=== PATIENT | female | born 1945 | race Caucasian/White ===

== ENCOUNTER → 2018-03-16 | Outpatient (CLI) | payer OTHER, MEDICARE ==
[~2018-03-16] MED LIST: ADVIN50/60 INH; ASTN; ATV/1 PO; CETI10TA84 PO; CLB/200 PO; FURO-85 PO; HYDR25TA4 PO; IPRA-64 INH; IPRA1AER2 INH; LISI20TA3 PO; LOVA40TA4 PO; METF500T PO; MULT-506 PO; PRLSR20 PO; RANI150T85 PO; TIOT1SPR INH
[2018-03-16 12:48] LABS: BASO % 0.3 %; BASO ABS # 0.03 K/uL (0-0.2); EOS % 4.6 %; EOS ABS # 0.43 K/uL (0-0.5); HEMATOCRIT 36.3 % (37-47); HEMOGLOBIN 12.2 g/dL (12.0-16.0); IG# 0.02 K/uL (0.00-0.02); LYMPH % 32.5 %; LYMPH ABS # 3.07 K/uL (1.2-3.4); MEAN CELL VOLUME 95.5 fL (80-100); MEAN CORPUSCULAR HEMOGLOBIN 32.1 pg (25-34); MEAN CORPUSCULAR HGB CONC 33.6 g/dl (32-36); MEAN PLATELET VOLUME 10.9 fL (7.4-10.4); MONO % 7.4 %; PLATELET COUNT 123 K/uL (130-400); RED CELL DISTRIBUTION WIDTH CV 13.1 % (11.5-14.5); RED CELL DISTRIBUTION WIDTH SD 45.5 fL (36.4-46.3); WHITE BLOOD COUNT 9.45 K/uL (4.8-10.8)
[2018-03-16 12:55] LABS: PTT PATIENT 26.1 SECONDS (21.0-31.0)
[2018-03-16 13:27] LABS: HEMOGLOBIN A1C 5.1 % (4.5-5.6)
[2018-03-16 13:53] LABS: BLOOD UREA NITROGEN 19 mg/dl (7-18); CALCIUM 9.5 mg/dl (8.5-10.1); CARBON DIOXIDE 25 mmol/L (21-32); CREATININE 0.97 mg/dl (0.60-1.20); GLUCOSE 83 mg/dl (70-99); POTASSIUM 4.1 mmol/L (3.5-5.1); SODIUM 139 mmol/L (136-145)
--- NOTE | 2018-03-27 08:46 | CODING QUERY MEDICAL NECESSITY ---
CQTREATMENT RENDERED WITHOUT A DIAGNOSIS To promote full compliance with coding requirements relating to patient care, physician participation is requested in all cases of electroless plater uncertainty. Please assist us with providing a diagnosis/symptom for the test(s) below: A diagnosis/symptom was not documented on your Order. A valid diagnosis/symptom is required to bill all insurances. Please remember that we are unable to code a diagnosis of rule out, probable, possible, questionable, or suspected. Tests that require a diagnosis: DOS 03/16/18 CBC TEST PARTIAL RENAL PROFILE GLYCATED HEMOGLOBIN TEST C-REACTIVE PROTEIN TEST CHEST X-RAY EKG TEST Provider Signature: Date: Thank you Beryl Miller [facility] Information Management Once completed, please kindly fax back to [phone] For questions please call [phone]
== END | disposition home or self-care (01) ==
LOC: C.CPL 11:14
PROVIDERS: ATTEND Orthopaedic Surgery Sports Medicine
DX: Z01.812 Encounter for preprocedural laboratory examination (principal); M25.862 Other specified joint disorders, left knee

== ENCOUNTER → 2018-03-30 | Outpatient (CLI) | payer OTHER, MEDICARE ==
[~2018-03-30] MED LIST changes: +ACET-24 PO; +ASPI-461 PO; +FRRG PO; +ULT50X PO
== END | disposition home or self-care (01) ==
LOC: C.LAB 11:37
PROVIDERS: ATTEND Orthopaedic Surgery Sports Medicine
DX: Z01.812 Encounter for preprocedural laboratory examination (principal)

== ENCOUNTER 2018-04-07 08:04 | Inpatient (IN) | payer OTHER, MEDICARE ==
[2018-03-10 11:14] VITALS: BMI 51.0
--- NOTE | 2018-03-16 10:59 | PAT Medication Instructions ---
Service Date Mar 16, 2018. Current Home Medication List Azelastine Hcl (Astelin Nasal [place]), 1-2 SPRAYS NA HS Celecoxib (CeleBREX), 200 MG PO QAM Cetirizine (Zyrtec), 10 MG PO QAM Fluticasone Prop/Salmeterol (Advair Diskus 500/50 60 Dose), 1 PUFF INH BID Furosemide (Lasix), 20 MG PO QAM PRN for EDEMA Hydrochlorothiazide (Hctz), 25 MG PO QAM Ipratropium-Albuterol (Combivent Respimat), 1 PUFFS INH Q4 PRN for SOB/Wheezing Ipratropium-Albuterol (Duoneb), 1 TREATMENT INH Q4H PRN for SOB/Wheezing Lisinopril (Prinivil), 20 MG PO QAM Lorazepam (Ativan), 1 MG PO HS Lovastatin (Mevacor), 40 MG PO HS Metformin Hcl (Glucophage), 500 MG PO QAM Multivitamin (Multivitamin), 1 TAB PO QAM Omeprazole (Prilosec), 20 MG PO QAM Ranitidine (Zantac), 150 MG PO QPM Tiotropium Happy (Spiriva Respimat), 1 PUFF INH QAM Medication Instructions For Your Scheduled Surgery - Check with surgeon for instructions: Celecoxib (CeleBREX), 200 MG PO QAM - Hold the following medications the morning of surgery: Metformin Hcl (Glucophage), 500 MG PO QAM Multivitamin (Multivitamin), 1 TAB PO QAM Lisinopril (Prinivil), 20 MG PO QAM Furosemide (Lasix), 20 MG PO QAM PRN for EDEMA Hydrochlorothiazide (Hctz), 25 MG PO QAM - Take the following medications the morning of surgery with a sip of water: Cetirizine (Zyrtec), 10 MG PO QAM Fluticasone Prop/Salmeterol (Advair Diskus 500/50 60 Dose), 1 PUFF INH BID Ipratropium-Albuterol (Combivent Respimat), 1 PUFFS INH Q4 PRN for SOB/Wheezing( if needed) Ipratropium-Albuterol (Duoneb), 1 TREATMENT INH Q4H PRN for SOB/Wheezing(if needed) Omeprazole (Prilosec), 20 MG PO QAM Tiotropium Happy (Spiriva Respimat), 1 PUFF INH QAM - Take the following medications as scheduled the night before surgery: Ranitidine (Zantac), 150 MG PO QPM Lorazepam (Ativan), 1 MG PO HS Lovastatin (Mevacor), 40 MG PO HS Ipratropium-Albuterol (Combivent Respimat), 1 PUFFS INH Q4 PRN for SOB/Wheezing( if needed) Ipratropium-Albuterol (Duoneb), 1 TREATMENT INH Q4H PRN for SOB/Wheezing(if needed) Furosemide (Lasix), 20 MG PO QAM PRN for EDEMA Fluticasone Prop/Salmeterol (Advair Diskus 500/50 60 Dose), 1 PUFF INH BID Azelastine Hcl (Astelin Nasal [place]), 1-2 SPRAYS NA HS If you have any questions please call us at [phone] or [phone] or [phone]
[2018-03-16 11:30] VITALS: BMI 51.0
--- NOTE | 2018-04-04 11:12 | HISTORY & PHYSICAL EXAMINATION ---
DATE OF ADMISSION: 04/07/2018 CHIEF COMPLAINT: Left knee pain. HISTORY OF PRESENT ILLNESS: Patient is a 72-year-old female well known to me from previous right knee replacement done a little over 5 years ago. She has done well from this side and very happy with her knee. Over the past several years, she has developed increased pain and discomfort in the left knee. She has been through extensive conservative treatment including both steroid shots and viscosupplementation provided by my partner Dr. Wright. She has become more debilitated by her knee pain. The shots do not help her much at all. The more she walks, the more she hurts. She would like to have her left knee fixed. PAST MEDICAL HISTORY: Significant for: 1. Hypertension. 2. Elevated cholesterol. 3. Asthma. 4. Sleep apnea. 5. Diabetes x10 years. 6. Obesity with BMI of 51. 7. Low back pain. PAST SURGICAL HISTORY: Include: 1. Cholecystectomy. 2. Hysterectomy. 3. T and A. 4. Bilateral carpal tunnel release. 5. Bilateral cataract surgery. 6. Right knee replacement done 10/23/2012. 7. Left shoulder replacement. ALLERGIES: 1. CECLOR, WHICH CAUSES HIVES. She does well with other cephalosporins. 2. BACTRIM. CURRENT MEDICINES: Include: 1. Advair Diskus twice a day. 2. Spiriva inhaler. 3. Metformin 500 mg. 4. Celebrex 200 mg. 5. Flonase twice a day. 6. Hydrochlorothiazide 25 mg. 7. Unspecified med - 40 mg at nighttime. 8. Lisinopril 20 mg a day. 9. Zyrtec. SOCIAL HISTORY: A 72-year-old female. She is . 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 Medical doctor is Dr. Hadley. FAMILY HISTORY: Significant for diabetes. No other significant history. REVIEW OF SYSTEMS: Significant for diabetes, but well controlled. Denies any chest pain. No shortness of breath. No history of DVT or PE. PHYSICAL EXAMINATION: GENERAL: Reveals a pleasant elderly female. Looks to be in reasonably good health. HEENT: Benign. NECK: Supple. No lymphadenopathy. LUNGS: Clear to auscultation. HEART: Regular rate and rhythm. ABDOMEN: Soft, nontender, nondistended. EXTREMITIES: Grossly neurovascularly intact. Examination of the left knee reveals the patient walks with a little bit of a waddling gait. She has got fairly neutral alignment to her knee. Moderate to large knee joint soft tissue envelope. Small knee effusion. Range of motion about 5 degrees show full extension by 115 degrees of flexion. There is no gross instability. No pain with hip motion. X-RAYS: X-ray of the left knee reviewed. It shows advanced left knee DJD. She has complete loss of medial joint space. She has got severe patellofemoral disease with maltracking of her patella and some fragmentation of the patella. ASSESSMENT: A 72-year-old female 5+ years out from a right knee replacement with advanced left knee degenerative joint disease involving all 3 compartments and actually most severe in the patellofemoral compartment. She has failed conservative treatment and would like to have her left knee replaced. PLAN: We will take her to the operating room and do a left total knee replacement. The risks and benefits of this procedure were explained to patient include, but not limited to DVT, PE, , infection, neurological injury, vascular injury, bleeding problem, pain, limited range of motion, stiffness, failure to relieve her symptoms, incomplete relief of symptoms, need for further surgery in future, fracture, leg length, inequality, nerve palsy, etc. The patient understands and desires to proceed. Informed consent was obtained. We did talk about holding her metformin, lisinopril, and hydrochlorothiazide the morning of surgery. She should bring her CPAP machine to the hospital. She has this allergy to Ceclor, but does okay with other, cephalosporins and we will give her Ancef preoperatively. ADALBERTOD
[2018-04-07] VITALS (7 sets, daily range): BP systolic 114–143; BP diastolic 54–74; PULSE 63–73; TEMP 36.5–37.3; O2SAT 94–98; Ht 157.5 cm; Wt 126.7 kg
[~2018-04-07] VITALS: Ht 157.5 cm; Wt 126.7 kg
[~2018-04-07 08:04] MED LIST changes: -ACET-24 PO; +ACETAMINOPHEN 500 MG TAB PO SCH; -ASPI-461 PO; +BUPIVACAINE 0.25% 30 ML VIAL ONE; +BUPIVACAINE 0.5 % 5 MG/1 ML PF 10ML VIAL ONE; +BUPIVACAINE LIPOSOME 266 MG, BUPIVACAINE/EPINEPHRINE INJ 50 ML, SODIUM CHLORIDE 0.9% PF... INFIL SCH; +CEFAZOLIN 3000MG IV PUSH 22.5 ML IV SCH; +FAMOTIDINE 20 MG TAB PO SCH; -FRRG PO; +GABAPENTIN 300 MG CAP PO SCH; +LACTATED RINGER'S 1000ML 1,000 ML IV SCH; +LACTATED RINGER'S 1000ML 500 ML IV SCH; +LACTATED RINGER'S 1000ML IV SCH; +METOCLOPRAMIDE HCL 10 MG TAB PO SCH; +SCOPOLAMINE 1.5 MG TDSY TD SCH; +TRANEXAMIC ACID INJ 1,000 MG x 1 Bag Intra-Op IV SCH; -ULT50X PO
[2018-04-07] MEDS ORDERED: ONDANSETRON INJ 2 MG/ML 2 ML VIAL IV PRN ×2 (08:15→14:15)
[2018-04-07] MEDS ORDERED: FENTANYL CITRATE INJ 50 MCG/1 ML 2 ML VIAL IV PRN (08:15)
[2018-04-07] MEDS ORDERED: EpHEDrine SULFATE INJ 50 MG/ML AMP IV PRN (08:15)
[2018-04-07] MEDS ORDERED: ATROPINE SULFATE 0.1 MG/ML 5ML SYR IV PRN (08:15)
--- NOTE | 2018-04-07 09:23 | History & Physical Bridge Note ---
H&P Re-Evaluation Bridge Note: I have examined the patient, reviewed the History & Physical and in the interval since the performance of the History & Physical I have noted the following changes of clinical significance: No changes noted
[2018-04-07] MEDS ORDERED: LIDOCAINE HCL 2% 2 ML VIAL (20MG/ML) ONE (10:35)
[2018-04-07] MEDS ORDERED: PROPOFOL IV EMULSION 10 MG/ML 20 ML VIAL ONE ×2 (10:35→11:14)
[2018-04-07] MEDS ORDERED: FENTANYL CITRATE INJ 50 MCG/1 ML 2 ML VIAL ONE (10:36)
[2018-04-07] MEDS ORDERED: MIDAZOLAM HCL 1 MG/ML 2ML VIAL ONE ×3 (10:36→12:20)
[2018-04-07] MEDS ORDERED: SODIUM CHLORIDE 0.9% PF 50 ML VIAL ONE (11:48)
[2018-04-07] MEDS ORDERED: BACITRACIN 50000 UNIT VIAL ONE (11:48)
[2018-04-07] MEDS ORDERED: BUPIVACAINE LIPOSOME 1/3% 266 MG/20 ML VIAL ONE (11:48)
[2018-04-07] MEDS ORDERED: EpINEphrine INJ 1MG/ML AMP 1 MG/ML AMP ONE (11:49)
[2018-04-07] MEDS ORDERED: BUPIVACAINE 0.25% 30 ML VIAL ONE (11:49)
[2018-04-07] MEDS ORDERED: EpHEDrine SULFATE INJ 50 MG/ML AMP ONE (12:39)
[2018-04-07] MEDS ORDERED: PHENYLEPHRINE 100MCG/ML 5ML SYR ONE (12:39)
--- NOTE | 2018-04-07 14:09 | [facility] Post Operative Brief Note ---
Immediate Operative Summary Operative Date Apr 07, 2018. Pre-Operative Diagnosis DEGENERATIVE JOINT DISEASE LEFT KNEE Post-Operative Diagnosis DEGENERATIVE JOINT DISEASE LEFT KNEE Procedure(s) Performed Left total knee arthroplasty Surgeon DR. Savannah CRUMP Clinical Informatics Physician Surgeon(s) Marium MILLER Estimated Blood Loss 75cc Findings Consistent with Post-Op Diagnosis Fluids (cc crystalloids) 1600 cc Specimens LEFT KNEE BONE AND TISSUE Drains None Anesthesia Type MAC Spinal Regional Complication(s) none Disposition Accompanied Pt To Recover: no Disposition: Recovery Room / PACU Overlapping Procedure I was present for: the critical portions of procedure. I was immediately available: during the entire case
[2018-04-07] MEDS ORDERED: GLUCOSE 10 TABS/TUBE PO PRN (14:15)
[2018-04-07] MEDS ORDERED: ZOLPIDEM TARTRATE 5 MG TAB PO PRN (14:15)
[2018-04-07] MEDS ORDERED: CARBOHYDRATES FOR HYPOGLYCEMIA PO PRN (14:15)
[2018-04-07] MEDS ORDERED: DEXTROSE 50% 50 ML SYR IV PRN (14:15)
[2018-04-07] MEDS ORDERED: GLUCOSE 40% GEL 15 GM TUBE PO PRN (14:15)
[2018-04-07] MEDS ORDERED: MAGNESIUM HYDROXIDE SUSP 30 ML UDC PO PRN (14:15)
[2018-04-07] MEDS ORDERED: FUROSEMIDE 20 MG TAB PO PRN (14:15)
[2018-04-07] MEDS ORDERED: ALBUT/IPRATROP 3MG/0.5MG NEB 3 ML VIAL INH PRN (14:15)
[2018-04-07] MEDS ORDERED: METOCLOPRAMIDE HCL INJ 5 MG/ML 2 ML VIAL IV PRN (14:15)
[2018-04-07] MEDS ORDERED: IPRATROPIUM BROMIDE/ALBUTEROL respimat INH INH PRN (14:15)
[2018-04-07] MEDS ORDERED: HYDROmorphone INJ 0.5 MG/0.5 ML SYR IV PRN (14:15)
[2018-04-07] MEDS ORDERED: ALUMINUM/MAGNESIUM/SIMETH (MAALOX MAX) 30 ML UDC PO PRN (14:15)
[2018-04-07] MEDS ORDERED: GLUCAGON FOR INJ 1 MG VIAL SQ PRN (14:15)
[2018-04-07] MEDS ORDERED: BISACODYL 10 MG SUPP PR PRN (14:15)
--- NOTE | 2018-04-07 14:33 | DIAGNOSTIC IMAGING REPORT ---
L KNEE 1 OR 2 VIEWS ROUTINE CLINICAL HISTORY: AP/LATERAL IN PACU LEFT KNEE joint replacement COMPARISON: None. DISCUSSION: Anatomic alignment post total left knee arthroplasty. Good contact between prosthetic and underlying bone. Expected soft tissue postoperative change. IMPRESSION: Anatomic alignment post total left knee arthroplasty. The above report was generated using voice recognition software. It may contain grammatical, syntax or spelling errors. Electronically signed by: Ricky Card M.D. 04/07/2018 2:32 PM Dictated Date/Time: 04/07/2018 2:31 PM
--- NOTE | 2018-04-07 14:39 | Anesthesiology Progress Note ---
Anesthesia Post Op Note Date & Time Apr 07, 2018 at 14:39 Vital Signs Pain Intensity: 0 Vital Signs Past 12 Hours Date Time Temp Pulse Resp B/P (MAP) Pulse Ox O2 Delivery O2 Flow Rate FiO2 04/07/18 14:25 65 16 114/59 98 Nasal Cannula 2 04/07/18 14:16 36.2 70 18 114/55 98 Nasal Cannula 2 04/07/18 08:39 36.9 73 20 135/74 96 Room Air Notes Mental Status: alert / awake / arousable, participated in evaluation Nausea / Vomiting: adequately controlled Pain: adequately controlled Airway Patency, RR, SpO2: stable & adequate BP & HR: stable & adequate Hydration State: stable & adequate Neuraxial Anesthesia: was administered, sensory block is resolving Anesthetic Complications: no major complications apparent
[2018-04-07] MEDS: [UNRECOGNIZED DRUG - OTHER] SCH (16:00)
[2018-04-07] MEDS: KETOROLAC TROMETHAMINE 15 MG/ML VIAL IV. SCH ×2 (16:26→20:51)
[2018-04-07] MEDS: CHECK SCOPOLAMINE PATCH PLACEMENT SCH (16:26)
[2018-04-07] MEDS: SODIUM CHLORIDE 0.9% 1000ML 1,000 ML IV SCH (16:26)
[2018-04-07] MEDS: INSULIN HUMAN REGULAR SC SCH ×2 (17:15→20:50)
[2018-04-07] MEDS: FERROUS GLUCONATE 324 MG TAB PO SCH (18:01)
[2018-04-07] MEDS ORDERED: TRANEXAMIC ACID INJ 1,000 MG in SODIUM CHLORIDE 0.9% 100ML 100 ML IV ONE (20:00)
--- NOTE | 2018-04-07 20:13 | OPERATIVE REPORT ---
DATE OF OPERATION: 04/07/2018 SURGEON: Campbell Nice MD JUDICIAL CLERK: FIDELIA Aguilar PREOPERATIVE DIAGNOSIS: Left knee degenerative joint disease. POSTOPERATIVE DIAGNOSIS: Same. PROCEDURE PERFORMED: Left cemented posterior stabilized total knee arthroplasty. COMPLICATIONS: None. ESTIMATED BLOOD LOSS: 75 mL. FLUID REPLACEMENT: 1600 mL crystalloid fluid replacement. TOURNIQUET TIME: 64 minutes at 300 mmHg. ANESTHESIA: Spinal with adductor canal block. DRAINS: None. SPECIMENS: Left knee sent for pathology. OPERATIVE INDICATIONS: Patient is a 72-year-old female who has a long history of bilateral knee pain and discomfort and degenerative arthritis. She underwent a right knee replacement a little over 5 years ago and has done well from this. Over the years, she has developed persistent progressive pain in her left knee unresponsive to conservative treatment. X-rays revealed advanced medial and patellofemoral compartment arthritis with significant patellofemoral maltracking. She elected to proceed with surgical treatment. FINDINGS: Operative findings revealed advanced left knee DJD. She had extensive grade 4 changes in the medial and patellofemoral compartments, most severe in the patellofemoral compartment. She had severe maltracking of the patella. She had extensive osteophytes in the medial patellofemoral compartment. Her bone density was fairly poor with diffuse osteopenia. OPERATIVE IMPLANTS: Consisted of 1. Biomet Vanguard size 65 left posterior stabilized femoral component. 2. Biomet size 67 tibial tray. 3. A 10 mm posterior stabilized polyethylene insert. 4. A 31 x 8 All-Poly patella. OPERATIVE PROCEDURE: Patient was taken to the operating room, identified and placed on the operating table in supine position. All contact areas were appropriately padded. IV antibiotics were provided by anesthesia team. A spinal anesthetic and adductor canal block had been provided in the holding area. A Marks catheter was placed in sterile fashion. A left thigh tourniquet was then placed in the left lower extremity. It was then prepped and draped in the usual sterile fashion. The left leg was elevated, exsanguinated with Esmarch, and tourniquet was insufflated to 300 mmHg. An anterior approach to the left knee was then performed through a longitudinal incision centered over the patella. Sharp dissection was carried down through the subcutaneous tissues down to the level of the extensor mechanism. A medial parapatellar arthrotomy incision was made. Some subperiosteal dissection was carried out medially. The fat pad was resected from beneath the patellar tendon. I then had to remove some of the patella osteophytes in order to subluxate the patella and katherine it intermittently. The patella was subluxated laterally. The knee was flexed. The osteophytes were taken off distal femur. The ACL and PCL released from the distal femur, and the tibia was subluxated anteriorly. The external tibial alignment jig was then placed in the anterior face of the tibia and adjusted 14 mm medially. Proximal tibial cut was made to remove about 2 to 3 mm of bone from the most deficient aspect of the medial tibial plateau. Some osteophytes were taken off medially and posteromedially. The tibia was sized to a size 67. We did maximize the size due to her osteoporosis, in that I desired for maximum tibial coverage. The attention was then drawn to femur. The distal femur was entered with a sharp drill bit. The intramedullary canal was suctioned. A left 5 degree valgus cutting guide was placed. Distal femoral cutting block was pinned in place. Distal femoral cut was made to take an additional 3 mm of bone off the distal femur. Femur was then sized to a size 65. We did downsize this almost an entire size. The AP cutting block was pinned parallel to the epicondylar axis, which was 9 degrees of external rotation. This was also made perpendicular to the trochlea, which required quite a bit of external rotation due to her maltracking. The anterior cut, anterior chamfer, posterior cut, posterior chamfer cuts were made. Box cutting guide was placed and adjusted slightly lateral, and the box cut was made. The knee was flexed. The remnants of the medial and lateral menisci were excised. The osteophytes were taken off the posterior aspect of the femur. Trial femoral component was placed. The tibial tray was pinned in maximum external rotation, and drill and stem punch were used to create defect in the proximal tibia for the tibial tray. The knee was then trialed and then the 10 mm insert fit most appropriately. Attention was then drawn to the patella. The patella was cleaned of all soft tissues. Patella was very warm. The thickest portion measured 18 mm. I cut this down to about 12. I did have to remove some of the lateral facet and the lateral osteophyte. We sized this to a size 31. Lug holes were drilled for 31 patella. Some additional bony material laterally was excised. I then curetted out some of the patella, which had not been cut down to the bone surface and created some small holes to allow for cement interdigitation. The patellar button was placed. Knee was taken through range of motion, and patella tracked more remarkably well with no thumbs test. Attention was drawn toward placement of permanent components. All trial components removed. The bone plug was placed in the distal femur to limit blood loss. A double batch Palacos G cement was mixed. A left size 65 posterior stabilized femoral component, size 67 tibial tray, a 10 mm posterior stabilized polyethylene insert, and a 31 x 8 All-Poly patella were then cemented in place. Knee was brought out into full extension until cement hardened. A final cement check was then performed. The pericapsular tissues were injected with a total of 100 mL of a combination of 20 mL Exparel, 30 mL normal saline, 50 mL of 0.25% Marcaine with epinephrine. The tourniquet was then let down for a final tourniquet time of 64 minutes. Hemostasis was assured with use of electrocautery. There was a little extra cancellous bone bleeding from around the femoral cut due to the indentation in her distal femur. We spent quite a bit of time meticulously obtaining excellent hemostasis. The wound was once again irrigated. Patient did receive 1 g of tranexamic acid. The extensor mechanism was then closed with a combination of 1 PDS suture and #1 Vicryl suture in a [id number] fashion. The extensor mechanism was checked and found to be intact. The subcutaneous tissue was then closed with #2 Dexon suture in a buried interrupted fashion. Skin was closed with skin liseth. Leg was then cleaned and dried and a sterile dressing of Xeroform, 4x4, sterile cast padding, and an Fidel bandage applied. Patient was then transferred to the recovery room in stable condition. The patient tolerated the procedure well with no complications. All needle and sponge counts were correct at the end of the operation. I attest to the content of the Intraoperative Record and any orders documented therein. Any exceptions are noted below. NILAM
[2018-04-07] MEDS: CEFAZOLIN IV 2,000 MG in SYRINGE 0 ML IV SCH (20:31)
[2018-04-07] MEDS ORDERED: ULT50X PO (20:35)
[2018-04-07] MEDS ORDERED: FRRG PO (20:35)
[2018-04-07] MEDS ORDERED: ASPI-461 PO (20:35)
[2018-04-07] MEDS ORDERED: ACET-24 PO (20:35)
--- NOTE | 2018-04-07 20:38 | Discharge Instructions ---
Discharge Instructions Date of Service Apr 07, 2018. Admission Reason for Admission: Left Knee Djd Discharge Discharge Diagnosis / Problem: Left Knee REplacemenbt Discharge Goals Goal(s): Decrease discomfort, Improve function, Increase independence, Improve disease control, Therapeutic intervention Activity Recommendations Activity Limitations: per Instructions/Follow-up section Weightbearing Status: Left weightbearing . Instructions / Follow-Up Instructions / Follow-Up ACTIVITY RECOMMENDATIONS: Physical Therapy: * You will go to physical therapy three times each week for four to six weeks after your surgery in order to regain your knee range of motion and to retrain your knee to work properly. * It is just as important to make sure you are getting your knee perfectly straight as it is to regain your knee bend. * Taking a pain pill an hour before therapy can help you have a more productive and comfortable therapy session. Home Exercise: * You were shown a series of exercises (heel props, heel slides, etc.) in the hospital. Do these exercises three to four times each day including the exercises you were shown in physical therapy. Walking: * Get up and walk several times each day. For the first four weeks, try not to stand or walk for more than one hour at a time. If you do stand or walk for more than one hour, you will not hurt anything, but your knee and leg will likely swell. * As you feel comfortable, you may change from the walker or crutches to a cane and then to independent walking. MEDICATIONS: New Medicine: * You will likely be taking one or more of these medications: 1. Tramadol - A quick and shorter-acting pain medication. Take one to two tablets every four to six hours to lessen your pain. 2. Iron Sulfate - Take two times each day for the month after surgery to help you replace the blood lost during surgery. 3. Aspirin - Thins your blood to lessen the chance of forming a blood clot. * The most common side effects of pain medicine and iron are nausea and constipation. If nausea or constipation is too much of a problem or if you have any questions about your new medicines or doses, call [facility] at . We will try to help you manage these issues. VERY IMPORTANT TO READ AND REVIEW" Pain: * The immediate post-operative period after knee replacement surgery is often quite painful. * You are given a prescription for pain medicine. You should take it, as directed, when you need it, especially before physical therapy and before going to bed. Pain that interferes with sleep is very common and can last several months. * You will likely need pain medicine for the first four to six weeks. It will not stop all of the pain. The pain will lessen and as you feel better, you may change to milder pain medicine such as Tylenol. * The most common side effects of pain medicine are nausea and constipation, so don't take more than you need. SPECIAL CARE INSTRUCTIONS: TEDs/Elastic Stockings: * The white elastic stockings help limit swelling and prevent blood clots from forming in your legs. The more you wear them, the more they work. * Wear them for six weeks after knee replacement surgery and four weeks after partial knee replacement. Prevention of Infection: * Take antibiotics one hour before any dental cleaning, dental work, urological procedure, gastrointestinal procedure or any invasive surgery in order to prevent your new joint from getting infected. * You may get the antibiotics from the doctor performing the procedure or you may call our office at before and we will call in a prescription to the pharmacy of your choice. Things to Watch For: * Drainage from the incision site that occurs more than one week after your surgery. * Severely increased knee/leg pain or swelling. * Increased redness at the incision site. * Fever above 102 degrees Fahrenheit. * Unusual chest pain or shortness of breath. * Unusual pain or burning with urination. Call [facility] at with any of the above problems or if you have any questions about your medicines or recovery. FOLLOW UP VISIT: Make an appointment to see your doctor for approximately two weeks after surgery for a progress check and staple removal by calling the office at . Current Hospital Diet Patient's current hospital diet: Diabetes Type 2 Diet Discharge Diet Recommended Diet: Regular Diet Procedures Procedures Performed: Left total knee arthroplasty Pending Studies Studies pending at discharge: no Laboratory Results Hemoglobin A1c Test 03/16/18 11:48 Range/Units Estimated Average Glucose 100 mg/dl Hemoglobin A1c 5.1 4.5-5.6 % Medical Emergencies . Who to Call and When: Medical Emergencies: If at any time you feel your situation is an emergency, please call [phone] immediately. . Non-Emergent Contact Non-Emergency issues call your: Surgeon . "Provider Documentation" section prepared by Campbell Nice. .
[2018-04-07] MEDS: TRAMADOL HCL 50 MG TAB PO PRN (20:49)
[2018-04-07] MEDS: LORAZEPAM 1 MG TAB PO SCH (20:50)
[2018-04-07] MEDS: FLUTICASONE/SALMETEROL (ADVAIR) 500/50 INH 14 PUFF INH SCH (20:50)
[2018-04-07] MEDS: ACETAMINOPHEN 500 MG TAB PO SCH (20:50)
[2018-04-07] MEDS: DOCUSATE SODIUM 100 MG CAP PO SCH (20:51)
[2018-04-07] MEDS: ASPIRIN 81 MG ECTAB PO SCH (20:52)
[2018-04-07] MEDS: SENNA 8.6 MG TAB PO SCH (20:52)
[2018-04-07] MEDS: LOVASTATIN 20 MG TAB PO SCH (20:52)
[2018-04-07] MEDS: RANITIDINE HCL 150 MG TAB PO SCH (20:52)
[2018-04-08] VITALS (8 sets, daily range): BP systolic 99–146; BP diastolic 56–72; PULSE 64–75; TEMP 36.9–37.8; O2SAT 93–99
[2018-04-08] MEDS: CHECK SCOPOLAMINE PATCH PLACEMENT SCH ×4 (00:17→23:57)
[2018-04-08] MEDS: SODIUM CHLORIDE 0.9% 1000ML 1,000 ML IV SCH ×2 (00:18→08:34)
[2018-04-08] MEDS: KETOROLAC TROMETHAMINE 15 MG/ML VIAL IV. SCH ×4 (04:50→20:47)
[2018-04-08] MEDS: CEFAZOLIN IV 2,000 MG in SYRINGE 0 ML IV SCH (04:50)
[2018-04-08] MEDS: ACETAMINOPHEN 500 MG TAB PO SCH ×3 (06:14→20:49)
[2018-04-08 06:49] LABS: HEMATOCRIT 31.1 % (37-47); HEMOGLOBIN 10.3 g/dL (12.0-16.0); MEAN CELL VOLUME 95.4 fL (80-100); MEAN CORPUSCULAR HEMOGLOBIN 31.6 pg (25-34); MEAN CORPUSCULAR HGB CONC 33.1 g/dl (32-36); MEAN PLATELET VOLUME 11.2 fL (7.4-10.4); PLATELET COUNT 100 K/uL (130-400); RED CELL DISTRIBUTION WIDTH CV 13.1 % (11.5-14.5); RED CELL DISTRIBUTION WIDTH SD 45.4 fL (36.4-46.3)
[2018-04-08 07:23] LABS: CALCIUM 8.2 mg/dl (8.5-10.1); CREATININE 1.07 mg/dl (0.60-1.20); POTASSIUM 4.3 mmol/L (3.5-5.1)
[2018-04-08] MEDS: INSULIN HUMAN REGULAR SC SCH ×4 (08:00→20:44)
[2018-04-08] MEDS: [UNRECOGNIZED DRUG - OTHER] SCH ×2 (08:00)
--- NOTE | 2018-04-08 08:01 | Anesthesiology Progress Note ---
Anesthesia Post Op Note Date & Time Apr 08, 2018 at 08:01 Vital Signs Pain Intensity: 0.0 Vital Signs Past 12 Hours Date Time Temp Pulse Resp B/P (MAP) Pulse Ox O2 Delivery O2 Flow Rate FiO2 04/08/18 07:33 37.5 65 16 99/63 (75) 95 Room Air 04/08/18 06:44 37.7 04/08/18 03:58 37.8 75 18 126/56 (79) 93 CPAP 04/08/18 00:30 96 CPAP 2.0 04/07/18 23:12 36.8 70 18 114/60 (78) 98 CPAP Notes Mental Status: alert / awake / arousable, participated in evaluation Pt Amnestic to Procedure: Yes Nausea / Vomiting: adequately controlled Pain: adequately controlled Airway Patency, RR, SpO2: stable & adequate BP & HR: stable & adequate Hydration State: stable & adequate Neuraxial Anesthesia: was administered, sensory block resolved Anesthetic Complications: no major complications apparent
[2018-04-08] MEDS: RANITIDINE HCL 150 MG TAB PO SCH (08:31)
[2018-04-08] MEDS: FLUTICASONE/SALMETEROL (ADVAIR) 500/50 INH 14 PUFF INH SCH ×2 (08:31→20:47)
[2018-04-08] MEDS: PANTOprazole SOD 40 MG TAB PO SCH (08:31)
[2018-04-08] MEDS: ASPIRIN 81 MG ECTAB PO SCH ×2 (08:32→20:48)
[2018-04-08] MEDS: CETIRIZINE HCL 10 MG TAB PO SCH (08:32)
[2018-04-08] MEDS: LISINOPRIL 20 MG TAB PO SCH (08:32)
[2018-04-08] MEDS: MULTIVITAMIN TAB PO SCH (08:33)
[2018-04-08] MEDS: HYDROCHLOROTHIAZIDE 25 MG TAB PO SCH (08:33)
[2018-04-08] MEDS: DOCUSATE SODIUM 100 MG CAP PO SCH ×2 (08:33→20:48)
[2018-04-08] MEDS: FERROUS GLUCONATE 324 MG TAB PO SCH ×3 (08:33→18:33)
[2018-04-08] MEDS: TRAMADOL HCL 50 MG TAB PO PRN ×3 (08:35→20:50)
[2018-04-08] MEDS ORDERED: PANTOprazole SOD 40 MG TAB PO SCH (09:00)
[2018-04-08] MEDS ORDERED: MULTIVITAMIN TAB PO SCH (09:00)
--- NOTE | 2018-04-08 09:34 | PROGRESS NOTE ---
DATE: 04/08/2018 SUBJECTIVE: A 72-year-old white female postop day 1 from a left knee replacement. She is doing well. Pain is controlled. No chest pain or shortness of breath. Not feeling dizzy or lightheaded. OBJECTIVE: VITAL SIGNS: Temperature 37.5. Vital signs stable. GENERAL: Physical examination reveals a pleasant, middle-aged female. She is sitting up in her bedside chair, reading the newspaper and looking comfortable. LUNGS: Clear to auscultation. HEART: Regular rate and rhythm. ABDOMEN: Soft, nontender, nondistended. EXTREMITIES: Grossly neurovascularly intact except as follows: Examination of the left leg reveals the dressing to be clean, dry and intact. Leg is well aligned. She can dorsiflex and plantarflex her foot appropriately. She is neurologically intact. She can do a straight leg raise. LABORATORY DATA: Hemoglobin 10.3. Hematocrit 31.1. Electrolytes are stable. ASSESSMENT: A 72-year-old white female postop day 1 from left knee replacement, doing quite well. Pain is controlled. She is neurologically intact. PLAN: 1. DVT prophylaxis including thigh-high TEDs, SCDs, and aspirin twice a day. 2. PT/OT. Weightbear as tolerated. Left total knee protocol. 3. Pain control, doing well with current pain regimen. 4. Disposition: She is planning to be discharged to home and she is going to do therapy at [facility].
[2018-04-08] MEDS: SPIRIVA RESPIMAT INH SCH (15:37)
[2018-04-08] MEDS: LOVASTATIN 20 MG TAB PO SCH (20:47)
[2018-04-08] MEDS: SENNA 8.6 MG TAB PO SCH (20:47)
[2018-04-08] MEDS: LORAZEPAM 1 MG TAB PO SCH (20:48)
[2018-04-09 00:05] VITALS: TEMP 36.8
[2018-04-09] MEDS: KETOROLAC TROMETHAMINE 15 MG/ML VIAL IV. SCH ×2 (04:19→09:37)
[2018-04-09] MEDS: TRAMADOL HCL 50 MG TAB PO PRN ×2 (04:25→09:37)
[2018-04-09] MEDS: ACETAMINOPHEN 500 MG TAB PO SCH (06:03)
[2018-04-09 06:37] VITALS: BP 160/66; PULSE 74; TEMP 37.1; O2SAT 95
[2018-04-09] MEDS: INSULIN HUMAN REGULAR SC SCH (06:52)
[2018-04-09] MEDS: CHECK SCOPOLAMINE PATCH PLACEMENT SCH (07:03)
[2018-04-09] MEDS: FLUTICASONE/SALMETEROL (ADVAIR) 500/50 INH 14 PUFF INH SCH (07:05)
[2018-04-09] MEDS: SPIRIVA RESPIMAT INH SCH (07:06)
[2018-04-09] MEDS: PANTOprazole SOD 40 MG TAB PO SCH (07:06)
[2018-04-09] MEDS: MULTIVITAMIN TAB PO SCH (07:06)
[2018-04-09] MEDS: FERROUS GLUCONATE 324 MG TAB PO SCH (07:06)
[2018-04-09] MEDS: LISINOPRIL 20 MG TAB PO SCH (07:06)
[2018-04-09] MEDS: HYDROCHLOROTHIAZIDE 25 MG TAB PO SCH (07:07)
[2018-04-09] MEDS: CETIRIZINE HCL 10 MG TAB PO SCH (07:07)
--- NOTE | 2018-04-09 07:39 | PROGRESS NOTE ---
DATE: 04/09/2018 SUBJECTIVE: A 72-year-old female postop day 2 from a left knee replacement. She is doing well. Pain is controlled. Denies any chest pain or shortness of breath. Not feeling dizzy or lightheaded. OBJECTIVE: VITAL SIGNS: Temperature 37.1. Vital signs stable. EXTREMITIES: The left leg reveals the dressing to be in place. Just a slight bit of bloody drainage. Calf is soft and supple. She is neurologically intact. ASSESSMENT: A 72-year-old female postop day 2 from a left knee replacement, doing pretty well. Pain is controlled. PLAN: 1. DVT prophylaxis including thigh-high TEDs, SCDs, and aspirin twice a day. 2. PT/OT. Weight bear as tolerated. Left total knee protocol. 3. Pain control, doing well with current pain regimen. 4. Disposition: Plan to discharge to home and she is going to do outpatient therapy at [facility].
[2018-04-09 08:18] VITALS: BP 160/66; PULSE 74; TEMP 37.1; O2SAT 95
[2018-04-09] MEDS: ASPIRIN 81 MG ECTAB PO SCH (08:36)
[2018-04-09] MEDS: DOCUSATE SODIUM 100 MG CAP PO SCH (08:36)
--- NOTE | 2018-04-14 19:12 | DISCHARGE SUMMARY ---
ADMITTING PHYSICIAN AND SURGEON: Dr. Nice. ADMITTING DIAGNOSIS: Left knee degenerative joint disease. SURGERY PERFORMED: Left total knee arthroplasty. SECONDARY DIAGNOSES: Hypertension, elevated cholesterol, asthma, sleep apnea, diabetes, obesity, low back pain. CONSULTS: None obtained. HISTORY AND PHYSICAL EXAM: Well documented in patient's chart. HOSPITAL COURSE: The patient was admitted on 04/07/2018 and underwent total knee arthroplasty. The patient tolerated the procedure well. There were no complications. She was transferred to the PACU postoperatively and later to the orthopedic floor for further care. She was given Ancef for antibiotic prophylaxis, RANDI stockings, SCDs and aspirin for DVT prophylaxis. Hemoglobin, hematocrit and vital signs were monitored during hospital stay and remained stable. She developed some postoperative anemia, did not require any blood transfusions. There were no complications. By postoperative day 2, she was tolerating a diabetic diet. Pain was controlled with oral pain medicine. She was participating in physical therapy. On postop day 2, she was discharged home. She was given printed discharge instructions including new prescriptions for extra strength Tylenol, aspirin, iron supplement and tramadol. Continue her home medications, continue physical therapy, weightbearing as tolerated, RANDI stockings. Follow up in 10-12 days or sooner if any problems or concerns.
== END 2018-04-09 10:35 | disposition home or self-care (01) | DRG 470 ==
LOC: C.ACU 08:04 → C.3E 11:26 → ENRESERV 15:12
PROVIDERS: ADMIT Orthopaedic Surgery Sports Medicine; ATTEND Orthopaedic Surgery Sports Medicine
PROC: 0SRD0J9 Replacement of Left Knee Joint with Synthetic Substitute, Cemented, Open Approach (ICD-10-PCS; principal; 2018-04-07 11:00)
DX: M17.12 Unilateral primary osteoarthritis, left knee (principal); E66.9 Obesity, unspecified; Z68.43 Body mass index [BMI] 50.0-59.9, adult; I10 Essential (primary) hypertension; E78.00 Pure hypercholesterolemia, unspecified; E11.9 Type 2 diabetes mellitus without complications; J45.909 Unspecified asthma, uncomplicated; Z79.84 Long term (current) use of oral hypoglycemic drugs; Z79.899 Other long term (current) drug therapy

== ENCOUNTER 2024-11-18 19:09 | Inpatient (IN) ==
[2024-11-18 20:20] LABS: BUN Creatinine Ratio 22.3 (10-20); Calcium 9.3 mg/dl (8.6-10.3); Creatinine Clr Calc Pharmacy 33.3 ml/min; Potassium 3.9 mmol/L (3.5-5.1)
[2024-11-18 20:38] LABS: Basophils # (auto) 0.03 K/uL (0.00-0.20); Basophils % (auto) 0.4 %; Eosinophils # (auto) 0.25 K/uL (0.00-0.50); Eosinophils % (auto) 3.7 %; Hematocrit (blood only) 24.6 % (37.0-47.0); Hemoglobin 7.2 g/dl (12.0-16.0); Immature Granulocytes # (auto) 0.02 K/uL (0.01-0.20); Immature Granulocytes % (auto) 0.3 %; Lymphocytes # (auto) 2.06 K/uL (1.20-3.40); Lymphocytes % (auto) 30.5 %; Mean Corpuscular Hemoglobin 24.2 pg (25.0-34.0); Mean Corpuscular Hgb Conc 29.3 g/dL (32.0-36.0); Mean Corpuscular Volume 82.8 fL (80.0-100.0); Mean Platelet Volume 10.9 fL (9.4-12.4); Monocytes # (auto) 0.98 K/uL (0.11-0.59); Monocytes % (auto) 14.5 %; Neutrophils # (auto) 3.42 K/uL (1.40-6.50); Neutrophils % (auto) 50.6 %; Platelet Count 94 K/uL (130-400); Platelet Estimate Decreased (Normal); Polychromasia 1+; RDW Coefficient of Variation 16.5 % (11.5-14.5); RDW Standard Deviation 49.6 fL (36.4-46.3); Red Blood Count 2.97 M/uL (4.20-5.40); White Blood Count 6.76 K/ul (4.8-10.8)
[2024-11-18 20:40] LABS: INR 1.1 (0.9-1.1); Partial Thromboplastin Time 27 Seconds (21-31); Prothrombin Time 11.6 Seconds (9.0-12.0)
[2024-11-18 22:08] LABS: Albumin Level 3.6 gm/dl (3.4-5.0); Bilirubin Direct 0.1 mg/dl (0-0.2); Bilirubin,Total 0.6 mg/dl (0.2-1.0); Magnesium 2.1 mg/dl (1.7-2.4); Total Protein 6.3 gm/dl (6.0-8.3)
[2024-11-18] MEDS ORDERED: SODIUM CHLORIDE 0.9% 100 ML IV PRN (22:42)
--- NOTE | 2024-11-18 23:05 | History & Physical Report ---
Date of Service November 18, 2024 Assessment & Plan (1) Symptomatic anemia: Plan: Symptomatic anemia Hemoglobin drop from baseline noted this month. hx A-fib/atrial flutter status post cardioversion on Eliquis, GERD, portal gastropathy as per records, colonic polyps ; no overt bleed noted. First FOBT done at the ER was negative. ? Dilutional anemia from decompensated CHF, improved congestion following outpatient cardiology visit last month. 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 Patient agreeable to holding Eliquis until repeat FOBT resulted done to rule out GI bleed Continue diuretic regimen ISS BG goal 1 10-1 40, carb count coverage DVT prophylaxis. SCDs while Eliquis on hold given concern for GI bleed Full code Text document was generated using [employer] voice recognition software. It may contain grammatical or spelling errors. Kindly contact undersigned for clarification of any documentation item in question. History of Present Illness Chief Complaint: Abnormal blood work Primary Care Provider: Ryan Hadley MD History obtained from patient and records. Medical history significant for chronic diastolic heart failure (EF 50 to 55%, TTE 2023), A-fib/atrial flutter status post cardioversion on Eliquis, mild MR, hypertension, hyperlipidemia, SHANA on CPAP, bronchial asthma, , NAFLD cirrhosis, GERD, portal gastropathy as per records, colonic polyps, DM2 diet-controlled subclinical hyperthyroidism as per records, CRI (baseline creatinine 1.4), chronic anemia (baseline hemoglobin of 11 from June 2024), chronic thrombocytopenia, past tobacco abuse Last 2017 under Orthopedics service for elective left total knee surgery. Unremarkable postop course. Patient noted worsening SOB on exertion/fatigue symptoms the last 3 weeks. Denies chest pain or cough symptoms. Fluid retention actually getting better after adjustment of diuretic meds by cardiology provider last month. Outpatient hemoglobin 3 weeks ago noted to be down to 7.3 from baseline of 11 from last year. Patient denies abdominal pain, black/bloody stools, hematuria symptoms. Transient epistaxis over the last few weeks without headache symptoms. Transient bleeding post dental procedure last week. Outpatient hemoglobin drawn 2 days ago noted to be 6.8. Patient directed to ER for evaluation. FOBT done at the ER was negative. 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 Allergies Allergy/AdvReac Type Severity Reaction Status Date / Time cefaclor Allergy Intermediate HIVES-RASH Verified 11/18/24 22:14 sulfamethoxazole [Bactrim] Allergy Intermediate HIVES Verified 11/18/24 22:14 trimethoprim [Bactrim] Allergy Intermediate HIVES Verified 11/18/24 22:14 vanilla extract flavor Allergy Intermediate THROAT Verified 11/18/24 22:50 GETS TIGHT,COUGH *scent only* metformin AdvReac Unknown Unverified 11/18/24 22:14 Home Medications Medication Instructions Recorded Confirmed Type albuterol sulfate 2.5 mg/3 mL 2.5 mg inhalation Q6H PRN 06/28/21 11/18/24 History (0.083 %) solution for nebulization COUGH/WHEEZE/SHORT OF BREATH benzonatate 100 mg capsule 100 - 200 mg PO TID PRN Cough 06/28/21 11/18/24 History (Catalino Quiñones) cetirizine 10 mg tablet (Zyrtec) 10 mg PO QAM 06/28/21 11/18/24 History famotidine 20 mg tablet 20 mg PO HS 06/28/21 11/18/24 History fluticasone 500 mcg-salmeterol 50 1 inh inhalation BID 06/28/21 11/18/24 History mcg/dose blistr powdr for inhalation (Kameron Leong) fluticasone propionate 50 1 spray intranasal BID 06/28/21 11/18/24 History mcg/actuation nasal spray,suspension isosorbide mononitrate 30 mg 30 mg PO QAM 06/28/21 11/18/24 History tablet,extended release 24 hr lovastatin 40 mg tablet 40 mg PO HS 06/28/21 11/18/24 History metoprolol succinate 25 mg 25 mg PO BID 06/28/21 11/18/24 History tablet,extended release 24 hr multivitamin 1 tab PO QAM 06/28/21 11/18/24 History nitroglycerin 0.4 mg sublingual 0.4 mg sublingual DIRECTED PRN 06/28/21 11/18/24 History tablet (Nitrostat) Chest Pain omeprazole 20 mg capsule,delayed 20 mg PO QAM 06/28/21 11/18/24 History release tiotropium bromide 1.25 2 puff inhalation QAM 06/28/21 11/18/24 History mcg/actuation mist for inhalation (Spiriva Respimat) empagliflozin 10 mg tablet 10 mg PO QAM diasytolic dysfunction 03/20/23 11/18/24 History (Jardiance) acetaminophen 1,000 mg PO BID 11/18/24 11/18/24 History apixaban 5 mg tablet (Eliquis) 5 mg PO BID 11/18/24 11/18/24 History potassium chloride 10 mEq 10 meq PO QAM 11/18/24 11/18/24 History tablet,extended release spironolactone 25 mg tablet 25 mg PO QAM 11/18/24 11/18/24 History torsemide 20 mg tablet 20 mg PO QAM 11/18/24 11/18/24 History torsemide 20 mg tablet 20 mg PO QAM 11/18/24 11/18/24 History Past Med/Surg History Problem List (Updated 11/19/24 @ 01:17 by Dima Jarrell MD) Symptomatic anemia Anemia (Acute) Pancreatic cyst Diastolic CHF (Chronic) "echo 09/2015 - EF 62%, grade I diastolic dysfunction" History of hysterectomy (Chronic) History of arthroscopic knee surgery (Chronic) Osteoarthritis of shoulder COVID (Acute) Encounter for pre-operative examination Hx of cholecystectomy (Chronic) History of tonsillectomy and adenoidectomy (Chronic) History of cataract surgery (Chronic) bilateral HTN (hypertension) (Chronic) Osteoarthritis (Chronic) SHANA (obstructive sleep apnea) (Chronic) cpap Asthma, moderate persistent (Chronic) inhalers daily/prn HLD (hyperlipidemia) (Chronic) GERD (gastroesophageal reflux disease) (Chronic) Medical History Diabetes Thrombocytopenia Post-COVID chronic cough Morbid obesity with BMI of 45.0-49.9, adult Chronic kidney disease Positive ROBERT (antinuclear antibody) Persistent shortness of breath after COVID-19 Cirrhosis of liver History of COVID-19 diagnosed 06/2021--fatigue, fever, shortness of breath/cough--still experiencing sob/cough. Surgical History History of gynecologic surgery x3 D&E History of bilateral carpal tunnel release History of left shoulder replacement History of total right knee replacement (TKR) History of total left knee replacement (TKR) History of colonoscopy History of esophagogastroduodenoscopy (EGD) History of bilateral tubal ligation History of partial hysterectomy History of tooth extraction upper partial S/P thyroid biopsy benign Family History Other No family history of adverse response to anesthesia Social History Smoking Status: Never smoker Second Hand Exposure: No; Do You Dip or Chew Tobacco: No; Hx Alcohol Use: No Hx Substance Use: No Preferred Language: Palestinian Communication Ability: Effective Encoding Clerk Required: No Beliefs That Will Affect Care: None Current Living Situation: Spouse and Family Current Living Situation Comment: Lives with and son Other Information That Helps Us Care for You: No Feels Safe at Home: Yes Assistive Devices: CPAP, Denture - Upper and Glasses Review of Systems Review of Systems: As per HPI, all other systems reviewed and negative Physical Exam Physical Exam: GENERAL: Comfortable, morbidly obese, pleasant, no respiratory distress SKIN: Pallor, warm HEENT: Pale palpebral conjunctivae, no ptosis, moist buccal mucosa NECK : Supple, short neck, no tenderness CHEST : Decreased breath sounds, no tenderness HEART : RRR, systolic murmur ABDOMEN: Some distention, nontender RECTAL : Negative FOBT as per ER provider EXTREMITIES : Minimal LE swelling without tenderness, palpable pulses, no other conspicuous deformities noted NEUROLOGIC : Coherent, no facial asymmetry, no other gross focality Results & Data Results & Data Vital Signs (Past 12 Hours) Vital Signs Temp Pulse Pulse Resp BP BP Pulse Ox 11/18/24 22:00 74 26 H 115/65 94 11/18/24 21:01 74 18 108/64 97 11/18/24 19:38 98 11/18/24 19:21 84 11/18/24 19:19 70 21 124/76 95 11/18/24 19:12 36.5 C 76 18 105/49 L 96 O2 Del Method 11/18/24 22:00 Room Air 11/18/24 21:01 11/18/24 19:38 Room Air 11/18/24 19:21 11/18/24 19:19 Room Air 11/18/24 19:12 Room Air Laboratory Results Laboratory Results WBC 6.76 K/ul (4.8-10.8) 11/18/24 19:24 RBC 2.97 M/uL (4.20-5.40) L 11/18/24 19:24 Hgb 7.2 g/dl (12.0-16.0) L 11/18/24 19:24 Hct 24.6 % (37.0-47.0) L 11/18/24 19:24 MCV 82.8 fL (80.0-100.0) 11/18/24 19: MCH 24.2 pg (25.0-34.0) L 11/18/24 19:24 MCHC 29.3 g/dL (32.0-36.0) L 11/18/24 19:24 RDW Std Deviation 49.6 fL (36.4-46.3) H 11/18/24 19:24 RDW Coeff of Marianela 16.5 % (11.5-14.5) H 11/18/24 19:24 Plt Count 94 K/uL (130-400) L 11/18/24 19:24 MPV 10.9 fL (9.4-12.4) 11/18/24 19:24 Immature Gran % (Auto) 0.3 % 11/18/24 19:24 Neut % (Auto) 50.6 % 11/18/24 19:24 Lymph % (Auto) 30.5 % 11/18/24 19:24 [place] % (Auto) 14.5 % 11/18/24 19:24 Eos % (Auto) 3.7 % 11/18/24 19:24 Baso % (Auto) 0.4 % 11/18/24 19:24 Neut # (Auto) 3.42 K/uL (1.40-6.50) 11/18/24 19:24 Lymph # (Auto) 2.06 K/uL (1.20-3.40) 11/18/24 19:24 [place] # (Auto) 0.98 K/uL (0.11-0.59) H 11/18/24 19:24 Eos # (Auto) 0.25 K/uL (0.00-0.50) 11/18/24 19:24 Baso # (Auto) 0.03 K/uL (0.00-0.20) 11/18/24 19:24 Immature Gran # (Auto) 0.02 K/uL (0.01-0.20) 11/18/24 19:24 Platelet Estimate Decreased (Normal) L 11/18/24 19:24 Polychromasia 1+ 11/18/24 19:24 PT 11.6 Seconds (9.0-12.0) 11/18/24 19:24 INR 1.1 (0.9-1.1) 11/18/24 19:24 APTT 27 Seconds (21-31) 11/18/24 19:24 PTT Ratio 1.0 11/18/24 19:24 Sodium 135 mmol/L (136-145) L 11/18/24 19:24 Potassium 3.9 mmol/L (3.5-5.1) 11/18/24 19:24 Chloride 104 mmol/L (98-107) 11/18/24 19:24 Carbon Dioxide 24 mmol/L (21-32) 11/18/24 19:24 Anion Gap 7 (3-11) 11/18/24 19:24 BUN 33 mg/dl (6-23) H 11/18/24 19:24 Creatinine 1.48 mg/dl (0.6-1.2) H 11/18/24 19:24 Est Cr Clr Drug Dosing 33.3 ml/min 11/18/24 19:24 eGFR 36.25 11/18/24 19:24 BUN/Creatinine Ratio 22.3 (10-20) H 11/18/24 19:24 Glucose 90 mg/dl (70-99(Fasting)) 11/18/24 19:24 Calcium 9.3 mg/dl (8.6-10.3) 11/18/24 19:24 Magnesium 2.1 mg/dl (1.7-2.4) 11/18/24 19:24 Total Bilirubin 0.6 mg/dl (0.2-1.0) 11/18/24 19:24 Direct Bilirubin 0.1 mg/dl (0-0.2) 11/18/24 19:24 AST 19 U/L (13-39) 11/18/24 19:24 ALT 11 U/L (7-52) 11/18/24 19:24 Alkaline Phosphatase 71 U/L (34-104) 11/18/24 19:24 Total Protein 6.3 gm/dl (6.0-8.3) 11/18/24 19:24 Albumin 3.6 gm/dl (3.4-5.0) 11/18/24 19:24 Blood Type A Positive 11/18/24 19:24 Blood Type Cancelled 11/18/24 19:24 Antibody Screen Cancelled 11/18/24 19:24 Antibody Screen NEGATIVE 11/18/24 19:24 Chest x-ray: Cardiomegaly and congestion
--- NOTE | 2024-11-18 23:17 | XRay Report ---
Exam(s): XR CXR 1 VIEW EXAM: XR Chest, 1 View CLINICAL HISTORY: Reason for exam: renal failure. TECHNIQUE: Frontal view of the chest. COMPARISON: 06/28/21 FINDINGS: Lungs: No consolidation. Pleural space: No pleural effusion or pneumothorax. Heart: Cardiomegaly and vascular congestion. Bones/joints: Partially imaged left shoulder arthroplasty. No acute osseous findings. IMPRESSION: Cardiomegaly and vascular congestion. Electronically signed by: Angelika Yost M.D. 11/18/24 23:16 PM
[2024-11-18] MEDS ORDERED: PROMETHAZINE 6.25 MG/50.25 ML BAG IV PRN (23:40)
[2024-11-18] MEDS ORDERED: oxyCODONE HCL IR 5 MG TAB (IMMEDIATE RELEASE) PO PRN (23:40)
[2024-11-18] MEDS ORDERED: DEXTROSE 50% 50 ML SYRINGE IV PRN (23:56)
[2024-11-18] MEDS ORDERED: CARBOHYDRATES FOR HYPOGLYCEMIA PO PRN (23:56)
[2024-11-18] MEDS ORDERED: GLUCOSE 10 TAB/TUBE PO PRN (23:56)
[2024-11-18] MEDS ORDERED: GLUCOSE 40% GEL 15 GM TUBE PO PRN (23:56)
[2024-11-18] MEDS ORDERED: GLUCAGON FOR INJ 1 MG VIAL SQ PRN (23:56)
[2024-11-19] MEDS: FUROSEMIDE INJ 20 MG/2 ML VIAL IV ONE (00:06)
[2024-11-19] MEDS: ACETAMINOPHEN 500 MG TAB PO SCH (00:29)
[2024-11-19] MEDS: INSULIN ASPART PER UNIT CHARGE SC SCH (00:36)
[2024-11-19] MEDS: METOPROLOL SUCC 25MG EXT REL TAB PO SCH (00:44)
--- NOTE | 2024-11-19 01:12 | Emergency Department Note ---
History of Present Illness General Chief Complaint: Referred by Doctor Stated Complaint: BLEEDING INTERNAL, NEEDS EVAL Time Seen by Provider: 11/18/24 19:18 History of Present Illness Provider Complaint: + abnormal lab Returns today for: + called because of abnormal lab/test Description of abnormal result: Low hemoglobin Associated symptoms: + shortness of breath (With exertion) and + other (No melena or hematochezia. No nausea or vomiting. No vaginal bleeding.); no fever, no chest pain, no rash, no malaise, no nausea or no abdominal pain Home Medications Medication Instructions Recorded Confirmed Type albuterol sulfate 2.5 mg/3 mL 2.5 mg inhalation Q6H PRN 06/28/21 11/18/24 History (0.083 %) solution for nebulization COUGH/WHEEZE/SHORT OF BREATH benzonatate 100 mg capsule 100 - 200 mg PO TID PRN Cough 06/28/21 11/18/24 History (Catalino Quiñones) cetirizine 10 mg tablet (Zyrtec) 10 mg PO QAM 06/28/21 11/18/24 History famotidine 20 mg tablet 20 mg PO HS 06/28/21 11/18/24 History fluticasone 500 mcg-salmeterol 50 1 inh inhalation BID 06/28/21 11/18/24 History mcg/dose blistr powdr for inhalation (Wixela Inhub) fluticasone propionate 50 1 spray intranasal BID 06/28/21 11/18/24 History mcg/actuation nasal spray,suspension isosorbide mononitrate 30 mg 30 mg PO QAM 06/28/21 11/18/24 History tablet,extended release 24 hr lovastatin 40 mg tablet 40 mg PO HS 06/28/21 11/18/24 History metoprolol succinate 25 mg 25 mg PO BID 06/28/21 11/18/24 History tablet,extended release 24 hr multivitamin 1 tab PO QAM 06/28/21 11/18/24 History nitroglycerin 0.4 mg sublingual 0.4 mg sublingual DIRECTED PRN 06/28/21 11/18/24 History tablet (Nitrostat) Chest Pain omeprazole 20 mg capsule,delayed 20 mg PO QAM 06/28/21 11/18/24 History release tiotropium bromide 1.25 2 puff inhalation QAM 06/28/21 11/18/24 History mcg/actuation mist for inhalation (Spiriva Respimat) empagliflozin 10 mg tablet 10 mg PO QAM diasytolic dysfunction 03/20/23 11/18/24 History (Jardiance) acetaminophen 1,000 mg PO BID 11/18/24 11/18/24 History apixaban 5 mg tablet (Eliquis) 5 mg PO BID 11/18/24 11/18/24 History potassium chloride 10 mEq 10 meq PO QAM 11/18/24 11/18/24 History tablet,extended release spironolactone 25 mg tablet 25 mg PO QAM 11/18/24 11/18/24 History torsemide 20 mg tablet 20 mg PO QAM 11/18/24 11/18/24 History torsemide 20 mg tablet 20 mg PO QAM 11/18/24 11/18/24 History Allergies Allergy/AdvReac Type Severity Reaction Status Date / Time cefaclor Allergy Intermediate HIVES-RASH Verified 11/18/24 22:14 sulfamethoxazole [Bactrim] Allergy Intermediate HIVES Verified 11/18/24 22:14 trimethoprim [Bactrim] Allergy Intermediate HIVES Verified 11/18/24 22:14 vanilla extract flavor Allergy Intermediate THROAT Verified 11/18/24 22:50 GETS TIGHT,COUGH *scent only* metformin AdvReac Unknown Unverified 11/18/24 22:14 Past Med/Surg History Problem List (Updated 11/19/24 @ 01:16 by Fabiano Li MD) Anemia (Acute) Pancreatic cyst Diastolic CHF (Chronic) "echo 09/2015 - EF 62%, grade I diastolic dysfunction" History of hysterectomy (Chronic) History of arthroscopic knee surgery (Chronic) Osteoarthritis of shoulder COVID (Acute) Encounter for pre-operative examination Hx of cholecystectomy (Chronic) History of tonsillectomy and adenoidectomy (Chronic) History of cataract surgery (Chronic) bilateral HTN (hypertension) (Chronic) Osteoarthritis (Chronic) SHANA (obstructive sleep apnea) (Chronic) cpap Asthma, moderate persistent (Chronic) inhalers daily/prn HLD (hyperlipidemia) (Chronic) GERD (gastroesophageal reflux disease) (Chronic) Medical History Diabetes Thrombocytopenia Post-COVID chronic cough Morbid obesity with BMI of 45.0-49.9, adult Chronic kidney disease Positive ROBERT (antinuclear antibody) Persistent shortness of breath after COVID-19 Cirrhosis of liver History of COVID-19 diagnosed 06/2021--fatigue, fever, shortness of breath/cough--still experiencing sob/cough. Surgical History History of gynecologic surgery x3 D&E History of bilateral carpal tunnel release History of left shoulder replacement History of total right knee replacement (TKR) History of total left knee replacement (TKR) History of colonoscopy History of esophagogastroduodenoscopy (EGD) History of bilateral tubal ligation History of partial hysterectomy History of tooth extraction upper partial S/P thyroid biopsy benign Family History Other No family history of adverse response to anesthesia Social History Smoking Status: Never smoker Second Hand Exposure: No; Do You Dip or Chew Tobacco: No; Hx Alcohol Use: No Hx Substance Use: No Preferred Language: Moroccan Communication Ability: Effective Senior Designer Required: No Beliefs That Will Affect Care: None Current Living Situation: Spouse and Family Current Living Situation Comment: Lives with and son Other Information That Helps Us Care for You: No Feels Safe at Home: Yes Assistive Devices: CPAP, Denture - Upper and Glasses Physical Exam 2 Vital Signs: Vital Signs - 24 hr 11/18/24 19:12 11/18/24 19:19 11/18/24 19:21 Temperature 36.5 C Temperature Source Temporal Artery Sc an Pulse Rate 76 84 Pulse Rate [Apical ] 70 Pulse Rate from Sp O2 Sensor Respiratory Rate 18 21 Respiratory Effort / Characteristics Non-Labored Sponta neous Non-Labored Sponta neous Respiratory Depth Normal Normal Respiratory Patter n Regular Blood Pressure 105/49 L Blood Pressure [Ri ght Arm] 124/76 Blood Pressure Jessica n 67 Blood Pressure Jessica n [Right Arm] 92 Pulse Oximetry 96 95 Oxygen Delivery Me thod Room Air Room Air Sepsis Recent Feve r Within 48 Hours No Sepsis New/Unexpla ined Change in Men owen Status N/A Sepsis Action Take n by Nursing No Action Required 11/18/24 19:38 11/18/24 21:00 11/18/24 21:00 Temperature Temperature Source Pulse Rate Pulse Rate [Apical ] Pulse Rate from Sp O2 Sensor Respiratory Rate Respiratory Effort / Characteristics Respiratory Depth Respiratory Patter n Blood Pressure 108/64 108/64 Blood Pressure [Ri ght Arm] Blood Pressure Jessica n 82 82 Blood Pressure Jessica n [Right Arm] Pulse Oximetry 98 Oxygen Delivery Me thod Room Air Sepsis Recent Feve r Within 48 Hours Sepsis New/Unexpla ined Change in Men owen Status Sepsis Action Take n by Nursing 11/18/24 21:00 11/18/24 21:00 11/18/24 21:00 Temperature Temperature Source Pulse Rate Pulse Rate [Apical ] Pulse Rate from Sp O2 Sensor Respiratory Rate Respiratory Effort / Characteristics Respiratory Depth Respiratory Patter n Blood Pressure 108/64 108/64 108/64 Blood Pressure [Ri ght Arm] Blood Pressure Jessica n 82 82 82 Blood Pressure Jessica n [Right Arm] Pulse Oximetry Oxygen Delivery Me thod Sepsis Recent Feve r Within 48 Hours Sepsis New/Unexpla ined Change in Men owen Status Sepsis Action Take n by Nursing 11/18/24 21:00 11/18/24 21:00 11/18/24 21:00 Temperature Temperature Source Pulse Rate Pulse Rate [Apical ] Pulse Rate from Sp O2 Sensor Respiratory Rate Respiratory Effort / Characteristics Respiratory Depth Respiratory Patter n Blood Pressure 108/64 108/64 108/64 Blood Pressure [Ri ght Arm] Blood Pressure Jessica n 82 82 82 Blood Pressure Jessica n [Right Arm] Pulse Oximetry Oxygen Delivery Me thod Sepsis Recent Feve r Within 48 Hours Sepsis New/Unexpla ined Change in Men owen Status Sepsis Action Take n by Nursing 11/18/24 21:00 11/18/24 21:01 11/18/24 21:30 Temperature Temperature Source Pulse Rate 60 72 Pulse Rate [Apical ] 74 Pulse Rate from Sp O2 Sensor 61 Respiratory Rate 20 18 17 Respiratory Effort / Characteristics Non-Labored Sponta neous Respiratory Depth Normal Respiratory Patter n Blood Pressure Blood Pressure [Ri ght Arm] 108/64 Blood Pressure Jessica n Blood Pressure Jessica n [Right Arm] 78 Pulse Oximetry 97 97 Oxygen Delivery Me thod Sepsis Recent Feve r Within 48 Hours Sepsis New/Unexpla ined Change in Men owen Status Sepsis Action Take n by Nursing 11/18/24 21:31 11/18/24 21:31 11/18/24 21:31 Temperature Temperature Source Pulse Rate Pulse Rate [Apical ] Pulse Rate from Sp O2 Sensor Respiratory Rate Respiratory Effort / Characteristics Respiratory Depth Respiratory Patter n Blood Pressure 86/44 L 86/44 L 86/44 L Blood Pressure [Ri ght Arm] Blood Pressure Jessica n 51 51 51 Blood Pressure Jessica n [Right Arm] Pulse Oximetry Oxygen Delivery Me thod Sepsis Recent Feve r Within 48 Hours Sepsis New/Unexpla ined Change in Men owen Status Sepsis Action Take n by Nursing 11/18/24 21:31 11/18/24 21:31 11/18/24 21:31 Temperature Temperature Source Pulse Rate Pulse Rate [Apical ] Pulse Rate from Sp O2 Sensor Respiratory Rate Respiratory Effort / Characteristics Respiratory Depth Respiratory Patter n Blood Pressure 86/44 L 86/44 L 86/44 L Blood Pressure [Ri ght Arm] Blood Pressure Jessica n 51 51 51 Blood Pressure Jessica n [Right Arm] Pulse Oximetry Oxygen Delivery Me thod Sepsis Recent Feve r Within 48 Hours Sepsis New/Unexpla ined Change in Men owen Status Sepsis Action Take n by Nursing 11/18/24 21:57 11/18/24 22:00 11/18/24 22:00 Temperature Temperature Source Pulse Rate 70 Pulse Rate [Apical ] 74 Pulse Rate from Sp O2 Sensor Respiratory Rate 24 26 H Respiratory Effort / Characteristics Respiratory Depth Respiratory Patter n Blood Pressure 115/65 Blood Pressure [Ri ght Arm] 115/65 Blood Pressure Jessica n 91 Blood Pressure Jessica n [Right Arm] 81 Pulse Oximetry 94 Oxygen Delivery Me thod Room Air Sepsis Recent Feve r Within 48 Hours Sepsis New/Unexpla ined Change in Men owen Status Sepsis Action Take n by Nursing 11/18/24 22:00 11/18/24 22:00 11/18/24 22:00 Temperature Temperature Source Pulse Rate Pulse Rate [Apical ] Pulse Rate from Sp O2 Sensor Respiratory Rate Respiratory Effort / Characteristics Respiratory Depth Respiratory Patter n Blood Pressure 115/65 115/65 115/65 Blood Pressure [Ri ght Arm] Blood Pressure Jessica n 91 91 91 Blood Pressure Jessica n [Right Arm] Pulse Oximetry Oxygen Delivery Me thod Sepsis Recent Feve r Within 48 Hours Sepsis New/Unexpla ined Change in Men owen Status Sepsis Action Take n by Nursing 11/18/24 22:00 11/18/24 22:00 11/18/24 22:00 Temperature Temperature Source Pulse Rate Pulse Rate [Apical ] Pulse Rate from Sp O2 Sensor Respiratory Rate Respiratory Effort / Characteristics Respiratory Depth Respiratory Patter n Blood Pressure 115/65 115/65 115/65 Blood Pressure [Ri ght Arm] Blood Pressure Jessica n 91 91 91 Blood Pressure Jessica n [Right Arm] Pulse Oximetry Oxygen Delivery Me thod Sepsis Recent Feve r Within 48 Hours Sepsis New/Unexpla ined Change in Men owen Status Sepsis Action Take n by Nursing 11/18/24 22:00 11/18/24 22:00 11/18/24 22:00 Temperature Temperature Source Pulse Rate Pulse Rate [Apical ] Pulse Rate from Sp O2 Sensor Respiratory Rate Respiratory Effort / Characteristics Respiratory Depth Respiratory Patter n Blood Pressure 115/65 115/65 115/65 Blood Pressure [Ri ght Arm] Blood Pressure Jessica n 91 91 91 Blood Pressure Jessica n [Right Arm] Pulse Oximetry Oxygen Delivery Me thod Sepsis Recent Feve r Within 48 Hours Sepsis New/Unexpla ined Change in Men owen Status Sepsis Action Take n by Nursing 11/18/24 22:09 11/18/24 22:21 11/18/24 22:30 Temperature Temperature Source Pulse Rate 60 Pulse Rate [Apical ] Pulse Rate from Sp O2 Sensor Respiratory Rate 18 24 Respiratory Effort / Characteristics Respiratory Depth Respiratory Patter n Blood Pressure 118/56 L Blood Pressure [Ri ght Arm] Blood Pressure Jessica n 89 Blood Pressure Jessica n [Right Arm] Pulse Oximetry Oxygen Delivery Me thod Sepsis Recent Feve r Within 48 Hours Sepsis New/Unexpla ined Change in Men owen Status Sepsis Action Take n by Nursing 11/18/24 22:30 11/18/24 22:30 11/18/24 22:30 Temperature Temperature Source Pulse Rate Pulse Rate [Apical ] Pulse Rate from Sp O2 Sensor Respiratory Rate Respiratory Effort / Characteristics Respiratory Depth Respiratory Patter n Blood Pressure 118/56 L 118/56 L 118/56 L Blood Pressure [Ri ght Arm] Blood Pressure Jessica n 89 89 89 Blood Pressure Jessica n [Right Arm] Pulse Oximetry Oxygen Delivery Me thod Sepsis Recent Feve r Within 48 Hours Sepsis New/Unexpla ined Change in Men owen Status Sepsis Action Take n by Nursing 11/18/24 22:30 11/18/24 22:30 11/18/24 22:30 Temperature Temperature Source Pulse Rate Pulse Rate [Apical ] Pulse Rate from Sp O2 Sensor Respiratory Rate Respiratory Effort / Characteristics Respiratory Depth Respiratory Patter n Blood Pressure 118/56 L 118/56 L 118/56 L Blood Pressure [Ri ght Arm] Blood Pressure Jessica n 89 89 89 Blood Pressure Jessica n [Right Arm] Pulse Oximetry Oxygen Delivery Me thod Sepsis Recent Feve r Within 48 Hours Sepsis New/Unexpla ined Change in Men owen Status Sepsis Action Take n by Nursing 11/18/24 22:30 11/18/24 22:30 11/18/24 22:30 Temperature Temperature Source Pulse Rate Pulse Rate [Apical ] Pulse Rate from Sp O2 Sensor Respiratory Rate Respiratory Effort / Characteristics Respiratory Depth Respiratory Patter n Blood Pressure 118/56 L 118/56 L 118/56 L Blood Pressure [Ri ght Arm] Blood Pressure Jessica n 89 89 89 Blood Pressure Jessica n [Right Arm] Pulse Oximetry Oxygen Delivery Me thod Sepsis Recent Feve r Within 48 Hours Sepsis New/Unexpla ined Change in Men owen Status Sepsis Action Take n by Nursing 11/18/24 22:30 11/18/24 22:30 11/18/24 22:30 Temperature Temperature Source Pulse Rate Pulse Rate [Apical ] Pulse Rate from Sp O2 Sensor Respiratory Rate Respiratory Effort / Characteristics Respiratory Depth Respiratory Patter n Blood Pressure 118/56 L 118/56 L 118/56 L Blood Pressure [Ri ght Arm] Blood Pressure Jessica n 89 89 89 Blood Pressure Jessica n [Right Arm] Pulse Oximetry Oxygen Delivery Me thod Sepsis Recent Feve r Within 48 Hours Sepsis New/Unexpla ined Change in Men owen Status Sepsis Action Take n by Nursing 11/18/24 22:36 Temperature Temperature Source Pulse Rate Pulse Rate [Apical ] Pulse Rate from Sp O2 Sensor Respiratory Rate 20 Respiratory Effort / Characteristics Respiratory Depth Respiratory Patter n Blood Pressure Blood Pressure [Ri ght Arm] Blood Pressure Jessica n Blood Pressure Jessica n [Right Arm] Pulse Oximetry Oxygen Delivery Me thod Sepsis Recent Feve r Within 48 Hours Sepsis New/Unexpla ined Change in Men owen Status Sepsis Action Take n by Nursing Physical Exam: Physical Exam GENERAL: oriented to person, place, and time. appears well-developed and well- nourished. HENT: Exam performed. - Head: Normocephalic and atraumatic. EYES: Conjunctivae and EOM are normal. Right eye exhibits no discharge. Left eye exhibits no discharge. No scleral icterus. NECK: Normal range of motion. Neck supple. No JVD present. CV: Normal rate, regular rhythm, normal heart sounds and intact distal pulses. There is no peripheral edema. Palpable radial pulses bue. PULM/CHEST: Effort normal and breath sounds normal. No respiratory distress. No stridor. no wheezes. no rales. ABD: The abdomen is soft and obese. There is no tenderness. Rectal: Hemoccult negative. No bright red blood per rectum. NEURO: Motor and sensation grossly intact. SKIN: Skin is warm and dry. He is not diaphoretic. PSYCH: normal mood and affect. Behavior is normal. Judgment and thought content normal. Course Course 1917: The patient was evaluated in room C6. A complete history and physical exam was performed Cardiac monitoring: An order was placed for continuous cardiac monitoring. The monitor shows a rate of 70 with sinus rhythm interpreted by me External medical records were obtained from the [facility] EMR by case management. Patient had blood work done on November 17, 2024 which showed a hemoglobin of 6.8. 2210: Vital signs stable. Labs show hemoglobin of 7.2. Discussed case with Dr. Bennie Coles admitting team. He states he will evaluate the patient for blood transfusion. Patient will be admitted to his service. Administered Medications Acetaminophen (Acetaminophen 500 Mg Tab) 1,000 mg PO BID NAVDEEP Stop: 12/18/24 23:44 Last Admin: 11/19/24 00:29 Dose: 1,000 mg Documented By: REDDY Insulin Aspart (Insulin Aspart Per Unit Charge) 0 units SC ACHS NAVDEEP Stop: 12/18/24 23:55 Last Admin: 11/19/24 00:36 Dose: Not Given Documented By: REDDY Co-signed By: [id number] Metoprolol Succinate (Metoprolol Succ 25mg Ext Rel Tab) 25 mg PO BID NAVDEEP Stop: 12/18/24 23:44 Last Admin: 11/19/24 00:44 Dose: 25 mg Documented By: REDDY Discontinued Medications Furosemide (Furosemide Inj 20 Mg/2 Ml Vial) 20 mg IV ONE ONE Stop: 11/18/24 23:38 Last Admin: 11/19/24 00:06 Dose: 20 mg Documented By: REDDY Medical Decision Making Medical Records Attestation: I reviewed the patient's medical records. External medical records were obtained from the [facility] by case management. Patient had blood work done on November 17, 2024 which showed a hemoglobin of 6.8. Laboratory Data Attestation: I reviewed the patient's lab results. 11/18/24 19:24 11/18/24 19:24 Lab Results 11/18/24 11/18/24 11/18/24 Range/Units 19:24 19:24 19:24 WBC 6.76 (4.8-10.8) K/ul RBC 2.97 L (4.20-5.40) M/uL Hgb 7.2 L (12.0-16.0) g/dl Hct 24.6 L (37.0-47.0) % MCV 82.8 (80.0-100.0) fL MCH 24.2 L (25.0-34.0) pg MCHC 29.3 L (32.0-36.0) g/dL RDW Std Deviation 49.6 H (36.4-46.3) fL RDW Coeff of Marianela 16.5 H (11.5-14.5) % Plt Count 94 L (130-400) K/uL MPV 10.9 (9.4-12.4) fL Immature Gran % (Auto) 0.3 % Neut % (Auto) 50.6 % Lymph % (Auto) 30.5 % [place] % (Auto) 14.5 % Eos % (Auto) 3.7 % Baso % (Auto) 0.4 % Neut # (Auto) 3.42 (1.40-6.50) K/uL Lymph # (Auto) 2.06 (1.20-3.40) K/uL [place] # (Auto) 0.98 H (0.11-0.59) K/uL Eos # (Auto) 0.25 (0.00-0.50) K/uL Baso # (Auto) 0.03 (0.00-0.20) K/uL Immature Gran # (Auto) 0.02 (0.01-0.20) K/uL Platelet Estimate Decreased L (Normal) Polychromasia 1+ PT 11.6 (9.0-12.0) Seconds INR 1.1 (0.9-1.1) APTT 27 (21-31) Seconds PTT Ratio 1.0 Sodium 135 L (136-145) mmol/L Potassium 3.9 (3.5-5.1) mmol/L Chloride 104 (98-107) mmol/L Carbon Dioxide 24 (21-32) mmol/L Anion Gap 7 (3-11) BUN 33 H (6-23) mg/dl Creatinine 1.48 H (0.6-1.2) mg/dl Est Cr Clr Drug Dosing 33.3 ml/min eGFR 36.25 BUN/Creatinine Ratio 22.3 H (10-20) Glucose 90 (70-99(Fasting)) mg/dl Calcium 9.3 (8.6-10.3) mg/dl Magnesium 2.1 (1.7-2.4) mg/dl Total Bilirubin 0.6 (0.2-1.0) mg/dl Direct Bilirubin 0.1 (0-0.2) mg/dl AST 19 (13-39) U/L ALT 11 (7-52) U/L Alkaline Phosphatase 71 (34-104) U/L Total Protein 6.3 (6.0-8.3) gm/dl Albumin 3.6 (3.4-5.0) gm/dl Blood Type A Positive Cancelled Antibody Screen NEGATIVE Cancelled Crossmatch See Detail Imaging Data Radiologist's Impression: Chest X-Ray 11/18/24 21:42 Exam(s): XR CXR 1 VIEW EXAM: XR Chest, 1 View CLINICAL HISTORY: Reason for exam: renal failure. TECHNIQUE: Frontal view of the chest. COMPARISON: 06/28/21 FINDINGS: Lungs: No consolidation. Pleural space: No pleural effusion or pneumothorax. Heart: Cardiomegaly and vascular congestion. Bones/joints: Partially imaged left shoulder arthroplasty. No acute osseous findings. IMPRESSION: Cardiomegaly and vascular congestion. Electronically signed by: Angelika Yost M.D. 11/18/24 23:16 PM ECG Data Attestation: I personally reviewed and interpreted this ECG as follows: Rate (beats per minute): 74 Rhythm: normal sinus Findings: no ST depression, no ST elevation or no prolonged QT MDM Narrative 1918: The patient was evaluated in room C6. A complete history and physical exam was performed Cardiac monitoring: An order was placed for continuous cardiac monitoring. The monitor shows a rate of 70 with sinus rhythm interpreted by me External medical records were obtained from the [facility] EMR by case management. Patient had blood work done on November 17, 2024 which showed a hemoglobin of 6.8. 2210: Vital signs stable. Labs show hemoglobin of 7.2. Discussed case with Dr. Bennie Coles admitting team. He states he will evaluate the patient for blood transfusion. Patient will be admitted to his service. Impression & Plan Anemia Discharge Plan Visit Data Chief Complaint: Referred by Doctor Stated Complaint: BLEEDING INTERNAL, NEEDS EVAL ED Provider: Fabiano Li Discharge Problem: Anemia Patient Disposition: Admitted As Inpatient Discharge Instructions Interventions: ED Discharge Assessment Last Done: 11/18/24 23:45 Discharge Problem: Anemia Qualifiers: Anemia type: unspecified type Qualified Code(s): D64.9 - Anemia, unspecified
[2024-11-19 01:50] LABS: Thyroid Stimulating Hormone 1.284 uIu/ml (0.300-4.500)
--- OUTSIDE RECORDS SUMMARY | 2024-11-19 05:54 | External Medical Summary | Summary of Care ---
Author Name Unknown Organization [facility] Address [address] [address] Phone [phone] Care Team Providers Care Trim Technician Name Role Phone Ryan Hadley MD Primary Care Provider + Reason for Visit * Reason Onset Date Comments Test Results 11/17/2024 Encounter Details Date Type Department Care Team (Late st Contact Info) Description 11/17/2024 Telephone Cardiology, [facility] [address] [address] Ricky Hackett, PAPiloC [address] [place] [address] Test Results Allergies Active Allergy Reactions Criticality Noted Date Comments Bactrim 01/20/2014 Cephalosporins 07/29/2003 Rash (Ceclor only) Metformin Other (Please comment),Renal complications 03/25/2023 documented as of this encounter (statuses as of 11/18/2024) Medications ZYRTEC 10 MG PO TABS 1 tab every day Active amoxicillin (AMOXIL) 500 MG Capsule TAKE 4 CAPSULES BY MOUTH ONE HOUR PRIOR TO APPOINTMENT 0 018 Active fluticasone (FLONASE) 50 MCG/ACT nasal sprayIndications:Rhinit is, nonallergic USE 2 SPRAYS IN EACH NOSTRIL DAILY 48 g 4 020 Active Nitroglycerin 0.4 MG Sublingual Tablet Sublingual (NITROSTAT) Place 1 Tab under the tongue every 5 minutes as needed for Pain, Chest. up to 3 doses in 15 minutes 25 Tab 11 020 Active Albuterol Sulfate (2.5 MG/3ML) 0.083% Inhalation Nebulization Solution (PROVENTIL) Inhale 1 Vial via nebulizer every 6 hours as needed for Other (Cough, wheezing, shortness of breath). Dx J45.40 360 mL 11 021 Active CPAP every night at bedtime . Active Acetaminophen 500 MG Oral Tablet (Tylenol)Indications:Ch ronic bilateral low back pain with right-sided sciatica Take 2 Tablets by mouth every 12 hours as needed for Pain, Severe. 100 Tablet 023 Active Spiriva Respimat 1.25 MCG/ACT Inhalation Aerosol Solution (Tiotropium [place] Monohydrate)Indications :Moderate persistent asthma without complication Inhale 2 Puffs by mouth in the morning. 12 g 3 023 Active Apixaban 5 MG Oral Tablet (Eliquis)Indications:PA F (paroxysmal atrial fibrillation) ([facility]) Take 1 Tablet by mouth in the morning and 1 Tablet before bedtime. 180 Tablet 3 024 Active oxyCODONE HCl 5 MG Oral Tablet (Oxy IR)Indications:Acute right-sided low back pain with right-sided sciatica Take 1 Tablet by mouth every 8 hours as needed for Pain, Severe. 21 Tablet 024 Active Therapeutic Multivit/Mineral Oral Tablet Take 1 Tablet by mouth in the morning. Active Fluticasone-Salmeterol 500-50 MCG/ACT Inhalation Aerosol Powder Breath Activated (Wixela Inhub)Indications:Moder ate persistent asthma without complication USE 1 INHALATION BY MOUTH TWICE DAILY RINSE MOUTH AFTER USE 180 Each 3 024 Active Potassium Chloride ER 10 MEQ Oral Tablet Extended ReleaseIndications:Hypo kalemia TAKE 1 TABLET BY MOUTH IN THE MORNING 90 Tablet 1 024 Active Lovastatin 40 MG Oral TabletIndications:Pure hypercholesterolemia TAKE 1 TABLET BY MOUTH IN THE EVENING 90 Tablet 3 024 Active Benzonatate 100 MG Oral Capsule (Tessalon Perldamien) Swallow 1 or 2 pills three times a day as needed for cough. Do not cut, crush, or chew. 50 Capsule 3 024 Active Omeprazole 20 MG Oral Capsule Delayed Release (PriLOSEC) TAKE 1 CAPSULE BY MOUTH DAILY 90 Capsule 1 025 Active Isosorbide Mononitrate ER 30 MG Oral Tablet Extended Release 24 Hour (Imdur)Indications:Escobar tolic dysfunction TAKE 1 TABLET BY MOUTH DAILY 90 Tablet 3 025 Active Torsemide 20 MG Oral Tablet (Demadex)Indications:HT N, goal below 140/90,Benign hypertension with CKD (chronic kidney disease) stage III (HCC),Liver cirrhosis secondary to nonalcoholic steatohepatitis (XAVIER) (HCC),Chronic diastolic heart failure (HCC) TAKE 1 TABLET BY MOUTH IN THE MORNING 90 Tablet 3 025 Active Metoprolol Succinate ER 25 MG Oral Tablet Extended Release 24 Hour (toPROL XL)Indications:HTN, goal below 140/90 TAKE 1 TABLET BY MOUTH TWICE DAILY 180 Tablet 3 025 Active Spironolactone 25 MG Oral Tablet (Aldactone)Indications: HTN, goal below 140/90,Acute diastolic heart failure (HCC),Generalized edema,Diastolic dysfunction TAKE 1 TABLET BY MOUTH IN THE MORNING 90 Tablet 025 Active Jardiance 10 MG Oral Tablet (Empagliflozin)Indicati ons:Heart failure, diastolic (HCC) TAKE 1 TABLET BY MOUTH IN THE MORNING 90 Tablet 3 025 Active Famotidine 20 MG Oral Tablet (Pepcid)Indications:Gas troesophageal reflux disease without esophagitis TAKE 1 TABLET BY MOUTH DAILY 90 Tablet 1 025 Active documented as of this encounter (statuses as of 11/18/2024) Active Problems Problem Noted Date Diagnosed Date Stage 3b chronic kidney disease 11/17/2024 Atypical atrial flutter 06/14/2024 PAF (paroxysmal atrial fibrillation) 12/30/2023 Subclinical hyperthyroidism 12/30/2023 Liver cirrhosis secondary to nonalcoholic steatohepatitis (XAVIER) 10/07/2022 Diastolic heart failure 10/07/2022 Thyroid nodule 03/22/2022 Other cirrhosis of liver 01/10/2022 Benign hypertension with CKD (chronic kidney disease) stage III 08/09/2019 Morbid obesity, unspecified obesity type 019 Thrombocytopenia 08/13/2018 Diastolic dysfunction 02/11/2018 GERD (gastroesophageal reflux disease) 4 Rhinitis, nonallergic 12/02/2013 Knee joint replacement status 11/04/2012 Overview (11/04/2012): Right 2013 Metabolic syndrome 10/30/2011 Mixed hyperlipidemia 10/30/2011 Overview (01/01/2016): ICD-10 update of inactive term Asthma, moderate persistent 06/26/2011 Overview (10/16/2021): Elevated eosinophil levels SHANA on CPAP 02/07/2009 Overview (03/18/2019): AHP HTN, goal below 140/90 07/29/2003 documented as of this encounter (statuses as of 11/18/2024) Resolved Problems Problem Noted Date Diagnosed Date Resolved Date Caregiver burden 10/30/2023 11/17/2024 Body mass index (BMI) of 45. 0 to 49.9 in adult 10/07/2022 04/09/2023 Stage 3b chronic kidney disease 10/07/2022 04/09/2023 History of 2019 novel egan virus disease (COVID-19) 03/22/2022 06/14/2024 Body mass index (BMI) of 45. 0 to 49.9 in adult 02/11/2022 03/22/2022 Overview: Per Obesity protocol - Per Obesity protocol - Per Obesity protocol Body mass index (BMI) of 50. 0 to 59.9 in adult 11/12/2021 02/14/2022 Overview: Per Obesity protocol - Per Obesity protocol Pneumonia due to COVID-19 virus 08/15/2021 04/09/2023 Body mass index (BMI) of 45. 0 to 49.9 in adult 07/09/2021 11/14/2021 Overview: Per Obesity protocol COVID-19 virus infection 06/26/2021 Tortuous aorta 09/20/2020 03/22/2022 Morbid obesity with body mas s index of 50.0-59.9 in adult 01/06/2019 06/22/2021 Kidney disease, chronic, sta ge III (GFR 30-59 ml/min) 10/12/2018 08/09/2019 Overview: Per CKD protocol #1 Encounter for examination fo r normal comparison and control in clinical research program 09/24/2018 04/03/2020 Overview (12/18/2020): DO NOT DELETE People Pattern DETECT Study: Project # [id number], Head Of Measurement & Insights: Naun Jones, PhD. SUMMARY: Goal: Establish test characteristics (sensitivity, specificity, PPV, NPV) of a circulating tumor DNA (ctDNA)-based test for cancer. Hypothesis: Circulating tumor DNA (ctDNA) and elevated protein biomarkers (together, the marker panel) can be detected in asymptomatic individuals with early cancer. Specific Aim 1: Determine the prevalence of a positive marker panel test in a prospective clinical cohort of 10,000 asymptomatic women ages 65 to 75 years. Specific Aim 2: Determine the sensitivity, specificity, positive predictive value (PPV) and negative predictive value (NPV) of a marker panel test to identify histologically proven cancers that develop within 5-years of the marker panel evaluation. CONTACTS: During normal business hours, contact study staff at ; after hours Head Of Measurement & Insights via the [facility] graduating machine operator . Please contact study team before resolving/deleting from patients problem list. Study phone number: [phone]. Diagnosis changed due to Research Module. Go to Snapshot for study details. Encounter for examination fo r normal comparison and control in clinical research program 09/24/2018 05/02/2022 Overview (12/18/2020): DO NOT DELETE - People Pattern DETECT Study: Project # [id number], Head Of Measurement & Insights: Ady Bruno, MS, MPH. SUMMARY: Goal: Establish test characteristics (sensitivity, specificity, PPV, NPV) of a circulating tumor DNA (ctDNA)-based test for cancer. - Hypothesis: Circulating tumor DNA (ctDNA) and elevated protein biomarkers (together, the marker panel) can be detected in asymptomatic individuals with early cancer. - Specific Aim 1: Determine the prevalence of a positive marker panel test in a prospective clinical cohort of 10,000 asymptomatic women ages 65 to 75 years. - Specific Aim 2: Determine the sensitivity, specificity, positive predictive value (PPV) and negative predictive value (NPV) of a marker panel test to identify histologically proven cancers that develop within 5-years of the marker panel evaluation. - CONTACTS: During normal business hours, contact study staff at ; after hours Head Of Measurement & Insights via the [facility] [place] . - Please contact study team before resolving/deleting from patients problem list. Study phone number: [phone]. Diagnosis changed due to Research Module. Go to Snapshot for study details. Body mass index (BMI) of 50. 0 to 59.9 in adult 06/02/2017 01/13/2019 Overview: Per Obesity protocol #1 - Per Obesity Taxonomy ICD-10 update of inactive term Heart failure, diastolic, ch ronic, etiology unknown 09/20/2015 02/11/2018 Dyslipidemia, goal LDL below 100 06/26/2011 10/30/2011 Asthma with severity to be determined 02/22/2010 06/26/2011 Overview (12/11/2015): Per Asthma Taxonomy ICD-10 update of inactive term Obesity, morbid (more than 1 00 lbs over ideal weight or BMI > 40) 11/28/2009 06/05/2017 Overview (11/20/2015): Per Obesity Taxonomy ICD-10 update of inactive term Morbid obesity, BMI not known 06/13/2009 11/28/2009 Overview (11/28/2009): Per Obesity Taxonomy Dyslipidemia, goal to be determined 02/07/2009 06/26/2011 Impaired fasting glucose 02/07/2009 ADVANCE DIRECTIVE INFORMATION 05/14/2005 02/11/2018 Overview (05/14/2005): No, Advance Directive brochure given to patient at prior appointment. EXTRINSIC ASTHMA, UNSPEC 09/23/2003 LOC PRIM [id number] 07/29/200301/30 Type 2 diabetes mellitus wit h hemoglobin A1c goal of less than 7.0% 08/02/2010 Overview (12/26/2015): ICD-10 update of inactive term Type 2 diabetes mellitus wit h hemoglobin A1c goal of less than 7.0% 10/30/2011 Overview (12/26/2015): ICD-10 update of inactive term Hypersomnia with sleep apnea 02/11/2018 documented as of this encounter (statuses as of 11/18/2024) Immunizations Name Administration Dates Next Due COVID-19 mRNA, LNP-s, No Pre serve, 2-Dose Series (FeeX - [employer] Fees) 10/02/2021,09/01/2021,12/05/2020,11/14 Pneumococcal Conjugate Vacc, 13 Valent (Prevnar) 02/15/2016 Pneumococcal Polysaccharide PPV23 (Pneumovax) 08/13/2017,07/21/2009 Season Influenza, Quad, PF, Adjuvanted, 65+ Yrs, IM (FLUAD) 06/14/2020 Seasonal Influenza Vac., MDV , IM, 0.5 mL (Fluzone) 07/10/2016,07/04/2015,07/11/2008 Seasonal Influenza Virus Vac cine, Unspecified Formulation 06/22/2021,06/14/2020,06/29/2019,08/13,06/05/2010,06/16/2009,06/15/2009 ,07/11/2008,07/16/2003 Seasonal Influenza, High Dos e, Trivalent, PF, IM (Fluzone HD) 06/14/2024 Seasonal Influenza, PF, 6 M & above, IM , (FluLaval or Fluzone) 06/29/2019,08/13/2018 Seasonal Influenza, Quadriva lent Hd (Fluzone Hd) 06/21/2023,07/06/2022,06/22/2021 Seasonal Influenza, Quadriva lent, No Preserve, IM 07/15/2017 Seasonal Influenza, Trivalen t, (IIV3), PF, (Fluzone) 06/15/2009 TD - Tetanus/Diptheria (ADULT) 09/01/1999 TD, Preservative Free 09/01/1999 TDAP (age 10 and older)(Boostrix) 01/20/2022 TDAP, Age 7 and older, IM (Adacel) 05/10/2010 Varicella Zoster Vaccine (Adult) 11/24/2013 Zoster Vaccine Recombinant (Shingrix) 01/09/2021 ,10/20/2020 documented as of this encounter Social History Tobacco Use Types Packs/Day Years Used Date Smoking Tobacco: Former Cigarettes 0.5 7 0 02/29/1968 - 02/28/1975 Smokeless Tobacco: Never Comments:no passive smoke Alcohol Use Standard Drinks/Week Comments Yes 0 (1 standard drink = 0.6 oz pur e alcohol) rare - 2 wine coolers a year PHQ-2 Answer Date Recorded PHQ Adult Total Score 0 04/09/2023 Hunger Vital Sign Answer Date Recorded Within the past 12 months, y ou worried that your food would run out before you got the money to buy more. Never true 01/23/20 Within the past 12 months, t he food you bought just didn't last and you didn't have money to get more. Never true 01/23/2024 Childcare Answer Date Recorded Do you feel overwhelmed with taking care of a child, family member or friend? Yes 01/23/2024 Does your family need help f inding childcare? (Household - for ages 0-17 years) Not on file 01/23/2024 Clothing Answer Date Recorded Have you been unable to get clothing when it was really needed? No 01/23/2024 Is your family able to get c lothes or diapers when needed? (Household - for ages 0-17 years) Not on file 01/23/2024 Personal Safety Answer Date Recorded Do you feel unsafe or have concerns for your saf ety? No 01/23/2024 Do you have concerns for you r family's safety? (Household - for ages 0-17 years) Not on file 01/23/2024 Utilities Answer Date Recorded Do you have trouble paying y our heating, water, or electric bill? No 01/23/2024 Is your family able to pay t he heat, water, or electric bill? (Household - for ages 0-17 years) Not on file 01/23/2024 Does your family have access to good internet? (Household - for ages 0-17 years) Not on file 01/23/2024 Employment Status Answer Date Recorded Are you unemployed or without regular income? No 01/23/2024 Does the household have a re gular source of income? (Household - for ages 0-17 years) Not on file 01/23/2024 Social Connections Answer Date Recorded How often do you feel lonely or isolated from th ose around you? Never 01/23/2024 Financial Resource Strain Answer Date R ecorded Do you have any trouble payi ng for your medications, or do you think you might in the future? No 01/23/2024 Does your family have troubl e paying for medicine? (Household - for ages 0-17 years) Not on file 01/23/2024 Transportation Needs Answer Date Record ed READ ONLY Do you have troubl e getting a ride to medical visits or work? Never True 01/23/2024 Does your family have a hard time getting a ride to doctors visits? (Household - for ages 0-17 years) Not on file 01/23/2024 Has lack of transportation k ept you from medical appointments, meetings, work, or from getting things needed for daily living? Check all that apply. (Adult - for ages 18 years and over) Not on file 01/23/2024 Do you (or your family) have trouble finding or paying for a ride (transportation)? (Household - for ages 0-17 years) Not on file 01/23/2024 Housing Stability Answer Date Recorded Do you currently live in a s helter or have no steady place to sleep at night? No 01/23/2024 READ ONLY Do you think you a re at risk of becoming homeless? No 01/23/2024 Does your family worry about paying for your home or becoming homeless? (Household - for ages 0-17 years) Not on file 0 01/23/2024 Are you homeless or worried that you might be in the future? (Adult - for ages 18 years and over) Not on file Are you (or your family) lenny eless or worried that you might be in the future? (Household - for ages 0-17 years) Not on file Food Insecurity Answer Date Recorded Do you need food for this week? No 01/23/2024 Are you able to get enough f ood for your family? (Household - for ages 0-17 years) Not on file 01/23/2024 Does your family need food t his week? (Household - for ages 0-17 years) Not on file 01/23/2024 Do you always have enough fo od for your family? (Household - for ages 0-17 years) Not on file 01/23/2024 Food Insecurity Answer Date Recorded Within the past 12 months, y ou worried that your food would run out before you got the money to buy more. Never true 01/23/20 24 Within the past 12 months, t he food you bought just didn't last and you didn't have money to get more. Never true 01/23/2024 Do you need food for this week? 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 ----- Message from Ricky Hackett sent at 11/17/2024 4:37 PM EDT ----- Stable documented in this encounter Plan of Treatment Upcoming Encounters Date Type Department Care Team (Latest Contact Info) Description 11/19/2024 2:20 PM EDT Telemedicine [facility] [address] [place] [address] Dru Vicente MD [address] [place] [address] [address] 11/22/2024 10:15 AM EDT Hospital Encounter ENDO [facility], Endoscopy Room [facility] [address] [place] [phone] Lena Cota MD [address] [address] 11/22/2024 10:15 AM EDT - 11/22/2024 10:45 AM EDT Surgery ENDO [facility], Endoscopy Room [facility] [address] [place] [phone] Lena Cota MD [address] [address] COLONOSCOPY FLEXIBLE PROXIMAL DIAGNOSTIC 02/24/2025 4:30 PM EDT Telemedicine Sleep Disorders [facility] [address] [place] [phone] Glory Martinez CRNP [address] [place] [address] 04/18/2025 11:15 AM EDT Imaging Radiology [address] [place] [address] 05/10/2025 1:30 PM EDT Office Visit Cardiology [address] [place] [phone] Ricky Hackett PA-C [address] [place] [address] 05/16/2025 11:00 AM EDT Office Visit Hepatology, [facility] [address] [place] [phone] Rachelle Camargo DO [address] [place] [address] 06/06/2025 12:30 PM EDT Imaging Radiology [facility] [address] [place] [phone] 09/19/2025 12:30 PM EST Imaging Radiology [address] [place] [address] Scheduled Procedures Name Priority Associated Diagnoses Date/Ti me COLONOSCOPY FLEXIBLE PROXIMA L DIAGNOSTIC History of colon polyps 11/22/2024 10:15 AM EDT ESOPHAGOGASTRODUODENOSCOPY ( EGD), FLEXIBLE, TRANSORAL, DIAGNOSTIC Recall Portal hypertensive gastropathy (HCC) Health Maintenance Due Date Last Done Comments Adult Wellness Visit 2013 Depression Screening 04/09/2024 04/09/2023 COVID-19 Vaccine ( season) 2024 10/02/2021, 09/01/2021, 12/05/2020, Additional history exists DXA Scan 11/07/2024 11/08/2019, 05/2020, 11/25/2012, Additional history exists Albumin/Creatinine Ratio 11/18/2024 024, 11/04/2022, 03/07/2021, Additional history exists GFR 05/20/2025 11/17/2024, 12/2024, 06/14/2024, Additional history exists CKD PHOS USE SMARTSET 90731 06/14/202506/01, 04/02/2023, 03/21/2023, Additional history exists CKD HGB USE SMARTSET 63634 11/17/202511/17, 11/17/2024, 11/03/2024, Additional history exists DTap/Tdap Vaccines (3 - Td or Tdap) 01/21/2032 01/20/2022, 05/10/2010, 09/01/1999, Additional history exists Pneumococcal Vaccine: 50+ Years Completed 08/13/2017, 02/15/2016, 07/21/2009 Fecal Occult Blood Test Discontinued 10/26/2019 Zoster Vaccines Completed 01/09/2021, 10/02, 11/24/2013 Colonoscopy Discontinued 05/10/2024, 05/2024, 03/17/2018 Colorectal Cancer Screening Discontinued Influenza Vaccine (FLU shot) Completed 06/14/2024, 06/21/2023, 07/06/2022, Additional history exists Cologuard Discontinued HPV (Gardasil) Vaccine Aged Out No lo nger eligible based on patient's age to complete this topic MENINGOCOCCAL (MENACTRA/MENVEO) Aged Out No longer eligible based on patient's age to complete this topic Meningitis B Vaccine (Bexsero/Trumemba) Aged Out No longer eligible based on patient's age to complete this topic Sigmoidoscopy Discontinued documented as of this encounter Medical Devices Not on filedocumented as of this encounter Care Teams Trim Technician Relationship Specialty Start Date End Date Ryan Hadley MD [address] [place] [address] PCP - General Internal Medicine 11/06/17 documented as of this encounter
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
--- OUTSIDE RECORDS SUMMARY | 2024-11-19 05:55 | External Medical Summary ---
Author Name Unknown Address Unknown Organization K01[facility] [place] [address] [place] [address] Laboratory Report Ordering Provider Test Date Status CHANTEL COHEN 11/17/2024 15:07:37 Final Observation Date Value Abnormality Reference (Units ) Status Iron 11/17/2024 15:07:37 19 Below low normal 33-151 (ug/dL) Final Iron-binding capacity 11/17/2024 15:07:37 369 250-425 (ug/dL) Final Transferrin Sat % 11/17/2024 15:07:37 5 Below low normal 15-55 (%) Final Performing Location [facility] [place] [address] [place] [address]
--- OUTSIDE RECORDS SUMMARY | 2024-11-19 05:55 | External Medical Summary ---
Author Name Unknown Address Unknown Organization K01[facility] [place] [address] [place] [address] Laboratory Report Ordering Provider Test Date Status CHANTEL COHEN 11/17/2024 15:07:37 Final Observation Date Value Abnormality Reference (Units ) Status Ferritin 11/17/2024 15:07:37 15 13-150 (ng /mL) Final Postmenopausal women have hi gher ferritin levels than pre-menopausal women. The above reference interval is based on pre-menopausal women. Performing Location [facility] - [address] [place] [address]
--- OUTSIDE RECORDS SUMMARY | 2024-11-19 05:55 | External Medical Summary ---
Author Name Unknown Address Unknown Organization K09:[facility] [address] [place] [address] Laboratory Report Ordering Provider Test Date Status CHANTEL COHEN 11/17/2024 15:07:37 Final Observation Date Value Abnormality Reference (Units ) Status BUN 11/17/2024 15:07:37 28 Above high normal 6-20 (mg/dL) Final Creatinine 11/17/2024 15:07:37 1.4 Above high normal 0.5-1.0 (mg/dL) Final Glomerular filtration rate/1.73 sq M.predicted [Volume Rate/Area] in Serum, Plasma or Blood by Creatinine-based formula (CKD-EPI) 11/17/2024 15:07:37 37 Below low normal >=60 (mL/min) Final eGFR is calculated based on the CKD-EPI 2020 equation. Sodium 11/17/2024 15:07:37 139 135-146 (m mol/L) Final Potassium 11/17/2024 15:07:37 4.2 3.5-5.1 (m mol/L) Final Cl 11/17/2024 15:07:37 105 98-107 (mm ol/L) Final CO2 11/17/2024 15:07:37 21 Below low normal 22- 32 (mmol/L) Final Anion gap 11/17/2024 15:07:37 13 7-15 (mmol /L) Final Glucose 11/17/2024 15:07:37 94 70-120 (mg /dL) Final Albumin 11/17/2024 15:07:37 3.5 Below low normal 3.8 -5.0 (g/dL) Final AST (Aspartate aminotransferase) 11/17/2024 15:07:37 19 10-35 (U/L) Fin al Alk Phos 11/17/2024 15:07:37 84 35-130 (U/ L) Final Bilirubin, Total 11/17/2024 15:07:37 0.7 <=1 .2 (mg/dL) Final Calcium 11/17/2024 15:07:37 9.3 8.4-10.2 ( mg/dL) Final Protein 11/17/2024 15:07:37 5.9 Below low normal 6.0 -8.3 (g/dL) Final ALT (Alanine aminotransferase) 11/17/2024 15:07:37 18 10-35 (U/L) Mike dejesus Performing Location [facility] [place] [address]
--- OUTSIDE RECORDS SUMMARY | 2024-11-19 05:55 | External Medical Summary | Summary of Care ---
Author Name Unknown Organization [facility] Address [address] [address] Phone [phone] Care Team Providers Care Latin Teacher Name Role Phone Ryan Hadley MD Primary Care Provider + Reason for Referral * (Within 10 days (routine)) - Authorized Specialty Diagnoses / Procedures Referred By Ricky charlton Referred To Contact Radiology Diagnoses Thyroid nodule Procedures US HEAD AND NECK Ryan Hadley MD [address] [place], [place] [address] Phone: tel: fax: Referral ID Status Reason Start Date Expiration Date V isits Requested Visits Authorized [id number] Authorized 08/19/2025 999 999 Reason for Visit * Reason Comments Re-Check Routine check up Test Results Blood work results Fatigue Other Patient states she f eels dry - has been trying to stay hydrated Encounter Details Date Type Department Care Team (Latest Contact Info) Description 11/17/2024 2:40 PM EDT Office Visit General Internal Medicine State Gustavo Andrew [address] [place] [address] [id number] Ryan Hadley MD [address] [place] [phone] Decreased hemoglobin*; Liver cirrhosis secondary to nonalcoholic steatohepatitis (XAVIER) (HCC); HTN, goal below 140/90; Postmenopausal status, age-related; Morbid obesity, unspecified obesity type (HCC); Stage 3b chronic kidney disease (HCC); Encounter for long-term (current) use of medications; PAF (paroxysmal atrial fibrillation) (HCC); Thyroid nodule; Moderate persistent asthma, unspecified whether complicated Allergies Active Allergy Reactions Criticality Noted Date Comments Bactrim 01/20/2014 Cephalosporins 07/29/2003 Rash (Ceclor only) Metformin Other (Please comment),Renal complications 03/25/2023 documented as of this encounter (statuses as of 11/17/2024) Medications ZYRTEC 10 MG PO TABS 1 [...] Respimat 1.25 MCG/ACT Inhalation Aerosol Solution (Tiotropium [place] Monohydrate)Indications :Moderate persistent asthma without complication [...] 024 Active Benzonatate 100 MG Oral Capsule (Tesxavier Quiñones) Swallow 1 or 2 pills three [...] as of this encounter (statuses as of 11/17/2024) Active Problems Problem Noted Date Diagnosed Date [...] as of this encounter (statuses as of 11/17/2024) Resolved Problems Problem Noted Date Diagnosed Date Resolved Date Caregiver burden 10/30/2023 11/17/2024 Body mass index (BMI) of 45. 0 to 49.9 in adult 10/07/2022 04/09/2023 Stage 3b chronic kidney disease 10/07/2022 04/09/2023 History of 2018 novel egan virus disease (COVID-19) 03/22/2022 06/14/2024 [...] 09/24/2018 04/03/2020 Overview (12/18/2020): DO NOT DELETE [facility] DETECT Study: Project # [id number], Engine Buildup Mechanic: Naun Jones, PhD. SUMMARY: Goal: Establish test [...] contact study staff at ; after hours Engine Buildup Mechanic via the [facility] assistant refinery operator . Please contact study team before resolving/deleting from patients problem list. Study phone number: [phone]. Diagnosis changed due to Research Module. Go to Snapshot for study details. Encounter for examination fo r normal comparison and control in clinical research program 09/24/2018 05/02/2022 Overview (12/18/2020): DO NOT DELETE - [facility] Study: Project # [id number], Engine Buildup Mechanic: Ady Bruno, MS, MPH. SUMMARY: Goal: Establish [...] contact study staff at ; after hours Engine Buildup Mechanic via the [facility] assistant refinery operator . - Please contact study team before resolving/deleting from patients problem list. Study phone number: [phone]. Diagnosis changed due to Research Module. Go [...] appointment. EXTRINSIC ASTHMA, UNSPEC 09/23/2003 LOC PRIM [id number] 07/29/200301/30 Type 2 diabetes mellitus wit h hemoglobin A1c goal of less than 7.0% 08/02/2010 Overview (12/26/2015): ICD-10 update of inactive term Type 2 diabetes mellitus wit h hemoglobin A1c goal of less than 7.0% 10/30/2011 Overview (12/26/2015): ICD-10 update of inactive term Hypersomnia with sleep apnea 02/11/2018 documented as of this encounter (statuses as of 11/17/2024) Immunizations Name Administration Dates Next Due COVID-19 [...] 0 02/29/1966 - 02/28/1975 Smokeless Tobacco: Never Tobacco Cessation:Counseling Given: Not Answered Comments:no passive smoke Alcohol Use Standard Drinks/Week [...] 01/23/2024 Does the household have a re lar source of income? (Household - for ages [...] on file documented as of this encounter Last Filed Vital Signs Vital Sign Reading Time Taken Comments Blood Pressure 112/46 11/17/2024 2:35 PM EDT Pulse 68 11/17/2024 2:35 PM EDT Temperature 37.2 C (99 F) 11/17/2024 2:35 PM EDT Respiratory Rate 16 11/17/2024 2:35 PM EDT Oxygen Saturation - - Inhaled Oxygen Concentration - - Weight 97.3 kg (214 lb 6.4 oz) 11/17/2024 2:35 P M EDT Height - - Body Mass Index 41.87 05/10/2024 1:33 PM EDT documented in this encounter Patient Instructions * Patient Instructions* Bo Hurtado RN - 11/17/2024 2:40 PM EDT Osteoporosis: Screening for Bone Loss The strength of bones is measured by their density (thickness). High bone density means bones are less likely to fracture. If you are at risk for bone loss, your healthcare provider may refer you forbone density testing. Bone Density Testing Bone density testing is safe, quick, easy, and painless. Testing can detect osteoporosis before a fracture happens. It can also predict the risk of future fractures. And testing can measure the response to treatment. There are two types of tests that you may have: Peripheral tests are used for screening. They measure density in the finger, wrist, knee, farley, or heel. A common peripheral test is the quantitative ultrasound (QUS). Central tests are used for diagnosis. They measure density in the hip or spine. The main centraltest is the dual energy x-ray absorptiometry (DXA). The DXA is the standard bone density test. Who Should Be Tested? All postmenopausal women under age 65, with one or more risk factors in addition to menopause. All women age 65 and older. Postmenopausal women with fractures. Women who are thinking about treatment for osteoporosis. Women who have been on hormone therapy for a long time. Men or women with certain medical conditions or who are taking certain medications (such as glucocorticoids or prednisone) for a long period. Common Testing Sites Any bone can fracture, but with osteoporosis some bones fracture more easily. These include bones in the spine, wrist, shoulder, and hip. Thats why bone density testing may be done at one or more of these sites. Understanding Your Results The results of your test may seem confusing at first. Dont be afraid to ask your provider to explain. Your bone mineral density (BMD) describes the thickness of the bone that was scanned. Your healthcare provider will compare your BMD with the BMD of young, healthy bone. The result is called a T-score. Bones remodel at different rates. So, a healthy T-score in the wrist doesnt mean the spine is also healthy. Thats why more than one site may be scanned. [id number] [facility], [address] [place] [address]. All rights reserved. This information is not intended as a substitute for professional medical care. Always follow your healthcare professional's instructions documented in this encounter Progress Notes * Ryan Hadley MD - 11/17/2024 3:05 PM EDT Chief Complaint Patient presents with Re-Check Routine check up Test Results Blood work results Fatigue Other Patient states she feels dry - has been trying to stay hydrated SUBJECTIVE: Kelin Houston is a 79 year old female with PMH as below who presents for follow up htn, cirrhosis, ckd 3, paf. No cp, pressure, palpitations, feels really tired for past months. No brbpr, or melanaor dark stools. Feels dry at times in mouth as well. Still follows with hepatology and cardiology Patient Active Problem List Diagnosis HTN, goal below 140/90 SHANA on CPAP Asthma, moderate persistent Metabolic syndrome Mixed hyperlipidemia Knee joint replacement status GERD (gastroesophageal reflux disease) Rhinitis, nonallergic Diastolic dysfunction Thrombocytopenia (HCC) Morbid obesity, unspecified obesity type (HCC) Benign hypertension with CKD (chronic kidney disease) stage III (HCC) Other cirrhosis of liver (HCC) Thyroid nodule Liver cirrhosis secondary to nonalcoholic steatohepatitis (XAVIER) (HCC) Diastolic heart failure (HCC) PAF (paroxysmal atrial fibrillation) (HCC) Subclinical hyperthyroidism Atypical atrial flutter (HCC) Stage 3b chronic kidney disease (HCC) Current Outpatient Medications Medication Sig Dispense Refill ZYRTEC 10 MG PO TABS 1 tab every day amoxicillin (AMOXIL) 500 MG Capsule TAKE 4 CAPSULES BY MOUTH ONE HOUR PRIOR TO APPOINTMENT 0 fluticasone (FLONASE) 50 MCG/ACT nasal spray USE 2 SPRAYS IN EACH NOSTRIL DAILY 48 g 4 Nitroglycerin 0.4 MG Sublingual Tablet Sublingual (NITROSTAT) Place 1 Tab under the tongue every 5 minutes as needed for Pain, Chest. up to 3 doses in 15 minutes 25 Tab 11 Albuterol Sulfate (2.5 MG/3ML) 0.083% Inhalation Nebulization Solution (PROVENTIL) Inhale 1 Vial via nebulizer every 6 hours as needed for Other (Cough, wheezing, shortness of breath). Dx J45.40 360 mL 11 CPAP every night at bedtime . Acetaminophen 500 MG Oral Tablet (Tylenol) Take 2 Tablets by mouth every 12 hours as needed for Pain, Severe. 100 Tablet 0 Spiriva Respimat 1.25 MCG/ACT Inhalation Aerosol Solution (Tiotropium [place] Monohydrate) Inhale 2Puffs by mouth in the morning. 12 g 3 Apixaban 5 MG Oral Tablet (Eliquis) Take 1 Tablet by mouth in the morning and 1 Tablet before bedtime. 180 Tablet 3 oxyCODONE HCl 5 MG Oral Tablet (Oxy IR) Take 1 Tablet by mouth every 8 hours as needed for Pain, Severe. 21 Tablet 0 Therapeutic Multivit/Mineral Oral Tablet Take 1 Tablet by mouth in the morning. Fluticasone-Salmeterol 500-50 MCG/ACT Inhalation Aerosol Powder Breath Activated (Wixela Inhub) USE1 INHALATION BY MOUTH TWICE DAILY RINSE MOUTH AFTER USE 180 Each 3 Potassium Chloride ER 10 MEQ Oral Tablet Extended Release TAKE 1 TABLET BY MOUTH IN THE MORNING 90 Tablet 1 Lovastatin 40 MG Oral Tablet TAKE 1 TABLET BY MOUTH IN THE EVENING 90 Tablet 3 Benzonatate 100 MG Oral Capsule (Catalino Quiñones) Swallow 1 or 2 pills three times a day as needed for cough. Do not cut, crush, or chew. 50 Capsule 3 Omeprazole 20 MG Oral Capsule Delayed Release (PriLOSEC) TAKE 1 CAPSULE BY MOUTH DAILY 90 Capsule 1 Isosorbide Mononitrate ER 30 MG Oral Tablet Extended Release 24 Hour (Imdur) TAKE 1 TABLET BY MOUTHDAILY 90 Tablet 3 Torsemide 20 MG Oral Tablet (Demadex) TAKE 1 TABLET BY MOUTH IN THE MORNING 90 Tablet 3 Metoprolol Succinate ER 25 MG Oral Tablet Extended Release 24 Hour (toPROL XL) TAKE 1 TABLET BY MOUTH TWICE DAILY 180 Tablet 3 Spironolactone 25 MG Oral Tablet (Aldactone) TAKE 1 TABLET BY MOUTH IN THE MORNING 90 Tablet 0 Jardiance 10 MG Oral Tablet (Empagliflozin) TAKE 1 TABLET BY MOUTH IN THE MORNING 90 Tablet 3 Famotidine 20 MG Oral Tablet (Pepcid) TAKE 1 TABLET BY MOUTH DAILY 90 Tablet 1 No current facility-administered medications for this visit. Review of patient's allergies indicates: Allergen Reactions Bactrim Cephalosporins Rash (Ceclor only) Metformin Other (Please comment) and Renal complications Health Maintenance Due Topic Date Due Adult Wellness Visit Never done Depression Screening 04/09/2024 COVID-19 Vaccine ( season) 2024 DXA Scan 11/07/2024 Albumin/Creatinine Ratio 11/18/2024 ROS: CONSTITUTIONAL: No fevers, sweats, or chills PULMONARY: No cough, sputum, or hemoptysis, No wheezing, No rales, No shortness of breath, and No recent change in breathing CARDIOVASCULAR: No chest pain, No shortness of breath, No dyspnea on exertion, No orthopnea, No paroxysmal nocturnal dyspnea, No edema, No palpitations, and No syncope GASTROINTESTINAL: No abdominal pain, No change in bowel habits, No significant heartburn, No significant change in appetite, No nausea, vomiting, diarrhea, or constipation, No hematemesis, No blood in stools or black tarry stools, No abdominal bloating or early satiety, and No dysphagia ALL OTHER SYSTEMS NEGATIVE I reviewed social, PMH, PSH, and family history and updated where needed. 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 Tobacco Use Smoking status: Former Current packs/day: 0.00 Average packs/day: 0.5 packs/day for 7.0 years (3.5 ttl pk-yrs) Types: Cigarettes Start date: 02/29/1968 Quit date: 02/28/1975 Years since quittin.7 Smokeless tobacco: Never Tobacco comments: no passive smoke Vaping Use Vaping status: Never Used Substance and Sexual Activity Alcohol use: Yes Comment: rare - 2 wine coolers a year Drug use: Never Sexual activity: Not Currently Partners: Male control/protection: Surgical Comment: , two children Other Topics Concern Service Not Asked Blood Transfusions No Caffeine Concern Not Asked Occupational Exposure Not Asked Hobby Hazards Not Asked Sleep Concern Not Asked Stress Concern Not Asked Weight Concern Not Asked Special Diet No Back Care Not Asked Exercise Not Asked Bike Helmet Not Asked Seat Belt Yes Self-Exams Not Asked Social History Narrative Not on file Social Needs Financial Resource Strain: Low Risk (01/23/2024) Financial Resource Strain Do you have any trouble paying for your medications, or do you think you might in the future? (Adult - for ages 18 years and over): No Does your family have trouble paying for medicine? (Household - for ages 0-17 years): Not on file Food Insecurity: No Food Insecurity (01/23/2024) Food Insecurity Worried About Running Out of Food in the Last Year: Never true Ran Out of Food in the Last Year: Never true Do you need food for this week? (Adult - for ages 18 years and over): No Transportation Needs: No Transportation Needs (01/23/2024) Transportation Needs Do you have trouble getting a ride to medical visits or work? (Adult - for ages 18 years and over):Never True Does your family have a hard time getting a ride to doctors visits? (Household - for ages 0-17 years): Not on file Has lack of transportation kept you from medical appointments, meetings, work, or from getting things needed for daily living? Check all that apply. (Adult - for ages 18 years and over): Not on file Do you (or your family) have trouble finding or paying for a ride (transportation)? (Household - for ages 0-17 years): Not on file Social Connections: Socially Integrated (01/23/2024) Social Connections How often do you feel lonely or isolated from those around you? (Adult - for ages 18 years and over): Never Housing Stability: Low Risk (01/23/2024) Housing Stability Do you currently live in a half-way or have no steady place to sleep at night? (Adult - for ages 18 years and over): No Do you think you are at risk of becoming homeless? (Adult - for ages 18 years and over): No Does your family worry about paying for your home or becoming homeless? (Household - for ages 0-17 years): Not on file Are you homeless or worried that you might be in the future? (Adult - for ages 18 years and over): Not on file Are you (or your family) homeless or worried that you might be in the future? (Household - for ages0-17 years): Not on file Past Medical History: Diagnosis Date Asthma Asthma, moderate persistent 06/26/2011 Cirrhosis (HCC) 2021 Diabetes mellitus (HCC) Unknown Diastolic dysfunction 02/11/2018 Fatty liver GERD (gastroesophageal reflux disease) Heart failure, diastolic, chronic, etiology unknown (HCC) 09/20/2015 History of 2019 novel coronavirus disease (COVID-19) 03/22/2022 HTN, goal below 140/90 Hyperlipidemia LDL goal < 130 10/30/2011 Hypersomnia with sleep apnea Hypertension Unknown Kidney disease 2017? Knee joint replacement status 11/04/2012 Metabolic syndrome 10/30/2011 OBESITY, BMI 40 AND OVER 11/28/2009 Per Obesity Taxonomy Pneumonia due to COVID-19 virus 08/15/2021 Primary localized osteoarthrosis, lower leg knee/hip Rhinitis, nonallergic 12/02/2013 Sleep apnea, obstructive SLEEP APNEA, UNSPECIFIED: AHI 22.9 02/07/2009 Thyroid nodule 03/22/2022 Past Surgical History: Procedure Laterality Date ABDOMEN SURGERY PROCEDURE NEC , INDUCED BY D&E D&E ARTHROPLASTY KNEE TOTAL Left 04/07/2018 Dr. Nice CATARACT SURGERY,COMPLEX 2013 right COLONOSCOPY, DIAGNOSTIC (RECTUM) 03/17/2018 normal, repeat 10 yrs/[facility] COLONOSCOPY, DIAGNOSTIC (RECTUM) 05/10/2024 biopises show tubulovillous adenoma, adenomatous polyps/recall 6 months-1 year/COLONOSCOPY FLEXIBLEPROXIMAL DIAGNOSTIC performed by Lena Cota MD at ENDOSCOPY [facility] EGD, FLEXIBLE, DIAGNOSTIC 11/02/2021 z-line 35cm from incisors, normal scope Hill 2 / bx normal / [facility] EGD, W/ENDOSCOPIC US N/A 03/28/2023 cystic lesion pancreatic body/portal hypertensive gastropathy/biopsies show mild gastritis of stomach/repeat EGD 2 years/EUS/EGD/OH KNEE ARTHROSCOPY/SURGERY 2012 replaced, right LIGATE/CUT OVIDUCT(S) 1977 NEEDLE BIOPSY OF LIVER 1969 PARTIAL HYSTERECTOMY 1988 Still has ovaries REMOVE GALLBLADDER REMOVE TONSILS & ADENOIDS, UNDER 14 2 Tonsillectomy/Adenoids,<14 Y/O SHOULDER SURGERY PROCEDURE NEC Left [address] Chow UPPER GI ENDOSCOPY 1989s Family History Problem Relation Name Age of Onset No Past Hx Father at 97 Cancer Father Skin/Basal Cell Carcinoma Nose Diabetes Mother Hypertension Mother Stroke Mother No Past Hx Son Malick [place] No Past Hx Son Elliott Other (No siblings) Other Breast Cancer No significant family history OBJECTIVE: PHYSICAL EXAM: BP 112/46 (BP Site: Left Arm, BP Position: Sitting, BP Cuff Size: Large) | Pulse 68 | Temp 99 F (37.2 C) (Tympanic) | Resp 16 | Wt 214 lb 6.4 oz (97.3 kg) | BMI 41.87 kg/m | BSA 2.03 m General: alert, healthy, and no distress Head: Normocephalic, No masses, lesions, tenderness or abnormalities Oropharynx: no exudate, no erythema, lips, buccal mucosa, and tongue normal, and mucous membranes are moist Heart: regular rate & rhythm, no gallops, S-1 normal, S-2 normal, and I/ HSM Lungs: normal respiratory rate and rhythm Psych: normal affect, no flight of ideas or tangential thought, good eye contact, no pressured speech I reviewed last cbc ASSESSMENT: (R71.0) Decreased hemoglobin (primary encounter diagnosis) (K75.81, K74.60) Liver cirrhosis secondary to nonalcoholic steatohepatitis (XAVIER) (HCC) (I10) HTN, goal below 140/90 (Z78.0) Postmenopausal status, age-related (E66.01) Morbid obesity, unspecified obesity type (HCC) (N18.32) Stage 3b chronic kidney disease (HCC) (Z79.899) Encounter for long-term (current) use of medications (I48.0) PAF (paroxysmal atrial fibrillation) (HCC) (E04.1) Thyroid nodule (J45.40) Moderate persistent asthma, unspecified whether complicated PLAN: Decreased hemoglobin (Primary) - IRON SCREEN, INCLUDING TIBC; Future; Expected date: 11/17/2024 - FERRITIN; Future; Expected date: 11/17/2024 - VITAMIN B12; Future; Expected date: 11/17/2024 - FOLIC ACID; Future; Expected date: 11/17/2024 - CBC WITH WBC DIFFERENTIAL AND ANEMIA REFLEX WORKUP; Future; Expected date: 11/17/2024 Recheck today Assess iron T/c er if worsening Has c-scope and possible egd next week Liver cirrhosis secondary to nonalcoholic steatohepatitis (XAVIER) (HCC) - COMPREHENSIVE METABOLIC PANEL; Future; Expected date: 11/17/2024 Appreciate hepatology HTN, goal below 140/90 Cont metoprolol, aldactone, torsemide, imdur Postmenopausal status, age-related - DEXA SCAN/BONE MINERAL AXIAL; Future; Expected date: 11/17/2024 Morbid obesity, unspecified obesity type (HCC) Follow weights Stage 3b chronic kidney disease (HCC) Await labs Encounter for long-term (current) use of medications - VITAMIN B12; Future; Expected date: 11/17/2024 - FOLIC ACID; Future; Expected date: 11/17/2024 PAF (paroxysmal atrial fibrillation) (HCC) Cont metoprolol On Eliquis Thyroid nodule - US HEAD AND NECK; Future; Expected date: 08/19/2025 Moderate persistent asthma, unspecified whether complicated Seems controlled Follow Up: Return in about 4 months (around 03/19/2025), or if symptoms worsen or fail to improve, for Labs Today. | For: Labs Today Ryan Hadley MD * Bo Hurtado RN - 11/17/2024 2:40 PM EDT Dexa scan ordered today. Provider aware. Bo Hurtado RN documented in this encounter Nursing Notes * Bo Hurtado RN - 11/17/2024 2:40 PM EDT Chief Complaint Patient presents with Re-Check Routine check up Test Results Blood work results Fatigue Other Patient states she feels dry - has been trying to stay hydrated documented in this encounter Plan of Treatment Upcoming Encounters Date Type Department Care Team (Latest Contact Info) Description 11/19/2024 2:20 PM EDT Telemedicine Nephrology, Monty Bojorquez [address] [place] [address] Dru Vicente MD [address] [place] [address] 11/22/2024 10:15 AM EDT Hospital Encounter ENDO [facility], Endoscopy Room [facility] [address] [place] [phone] Lena Cota MD [address] [place] [address] 11/22/2024 10:15 AM EDT - 11/22/2024 10:45 AM EDT Surgery ENDO [facility], Endoscopy Room [facility] [address] [place] [phone] Lena Cota MD [address] [place] [address] COLONOSCOPY FLEXIBLE PROXIMAL DIAGNOSTIC 02/24/2025 4:30 PM EDT [facility]medicine [facility] [address] [place] [phone] Glory Martinez CRNP [address] [place] [address] 04/18/2025 11:15 AM EDT Imaging Radiology [address] [place] [address] 05/10/2025 1:30 PM EDT Office Visit Cardiology [address] [place] [id number] Ricky Hackett PA-C [address] [place] [address] 05/16/2025 11:00 AM EDT Office Visit Hepatology, [facility] [address] [place] [phone] Rachelle Camargo DO [address] [place] [address] 06/06/2025 12:30 PM EDT Imaging Radiology [facility] [address] [place] [phone] 09/19/2025 12:30 PM EST Imaging Radiology [address] [place] [address] Pending Results Name Type Priority Associated Diagnoses Date /Time IRON SCREEN, INCLUDING TIBC Lab Routine Decreased hemoglobin 11/17/2024 3:07 PM EDT FERRITIN Lab Routine Decreased hemoglobin 11/17/2024 3:07 PM EDT VITAMIN B12 Lab Routine Decreased hemoglobin Encounter for long-term (current) use of medications 11/17/2024 3:07 PM EDT FOLIC ACID Lab Routine Decreased hemoglobin Encounter for long-term (current) use of medications 11/17/2024 3:07 PM EDT CBC WITH WBC DIFFERENTIAL AND ANEMIA REFLEX WORKUP Lab Routine Decreased hemoglobin 11/17/2024 3:07 PM EDT Scheduled Orders Name Type Priority Associated Diagnoses Orde r Schedule DEXA SCAN/BONE MINERAL AXIAL Medical Imaging Routine Postmenopausal status, age-related Expected: 11/17/2024 (Approximate), Expires: 12/18/2025 IRON SCREEN, INCLUDING TIBC Lab Routine Decreased hemoglobin Expected: 11/17/2024 (Approximate), Expires: 11/17/2025 FERRITIN Lab Routine Decreased hemoglobin Expected: 11/17/2024 (Approximate), Expires: 11/17/2025 VITAMIN B12 Lab Routine Decreased hemoglobin Encounter for long-term (current) use of medications Expected: 11/17/2024 (Approximate), Expires: 11/17/2025 FOLIC ACID Lab Routine Decreased hemoglobin Encounter for long-term (current) use of medications Expected: 11/17/2024 (Approximate), Expires: 11/17/2025 CBC WITH WBC DIFFERENTIAL AND ANEMIA REFLEX WORKUP Lab Routine Decreased hemoglobin Expected: 11/17/2024 (Approximate), Expires: 11/17/2025 US HEAD AND NECK Medical Imaging Routine Thyroid nodule Expected: 08/19/2025, Expires: 12/18/2025 Scheduled Procedures Name Priority Associated Diagnoses Date/Ti [...] Additional history exists CKD PHOS USE SMARTSET 52659 06/14/202506/01, 04/02/2023, 03/21/2023, Additional history exists CKD HGB USE SMARTSET 66909 11/17/202511/17, 11/03/2024, 11/03/2024, Additional history exists DTap/Tdap Vaccines (3 [...] Not on filedocumented as of this encounter Results * (ABNORMAL) COMPREHENSIVE METABOLIC PANEL (11/17/2024 3:07 PM EDT) BUN 28(H) 6 - 20 mg/dL 11/17/2024 4:11 PM EDT LABORATORY [place] [facility]- CREATININE 1.4(H) 0.5 - 1.0 mg/dL 11/17/2024 4:11 PM EDT [facility] [place] [facility] EGFR 37(L) >=60 mL/min 11/17/2024 4:11 PM EDT [facility] [place] [facility]- Comment:eGFR is calculated b ased on the CKD-EPI 2020 equation. SODIUM 139 135 - 146 mmol/L 11/17/2024 4:11 PM EDT [facility] [place] [facility]- POTASSIUM 4.2 3.5 - 5.1 mmol/L 11/17/2024 4:11 PM EDT [facility] [place] [facility]- CHLORIDE 105 98 - 107 mmol/L 11/17/2024 4:11 PM EDT [facility] 56- CO2 21(L) 22 - 32 mmol/L 11/17/2024 4:11 PM EDT [facility] [place] [facility]- ANION GAP 13 7 - 15 mmol/L 11/17/2024 4:11 PM EDT [facility] [place] [facility]- GLUCOSE 94 70 - 120 mg/dL 11/17/2024 4:11 PM EDT [facility] [place] [facility]- Albumin 3.5(L) 3.8 - 5.0 g/dL 11/17/2024 4:11 PM EDT [facility] [place] [facility]- AST 19 10 - 35 U/L 11/17/2024 4:11 PM EDT [facility] [place] [facility]- Alkaline Phosphatase 84 35 - 130 U/L 11/17/2024 4:11 PM EDT [facility] [place] [facility]- Bilirubin, Total 0.7 <=1.2 mg/dL 11/17/2024 4:11 PM EDT [facility] [place] [facility]- CALCIUM 9.3 8.4 - 10.2 mg/dL 11/17/2024 4:11 PM EDT [facility] [place] [facility]- Protein 5.9(L) 6.0 - 8.3 g/dL 11/17/2024 4:11 PM EDT [facility] 56- ALT 18 10 - 35 U/L 11/17/2024 4:11 PM EDT [facility] 56 Blood Venous blood specimen / Unknown Venipuncture / Unknown 11/17/2024 3:07 PM EDT 11/17/2024 3:07 PM EDT Ryan Hadley MD LAB BLOOD ORDERABLES Fin al Result [facility] [address] [facility] [address] documented in this encounter Visit Diagnoses Diagnosis Decreased hemoglobin- Primary Anemia, unspecified Liver cirrhosis secondary to nonalcoholic steatohepatitis (XAVIER) (HCC) HTN, goal below 140/90 Unspecified essential hypertension Postmenopausal status, age-related Asymptomatic postmenopausal status (age-related) (natural) Morbid obesity, unspecified obesity type (HCC) Stage 3b chronic kidney disease (HCC) Encounter for long-term (current) use of medications Encounter for long-term (current) use of other medications PAF (paroxysmal atrial fibrillation) (HCC) Atrial fibrillation Thyroid nodule Nontoxic uninodular goiter Moderate persistent asthma, unspecified whether complicated History of colon polyps Personal history of colonic polyps documented in this encounter Care Teams Latin Teacher Relationship Specialty Start Date End Date Ryan Hadley MD [address] [facility] [place] [address] PCP - General Internal Medicine 11/06/17 documented as of this encounter"
--- OUTSIDE RECORDS SUMMARY | 2024-11-19 05:55 | External Medical Summary ---
Author Name Unknown Address Unknown Organization K01:[facility] [place] [address] [place] [address] Laboratory Report Ordering Provider Test Date Status CHANTEL COHEN 11/17/2024 15:07:37 Final Observation Date Value Abnormality Reference (Units ) Status Vitamin B12 11/17/2024 15:07:37 700 [id number] (pg/mL) Final Performing Location [facility] - [address] [place] [address]
--- OUTSIDE RECORDS SUMMARY | 2024-11-19 05:55 | External Medical Summary ---
Author Name Unknown Address Unknown Organization K09:[facility] [place] [address] Laboratory Report Ordering Provider Test Date Status CHANTEL COHEN 11/17/2024 15:07:37 Final Observation Date Value Abnormality Reference (Units ) Status WBC, Total 11/17/2024 15:07:37 7.09 4.00-10.8 0 (K/uL) Final RBC 11/17/2024 15:07:37 2.76 3.85-5.15 (M/uL) Final Hemoglobin 11/17/2024 15:07:37 6.8 Below low normal 12 .0-15.3 (g/dL) Final Anemia reflex testing trigge rs on a HGB < 12.0 for Females and HGB < 13.0 for Males in accordance with the WHO Anemia Guidelines
Anemia reflex testing triggers on a HGB < 12.0 for Females and HGB < 13.0 for Males in accordance with the WHO Anemia Guidelines HCT 11/17/2024 15:07:37 23.8 Below low normal 36. 0-45.2 (%) Final MCV 11/17/2024 15:07:37 86.2 81.5-97.5 (fL) Final MCH 11/17/2024 15:07:37 24.6 27.0-34.0 (pg) Final MCHC 11/17/2024 15:07:37 28.6 32.0-36.0 (g/dL) Final RDW 11/17/2024 15:07:37 16.7 11.5-15.5 (%) Final Platelets 11/17/2024 15:07:37 99 Below low normal 140 -400 (K/uL) Final MPV 11/17/2024 15:07:37 11.8 6.6-11.1 ( fL) Final Performing Location [facility] [place] [address]
--- OUTSIDE RECORDS SUMMARY | 2024-11-19 05:55 | External Medical Summary ---
Author Name Unknown Address Unknown Organization K09:[facility]ATORY [place] [address] Laboratory Report Ordering Provider Test Date Status CHANTEL COHEN 11/17/2024 15:07:37 Final Observation Date Value Abnormality Reference (Units ) Status Nucleated erythrocytes/100 leukocytes [Ratio] in Blood by Automated count 11/17/2024 15:07:37 Final Performing Location [facility] [place] [address]
--- OUTSIDE RECORDS SUMMARY | 2024-11-19 05:55 | External Medical Summary | Summary of Care ---
Author Name Unknown Organization [facility] Address [address] [facility] [place] [address] Phone [phone] Care Team Providers Care Land Classifier Name Role Phone Ryan Hadley MD Primary Care Provider + Reason for Visit * Reason Comments Outpatient Testing Encounter Details Date Type Department Care Team (Latest Contact Info) Description 11/17/2024 3:20 PM EDT Laboratory Laboratory [facility] [place] [address] [place] [address] [facility] [address] [facility] [place] [address] Heart failure, diastolic (HCC); HTN, goal below 140/90; Acute diastolic heart failure (HCC); Decreased hemoglobin; Liver cirrhosis secondary to nonalcoholic steatohepatitis (XAVIER) (HCC); Encounter for long-term (current) use of medications Allergies Active Allergy Reactions Criticality Noted Date [...] Respimat 1.25 MCG/ACT Inhalation Aerosol Solution (Tiotropium Friendly Monohydrate)Indications :Moderate persistent asthma without complication Inhale 2 Puffs by mouth in the morning. 12 g 3 023 Active Apixaban 5 MG Oral Tablet (Eliquis)Indications:PA F (paroxysmal atrial fibrillation) ([facility]) Take 1 Tablet by mouth in the [...] 024 Active Benzonatate 100 MG Oral Capsule (Meedianavandana Gardnerdamien) Swallow 1 or 2 pills three times [...] 04/03/2020 Overview (12/18/2020): DO NOT DELETE [facility] DETECT Study: Project # [id number], Class C Driver: Naun Jones, PhD. SUMMARY: Goal: Establish test [...] contact study staff at ; after hours Class C Driver via the [facility] seed cleaner operator . Please contact study team before resolving/deleting from patients problem list. Study phone number: [phone]. Diagnosis changed due to Research Module. Go to Snapshot for study details. Encounter for examination fo r normal comparison and control in clinical research program 09/24/2018 05/02/2022 Overview (12/18/2020): [facility] Study: Project # [id number], Class C Driver: Ady Bruno, MS, MPH. SUMMARY: Goal: Establish [...] contact study staff at ; after hours Class C Driver via the [facility] seed cleaner operator . - Please contact study team before resolving/deleting from patients problem list. Study phone number: [phone]. Diagnosis changed due to Research Module. Go [...] appointment. EXTRINSIC ASTHMA, UNSPEC 09/23/2003 LOC PRIM [id number] 07/29/200301/30 Type 2 diabetes mellitus wit h [...] mRNA, LNP-s, No Pre serve, 2-Dose Series ([employer]) 10/02/2021,09/01/2021,12/05/2020,11/14 Pneumococcal Conjugate Vacc, 13 Valent (Prevnar) [...] as of this encounter Miscellaneous Notes * Result Encounter Note - Ricky Hackett PA-C - 11/17/2024 4:37 PM EDT Stable documented in this encounter Plan of Treatment Upcoming Encounters Date Type Department Care Team (Latest Contact Info) Description 11/19/2024 2:20 PM EDT Telemedicine Nephrology, Monty Bojor[facility] [address] [place] [address] [address] Dru Vicente MD [address] [place] [address] [address] 11/22/2024 10:15 AM EDT Hospital Encounter ENDO [facility], Endoscopy Room [facility] [address] [place] [address] Lena Cota MD [address] [place] [address] 11/22/2024 10:15 AM EDT - 11/22/2024 10:45 AM EDT Surgery ENDO [facility], Endoscopy Room [facility] [address] [place] [address] Lena Cota MD [address] [place] [address] COLONOSCOPY FLEXIBLE PROXIMAL DIAGNOSTIC 02/24/2025 4:30 PM EDT Telemedicine Sleep Disorders Ctr [facility] [address] [place] [phone] Glory Martinez CRNP [address] [place] [address] 04/18/2025 11:15 AM EDT Imaging Radiology [address] [place] [address] 05/10/2025 1:30 PM EDT Office Visit Cardiology [address] [place] [address] Ricky Hackett PAPiloC [address] [place] [address] 05/16/2025 11:00 AM EDT Office Visit [facility]at[facility], [facility] [address] [place] [phone] Rachelle Camargo DO [address] [place] [address] 06/06/2025 12:30 PM EDT Imaging Radiology [facility] [address] [place] [phone] 09/19/2025 12:30 PM EST Imaging Radiology [address] [place] [address] Pending Results Name Type Priority Associated Diagnoses [...] Routine Decreased hemoglobin 11/17/2024 3:07 PM EDT ANEMIA REFLEX CHEMISTRY HOLD Lab Routine Decreased hemoglobin 11/17/2024 3:07 PM EDT RETICULOCYTE PANEL Lab Routine Decreased hemoglobin 11/17/2024 3:07 PM EDT Scheduled Procedures Name Priority Associated Diagnoses Date/Ti me COLONOSCOPY FLEXIBLE PROXIMA L DIAGNOSTIC History of colon polyps 11/22/2024 10:15 AM EDT ESOPHAGOGASTRODUODENOSCOPY ( EGD), FLEXIBLE, TRANSORAL, DIAGNOSTIC Recall Portal hypertensive gastropathy (HCC) Health Maintenance Due Date Last Done Comments Adult Wellness Visit 2013 Depression Screening 04/09/2024 04/09/2023 COVID-19 Vaccine ( season) 2024 10/02/2021, 09/01/2021, 12/05/2020, Additional history exists DXA Scan 11/07/2024 11/08/2019, 030 05/2020, 11/25/2012, Additional history exists Albumin/Creatinine Ratio 11/18/20242 024, 11/04/2022, 03/07/2021, Additional history exists GFR 05/20/2025 11/17/2024, 0312/2024, 06/14/2024, Additional history exists CKD PHOS USE SMARTSET 85458 06/14/202506/01, 04/02/2023, 03/21/2023, Additional history exists CKD HGB USE SMARTSET 91288 11/17/202511/17, 11/03/2024, 11/03/2024, Additional history exists DTap/Tdap [...] Not on filedocumented as of this encounter Procedures Procedure Name Priority Date/Time Associated Diagnosis Comments ANEMIA CBC Routine 11/17/2024 3:07 PM EDT Decreased hemoglobin DIFFERENTIAL, AUTOMATED Routine 11/17/2024 3:07 PM EDT Decreased hemoglobin COMPREHENSIVE METABOLIC PANEL Routine 11/17/2024 3:07 PM EDT Liver cirrhosis secondary to nonalcoholic steatohepatitis (XAVIER) (HCC) DIFFERENTIAL, TECHNOLOGIST REVIEW Routine 11/17/2024 3:07 PM EDT Decreased hemoglobin documented in this encounter Results * DIFFERENTIAL, TECHNOLOGIST REVIEW (11/17/2024 3:07 PM EDT) Pathologist [facility] nRs 11/17/2024 4:11 PM EDT LAB[facility]ATORY [place] 56-02 Blood Venous blood specimen / Unknown Venipuncture / Unknown 11/17/2024 3:07 PM EDT 11/17/2024 3:07 PM EDT us Ryan Hadley MD LAB BLOOD ORDERABLES Fin al Result [facility] 56-[address] [place], [place] [id number] * (ABNORMAL) DIFFERENTIAL, AUTOMATED (11/17/2024 3:07 PM EDT) WBC 7.09 4.00 - 10.80 K/uL 11/17/2024 4:11 PM EDT [facility] 56-02 Neutrophils % 49.8 40.0 - 75.0 % 11/17/2024 4:11 PM EDT [facility] 56-02 Lymphocytes % 28.3 18.0 - 42.0 % 11/17/2024 4:11 PM EDT [facility] 56-02 Monocytes % 18.9(H) 1.0 - 11.0 % 11/17/2024 4:11 PM EDT [facility] 56-02 Eosinophils % 2.7 0.0 - 6.0 % 11/17/2024 4:11 PM EDT [facility] 56-02 Basophils % 0.3 0.0 - 2.0 % 11/17/2024 4:11 PM EDT [facility] 56-02 Absolute Neutrophils 3.53 1.80 - 7.70 K/uL 11/17/2024 4:11 PM EDT [facility] 56-02 Absolute Lymphocytes 2.01 1.00 - 4.80 K/ul 11/17/2024 4:11 PM EDT [facility] 56-02 Absolute Monocytes 1.34(H) 0.00 - 1.10 K/uL 11/17/2024 4:11 PM EDT [facility] 56-02 Absolute Eosinophils 0.19 0.00 - 0.70 K/uL 11/17/2024 4:11 PM EDT [facility] 56-02 Absolute Basophils 0.02 0.00 - 0.20 K/uL 11/17/2024 4:11 PM EDT [facility] 56-02 Blood Venous blood specimen / Unknown Venipuncture / Unknown 11/17/2024 3:07 PM EDT 11/17/2024 3:07 PM EDT us Ryan Hadley MD LAB BLOOD ORDERABLES Fin al Result [facility] [address] [place] [address] * (ABNORMAL) ANEMIA CBC (11/17/2024 3:07 PM EDT) WBC 7.09 4.00 - 10.80 K/uL 11/17/2024 4:[address]T [address] RBC 2.76 3.85 - 5.15 M/uL 11/17/2024 4:[address] PM EDT [address] HGB 6.8(L) 12.0 - 15.3 g/dL 11/17/2024 4:11 PM EDT [facility] 56 Comment: Anemia reflex testing triggers on a HGB < 12.0 for Females and HGB < 13.0 for Males in accordance with the WHO Anemia Guidelines Anemia reflex testing triggers on a HGB < 12.0 for Females and HGB < 13.0 for Males in accordance with the WHO Anemia Guidelines HCT 23.8(L) 36.0 - 45.2 % 11/17/2024 4:11 PM EDT [facility] MCV 86.2 81.5 - 97.5 fL 11/17/2024 4:11 PM EDT [facility] 56 MCH 24.6 27.0 - 34.0 pg 11/17/2024 4:11 PM EDT [facility] 56 MCHC 28.6 32.0 - 36.0 g/dL 11/17/2024 4:11 PM EDT [facility] 56 RDW 16.7 11.5 - 15.5 % 11/17/2024 4:11 PM EDT [facility] 56 PLT 99(L) 140 - 400 K/uL 11/17/2024 4:11 PM EDT [facility] 56 MPV 11.8 6.6 - 11.1 fL 11/17/2024 4:11 PM EDT [facility] 56 Blood Venous blood specimen / Unknown Venipuncture / Unknown 11/17/2024 3:07 PM EDT 11/17/2024 3:07 PM EDT us Ryan Hadley MD LAB BLOOD ORDERABLES Fin al Result [facility] [address] [place] [address] * (ABNORMAL) COMPREHENSIVE METABOLIC PANEL (11/17/2024 3:07 PM EDT) BUN 28(H) 6 - 20 mg/dL 11/17/2024 4:11 PM EDT [facility] CREATININE 1.4(H) 0.5 - 1.0 mg/dL 11/17/2024 4:11 PM EDT [facility] 56 EGFR 37(L) >=60 mL/min 11/17/2024 4:11 PM EDT [facility] Comment:eGFR is calculated b ased on the CKD-EPI 2020 equation. SODIUM 139 135 - 146 mmol/L 11/17/2024 4:11 PM EDT [facility] POTASSIUM 4.2 3.5 - 5.1 mmol/L 11/17/2024 4:11 PM EDT [facility] CHLORIDE 105 98 - 107 mmol/L 11/17/2024 4:11 PM EDT [facility] 56 CO2 21(L) 22 - 32 mmol/L 11/17/2024 4:11 PM EDT [facility] ANION GAP 13 7 - 15 mmol/L 11/17/2024 4:11 PM EDT [facility] 56 GLUCOSE 94 70 - 120 mg/dL 11/17/2024 4:11 PM EDT [facility] 56 Albumin 3.5(L) 3.8 - 5.0 g/dL 11/17/2024 4:11 PM EDT [facility] 56 AST 19 10 - 35 U/L 11/17/2024 4:11 PM EDT [facility] 56 Alkaline Phosphatase 84 35 - 130 U/L 11/17/2024 4:11 PM EDT [facility] 56 Bilirubin, Total 0.7 <=1.2 mg/dL 11/17/2024 4:11 PM EDT [facility] 56- CALCIUM 9.3 8.4 - 10.2 mg/dL 11/17/2024 4:11 PM EDT [facility] 56- Protein 5.9(L) 6.0 - 8.3 g/dL 11/17/2024 4:11 PM EDT [facility] 56 ALT 18 10 - 35 U/L 11/17/2024 4:11 PM EDT [facility] 56 Blood Venous blood specimen / Unknown Venipuncture / Unknown 11/17/2024 3:07 PM EDT 11/17/2024 3:07 PM EDT Ryan Hadley MD LAB BLOOD ORDERABLES Fin al Result [facility] [address] [place] [address] documented in this encounter Visit Diagnoses Diagnosis Heart failure, diastolic (HCC) Unspecified diastolic heart failure HTN, goal below 140/90 Unspecified essential hypertension Acute diastolic heart failure (HCC) Acute diastolic heart failure Decreased hemoglobin Anemia, unspecified Liver cirrhosis secondary to nonalcoholic steatohepatitis (XAVIER) (HCC) Encounter for long-term (current) use of medications Encounter for long-term (current) use of other medications History of colon polyps Personal history of colonic polyps documented in this encounter Care Teams Land Classifier Relationship Specialty Start Date End Date Ryan Hadley MD [address] [place] [address] PCP - General Internal Medicine 11/06/17 documented as of this encounter
--- OUTSIDE RECORDS SUMMARY | 2024-11-19 05:55 | External Medical Summary ---
Author Name Unknown Address Unknown Organization K09:[facility]ORY [facility] [place] [address] Laboratory Report Ordering Provider Test Date Status CHANTEL COHEN 11/17/2024 15:07:37 Final Observation Date Value Abnormality Reference (Units ) Status SYNC LEUKOCYTES IN BLOOD BY AUTOMATED COUNT 11/17/2024 15:07:37 7.09 4.00-10.80 (K/uL) Final Segs 11/17/2024 15:07:37 49.8 40.0-75.0 (%) Final Lymphs % 11/17/2024 15:07:37 28.3 18.0-42.0 (%) Final Monos 11/17/2024 15:07:37 18.9 Above high normal 1.0-11.0 (%) Final Eosinophils 11/17/2024 15:07:37 2.7 0.0-6.0 (%) Final Basos 11/17/2024 15:07:37 0.3 0.0-2.0 (%) Final Absolute Segs 11/17/2024 15:07:37 3.53 1.80-7.70 (K/uL) Final Lymphs, absolute 11/17/2024 15:07:37 2.01 1.00-4.80 (K/ul) Final Monos, Abs 11/17/2024 15:07:37 1.34 Above high normal 0.00-1.10 (K/uL) Final Eos, Abs 11/17/2024 15:07:37 0.19 0.00-0.70 (K/uL) Final Basos, Abs 11/17/2024 15:07:37 0.02 0.00-0.20 (K/uL) Final Performing Location [facility] [place] [address]
--- OUTSIDE RECORDS SUMMARY | 2024-11-19 05:55 | External Medical Summary ---
Author Name Unknown Address Unknown Organization K01[place] [place] [address] [place] [id number] Laboratory Report Ordering Provider Test Date Status CHANTEL COHEN 11/17/2024 15:07:37 Final Observation Date Value Abnormality Reference (Units ) Status Retic, % (auto) 11/17/2024 15:07:37 2.56 Above high normal 0.80-1.90 (%) Final Reticulocytes, Absolute 11/17/2024 15:07:37 72.7 31.3-100.1 (K/uL) Final Reticulocyte fraction, immature 11/17/2024 15:07:37 30.7 Above high normal 2.5-20.6 (%) Final Reticulocyte HGB 11/17/2024 15:07:37 23.7 Below low normal 29.7-37.4 (pg) Final Performing Location [facility] [place] [address] [place] [id number]
--- OUTSIDE RECORDS SUMMARY | 2024-11-19 05:55 | External Medical Summary ---
Author Name Unknown Address Unknown Organization K01:[facility] [place] [address] [place] [address] Laboratory Report Ordering Provider Test Date Status CHANTEL COHEN 11/17/2024 15:07:37 Final Observation Date Value Abnormality Reference (Units ) Status Folic Acid 11/17/2024 15:07:37 11.0 >4.5 (ng/ mL) Final Performing Location [facility] - [address] [place] [address]
--- OUTSIDE RECORDS SUMMARY | 2024-11-19 05:56 | External Medical Summary | Summary of Care ---
Author Name Unknown Organization [facility] Address [address] [address] Phone [phone] Care Team Providers Care Microbiology Soil Scientist Name Role Phone Ryan Hadley MD Primary Care Provider + Reason for Visit * Reason Comments Outpatient Testing Encounter Details Date Type Department Care Team (Late st Contact Info) Description 11/03/2024 2:10 PM EST Laboratory Laboratory [address] [place] [phone] [place] [address] Other cirrhosis of liver (HCC); MyCode Research Other*[id number]; Encounter for monitoring diuretic therapy Allergies Active Allergy Reactions Criticality Noted Date Comments Bactrim 01/20/2014 Cephalosporins 07/29/2003 Rash (Ceclor only) Metformin Other (Please comment),Renal complications 03/25/2023 documented as of this encounter (statuses as of 11/03/2024) Medications ZYRTEC 10 MG PO TABS 1 [...] doses in 15 minutes 25 Tab 11 Active Additional Information Patient not taking.Reported on 10/21/2024 Albuterol Sulfate (2.5 MG/3ML) 0.083% Inhalation Nebulization [...] Respimat 1.25 MCG/ACT Inhalation Aerosol Solution (Tiotropium [place] Monohydrate)Indications :Moderate persistent asthma without complication Inhale 2 Puffs by mouth in the morning. 12 g 3 023 Active Apixaban 5 MG Oral Tablet (Eliquis)Indications:PA F (paroxysmal atrial fibrillation) ([facility]) Take 1 Tablet by mouth in [...] as of this encounter (statuses as of 11/03/2024) Active Problems Problem Noted Date Diagnosed Date Atypical atrial flutter 06/14/2024 PAF (paroxysmal atrial fibrillation) 12/30/2023 Subclinical hyperthyroidism 12/30/2023 Caregiver burden 10/30/2023 Liver cirrhosis secondary to nonalcoholic steatohepatitis ([facility]) [...] as of this encounter (statuses as of 11/03/2024) Resolved Problems Problem Noted Date Diagnosed Date Resolved Date Body mass index (BMI) of 45. 0 [...] 09/24/2018 04/03/2020 Overview (12/18/2020): DO NOT DELETE Historic Futures DETECT Study: Project # [id number], Hide Handler: Naun Jones, PhD. SUMMARY: Goal: Establish test [...] contact study staff at ; after hours Hide Handler via the [facility] extruding press operator . Please contact study team before resolving/deleting from patients problem list. Study phone number: [phone]. Diagnosis changed due to Research Module. Go to Snapshot for study details. Encounter for examination fo r normal comparison and control in clinical research program 09/24/2018 05/02/2022 Overview (12/18/2020): DO NOT DELETE - Historic Futures DETECT Study: Project # [id number], Hide Handler: Ady Bruno, MS, MPH. SUMMARY: Goal: Establish [...] contact study staff at ; after hours Hide Handler via the [facility] extruding press operator . - Please contact study team before resolving/deleting from patients problem list. Study phone number: [phone]. Diagnosis changed due to Research Module. Go [...] appointment. EXTRINSIC ASTHMA, UNSPEC 09/23/2003 LOC PRIM [id number] 07/29/200301/30 Type 2 diabetes mellitus wit h hemoglobin A1c goal of less than 7.0% 08/02/2010 Overview (12/26/2015): ICD-10 update of inactive term Type 2 diabetes mellitus wit h hemoglobin A1c goal of less than 7.0% 10/30/2011 Overview (12/26/2015): ICD-10 update of inactive term Hypersomnia with sleep apnea 02/11/2018 documented as of this encounter (statuses as of 11/03/2024) Immunizations Name Administration Dates Next Due COVID-19 mRNA, LNP-s, No Pre serve, 2-Dose Series ([employer]) 10/02/2021,09/01/2021,12/05/2020,11/14 Pneumococcal Conjugate Vacc, 13 Valent (Prevnar) [...] on file documented as of this encounter Plan of Treatment Upcoming Encounters Date Type Department Care Team (Latest Contact Info) Description 11/19/2024 2:20 PM EDT Telemedicine Nephrology, [facility] [address] [facility] [place] [address] Dru Vicente MD [address] [facility] [place] [address] 11/22/2024 10:15 AM EDT Hospital Encounter ENDO OSSC, Endoscopy Room [facility] [address] [place] [phone] Lena Cota MD [address] [facility] [place] [address] 11/22/2024 10:15 AM EDT - 11/22/2024 10:45 AM EDT Surgery ENDO OSSC, Endoscopy Room [facility] [address] [place] [phone] Lena Cota MD [address] [place] [address] COLONOSCOPY FLEXIBLE PROXIMAL DIAGNOSTIC 02/24/2025 4:30 PM EDT Telemedicine Sleep Disorders Ctr [facility] [address] [place] [phone] Glory Martinez CRNP [address] [place] [address] 03/21/2025 2:20 PM EDT Office Visit General Internal Medicine [facility] [address] [place] [address] Ryan Hadley MD [address] [place] [address] 05/10/2025 1:30 PM EDT Office Visit Cardiology [address] [place] [address] Ricky Hackett PA-C [address] [place] [address] Pending Results Name Type Priority Associated Diagnoses Date /Time HEPATIC FUNCTION PANEL Lab Routine Other cirrhosis of liver (HCC) 11/03/2024 2:14 PM EST PT INR Lab Routine Other cirrhosis of liver (HCC) 11/03/2024 2:14 PM EST CBC WITH WBC DIFFERENTIAL Lab Routine Other cirrhosis of liver (HCC) 11/03/2024 2:14 PM EST BASIC METABOLIC PANEL Lab Routine Other cirrhosis of liver (HCC) 11/03/2024 2:14 PM EST ALPHA-FETOPROTEIN TUMOR MARKER Lab Routine Other cirrhosis of liver (HCC) 11/03/2024 2:14 PM EST MYCODE SUBSEQUENT ADULT Lab Routine MyCode Research Other*[id number] 11/03/2024 2:14 PM EST MAGNESIUM Lab Routine Encounter for monitoring diuretic therapy 11/03/2024 2:14 PM EST CBC Lab Routine Other cirrhosis of liver (HCC) 11/03/2024 2:14 PM EST DIFFERENTIAL, AUTOMATED Lab Routine Other cirrhosis of liver (HCC) 11/03/2024 2:14 PM EST MYCODE SST1 Lab Routine MyCode Research Other*[id number] 11/03/2024 2:14 PM EST MYCODE SST2 Lab Routine MyCode Research Other*[id number] 11/03/2024 2:14 PM EST Scheduled Procedures Name Priority Associated Diagnoses Date/Ti [...] 024, 11/04/2022, 03/07/2021, Additional history exists GFR 12/13/2024 06/14/2024, 0809/2023, 03/12/2024, Additional history exists CKD HGB USE SMARTSET 83845 06/14/202506/14, 06/14/2024, 01/22/2024, Additional history exists CKD PHOS USE SMARTSET 90507 06/14/202506/01, 04/02/2023, 03/21/2023, Additional history exists DTap/Tdap Vaccines (3 - [...] Not on filedocumented as of this encounter Visit Diagnoses Diagnosis Other cirrhosis of liver (HCC) MyCode Research Other*[id number] Encounter for monitoring diuretic therapy Encounter for therapeutic drug monitoring History of colon polyps Personal history of colonic polyps documented in this encounter Care Teams Microbiology Soil Scientist Relationship Specialty Start Date End Date Ryan Hadley MD [address] [place] [address] PCP - General Internal Medicine 11/06/17 documented as of this encounter
--- OUTSIDE RECORDS SUMMARY | 2024-11-19 05:56 | External Medical Summary ---
Author Name Unknown Address Unknown Organization K01:[place] [facility] [place] [facility] [address] [facility] [address] Laboratory Report Ordering Provider Test Date Status REENA TYSON 11/03/2024 14:14:13 Final Observation Date Value Abnormality Reference (Units ) Status WBC, Total 11/03/2024 14:14:13 5.85 4.00-10.80 (K/uL) Final RBC 11/03/2024 14:14:13 2.88 3.85-5.15 (M/uL) Final Hemoglobin 11/03/2024 14:14:13 7.3 Below low normal 12.0-15.3 (g/dL) Final HCT 11/03/2024 14:14:13 26.2 Below low normal 36.0-45.2 (%) Final MCV 11/03/2024 14:14:13 91.0 81.5-97.5 (fL) Final MCH 11/03/2024 14:14:13 25.3 27.0-34.0 (pg) Final MCHC 11/03/2024 14:14:13 27.9 32.0-36.0 (g/dL) Final RDW 11/03/2024 14:14:13 16.1 11.5-15.5 (%) Final Platelets 11/03/2024 14:14:13 115 Below low normal 140-400 (K/uL) Final MPV 11/03/2024 14:14:13 11.9 6.6-11.1 (fL) Final Nucleated erythrocytes/100 leukocytes [Ratio] in Blood by Automated count 11/03/2024 14:14:13 0 <=0 (/100 WBCs) Final Performing Location [facility] [place] [facility] [address] [facility] [address]
--- OUTSIDE RECORDS SUMMARY | 2024-11-19 05:56 | External Medical Summary | Summary of Care ---
Author Name Unknown Organization [facility] Address [address] [facility] [address] Phone [phone] Care Team Providers Care Fleet Mechanic Name Role Phone Ryan Hadley MD Primary Care Provider + Reason for Visit * Reason Onset Date Comments Test Results Lab 11/05/2024 Encounter Details Date Type Department Care Team (Late st Contact Info) Description 11/05/2024 Telephone Hepatology, [facility] [address] [place] [address] Rachelle Camargo DO [address] [place] [address] Test Results Lab Allergies Active Allergy Reactions Criticality Noted Date Comments Bactrim 01/20/2014 Cephalosporins 07/29/2003 Rash (Ceclor only) Metformin Other (Please comment),Renal complications 03/25/2023 documented as of this encounter (statuses as of 11/09/2024) Medications ZYRTEC 10 MG PO TABS 1 [...] Respimat 1.25 MCG/ACT Inhalation Aerosol Solution (Tiotropium [place] Monohydrate)Indications :Moderate persistent asthma without complication Inhale 2 Puffs by mouth in the morning. 12 g 3 023 Active Apixaban 5 MG Oral Tablet (Eliquis)Indications:PA F (paroxysmal atrial fibrillation) ([facility]) Take 1 Tablet by mouth in the [...] as of this encounter (statuses as of 11/09/2024) Active Problems Problem Noted Date Diagnosed Date [...] as of this encounter (statuses as of 11/09/2024) Resolved Problems Problem Noted Date Diagnosed Date [...] 09/24/2018 04/03/2020 Overview (12/18/2020): DO NOT DELETE JoggleBug DETECT Study: Project # [id number], Railway Signal Technician: Naun Jones, PhD. SUMMARY: Goal: Establish test [...] contact study staff at ; after hours Railway Signal Technician via the [facility] shirt folding machine operator . Please contact study team before resolving/deleting from patients problem list. Study phone number: [phone]. Diagnosis changed due to Research Module. Go to Snapshot for study details. Encounter for examination fo r normal comparison and control in clinical research program 09/24/2018 05/02/2022 Overview (12/18/2020): DO NOT DELETE - JoggleBug DETECT Study: Project # [id number], Railway Signal Technician: Ady Bruno, MS, MPH. SUMMARY: Goal: Establish [...] contact study staff at ; after hours Railway Signal Technician via the [facility] hospital shirt folding machine operator . - Please contact study team before resolving/deleting from patients problem list. Study phone number: [phone]. Diagnosis changed due to Research Module. Go [...] appointment. EXTRINSIC ASTHMA, UNSPEC 09/23/2003 LOC PRIM [id number] 07/29/200301/30 Type 2 diabetes mellitus wit h hemoglobin A1c goal of less than 7.0% 08/02/2010 Overview (12/26/2015): ICD-10 update of inactive term Type 2 diabetes mellitus wit h hemoglobin A1c goal of less than 7.0% 10/30/2011 Overview (12/26/2015): ICD-10 update of inactive term Hypersomnia with sleep apnea 02/11/2018 documented as of this encounter (statuses as of 11/09/2024) Immunizations Name Administration Dates Next Due COVID-19 mRNA, LNP-s, No Pre serve, 2-Dose Series ([employer]) 10/02/2021,09/01/2021,12/05/2020,11/14 Influenza, Whole Virus 07/16/2003 Pneumococcal Conjugate Vacc, 13 Valent (Prevnar) 02/15/2016 Pneumococcal Polysaccharide PPV23 (Pneumovax) 08/13/2017,07/21/2009 Season Influenza, Quad, PF, Adjuvanted, 65+ Yrs, IM (FLUAD) 06/14/2020 Seasonal Influenza Vac., MDV , IM, 0.5 mL (Fluzone) 07/10/2016,07/04/2015,06/15/2014,07/15,06/18/2012,06/04/2011,06/05/2010 ,07/11/2008 Seasonal Influenza Virus Vac cine, Unspecified Formulation [...] encounter Miscellaneous Notes * Telephone Encounter - Rachelle Camargo, DO - 11/05/2024 10:53 AM EST Please let patient know recent labs reviewed. MELD score is currently 17. Her kidney function is slightly up. I would continue her current dose of diuretics but recommend a repeat BMP in 2 weeks. I also noticed her hgb seems a lot lower than her baseline at 7.4. any signs of melena, hematemesis, hematochezia? I know she has an upcoming colonoscopy at the end of this month. MELD 3.0: 17 at 11/03/2024 2:14 PM MELD-Na: 16 at 11/03/2024 2:14 PM Calculated from: Serum Creatinine: 1.4 mg/dL at 11/03/2024 2:14 PM Serum Sodium: 139 mmol/L (Using max of 137 mmol/L) at 11/03/2024 2:14 PM Total Bilirubin: 0.7 mg/dL (Using min of 1 mg/dL) at 11/03/2024 2:14 PM Serum Albumin: 3.4 g/dL at 11/03/2024 2:14 PM INR(ratio): 1.8 at 11/03/2024 2:14 PM Age at listing (hypothetical): 79 years Sex: Female at 11/03/2024 2:14 PM Rachelle Camargo DO documented in this encounter Plan of Treatment Upcoming Encounters Date Type Department Care Team (Latest Contact Info) Description 11/19/2024 2:20 PM EDT Telemedicine Nephrology, [facility] [address] [facility] [place] [address] Dru Vicente MD [address] [facility] [place] [address] 11/22/2024 10:15 AM EDT Hospital Encounter ENDO OSSC, Endoscopy Room [facility] [address] [facility] [place] [phone] Lena Coat MD [address] [place] [id number] 11/22/2024 10:15 AM EDT - 11/22/2024 10:45 AM EDT Surgery ENDO OSSC, Endoscopy Room [facility] [address] [place] [phone] Lena Cota MD [address] [place] [phone] COLONOSCOPY FLEXIBLE PROXIMAL DIAGNOSTIC 02/24/2025 4:30 PM EDT Telemedicine Sleep Disorders Ctr Maia Rodriguez, [place] [address] [place] [phone] Glory Martinez CRNP [address] [place] [address] 03/21/2025 2:20 PM EDT Office Visit General Internal Medicine [facility] [address] [place] [address] Ryan Hadley MD [address] [facility] [place] [address] 04/18/2025 11:15 AM EDT Imaging Radiology [address] [place] [address] 05/10/2025 1:30 PM EDT Office Visit Cardiology [address] [place] [address] Ricky Hackett PA-C [address] [place] [address] 05/16/2025 11:00 AM EDT Office Visit Hepatology, [facility] [address] [place] [address] Rachelle Camargo DO [address] [place] [address] Scheduled Procedures Name Priority Associated Diagnoses Date/Ti [...] 024, 11/04/2022, 03/07/2021, Additional history exists GFR 05/06/2025 11/03/2024, 06/01, 04/21/2024, Additional history exists CKD PHOS USE SMARTSET 82364 06/14/202506/01, 04/02/2023, 03/21/2023, Additional history exists CKD HGB USE SMARTSET 56885 11/03/202511/03, 11/03/2024, 06/14/2024, Additional history exists DTap/Tdap Vaccines (3 - [...] filedocumented as of this encounter Care Teams Fleet Mechanic Relationship Specialty Start Date End Date Ryan Hadley MD [address] [facility] [place] [address] PCP - General Internal Medicine 11/06/17 documented as of this encounter
--- OUTSIDE RECORDS SUMMARY | 2024-11-19 05:56 | External Medical Summary ---
Author Name Unknown Address Unknown Organization K01:LABORATORY [facility] [place] [address] [place] [address] Laboratory Report Ordering Provider Test Date Status DENYS DONALD 11/03/2024 14:14:13 Final Observation Date Value Abnormality Reference (Units ) Status MYCODE SPECIMEN-SST 11/03/2024 14:14:13 Freezing of extracted DNA, whole blood and/or serum. Final Performing Location LABORATORY C - [address] [place] [address]
--- OUTSIDE RECORDS SUMMARY | 2024-11-19 05:56 | External Medical Summary ---
Author Name Unknown Address Unknown Organization K01:LAB[facility]ATORY [facility] [place] [address] [facility] [address] Laboratory Report Ordering Provider Test Date Status REENA TYSON 11/03/2024 14:14:13 Final Observation Date Value Abnormality Reference (Units ) Status SYNC LEUKOCYTES IN BLOOD BY AUTOMATED COUNT 11/03/2024 14:14:13 5.85 4.00-10.80 (K/uL) Final Segs 11/03/2024 14:14:13 50.5 40.0-75.0 (%) Final Lymphs % 11/03/2024 14:14:13 29.2 18.0-42.0 (%) Final Monos 11/03/2024 14:14:13 16.1 Above high normal 1.0-11.0 (%) Final Eosinophils 11/03/2024 14:14:13 3.4 0.0-6.0 (%) Final Basos 11/03/2024 14:14:13 0.5 0.0-2.0 (%) Final Immature Granulocyte, Percent 11/03/2024 14:14:13 0.3 0.0-2.0 (%) Final Absolute Segs 11/03/2024 14:14:13 2.95 1.80-7.70 (K/uL) Final Lymphs, absolute 11/03/2024 14:14:13 1.71 1.00-4.80 (K/ul) Final Monos, Abs 11/03/2024 14:14:13 0.94 0.00-1.10 (K/uL) Final Eos, Abs 11/03/2024 14:14:13 0.20 0.00-0.70 (K/uL) Final Basos, Abs 11/03/2024 14:14:13 0.03 0.00-0.20 (K/uL) Final Immature Granulocytes, Number 11/03/2024 14:14:13 0.02 0.00-0.20 (K/uL) Final Performing Location LABORATORY [facility] [place] - [address] [facility] [address]
--- OUTSIDE RECORDS SUMMARY | 2024-11-19 05:56 | External Medical Summary ---
Author Name Unknown Address Unknown Organization K01:LABORATORY [facility] [place] - [address] [facility] [place] [address] Laboratory Report Ordering Provider Test Date Status MARBELLAREENA 11/03/2024 14:14:13 Final Observation Date Value Abnormality Reference (Units ) Status Alpha-Fetoprotein 11/03/2024 14:14:13 1.9 0. 0-8.3 (ng/mL) Final Performing Location LABORATORY C - [address] [facility] [address]
--- OUTSIDE RECORDS SUMMARY | 2024-11-19 05:56 | External Medical Summary ---
Author Name Unknown Address Unknown Organization K01:LABORATORY [facility] [place] - [address] [place] [address] Laboratory Report Ordering Provider Test Date Status DENYS DONALD 11/03/2024 14:14:13 Final Observation Date Value Abnormality Reference (Units ) Status MYCODE SPECIMEN-SST 11/03/2024 14:14:13 Freezing of extracted DNA, whole blood and/or serum. Final Performing Location LABORATORY C - [address] [place] [address]
--- OUTSIDE RECORDS SUMMARY | 2024-11-19 05:56 | External Medical Summary | Summary of Care ---
Author Name Unknown Organization [facility] Address [address] [facility] [address] Phone [phone] Care Team Providers Care Bass Mechanism Maker Name Role Phone Ryan Hadley MD Primary Care Provider + Reason for Visit * Reason Onset Date Comments Test Results Lab 11/05/2024 Encounter Details Date Type Department Care Team (Late st Contact Info) Description 11/05/2024 Telephone Hepatology, [facility] [address] [place] [address] Rachelle Camargo DO [address] [place] [address] Test Results Lab Allergies Active Allergy Reactions Criticality Noted Date Comments Bactrim 01/20/2014 Cephalosporins 07/29/2003 Rash (Ceclor only) Metformin Other (Please comment),Renal complications 03/25/2023 documented as of this encounter (statuses as of 11/05/2024) Medications ZYRTEC 10 MG PO TABS 1 [...] Respimat 1.25 MCG/ACT Inhalation Aerosol Solution (Tiotropium [place] Monohydrate)Indications :Moderate persistent asthma without complication Inhale 2 Puffs by mouth in the morning. 12 g 3 023 Active Apixaban 5 MG Oral Tablet (Eliquis)Indications:PA F (paroxysmal atrial fibrillation) ([facility]) Take 1 Tablet by mouth [...] as of this encounter (statuses as of 11/05/2024) Active Problems Problem Noted Date Diagnosed Date [...] as of this encounter (statuses as of 11/05/2024) Resolved Problems Problem Noted Date Diagnosed Date [...] 09/24/2018 04/03/2020 Overview (12/18/2020): DO NOT DELETE Work [employer] DETECT Study: Project # [id number], Medical Observer: Naun Jones, PhD. SUMMARY: Goal: Establish test [...] contact study staff at ; after hours Medical Observer via the [facility] licensed nuclear operator . Please contact study team before resolving/deleting from patients problem list. Study phone number: [phone]. Diagnosis changed due to Research Module. Go to Snapshot for study details. Encounter for examination fo r normal comparison and control in clinical research program 09/24/2018 05/02/2022 Overview (12/18/2020): DO NOT DELETE - Work [employer] DETECT Study: Project # [id number], Medical Observer: Ady Bruno, MS, MPH. SUMMARY: Goal: Establish [...] contact study staff at ; after hours Medical Observer via the [facility] hospital licensed nuclear operator . - Please contact study team before resolving/deleting from patients problem list. Study phone number: [phone]. Diagnosis changed due to Research Module. Go [...] appointment. EXTRINSIC ASTHMA, UNSPEC 09/23/2003 LOC PRIM [id number] 07/29/200301/30 Type 2 diabetes mellitus wit h hemoglobin A1c goal of less than 7.0% 08/02/2010 Overview (12/26/2015): ICD-10 update of inactive term Type 2 diabetes mellitus wit h hemoglobin A1c goal of less than 7.0% 10/30/2011 Overview (12/26/2015): ICD-10 update of inactive term Hypersomnia with sleep apnea 02/11/2018 documented as of this encounter (statuses as of 11/05/2024) Immunizations Name Administration Dates Next Due COVID-19 mRNA, LNP-s, No Pre serve, 2-Dose Series ([employer]) 10/02/2021,09/01/2021,12/05/2020,11/14 Influenza, Whole Virus 07/16/2003 Pneumococcal Conjugate [...] Description 11/19/2024 2:20 PM EDT Telemedicine Nephrology, [facility] [address] [facility] [place] [address] Dru Vicente MD [address] [facility] [place] [address] 11/22/2024 10:15 AM EDT Hospital Encounter ENDO OSSC, Endoscopy Room [facility] 132 [facility] [place] [phone] Lena Cota MD [address] [place] [phone] 11/22/2024 10:15 AM EDT - 11/22/2024 10:45 AM EDT Surgery ENDO OSSC, Endoscopy Room [facility] [address] [place] [phone] Lena Cota MD [address] [place] [phone] COLONOSCOPY FLEXIBLE PROXIMAL DIAGNOSTIC 02/24/2025 4:30 PM EDT Telemedicine Sleep Disorders Ctr Maia Rodriguez, [place] [address] [place] [phone] Glory Martinez CRNP [address] [place] [address] 03/21/2025 2:20 PM EDT Office Visit General Internal Medicine [facility] [address] [facility] [place] [address] Ryan Hadley MD [address] [place] [address] 05/10/2025 1:30 PM EDT Office Visit Cardiology [address] [place] [address] Ricky Hackett PA-C [address] [place] [address] Scheduled Procedures Name Priority Associated Diagnoses Date/Ti me COLONOSCOPY FLEXIBLE PROXIMA L DIAGNOSTIC History of colon polyps 11/22/2024 10:15 AM EDT ESOPHAGOGASTRODUODENOSCOPY ( EGD), FLEXIBLE, TRANSORAL, DIAGNOSTIC Recall Portal hypertensive gastropathy (HCC) Health Maintenance Due Date Last Done Comments Adult Wellness Visit 2013 Depression Screening 04/09/2024 04/09/2023 COVID-19 Vaccine ( season) 2024 10/02/2021, 09/01/2021, 12/05/2020, Additional history exists DXA Scan 11/07/2024 11/08/2019, 03/05/2020, 11/25/2012, Additional history exists Albumin/Creatinine Ratio 11/18/2024 024, 11/04/2022, 03/07/2021, Additional history exists GFR 05/06/2025 11/03/2024, 06/01, 04/21/2024, Additional history exists CKD PHOS USE SMARTSET 06556 06/14/202506/01, 04/02/2023, 03/21/2023, Additional history exists CKD HGB USE SMARTSET 93436 11/03/202511/03, 11/03/2024, 06/14/2024, Additional history exists DTap/Tdap [...] filedocumented as of this encounter Care Teams Bass Mechanism Maker Relationship Specialty Start Date End Date Ryan Hadley MD 200 [place] [address] PCP - General Internal Medicine 11/06/17 documented as of this encounter
--- OUTSIDE RECORDS SUMMARY | 2024-11-19 05:56 | External Medical Summary ---
Author Name Unknown Address Unknown Organization K01:LABORATORY [facility] - [address] [place] [address] Laboratory Report Ordering Provider Test Date Status JAYLA CHANGO 11/03/2024 14:14:13 Final Observation Date Value Abnormality Reference (Units ) Status Magnesium 11/03/2024 14:14:13 2.5 1.5-2.6 (m g/dL) Final Performing Location LABORATORY [facility] - [address] [place] [address]
--- OUTSIDE RECORDS SUMMARY | 2024-11-19 05:56 | External Medical Summary | Summary of Care ---
Author Name Unknown Organization [facility] Address [address] [facility] [facility] [place] [address] Phone [phone] Care Team Providers Care Mica Spreader Name Role Phone Ryan Hadley MD Primary Care Provider + Reason for Visit * Reason Onset Date Comments Test Results Lab 11/05/2024 Encounter Details Date Type Department Care Team (Late st Contact Info) Description 11/05/2024 Telephone Hepatology, [facility] [address] [address] Rachelle Camargo DO [address] [place] [address] Test Results Lab Allergies Active Allergy Reactions [...] Respimat 1.25 MCG/ACT Inhalation Aerosol Solution (Tiotropium [place] Monohydrate)Indications :Moderate persistent asthma without complication Inhale 2 Puffs by mouth in the morning. 12 g 3 023 Active Apixaban 5 MG Oral Tablet (Eliquis)Indications:PA F (paroxysmal atrial fibrillation) ([facility]) Take 1 Tablet by mouth in [...] 09/24/2018 04/03/2020 Overview (12/18/2020): DO NOT DELETE [employer] DETECT Study: Project # [id number], Video Tape Transferrer: Naun Jones, PhD. SUMMARY: Goal: Establish test [...] contact study staff at ; after hours Video Tape Transferrer via the [facility] pin drafting machine operator . Please contact study team before resolving/deleting from patients problem list. Study phone number: [phone]. Diagnosis changed due to Research Module. Go to Snapshot for study details. Encounter for examination fo r normal comparison and control in clinical research program 09/24/2018 05/02/2022 Overview (12/18/2020): DO NOT DELETE - [employer] DETECT Study: Project # [id number], Video Tape Transferrer: Ady Bruno, MS, MPH. SUMMARY: Goal: Establish [...] contact study staff at ; after hours Video Tape Transferrer via the [facility] pin drafting machine operator . - Please contact study team before resolving/deleting from patients problem list. Study phone number: [phone]. Diagnosis changed due to Research Module. Go [...] appointment. EXTRINSIC ASTHMA, UNSPEC 09/23/2003 LOC PRIM [id number] 07/29/200301/30 Type 2 diabetes mellitus wit h [...] mRNA, LNP-s, No Pre serve, 2-Dose Series ([employer]) 10/02/2021,09/01/2021,12/05/2020,11/14 Influenza, Whole Virus 07/16/2003 Pneumococcal Conjugate [...] Description 11/19/2024 2:20 PM EDT Telemedicine Nephrology, [facility] 200 [facility] [place] [address] Dru Vicente MD 200 [facility] [place] [address] 11/22/2024 10:15 AM EDT Hospital Encounter ENDO OSSC, Endoscopy Room [facility] 132 [facility] [place] [phone] Lena Cota MD [address] [place] [id number] 11/22/2024 10:15 AM EDT - 11/22/2024 10:45 AM EDT Surgery ENDO OSSC, Endoscopy Room [facility] [address] [place] [phone] Lena Cota MD [address] [place] [phone] COLONOSCOPY FLEXIBLE PROXIMAL DIAGNOSTIC 02/24/2025 4:30 PM EDT Telemedicine Sleep Disorders Ctr Maia Rodriguez, [place] [address] [place] [phone] Glory Martinez CRNP [address] [place] [address] 03/21/2025 2:20 PM EDT Office Visit General Internal Medicine [facility] 200 [facility] [place] [address] Ryan Hadley MD [address] [place] [address] 05/10/2025 1:30 PM EDT Office Visit Cardiology [address] [place] [address] Ricky Hackett PA-C [address] [place] [address] Scheduled Procedures Name Priority Associated Diagnoses Date/Ti [...] Additional history exists CKD PHOS USE SMARTSET 07791 06/14/202506/01, 04/02/2023, 03/21/2023, Additional history exists CKD HGB USE SMARTSET 66447 11/03/202511/03, 11/03/2024, 06/14/2024, Additional history exists DTap/Tdap [...] filedocumented as of this encounter Care Teams Mica Spreader Relationship Specialty Start Date End Date Ryan Hadley MD 200 [place] [address] PCP - General Internal Medicine 11/06/17 documented as of this encounter
--- OUTSIDE RECORDS SUMMARY | 2024-11-19 05:56 | External Medical Summary ---
Author Name Unknown Address Unknown Organization K01:[facility] [place] [address] [place] [address] Laboratory Report Ordering Provider Test Date Status REENA TYSON 11/03/2024 14:14:13 Final Observation Date Value Abnormality Reference (Units ) Status Albumin 11/03/2024 14:14:13 3.4 Below low normal 3.8-5.0 (g/dL) Final AST (Aspartate aminotransferase) 11/03/2024 14:14:13 15 10-35 (U/L) Final Alk Phos 11/03/2024 14:14:13 87 35-130 (U/L) Final ALT (Alanine aminotransferase) 11/03/2024 14:14:13 14 10-35 (U/L) Final Bilirubin, Total 11/03/2024 14:14:13 0.7 <=1.2 (mg/dL) Final Bilirubin, Direct 11/03/2024 14:14:13 0.4 Above high normal 0.0-0.3 (mg/dL) Final Protein 11/03/2024 14:14:13 5.7 Below low normal 6.0-8.3 (g/dL) Final Performing Location LABOR[facility]ORY [facility] [address] [place] [address]
--- OUTSIDE RECORDS SUMMARY | 2024-11-19 05:56 | External Medical Summary | Summary of Care ---
Author Name Unknown Organization [facility] Address [address] [facility] [address] Phone [phone] Care Team Providers Care Change Management Lead Name Role Phone Ryan Hadley MD Primary Care Provider + Reason for Visit * Reason Onset Date Comments Test Results Lab 11/05/2024 Encounter Details Date Type Department Care Team (Late st Contact Info) Description 11/05/2024 Telephone Hepatology, [facility] [address] [place] [address] Rachelle Camargo DO [address] [place] [address] Test Results Lab Allergies Active Allergy Reactions [...] Respimat 1.25 MCG/ACT Inhalation Aerosol Solution (Tiotropium [place] Monohydrate)Indications :Moderate persistent asthma without complication Inhale 2 Puffs by mouth in the morning. 12 g 3 023 Active Apixaban 5 MG Oral Tablet (Eliquis)Indications:PA F (paroxysmal atrial fibrillation) ([facility]) Take 1 Tablet by mouth in [...] 09/24/2018 04/03/2020 Overview (12/18/2020): DO NOT DELETE [employer] DETECT Study: Project # [id number], High School Band Director: Naun Jones, PhD. SUMMARY: Goal: Establish test [...] contact study staff at ; after hours High School Band Director via the [facility] operator cavity pump . Please contact study team before resolving/deleting from patients problem list. Study phone number: [phone]. Diagnosis changed due to Research Module. Go to Snapshot for study details. Encounter for examination fo r normal comparison and control in clinical research program 09/24/2018 05/02/2022 Overview (12/18/2020): DO NOT DELETE - [employer] DETECT Study: Project # [id number], High School Band Director: Ady Bruno, MS, MPH. SUMMARY: Goal: Establish [...] contact study staff at ; after hours High School Band Director via the [facility] hospital operator cavity pump . - Please contact study team before resolving/deleting from patients problem list. Study phone number: [phone]. Diagnosis changed due to Research Module. Go [...] appointment. EXTRINSIC ASTHMA, UNSPEC 09/23/2003 LOC PRIM [id number] 07/29/200301/30 Type 2 diabetes mellitus wit h [...] mRNA, LNP-s, No Pre serve, 2-Dose Series ([employer]) 10/02/2021,09/01/2021,12/05/2020,11/14 Influenza, Whole Virus 07/16/2003 Pneumococcal Conjugate [...] Description 11/19/2024 2:20 PM EDT Telemedicine Nephrology, [facility] 200 [facility] [place] [address] Dru Vicente MD 200 [facility] [place] [address] 11/22/2024 10:15 AM EDT Hospital Encounter ENDO OSSC, Endoscopy Room [facility] 132 [facility] [place] [phone] Lena Cota MD [address] [place] [phone] 11/22/2024 10:15 AM EDT - 11/22/2024 10:45 AM EDT Surgery ENDO OSSC, Endoscopy Room [facility] [address] [place] [phone] Lena Cota MD [address] [place] [phone] COLONOSCOPY FLEXIBLE PROXIMAL DIAGNOSTIC 02/24/2025 4:30 PM EDT Telemedicine Sleep Disorders Ctr Maia Rodriguez, [place] [address] [place] [phone] Glory Martinez CRNP [address] [place] [address] 03/21/2025 2:20 PM EDT Office Visit General Internal Medicine [facility] [address] [place] [address] Ryan Hadley MD [address] [facility] [place] [address] 04/18/2025 11:15 AM EDT Imaging Radiology [address] [place] [address] 05/10/2025 1:30 PM EDT Office Visit Cardiology [address] [place] [address] Ricky Hackett PA-C [address] [place] [address] 05/16/2025 11:00 AM EDT Office Visit Hepatology, [facility] [address] [place] [address] Rachelle Camargo DO [address] [place] [address] Scheduled Procedures Name Priority Associated Diagnoses Date/Ti [...] Additional history exists CKD PHOS USE SMARTSET 80084 06/14/202506/01, 04/02/2023, 03/21/2023, Additional history exists CKD HGB USE SMARTSET 86865 11/03/202511/03, 11/03/2024, 06/14/2024, Additional history exists DTap/Tdap [...] filedocumented as of this encounter Care Teams Change Management Lead Relationship Specialty Start Date End Date Ryan Hadley MD [address] [place] [address] PCP - General Internal Medicine 11/06/17 documented as of this encounter
--- OUTSIDE RECORDS SUMMARY | 2024-11-19 05:56 | External Medical Summary ---
Author Name Unknown Address Unknown Organization K01:LABORATORY [facility] [place] - [address] [place] [address] Laboratory Report Ordering Provider Test Date Status REENA TYSON 11/03/2024 14:14:13 Final Warfarin Therapy
INR: 2 .0-3.0 conventional anticoagulation
INR: 2.5- 3.5 high intensity anticoagulation Observation Date Value Abnormality Reference (Units ) Status PT 11/03/2024 14:14:13 21.4 Above high normal 11 .6-15.2 (seconds) Final INR 11/03/2024 14:14:13 1.8 Above high normal 0. 8-1.2 Final Performing Location LAB[facility]ATORY [facility] [place] - [address] [place] [address]
--- OUTSIDE RECORDS SUMMARY | 2024-11-19 05:56 | External Medical Summary | Summary of Care ---
Author Name Unknown Organization [facility] Address [address] [facility] [address] Phone [phone] Care Team Providers Care Tire Service Supervisor Name Role Phone Ryan Hadley MD Primary Care Provider + Reason for Visit * Reason Onset Date Comments Test Results 11/04/2024 Encounter Details Date Type Department Care Team (Late st Contact Info) Description 11/04/2024 Telephone Cardiology, [facility] [address] [place] [address] Ricky Hackett, PAPiloC [address] [place] [address] Test Results Allergies Active Allergy Reactions Criticality Noted Date Comments Bactrim 01/20/2014 Cephalosporins 07/29/2003 Rash (Ceclor only) Metformin Other (Please comment),Renal complications 03/25/2023 documented as of this encounter (statuses as of 11/04/2024) Medications ZYRTEC 10 MG PO TABS 1 [...] of breath). Dx J45.40 360 mL 11 Active CPAP every night at bedtime . Active Acetaminophen 500 MG Oral Tablet (Tylenol)Indications:Ch ronic bilateral low back pain with right-sided sciatica Take 2 Tablets by mouth every 12 hours as needed for Pain, Severe. 100 Tablet 023 Active Spiriva Respimat 1.25 MCG/ACT Inhalation Aerosol Solution (Tiotropium [place] Monohydrate)Indications :Moderate persistent asthma without complication Inhale 2 Puffs by mouth in the morning. 12 g 3 023 Active Apixaban 5 MG Oral Tablet (Eliquis)Indications:PA F (paroxysmal atrial fibrillation) ([facility]) Take 1 Tablet by mouth in the [...] 024 Active Benzonatate 100 MG Oral Capsule (Tessalvandana Perldamien) Swallow 1 or 2 pills three [...] as of this encounter (statuses as of 11/04/2024) Active Problems Problem Noted Date Diagnosed Date [...] as of this encounter (statuses as of 11/04/2024) Resolved Problems Problem Noted Date Diagnosed Date [...] 09/24/2018 04/03/2020 Overview (12/18/2020): DO NOT DELETE [employer] DETECT Study: Project # [id number], Senior Portfolio Manager: Naun Jones, PhD. SUMMARY: Goal: Establish test [...] contact study staff at ; after hours Senior Portfolio Manager via the [facility] hospital strip machine operator . Please contact study team before resolving/deleting from patients problem list. Study phone number: [phone]. Diagnosis changed due to Research Module. Go to Snapshot for study details. Encounter for examination fo r normal comparison and control in clinical research program 09/24/2018 05/02/2022 Overview (12/18/2020): DO NOT DELETE - [employer] DETECT Study: Project # [id number], Senior Portfolio Manager: Ady Bruno, MS, MPH. SUMMARY: Goal: Establish [...] contact study staff at ; after hours Senior Portfolio Manager via the [facility] hospital strip machine operator . - Please contact study team before resolving/deleting from patients problem list. Study phone number: [phone]. Diagnosis changed due to Research Module. Go [...] appointment. EXTRINSIC ASTHMA, UNSPEC 09/23/2003 LOC PRIM [id number] 07/29/200301/30 Type 2 diabetes mellitus wit h hemoglobin A1c goal of less than 7.0% 08/02/2010 Overview (12/26/2015): ICD-10 update of inactive term Type 2 diabetes mellitus wit h hemoglobin A1c goal of less than 7.0% 10/30/2011 Overview (12/26/2015): ICD-10 update of inactive term Hypersomnia with sleep apnea 02/11/2018 documented as of this encounter (statuses as of 11/04/2024) Immunizations Name Administration Dates Next Due COVID-19 mRNA, LNP-s, No Pre serve, 2-Dose Series (Hi[employer]version) 10/02/2021,09/01/2021,12/05/2020,11/14 Pneumococcal Conjugate Vacc, 13 Valent (Prevnar) [...] encounter Miscellaneous Notes * Telephone Encounter - Torrie Oliva LPN - 11/04/2024 8:46 AM EST Hitesh message sent * Telephone Encounter - Torrie Oliva LPN - 11/04/2024 8:45 AM EST ----- Message from Ricky Hackett sent at 11/04/2024 8:32 AM EST ----- ok documented in this encounter Plan of Treatment Upcoming Encounters Date Type Department Care Team (Latest Contact Info) Description 11/19/2024 2:20 PM EDT Telemedicine NephrologyMonty [address] [place], [place] [phone] Dru Vicente MD [address] [place] [address] 11/22/2024 10:15 AM EDT Hospital Encounter ENDO OSSC, Endoscopy Room O[facility] [address] [place] [phone] Lena Cota MD [address] [place] [address] 11/22/2024 10:15 AM EDT - 11/22/2024 10:45 AM EDT Surgery ENDO OSS, Endoscopy Room [facility] [address] [place] [phone] Lena Cota MD [address] [place] [address] COLONOSCOPY FLEXIBLE PROXIMAL DIAGNOSTIC 02/24/2025 4:30 PM EDT Telemedicine Sleep Disorders Ctr [facility] [address] [place] [phone] Glory Martinez CRNP [address] [place] [address] 03/21/2025 2:20 PM EDT Office Visit General Internal Medicine [facility] 200 [facility] [place] [address] Ryan Hadley MD 200 [facility] [place] [address] 05/10/2025 1:30 PM EDT Office Visit Cardiology [address] [place] [address] Ricky Hackett PA-C [address] [place] [address] Scheduled Procedures Name Priority Associated Diagnoses Date/Ti [...] Additional history exists CKD PHOS USE SMARTSET 69524 06/14/202506/01, 04/02/2023, 03/21/2023, Additional history exists CKD HGB USE SMARTSET 72455 11/03/202511/03, 11/03/2024, 06/14/2024, Additional history exists DTap/Tdap [...] filedocumented as of this encounter Care Teams Tire Service Supervisor Relationship Specialty Start Date End Date Ryan Hadley MD 200 [facility] [place] [address] PCP - General Internal Medicine 11/06/17 documented as of this encounter
--- OUTSIDE RECORDS SUMMARY | 2024-11-19 05:57 | External Medical Summary | Summary of Care ---
Author Name Unknown Organization [facility] Address [address] [facility] [place] [address] Phone [phone] Care Team Providers Care College Athletic Director Name Role Phone Ryan Hadley MD Primary Care Provider + Reason for Visit * Reason Comments eRx-Medication Refill Encounter Details Date Type Department Care Team (Late st Contact Info) Description 10/25/2024 Refill Cardiology [address] [place] [phone] Young Powers MD [address] [place] [address] Heart failure, diastolic (HCC) Allergies Active Allergy Reactions Criticality Noted Date Comments Bactrim 01/20/2014 Cephalosporins 07/29/2003 Rash (Ceclor only) Metformin Other (Please comment),Renal complications 03/25/2023 documented as of this encounter (statuses as of 10/27/2024) Medications ZYRTEC 10 MG PO TABS 1 tab every day Active amoxicillin (AMOXIL) 500 MG Capsule TAKE 4 CAPSULES BY MOUTH ONE HOUR PRIOR TO APPOINTMENT 0 2017 Active fluticasone (FLONASE) 50 MCG/ACT nasal sprayIndications:Rhini tis, nonallergic USE 2 SPRAYS IN EACH NOSTRIL DAILY 48 g 4 2019 Active Nitroglycerin 0.4 MG Sublingual Tablet Sublingual (NITROSTAT) Place 1 Tab under the tongue every 5 minutes as needed for Pain, Chest. up to 3 doses in 15 minutes 25 Tab 11 2019 Active Additional Information Patient not taking.Reported on 10/21/2024 Albuterol Sulfate (2.5 MG/3ML) 0.083% Inhalation Nebulization Solution (PROVENTIL) Inhale 1 Vial via nebulizer every 6 hours as needed for Other (Cough, wheezing, shortness of breath). Dx J45.40 360 mL 11 2020 Active CPAP every night at bedtime . Active Acetaminophen 500 MG Oral Tablet (Tylenol)Indications:C hronic bilateral low back pain with right-sided sciatica Take 2 Tablets by mouth every 12 hours as needed for Pain, Severe. 100 Tablet 2022 Active Spiriva Respimat 1.25 MCG/ACT Inhalation Aerosol Solution (Tiotropium [place] Monohydrate)Indication s:Moderate persistent asthma without complication Inhale 2 Puffs by mouth in the morning. 12 g 3 2022 Active Apixaban 5 MG Oral Tablet (Eliquis)Indications:P AF (paroxysmal atrial fibrillation) (HCC) Take 1 Tablet by mouth in the morning and 1 Tablet before bedtime. 180 Tablet 3 2023 Active oxyCODONE HCl 5 MG Oral Tablet (Oxy IR)Indications:Acute right-sided low back pain with right-sided sciatica Take 1 Tablet by mouth every 8 hours as needed for Pain, Severe. 21 Tablet 2023 Active Therapeutic Multivit/Mineral Oral Tablet Take 1 Tablet by mouth in the morning. Active Fluticasone-Salmeterol 500-50 MCG/ACT Inhalation Aerosol Powder Breath Activated (Wixela Inhub)Indications:Mode rate persistent asthma without complication USE 1 INHALATION BY MOUTH TWICE DAILY RINSE MOUTH AFTER USE 180 Each 3 2023 Active Potassium Chloride ER 10 MEQ Oral Tablet Extended ReleaseIndications:Hyp okalemia TAKE 1 TABLET BY MOUTH IN THE MORNING 90 Tablet 1 2023 Active Lovastatin 40 MG Oral TabletIndications:Pure hypercholesterolemia TAKE 1 TABLET BY MOUTH IN THE EVENING 90 Tablet 3 2023 Active Benzonatate 100 MG Oral Capsule (Tessalon Perles) Swallow 1 or 2 pills three times a day as needed for cough. Do not cut, crush, or chew. 50 Capsule 3 2023 Active Omeprazole 20 MG Oral Capsule Delayed Release (PriLOSEC) TAKE 1 CAPSULE BY MOUTH DAILY 90 Capsule 1 2024 Active Isosorbide Mononitrate ER 30 MG Oral Tablet Extended Release 24 Hour (Imdur)Indications:Rose stolic dysfunction TAKE 1 TABLET BY MOUTH DAILY 90 Tablet 3 2024 Active Torsemide 20 MG Oral Tablet (Demadex)Indications:H TN, goal below 140/90,Benign hypertension with CKD (chronic kidney disease) stage III (HCC),Liver cirrhosis secondary to nonalcoholic steatohepatitis (XAVIER) (HCC),Chronic diastolic heart failure (HCC) TAKE 1 TABLET BY MOUTH IN THE MORNING 90 Tablet 3 2024 Active Metoprolol Succinate ER 25 MG Oral Tablet Extended Release 24 Hour (toPROL XL)Indications:HTN, goal below 140/90 TAKE 1 TABLET BY MOUTH TWICE DAILY 180 Tablet 3 2024 Active Spironolactone 25 MG Oral Tablet (Aldactone)Indications :HTN, goal below 140/90,Acute diastolic heart failure (HCC),Generalized edema,Diastolic dysfunction TAKE 1 TABLET BY MOUTH IN THE MORNING 90 Tablet 2024 Active Jardiance 10 MG Oral Tablet (Empagliflozin)Indicat ions:Heart failure, diastolic (HCC) TAKE 1 TABLET BY MOUTH IN THE MORNING 90 Tablet 3 2024 Active Jardiance 10 MG Oral Tablet (Empagliflozin)Indicat ions:Heart failure, diastolic (HCC) TAKE 1 TABLET BY MOUTH IN THE MORNING 90 Tablet 3 10/27 Discontinued Famotidine 20 MG Oral Tablet (Pepcid)Indications:Ga stroesophageal reflux disease without esophagitis TAKE 1 TABLET BY MOUTH DAILY 90 Tablet 1 10/27 Discontinued documented as of this encounter (statuses as of 10/27/2024) Active Problems Problem Noted Date Diagnosed Date [...] as of this encounter (statuses as of 10/27/2024) Resolved Problems Problem Noted Date Diagnosed Date [...] 04/03/2020 Overview (12/18/2020): DO NOT DELETE [facility] DETECT Study: Project # [id number], Washing Machine Mechanic: Naun Jones, PhD. SUMMARY: Goal: Establish [...] contact study staff at ; after hours Washing Machine Mechanic via the [facility] hospital mounting machine operator . Please contact study team before resolving/deleting from patients problem list. Study phone number: [phone]. Diagnosis changed due to Research Module. Go to Snapshot for study details. Encounter for examination fo r normal comparison and control in clinical research program 09/24/2018 05/02/2022 Overview (12/18/2020): DO NOT DELETE - [facility] DETECT Study: Project # [id number], Washing Machine Mechanic: Ady Bruno, MS, MPH. SUMMARY: Goal: [...] contact study staff at ; after hours Washing Machine Mechanic via the [facility] hospital mounting machine operator . - Please contact study team before resolving/deleting from patients problem list. Study phone number: [phone]. Diagnosis changed due to Research Module. Go [...] appointment. EXTRINSIC ASTHMA, UNSPEC 09/23/2003 LOC PRIM [id number] 07/29/200301/30 Type 2 diabetes mellitus wit h hemoglobin A1c goal of less than 7.0% 08/02/2010 Overview (12/26/2015): ICD-10 update of inactive term Type 2 diabetes mellitus wit h hemoglobin A1c goal of less than 7.0% 10/30/2011 Overview (12/26/2015): ICD-10 update of inactive term Hypersomnia with sleep apnea 02/11/2018 documented as of this encounter (statuses as of 10/27/2024) Immunizations Name Administration Dates Next Due COVID-19 mRNA, LNP-s, No Pre serve, 2-Dose Series ([employer]) 10/02/2021,09/01/2021,12/05/2020,11/14 Pneumococcal Conjugate Vacc, 13 Valent (Prevnar) [...] encounter Miscellaneous Notes * Telephone Encounter - Lisa Lucas [facility] - 10/27/2024 11:42 AM ESTSigned Prescriptions: Disp Refills Jardiance 10 MG Oral Tablet (Empagliflozin)90 Tab*3 Sig: TAKE 1 TABLET BY MOUTH IN THE MORNINGAuthorizing Provider: CHARLENE KENNEDY User: LISA LUCAS documented in this encounter Plan of Treatment Upcoming Encounters Date Type Department Care Team (Latest Contact Info) Description 11/01/2024 11:40 AM EST Office Visit Hepatology, [facility] [address] [place] [address] Rachelle Camargo DO [address] [address] 11/19/2024 2:20 PM EDT Telemedicine Nephrology, [facility] [address] [place] [address] Dru Vicente MD 200 [facility] [place] [address] 11/22/2024 10:15 AM EDT Hospital Encounter ENDO OSSC, Endoscopy Room OSS [address] [place] [phone] Lena Cota MD [address] [place] [id number] 11/22/2024 10:15 AM EDT - 11/22/2024 10:45 AM EDT Surgery ENDO O[facility], Endoscopy Room [facility] [address] [place] [phone] Lena Cota MD [address] [place] [phone] COLONOSCOPY FLEXIBLE PROXIMAL DIAGNOSTIC 02/24/2025 4:30 PM EDT Telemedicine Sleep Disorders Ctr [facility] [address] [place] [phone] Glory Martinez CRNP [address] [place] [address] 03/21/2025 2:20 PM EDT Office Visit General Internal Medicine [facility] [address] [place] [address] Ryan Hadley MD [address] [place] [address] 05/10/2025 1:30 PM EDT Office Visit Cardiology [address] [place] [address] Charlene Kennedy PA-C [address] [place] [address] Scheduled Procedures Name Priority Associated Diagnoses Date/Ti [...] 03/07/2021, Additional history exists GFR 12/13/2024 06/14/2024, 04/02, 03/12/2024, Additional history exists CKD HGB USE SMARTSET 42301 06/14/202506/14, 06/14/2024, 01/22/2024, Additional history exists CKD PHOS USE SMARTSET 44138 06/14/202506/01, 04/02/2023, 03/21/2023, Additional history exists DTap/Tdap [...] as of this encounter Visit Diagnoses Diagnosis Heart failure, diastolic (HCC) Unspecified diastolic heart failure History of colon polyps Personal history of colonic polyps documented in this encounter Care Teams College Athletic Director Relationship Specialty Start Date End Date Ryan Hadley MD [address] [place] [address] PCP - General Internal Medicine 11/06/17 documented as of this encounter
--- OUTSIDE RECORDS SUMMARY | 2024-11-19 05:57 | External Medical Summary | Summary of Care ---
Author Name Unknown Organization [facility] Address [address] [facility] [place] [address] Phone [phone] Care Team Providers Care Fans Clerk Name Role Phone Ryan Hadley MD Primary Care Provider + Reason for Visit * Reason Onset Date Comments Appointment 10/26/2024 Encounter Details Date Type Department Care Team (Late st Contact Info) Description 10/26/2024 Telephone Hepatology, [facility] [address] [place] [address] Rachelle Camargo DO [address] [place] [address] Appointment Allergies Active Allergy Reactions Criticality Noted Date Comments Bactrim 01/20/2014 Cephalosporins 07/29/2003 Rash (Ceclor only) Metformin Other (Please comment),Renal complications 03/25/2023 documented as of this encounter (statuses as of 10/28/2024) Medications ZYRTEC 10 MG PO TABS 1 [...] Respimat 1.25 MCG/ACT Inhalation Aerosol Solution (Tiotropium [place] Monohydrate)Indication s:Moderate persistent asthma without complication Inhale [...] 2023 Active Benzonatate 100 MG Oral Capsule (Tessalvandana Quiñones) Swallow 1 or 2 pills three [...] THE MORNING 90 Tablet 3 10/27 Discontinued Spironolactone 25 MG Oral Tablet (Aldactone)Indications :Acute diastolic heart failure (HCC),HTN, goal below 140/90,Generalized edema,Diastolic dysfunction Take 1 Tablet by mouth in the morning. 90 Tablet 3 10/27 Discontinued Metoprolol Succinate ER 25 MG Oral Tablet Extended Release 24 Hour (toPROL XL)Indications:HTN, goal below 140/90 Take 1 Tablet by mouth 2 times a day. 180 Tablet 3 10/27 Discontinued Famotidine 20 MG Oral Tablet (Pepcid)Indications:Ga stroesophageal reflux disease without esophagitis TAKE 1 TABLET BY MOUTH DAILY 90 Tablet 1 10/27 Discontinued documented as of this encounter (statuses as of 10/28/2024) Active Problems Problem Noted Date Diagnosed Date [...] as of this encounter (statuses as of 10/28/2024) Resolved Problems Problem Noted Date Diagnosed Date [...] 09/24/2018 04/03/2020 Overview (12/18/2020): DO NOT DELETE [employer] DETECT Study: Project # [id number], Funeral Service Apprentice: Naun Jones, PhD. SUMMARY: Goal: Establish test [...] contact study staff at ; after hours Funeral Service Apprentice via the [facility] hospital reverse unit operator fisherman . Please contact study team before resolving/deleting from patients problem list. Study phone number: [phone]. Diagnosis changed due to Research Module. Go to Snapshot for study details. Encounter for examination fo r normal comparison and control in clinical research program 09/24/2018 05/02/2022 Overview (12/18/2020): DO NOT DELETE - [employer] DETECT Study: Project # [id number], Funeral Service Apprentice: Ady Bruno, MS, MPH. SUMMARY: Goal: Establish [...] contact study staff at ; after hours Funeral Service Apprentice via the [facility] hospital reverse unit operator fisherman . - Please contact study team before resolving/deleting from patients problem list. Study phone number: [phone]. Diagnosis changed due to Research Module. Go [...] appointment. EXTRINSIC ASTHMA, UNSPEC 09/23/2003 LOC PRIM [id number] 07/29/200301/30 Type 2 diabetes mellitus wit h hemoglobin A1c goal of less than 7.0% 08/02/2010 Overview (12/26/2015): ICD-10 update of inactive term Type 2 diabetes mellitus wit h hemoglobin A1c goal of less than 7.0% 10/30/2011 Overview (12/26/2015): ICD-10 update of inactive term Hypersomnia with sleep apnea 02/11/2018 documented as of this encounter (statuses as of 10/28/2024) Immunizations Name Administration Dates Next Due COVID-19 mRNA, LNP-s, No Pre serve, 2-Dose Series ([employer]) 10/02/2021,09/01/2021,12/05/2020,11/14 Influenza, Whole Virus 07/16/2003 Pneumococcal Conjugate [...] encounter Miscellaneous Notes * Telephone Encounter - Nova Quick OSA - 10/27/2024 6:02 PM EST 10/27/24 spoke to pt; does not want to schedule at this time, she has appt with provider on Friday - will talk to her first/djm * Telephone Encounter - Katelyn Lake OSA - 10/26/2024 10:25 AM EST Please call pt to schedule the abdominal us in April per Dr. Camargo * Telephone Encounter - Rachelle Camargo DO - 10/26/2024 10:13 AM EST Please let patient know recent abdominal ultrasound reviewed. No liver lesions seen. Will need another ultrasound in 6 months for ongoing HCC screening. Scheduling please arrange repeat ultrasound 04/2025. Order is in. Rachelle Camargo DO documented in this encounter Plan of Treatment Upcoming Encounters Date Type Department Care Team (Latest Contact Info) Description 11/01/2024 11:40 AM EST Office Visit Hepatology, [facility] [address] [facility] [place] [address] Rachelle Camargo DO [address] [place] [address] 11/19/2024 2:20 PM EDT Telemedicine Nephrology, [facility] 200 [facility] [place] [address] Dru Vicente MD 200 [facility] [place] [address] 11/22/2024 10:15 AM EDT Hospital Encounter ENDO [facility], Endoscopy Room [facility] 132 [facility] [place] [phone] Lena Cota MD [address] [place] [address] 11/22/2024 10:15 AM EDT - 11/22/2024 10:45 AM EDT Surgery ENDO [facility], Endoscopy Room [facility] [address] [place] [phone] Lena Cota MD [address] [place] [address] COLONOSCOPY FLEXIBLE PROXIMAL DIAGNOSTIC 02/24/2025 4:30 PM EDT Telemedicine Sleep Disorders Ctr [facility] [address] [place] [phone] Glory Martinez CRNP [address] [place] [address] 03/21/2025 2:20 PM EDT Office Visit General Internal Medicine [facility] 200 [facility] [place] [address] Ryan Hadley MD 200 [facility] [place] [address] 05/10/2025 1:30 PM EDT Office Visit Cardiology [address] [place] [address] Ricky Hackett PA-C [address] [place] [address] Scheduled Orders Name Type Priority Associated Diagnoses Orde r Schedule US ABDOMEN LIMITED Medical Imaging Routine Liver cirrhosis secondary to nonalcoholic steatohepatitis (XAVIER) (HCC) Expected: 04/25/2025, Expires: 11/23/2025 Scheduled Procedures Name Priority Associated Diagnoses Date/Ti [...] Additional history exists CKD HGB USE SMARTSET 44400 06/14/202506/14, 06/14/2024, 01/22/2024, Additional history exists CKD PHOS USE SMARTSET 45903 06/14/202506/01, 04/02/2023, 03/21/2023, Additional history exists DTap/Tdap [...] as of this encounter Visit Diagnoses Diagnosis Liver cirrhosis secondary to nonalcoholic steatohepatitis (XAVIER) (HCC)- Primary History of colon polyps Personal history of colonic polyps documented in this encounter Care Teams Fans Clerk Relationship Specialty Start Date End Date Ryan Hadley MD 200 [facility] [place] [address] PCP - General Internal Medicine 11/06/17 documented as of this encounter
--- OUTSIDE RECORDS SUMMARY | 2024-11-19 05:57 | External Medical Summary ---
Author Name Unknown Address Unknown Organization K01:[facility] [place] [address] [place] [address] [place] [address] Laboratory Report Ordering Provider Test Date Status REENA TYSON 11/03/2024 14:14:13 Final Observation Date Value Abnormality Reference (Units ) Status BUN 11/03/2024 14:14:13 29 Above high normal 6-20 (mg/dL) Final Creatinine 11/03/2024 14:14:13 1.4 Above high normal 0.5-1.0 (mg/dL) Final Glomerular filtration rate/1.73 sq M.predicted [Volume Rate/Area] in Serum, Plasma or Blood by Creatinine-based formula (CKD-EPI) 11/03/2024 14:14:13 39 Below low normal >=60 (mL/min) Final eGFR is calculated based on the CKD-EPI 2020 equation. Sodium 11/03/2024 14:14:13 139 135-146 (m mol/L) Final Potassium 11/03/2024 14:14:13 4.2 3.5-5.1 (m mol/L) Final Cl 11/03/2024 14:14:13 103 98-107 (mm ol/L) Final CO2 11/03/2024 14:14:13 19 Below low normal 22- 32 (mmol/L) Final Anion gap 11/03/2024 14:14:13 17 Above high normal 7- 15 (mmol/L) Final Glucose 11/03/2024 14:14:13 98 70-120 (mg /dL) Final Calcium 11/03/2024 14:14:13 9.1 8.4-10.2 ( mg/dL) Final Performing Location [facility] [place] [address] [place] [address]
--- OUTSIDE RECORDS SUMMARY | 2024-11-19 05:57 | External Medical Summary | Summary of Care ---
Author Name Unknown Organization [facility] Address [address] [facility] [place] [address] Phone [phone] Care Team Providers Care Medical Consultant Name Role Phone Ryan Hadley MD Primary Care Provider + Reason for Visit * Reason Comments eRx-Medication Refill Encounter Details Date Type Department Care Team (Late st Contact Info) Description 10/25/2024 Refill General Internal Medicine [facility] 200 [place] [address] Ryan Hadley MD 200 [place] [address] Routine medical exam*; Gastroesophageal reflux disease without esophagitis; HTN, goal below 140/90; Benign hypertension with CKD (chronic kidney disease) stage III ([facility]) Allergies Active Allergy Reactions Criticality Noted Date [...] Respimat 1.25 MCG/ACT Inhalation Aerosol Solution (Tiotropium [place] Monohydrate)Indication s:Moderate persistent asthma without complication Inhale [...] 2023 Active Benzonatate 100 MG Oral Capsule (Tesxavier [...] THE MORNING 90 Tablet 3 2024 Active Famotidine 20 MG Oral Tablet (Pepcid)Indications:Ga stroesophageal reflux disease without esophagitis TAKE 1 TABLET BY MOUTH DAILY 90 Tablet 1 2024 Active Famotidine 20 MG Oral Tablet (Pepcid)Indications:Ga stroesophageal [...] 04/03/2020 Overview (12/18/2020): DO NOT DELETE [facility] DETECT Study: Project # [id number], Recorder Helper Seismograph: Naun Jones, PhD. SUMMARY: Goal: Establish test [...] contact study staff at ; after hours Recorder Helper Seismograph via the [facility] hospital water jet operator . Please contact study team before resolving/deleting from patients problem list. Study phone number: [phone]. Diagnosis changed due to Research Module. Go to Snapshot for study details. Encounter for examination fo r normal comparison and control in clinical research program 09/24/2018 05/02/2022 Overview (12/18/2020): DO NOT DELETE - [employer] DETECT Study: Project # [id number], Recorder Helper Seismograph: Ady Bruno, MS, MPH. SUMMARY: Goal: Establish [...] contact study staff at ; after hours Recorder Helper Seismograph via the [facility] hospital water jet operator . - Please contact study team before resolving/deleting from patients problem list. Study phone number: [phone]. Diagnosis changed due to Research Module. Go [...] appointment. EXTRINSIC ASTHMA, UNSPEC 09/23/2003 LOC PRIM [id number] 07/29/200301/30 Type 2 diabetes mellitus wit h [...] mRNA, LNP-s, No Pre serve, 2-Dose Series ([employer]) 10/02/2021,09/01/2021,12/05/2020,11/14 Pneumococcal Conjugate Vacc, 13 Valent (Prevnar) [...] encounter Miscellaneous Notes * Telephone Encounter - Beatriz Harp RPh - 10/27/2024 2:54 PM EST Signed Prescriptions: Disp Refills Famotidine 20 MG Oral Tablet (Pepcid) 90 Tab*1 Sig: TAKE 1 TABLET BY MOUTH DAILYAuthorizing Provider: RYAN HADLEY User: EBATRIZ HARP--- documented in this encounter Plan of Treatment Upcoming Encounters Date Type Department Care Team (Latest Contact Info) Description 11/01/2024 11:40 AM EST Office Visit Hepatology, [facility] [address] [place] [address] Rachelle Camargo DO [address] [place] [address] 11/19/2024 2:20 PM EDT Telemedicine Nephrology, [facility] [address] [facility] [place] [address] Dru Vicente MD [address] [facility] [place] [address] 11/22/2024 10:15 AM EDT Hospital Encounter ENDO OSSC, Endoscopy Room OSS 132 [facility] [place] [phone] Lena Cota MD [address] [place] [address] 11/22/2024 10:15 AM EDT - 11/22/2024 10:45 AM EDT Surgery ENDO OSSC, Endoscopy Room OSS [address] [facility] [place] [phone] Lena Cota MD [address] [place] [address] COLONOSCOPY FLEXIBLE PROXIMAL DIAGNOSTIC 02/24/2025 4:30 PM EDT Telemedicine Sleep Disorders Ctr [facility] [address] [place] [phone] Glory Martinez CRNP [address] [place] [address] 03/21/2025 2:20 PM EDT Office Visit General Internal Medicine [facility] [address] [place] [address] Ryan Hadley MD [address] [place] [address] 05/10/2025 1:30 PM EDT Office Visit Cardiology [address] [place] [address] Ricky Hackett PA-C [address] [place] [address] Scheduled Orders Name Type Priority Associated Diagnoses Orde r Schedule ALBUMIN / CREATININE RATIO, URINE Lab Routine Routine medical exam Benign hypertension with CKD (chronic kidney disease) stage III (HCC) Expected: 12/22/2024 (Approximate), Expires: 10/27/2025 Scheduled Procedures Name Priority Associated Diagnoses Date/Ti nc COLONOSCOPY FLEXIBLE PROXIMA L DIAGNOSTIC History of [...] Additional history exists CKD HGB USE SMARTSET 00905 06/14/202506/14, 06/14/2024, 01/22/2024, Additional history exists CKD PHOS USE SMARTSET 47599 06/14/202506/01, 04/02/2023, 03/21/2023, Additional history exists DTap/Tdap [...] as of this encounter Visit Diagnoses Diagnosis Routine medical exam- Primary Routine general medical examination at a [facility] Gastroesophageal reflux disease without esophagitis Esophageal reflux HTN, goal below 140/90 Unspecified essential hypertension Benign hypertension with CKD (chronic kidney disease) stage III (HCC) Benign hypertensive kidney disease with chronic kidney disease stage I through stage IV, or unspecified History of colon polyps Personal history of colonic polyps documented in this encounter Care Teams Medical Consultant Relationship Specialty Start Date End Date Ryan Hadley MD [address] [place] [address] PCP - General Internal Medicine 11/06/17 documented as of this encounter
--- OUTSIDE RECORDS SUMMARY | 2024-11-19 05:57 | External Medical Summary | Summary of Care ---
Author Name Unknown Organization [facility] Address [address] [place] [address] Phone [phone] Care Team Providers Care Needle Punch Operator Name Role Phone Ryan Hadley MD Primary Care Provider + Reason for Visit * Reason Onset Date Comments Appointment 10/26/2024 Encounter Details Date Type Department Care Team (Late st Contact Info) Description 10/26/2024 Telephone Hepatology, [facility] [address] [place] [address] Rachelle Camargo DO [address] [place] [address] Appointment Allergies Active Allergy Reactions Criticality Noted [...] Respimat 1.25 MCG/ACT Inhalation Aerosol Solution (Tiotropium Hunker Monohydrate)Indication s:Moderate persistent asthma without complication Inhale [...] 09/24/2018 04/03/2020 Overview (12/18/2020): DO NOT DELETE [employer] DETECT Study: Project # [id number], Supreme Court Judge: Naun Jones, PhD. SUMMARY: Goal: Establish test [...] contact study staff at ; after hours Supreme Court Judge via the [facility] hospital head soft sugar operator . Please contact study team before resolving/deleting from patients problem list. Study phone number: [phone]. Diagnosis changed due to Research Module. Go to Snapshot for study details. Encounter for examination fo r normal comparison and control in clinical research program 09/24/2018 05/02/2022 Overview (12/18/2020): DO NOT DELETE - [employer] DETECT Study: Project # [id number], Supreme Court Judge: Ady Bruno, MS, MPH. SUMMARY: Goal: Establish [...] contact study staff at ; after hours Supreme Court Judge via the [facility] hospital head soft sugar operator . - Please contact study team before resolving/deleting from patients problem list. Study phone number: [phone]. Diagnosis changed due to Research Module. Go [...] appointment. EXTRINSIC ASTHMA, UNSPEC 09/23/2003 LOC PRIM [id number] 07/29/200301/30 Type 2 diabetes mellitus wit h [...] mRNA, LNP-s, No Pre serve, 2-Dose Series ([facility]) 10/02/2021,09/01/2021,12/05/2020,11/14 Influenza, Whole Virus 07/16/2003 Pneumococcal Conjugate [...] Miscellaneous Notes * Telephone Encounter - [facility]SA - 10/27/2024 6:02 PM EST 11/02/24 pt wants to make appt with Dr. Camargo before scheduling this US/djm 10/27/24 spoke to pt; does not want [...] Description 11/19/2024 2:20 PM EDT Telemedicine Nephrology, [facility] [address] [facility] [place] [address] Dru Vicente MD [address] [facility] [place] [address] 11/22/2024 10:15 AM EDT Hospital Encounter ENDO [facility], Endoscopy Room [facility] [address] [place] [phone] Lena Cota MD [address] [place] [address] 11/22/2024 10:15 AM EDT - 11/22/2024 10:45 AM EDT Surgery ENDO [facility], Endoscopy Room [facility] [address] [place] [phone] Lena Cota MD [address] [place] [address] COLONOSCOPY FLEXIBLE PROXIMAL DIAGNOSTIC 02/24/2025 4:30 PM EDT Telemedicine [facility] [place] [address] [place] [phone] Glory Martinez CRNP [address] [place] [address] 03/21/2025 2:20 PM EDT Office Visit General Internal Medicine [facility] [address] [facility] [place] [address] Ryan Hadley MD [address] [facility] [place] [address] 05/10/2025 1:30 PM EDT Office Visit Cardiology [address] [place] [address] Ricky Hackett PA-C [address] [place] [address] Scheduled Orders Name Type Priority Associated Diagnoses [...] Additional history exists CKD HGB USE SMARTSET 34453 06/14/202506/14, 06/14/2024, 01/22/2024, Additional history exists CKD PHOS USE SMARTSET 56741 06/14/202506/01, 04/02/2023, 03/21/2023, Additional history exists DTap/Tdap [...] polyps documented in this encounter Care Teams Needle Punch Operator Relationship Specialty Start Date End Date Ryan Hadley MD [address] [place] [address] PCP - General Internal Medicine 11/06/17 documented as of this encounter
--- OUTSIDE RECORDS SUMMARY | 2024-11-19 05:57 | External Medical Summary | Summary of Care ---
Author Name Unknown Organization [facility] Address [address] [facility] [address] Phone [phone] Care Team Providers Care Alteration Worker Name Role Phone Ryan Hadley MD Primary Care Provider + Encounter Details Date Type Department Care Team (Late st Contact Info) Description 11/01/2024 11:40 AM EST Telemedicine Hepatology, [facility] [address] [place] [address] Rachelle Camargo DO [address] [address] Other cirrhosis of liver (HCC)* Allergies Active Allergy Reactions Criticality Noted Date Comments Bactrim 01/20/2014 Cephalosporins 07/29/2003 Rash (Ceclor only) Metformin Other (Please comment),Renal complications 03/25/2023 documented as of this encounter (statuses as of 11/01/2024) Medications ZYRTEC 10 MG PO TABS 1 [...] Respimat 1.25 MCG/ACT Inhalation Aerosol Solution (Tiotropium Whitman Monohydrate)Indications :Moderate persistent asthma without complication Inhale [...] as of this encounter (statuses as of 11/01/2024) Active Problems Problem Noted Date Diagnosed Date [...] as of this encounter (statuses as of 11/01/2024) Resolved Problems Problem Noted Date Diagnosed Date [...] 09/24/2018 04/03/2020 Overview (12/18/2020): DO NOT DELETE [email or web address] DETECT Study: Project # [id number], Lockstitch Lining Maker: Naun Jones, PhD. SUMMARY: Goal: Establish test [...] contact study staff at ; after hours Lockstitch Lining Maker via the [facility] boomboat operator . Please contact study team before resolving/deleting from patients problem list. Study phone number: [phone]. Diagnosis changed due to Research Module. Go to Snapshot for study details. Encounter for examination fo r normal comparison and control in clinical research program 09/24/2018 05/02/2022 Overview (12/18/2020): DO NOT DELETE - [email or web address] DETECT Study: Project # [id number], Lockstitch Lining Maker: Ady Bruno, MS, MPH. SUMMARY: Goal: Establish [...] contact study staff at ; after hours Lockstitch Lining Maker via the [facility] hospital boomboat operator . - Please contact study team before resolving/deleting from patients problem list. Study phone number: [phone]. Diagnosis changed due to Research Module. Go [...] appointment. EXTRINSIC ASTHMA, UNSPEC 09/23/2003 LOC PRIM [id number] 07/29/200301/30 Type 2 diabetes mellitus wit h hemoglobin A1c goal of less than 7.0% 08/02/2010 Overview (12/26/2015): ICD-10 update of inactive term Type 2 diabetes mellitus wit h hemoglobin A1c goal of less than 7.0% 10/30/2011 Overview (12/26/2015): ICD-10 update of inactive term Hypersomnia with sleep apnea 02/11/2018 documented as of this encounter (statuses as of 11/01/2024) Immunizations Name Administration Dates Next Due COVID-19 mRNA, LNP-s, No Pre serve, 2-Dose Series ([facility]) 10/02/2021,09/01/2021,12/05/2020,11/14 Pneumococcal Conjugate Vacc, 13 Valent (Prevnar) [...] on file documented as of this encounter Progress Notes * Rachelle Camargo, - 11/01/2024 11:38 AM EST Patient location: HOME. I was in a hospital or clinic location. After connecting through televideo,patient was verified with two unique identifiers. Patient (or authorized legal contracts representative) was then informed that this was a Telemedicine visit and being conducted confidentially over secure lines. Methods to assure confidentiality were taken. Patient acknowledged consent and understanding of pr ivacy and security of the Telemedicine visit. The patient agreed to participate. 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 She has PMH notable for obesity (BMI 45), HTN, HLD, diastolic dysfunction, SHANA on CPAP. She was told that she has had a fatty liver for many years. She states that she had abnormal LFTs back in the 1970s and she had a liver bx done at [facility] and she was told that everything was fine. About 1 year ago she was told that she had cirrhosis of her liver on imaging. She had an extensive work up for other causes of liver disease which are allnegative. She states she cardiology last week and they changed her diuretics. She is taking torsemide 40 mg every other day (20 mg on the days she isn't taking 40 mg) and aldactone 25 mg daily. She states she was up at least 10 lbs and she was feeling bloated and uncomfortable. She has lost 12 lbs in the past week. She has an abdominal ultrasound last week with NO ascites. She states her legs were extremely swollen. She was short of breath with movement. She states since she lost her fluid weight she feels her shortness of breath has significantly improved. She states she has baseline dyspnea from her asthma and she is back to baseline. She reports her LE swelling is much improved. She Is trying her best to follow a low salt diet. She did have some salt in her diet the past week when she was eatingout with her son. No jaundice, confusion, abdominal pain, pruritus, rashes, diarrhea, hematemesis, melena, or hematochezia. Decompensations: Varices: no Ascites: no SBP: no HRS: no HE: no HCC: no Screening: EGD: 03/2023 no varices. Colonoscopy: 05/2024- 2 polyps (one 18 mm TVA) Liver imaging: RUQ US 10/2024 no liver lesions Review of systems: Positives in HPI. Negative for: Denies headache, lightheadedness, chest pain, cough, SOB, fever, chills, nausea, vomiting, heart burn, bloating, decreased appetite, early satiety, abdominal pain, diarrhea, fecal incontinence, constipation, rectal bleeding, weight loss, dysuria, frequency, incontinence, joint pain, back pain, weakness, fatigue, anxiety, depressed mood, difficulty sleeping. The remaining ROS reviewed and are negative. Past Medical History: Diagnosis Date Asthma Asthma, [...] COLONOSCOPY, DIAGNOSTIC (RECTUM) 03/17/2018 normal, repeat 10 yrs/[facility] COLONOSCOPY, DIAGNOSTIC (RECTUM) 05/10/2024 biopises show tubulovillous adenoma, adenomatous polyps/recall 6 months-1 year/COLONOSCOPY FLEXIBLEPROXIMAL DIAGNOSTIC performed by Lena Cota MD at ENDOSCOPY [facility] EGD, FLEXIBLE, DIAGNOSTIC 11/02/2021 z-line 35cm from incisors, normal scope Hill 2 / bx normal / [facility] EGD, W/ENDOSCOPIC US N/A 03/28/2023 cystic lesion pancreatic body/portal hypertensive gastropathy/biopsies show mild gastritis of stomach/repeat EGD 2 years/EUS/EGD/MD KNEE ARTHROSCOPY/SURGERY 2012 replaced, right LIGATE/CUT OVIDUCT(S) 1978 NEEDLE BIOPSY OF LIVER 1970 PARTIAL HYSTERECTOMY 1988 Still has ovaries REMOVE GALLBLADDER REMOVE TONSILS & ADENOIDS, UNDER 12 1952 Tonsillectomy/Adenoids,<14 Y/O SHOULDER SURGERY PROCEDURE NEC Left [address] Chow UPPER GI ENDOSCOPY 1988s Family History Problem Relation Name Age of Onset No Past Hx Father at 97 Cancer Father Skin/Basal Cell Carcinoma Nose Diabetes Mother Hypertension Mother Stroke Mother No Past Hx Son Malick Houston No Past Hx Son Elliott Other (No siblings) Other Breast Cancer No significant family history Current Outpatient Medications Medication Sig Dispense Refill [...] up to 3 doses in 15 minutes (Patient not taking: Reported on 10/21/2024) 25 Tab 11 Albuterol Sulfate (2.5 MG/3ML) [...] Respimat 1.25 MCG/ACT Inhalation Aerosol Solution (Tiotropium Whitman Monohydrate) Inhale 2Puffs by mouth in the [...] Metformin Other (Please comment) and Renal complications Physical Exam: no vitals obtained as this was a video visit GENERAL: Well developed and well nourished in no acute distress. HEENT: Normocephalic, sclera anicteric LUNGS: No respiratory distress NEURO: AAOx3 PSYCH: appropriate affect Recent Labs: Reviewed MELD 3.0: 10 at 11/19/2023 1:00 PM Calculated from: Serum Creatinine: 1.2 mg/dL at 11/19/2023 1:00 PM Serum Sodium: 142 mmol/L (Using max of 137 mmol/L) at 11/19/2023 1:00 PM Total Bilirubin: 0.9 mg/dL (Using min of 1 mg/dL) at 11/19/2023 1:00 PM Serum Albumin: 3.9 g/dL (Using max of 3.5 g/dL) at 11/19/2023 1:00 PM INR(ratio): 1.1 at 11/19/2023 1:00 PM Age at listing (hypothetical): 78 years Sex: Female at 11/19/2023 1:00 PM Recent Imaging Studies: Reviewed Abdominal US 10/26/2024: IMPRESSION: Status post cholecystectomy. Nonspecific ultrasound findings compatible with patient's clinical history of cirrhosis. Echo 12/22/2023: Narrative Left Ventricle: Normal left ventricular systolic function with a visually estimated EF of 50 - 55%. Left ventricle size is normal. Normal wall thickness. Normal wall motion. Right Ventricle: Normal systolic function. Left Atrium: Left atrium is mildly dilated. No left atrial appendage thrombus noted. Mitral Valve: Mild regurgitation. Pericardium: No pericardial effusion. Interatrial Septum: Agitated saline study was negative with and without provocation. CXR 10/30/2023: IMPRESSION Mild pulmonary vascular congestion. Abdominal US 01/24/2023: IMPRESSION Hepatic cirrhosis without sonographic mass. RUQ US 08/13/2022: IMPRESSION 1. No cholelithiasis or sonographic evidence of cholecystitis. Heterogenous echotexture the liver compatible with the provided history of cirrhosis. No focal hepatic lesion. 2. No gross biliary dilatation in this patient with history of cholecystectomy. 3. Small anechoic lesion lower pole right kidney not significant changed representing a small cortical cyst. 4. Limited assessment of the pancreas. 5. Additional findings and details as above. RUQ US 02/14/2022: There is no ascites identified. Incidentally noted is hepatic cirrhosis. IMPRESSION IMPRESSION No ascites. MRI liver 12/04/2021: IMPRESSION Findings of cirrhosis and portal hypertension are not appreciated. No focal hepatic lesion is appreciated. Several 3 mm pancreatic body and tail cystic foci, possibly small epithelial cysts or tiny side branch IPMNs. Echocardiogram: 06/19/2020: Dobutamine stress echocardiogram: Negative for inducible ischemia. LV wall motion normal. LV EF increases normally with stress. LV EF 55-59%. LV wall thickness mildly increased, concentric. Grade 1 diastolic dysfunction. RV cavity size and systolic function normal. Atrial size normal. No pericardial effusion. Recent Endoscopic Procedures: Reviewed Colonoscopy 05/10/2024: Impression: - The examined colon appeared normal. - One 18 mm polyp in the ascending colon, removed with a cold snare. Resected tissue retrieved. - One 4 mm polyp in the distal ascending colon, removed with a cold snare. Resected and retrieved. - The examination was otherwise normal on direct and retroflexion views. Final Diagnosis A. Colon, ascending, polyp, polypectomy: Tubulovillous adenoma No evidence of high-grade dysplasia B. Colon, distal ascending, polyp, polypectomy: Tubular adenoma EGD 03/2023- no varices Assessment and plan: Kelin Houston is a 79 year old F with PMH of compensated MASH cirrhosis here today for follow up.She has PMH notable for obesity, HTN, HLD, diastolic dysfunction. -Liver disease severity. Pt.'s last MELD was 10. We will get MELD labs today and every 6 months. -Variceal screening: last EGD 03/2023 without varices. Repeat in 2-3 years or sooner in event of decompensation. -Fluid status: She states she cardiology last week and they changed her diuretics as her legs were very swollen. She is taking torsemide 40 mg every other day (20 mg on the days she isn't taking 40 mg) and aldactone 25 mg daily. She states she was up at least 10 lbs and she was feeling bloated and u ncomfortable. She has lost 12 lbs in the past week. She has an abdominal ultrasound last week with NO ascites. She states her lower extremity swelling is now significantly improved. Continue current dose of diuretics. -Hepatic encephalopathy: based on today's examination, the pt. does not have asterixis. She has no history of HE. -Renal function: pt.'s most recent SCr was 1.0. Will monitor renal function periodically on labs. -HCC screening. Pt.'s last liver imaging study was done with an abdominal ultrasound 10/2024. Pt will need HCC screening every 6 months with imaging in conjunction with an AFP. Due again 04/2025 which is ordered. -Avoid liver toxins including over the counter herbal supplements. May take Acetaminophen up to 2 grams a day. Avoid NSAIDS due to increased risk of GI bleeding and fluid retention. Avoid all alcohol. Patient encouraged to avoid benzodiazepines and opiate pain medications due to risk of precipitating HE. -Vaccination: she has immunity against hepatitis B but not A. Encouraged patient to get hep A vaccine. -Transplant evaluation: Pt.'s current MELD does not warrant a transplant evaluation. -Colorectal cancer screening: Colonoscopy 05/2024 with 2 polyps one 18 mm polyp was a TVA. Removed piecemeal. Has another colonoscopy scheduled 11/22 at the end of this month for surveillance. -Weight management advices were given. I counseled about nutrition with emphasis on high protein, low fat, and low carbohydrate diet and encouraged to exercise to remain physically active to achieve weight loss, improve insulin sensitivity/decrease insulin resistance. -pancreatic cysts: Several 3 mm pancreatic body and tail cystic foci, possibly small epithelial cysts or tiny side branch IPMNs seen on MRI liver in 11/2021. She underwent EUS 03/28/2023 which showed IPMNs. Recommended repeat MRI in 2 years. -Follow up in 6 months Rachelle Camargo DO Gastroenterology and Hepatology I spent a total of 25 minutes on the date of service in review of patient's record, and previously obtained information in person and appropriate medical visit, discussion and education of plan, withpatient and/or caregiver, placing orders for tests/referral/procedures as medically necessary and documentation of pertinent clinical information in patient's medical records for their visit today. documented in this encounter Plan of Treatment Upcoming Encounters Date Type Department Care Team (Latest Contact Info) Description 11/19/2024 2:20 PM EDT Telemedicine Nephrology, [facility] [address] [facility] [place] [address] Dru Vicente MD [address] [facility] [place] [address] 11/22/2024 10:15 AM EDT Hospital Encounter ENDO O[facility], Endoscopy Room OSS [address] [facility] [place] [phone] Lena Coat MD [address] [place] [address] 11/22/2024 10:15 AM EDT - 11/22/2024 10:45 AM EDT Surgery ENDO [facility] [place] [phone] Lena Cota MD [address] [place] [id number] COLONOSCOPY FLEXIBLE PROXIMAL DIAGNOSTIC 02/24/2025 4:30 PM EDT Telemedicine Sleep Disorders Ctr [facility] [place] [phone] Glory Martinez CRNP [facility] [place] [address] 03/21/2025 2:20 PM EDT Office Visit General Internal Medicine [facility] [address] [facility] [place] [address] Ryan Hadley MD [address] [facility] [place] [address] 05/10/2025 1:30 PM EDT Office Visit Cardiology [address] [place] [address] Ricky Hackett PA-C [address] [place] [address] Scheduled Orders Name Type Priority Associated Diagnoses Orde r Schedule HEPATIC FUNCTION PANEL Lab Routine Other cirrhosis of liver (HCC) Expected: 11/01/2024, Expires: 11/01/2025 PT INR Lab Routine Other cirrhosis of liver (HCC) Expected: 11/01/2024, Expires: 11/01/2025 CBC WITH WBC DIFFERENTIAL Lab Routine Other cirrhosis of liver (HCC) Expected: 11/01/2024, Expires: 11/01/2025 BASIC METABOLIC PANEL Lab Routine Other cirrhosis of liver (HCC) Expected: 11/01/2024, Expires: 11/01/2025 ALPHA-FETOPROTEIN TUMOR MARKER Lab Routine Other cirrhosis of liver (HCC) Expected: 11/01/2024, Expires: 11/01/2025 Scheduled Procedures Name Priority Associated Diagnoses Date/Ti me COLONOSCOPY FLEXIBLE PROXIMA L DIAGNOSTIC History of colon polyps 11/22/2024 10:15 AM EDT ESOPHAGOGASTRODUODENOSCOPY ( EGD), FLEXIBLE, TRANSORAL, DIAGNOSTIC Recall Portal hypertensive gastropathy (HCC) Health Maintenance Due Date Last Done Comments Adult Wellness Visit 2013 Depression Screening 04/09/2024 04/09/2023 COVID-19 Vaccine ( season) 2024 10/02/2021, 09/01/2021, 12/05/2020, Additional history exists DXA Scan 11/07/2024 11/08/2019, 0305/2020, 11/25/2012, Additional history exists Albumin/Creatinine Ratio 11/18/2024 024, 11/04/2022, 03/07/2021, Additional history exists GFR 12/13/2024 06/14/2024, 04/02, 03/12/2024, Additional history exists CKD HGB USE SMARTSET 46994 06/14/202506/14, 06/14/2024, 01/22/2024, Additional history exists CKD PHOS USE SMARTSET 15635 06/14/202506/01, 04/02/2023, 03/21/2023, Additional history exists DTap/Tdap [...] Visit Diagnoses Diagnosis Other cirrhosis of liver (HCC)- Primary History of colon polyps Personal history of colonic polyps documented in this encounter Care Teams Alteration Worker Relationship Specialty Start Date End Date Ryan Hadley MD [address] [place] [address] PCP - General Internal Medicine 11/06/17 documented as of this encounter
--- OUTSIDE RECORDS SUMMARY | 2024-11-19 05:57 | External Medical Summary | Summary of Care ---
Author Name Unknown Organization [facility] Address [address] [facility] [place] [address] Phone [phone] Care Team Providers Care Bank Accountant Name Role Phone Ryan Hadley MD Primary Care Provider + Reason for Visit * Reason Comments eRx-Medication Refill Encounter Details Date Type Department Care Team (Late st Contact Info) Description 10/25/2024 Refill Cardiology [address] [place] [phone] Charlene Kennedy, PAPiloC [address] [place] [address] HTN, goal below 140/90; Acute diastolic heart failure (HCC); Generalized edema; Diastolic dysfunction Allergies Active Allergy Reactions Criticality Noted Date Comments Bactrim 01/20/2014 Cephalosporins 07/29/2003 Rash (Ceclor only) Metformin Other (Please comment),Renal complications 03/25/2023 documented as of this encounter (statuses as of 10/30/2024) Medications ZYRTEC 10 MG PO TABS 1 [...] Respimat 1.25 MCG/ACT Inhalation Aerosol Solution (Tiotropium [place] Monohydrate)Indication s:Moderate persistent asthma without complication Inhale [...] 2023 Active Benzonatate 100 MG Oral Capsule (Catalino [...] as of this encounter (statuses as of 10/30/2024) Active Problems Problem Noted Date Diagnosed Date [...] joint replacement status 11/04/2012 Overview (11/04/2012): Right 2012 Metabolic syndrome 10/30/2011 Mixed hyperlipidemia 10/30/2011 Overview (01/01/2016): ICD-10 update of inactive term Asthma, moderate persistent 06/26/2011 Overview (10/16/2021): Elevated eosinophil levels SHANA on CPAP 02/07/2009 Overview (03/18/2019): AHP HTN, goal below 140/90 07/29/2003 documented as of this encounter (statuses as of 10/30/2024) Resolved Problems Problem Noted Date Diagnosed Date [...] 09/24/2018 04/03/2020 Overview (12/18/2020): DO NOT DELETE [facility] DETECT Study: Project # [id number], Appraiser Art: Naun Jones, PhD. SUMMARY: Goal: Establish test [...] contact study staff at ; after hours Appraiser Art via the [facility] hospital lathe operator . Please contact study team before resolving/deleting from patients problem list. Study phone number: [phone]. Diagnosis changed due to Research Module. Go to Snapshot for study details. Encounter for examination fo r normal comparison and control in clinical research program 09/24/2018 05/02/2022 Overview (12/18/2020): DO NOT DELETE - [facility] DARIEN Study: Project # [id number], Appraiser Art: Ady Bruno, MS, MPH. SUMMARY: Goal: Establish [...] contact study staff at ; after hours Appraiser Art via the [facility] hospital lathe operator . - Please contact study team before resolving/deleting from patients problem list. Study phone number: [phone]. Diagnosis changed due to Research Module. Go [...] appointment. EXTRINSIC ASTHMA, UNSPEC 09/23/2003 LOC PRIM [id number] 07/29/200301/30 Type 2 diabetes mellitus wit h hemoglobin A1c goal of less than 7.0% 08/02/2010 Overview (12/26/2015): ICD-10 update of inactive term Type 2 diabetes mellitus wit h hemoglobin A1c goal of less than 7.0% 10/30/2011 Overview (12/26/2015): ICD-10 update of inactive term Hypersomnia with sleep apnea 02/11/2018 documented as of this encounter (statuses as of 10/30/2024) Immunizations Name Administration Dates Next Due COVID-19 mRNA, LNP-s, No Pre serve, 2-Dose Series ([employer]) 10/02/2021,09/01/2021,12/05/2020,11/14 Pneumococcal Conjugate Vacc, 13 Valent (Prevnar) [...] No 01/23/2024 Does the household have a [facility] source of income? (Household - for ages [...] encounter Miscellaneous Notes * Telephone Encounter - Humera Zayas - 10/29/2024 4:42 PM EST Received message from [facility] regarding patient needing labs. Patient was notified. Successfully contacted patient and provided [facility] message. * Telephone Encounter - Lisa Lucas [facility] - 10/27/2024 11:23 AM ESTSigned Prescriptions: Disp Refills Metoprolol Succinate ER 25 MG Oral Tablet *180 Ta*3 Sig: TAKE 1 TABLET BY MOUTH TWICE DAILY Authorizing Provider: CHARLENE KENNEDY Ordering User: LISA LUCAS Spironolactone 25 MG Oral Tablet ([place]*90 Tab*0 Sig: TAKE 1 TABLET BY MOUTH IN THE MORNING Authorizing Provider: CHARLENE KENNEDY Ordering User: LISA LUCAS * Telephone Encounter - Lisa Lucas [facility] - 10/27/2024 11:21 AM EST Provided 90 days supply with 0 refill(s). Per refill protocol patient should have Mg, BMP on file within past 6 months. Lab orders prevously placed. Please contact patient to advise of labs ordered for blood draw. Fasting is not required. Advise toobtain labs before requesting the next refill. Lisa Lucas, Pharm.D. Clinical Pharmacist [facility] ([facility]) [phone] documented in this encounter Plan of Treatment Upcoming Encounters Date Type Department Care Team (Latest Contact Info) Description 11/01/2024 11:40 AM EST Office Visit Hepatology, [facility] [address] [place] [address] Rachelle Camargo DO [address] [place] [address] 11/19/2024 2:20 PM EDT [address]medicine [address], [address] [address] Dru Vicente MD [address] [facility] [place] [address] 11/22/2024 10:15 AM EDT Hospital Encounter ENDO OSSC, Endoscopy Room [facility] [address] [facility] [place] [phone] Lena Cota MD [address] [place] [address] 11/22/2024 10:15 AM EDT - 11/22/2024 10:45 AM EDT Surgery ENDO OSS, Endoscopy Room [facility] [address] [place] [phone] Lena oCta MD [address] [place] [address] COLONOSCOPY FLEXIBLE PROXIMAL DIAGNOSTIC 02/24/2025 4:30 PM EDT Telemedicine Sleep Disorders Ctr [facility] [address] [place] [phone] Glory Martinez CRNP [facility] [address] 03/21/2025 2:20 PM EDT Office Visit General Internal Medicine [facility] [address] [facility] [place] [address] Ryan Hadley MD [address] [facility] [place] [address] 05/10/2025 1:30 PM EDT Office Visit Cardiology [address] [place] [address] Charlene Kennedy PA-C [address] [place] [address] Scheduled Procedures Name Priority Associated Diagnoses Date/Ti [...] Additional history exists CKD HGB USE SMARTSET 10497 06/14/202506/14, 06/14/2024, 01/22/2024, Additional history exists CKD PHOS USE SMARTSET 86779 06/14/202506/01, 04/02/2023, 03/21/2023, Additional history exists DTap/Tdap [...] as of this encounter Visit Diagnoses Diagnosis HTN, goal below 140/90 Unspecified essential hypertension Acute diastolic heart failure (HCC) Acute diastolic heart failure Generalized edema Edema Diastolic dysfunction Heart disease, unspecified History of colon polyps Personal history of colonic polyps documented in this encounter Care Teams Bank Accountant Relationship Specialty Start Date End Date Ryan Hadley MD 200 [place] [address] PCP - General Internal Medicine 11/06/17 documented as of this encounter
--- OUTSIDE RECORDS SUMMARY | 2024-11-19 05:58 | External Medical Summary | Summary of Care ---
Author Name Unknown Organization [facility] Address [address] [facility] [place] [address] Phone [phone] Care Team Providers Care Anesthesiology Teacher Name Role Phone Ryan Hadley MD Primary Care Provider + Reason for Visit * Reason Comments Outpatient Testing Encounter Details Date Type Department Care Team (Late st Contact Info) Description 09/24/2024 3:50 PM EST Laboratory Laboratory [facility] [address] [place] [phone] [facility] 200 [facility] [place] [address] Dry mouth Allergies Active Allergy Reactions Criticality Noted Date Comments Bactrim 01/20/2014 Cephalosporins 07/29/2003 Rash (Ceclor only) Metformin Other (Please comment),Renal complications 03/25/2023 documented as of this encounter (statuses as of 09/24/2024) Medications ZYRTEC 10 MG PO TABS 1 [...] Respimat 1.25 MCG/ACT Inhalation Aerosol Solution (Tiotropium [place] Monohydrate)Indications :Moderate persistent asthma without complication Inhale 2 Puffs by mouth in the morning. 12 g 3 023 Active Jardiance 10 MG Oral Tablet (Empagliflozin)Indicati ons:Heart failure, diastolic (HCC) TAKE 1 TABLET BY MOUTH IN THE MORNING 90 Tablet 3 023 Active Spironolactone 25 MG Oral Tablet (Aldactone)Indications: Acute diastolic heart failure (HCC),HTN, goal below 140/90,Generalized edema,Diastolic dysfunction Take 1 Tablet by mouth in the morning. 90 Tablet 3 024 Active Metoprolol Succinate ER 25 MG Oral Tablet Extended Release 24 Hour (toPROL XL)Indications:HTN, goal below 140/90 Take 1 Tablet by mouth 2 times a day. 180 Tablet 3 024 Active Apixaban 5 MG Oral Tablet (Eliquis)Indications:PA [...] Tablet by mouth in the morning. Active Famotidine 20 MG Oral Tablet (Pepcid)Indications:Gas troesophageal reflux disease without esophagitis TAKE 1 TABLET BY MOUTH DAILY 90 Tablet 1 024 Active Fluticasone-Salmeterol 500-50 MCG/ACT Inhalation Aerosol Powder [...] THE MORNING 90 Tablet 3 025 Active documented as of this encounter (statuses as of 09/24/2024) Active Problems Problem Noted Date Diagnosed Date [...] as of this encounter (statuses as of 09/24/2024) Resolved Problems Problem Noted Date Diagnosed Date [...] 09/24/2018 04/03/2020 Overview (12/18/2020): DO NOT DELETE [email or web address] DETECT Study: Project # [id number], Furniture Crater: Naun Jones, PhD. SUMMARY: Goal: Establish test [...] contact study staff at ; after hours Furniture Crater via the [facility] hospital draw press operator . Please contact study team before resolving/deleting from patients problem list. Study phone number: [phone]. Diagnosis changed due to Research Module. Go to Snapshot for study details. Encounter for examination fo r normal comparison and control in clinical research program 09/24/2018 05/02/2022 Overview (12/18/2020): DO NOT DELETE - [employer] DETECT Study: Project # [id number], Furniture Crater: Ady Bruno, MS, MPH. SUMMARY: Goal: Establish [...] contact study staff at ; after hours Furniture Crater via the [facility] hospital draw press operator . - Please contact study team before resolving/deleting from patients problem list. Study phone number: [phone]. Diagnosis changed due to Research Module. Go [...] appointment. EXTRINSIC ASTHMA, UNSPEC 09/23/2003 LOC PRIM [id number] 07/29/200301/30 Type 2 diabetes mellitus wit h hemoglobin A1c goal of less than 7.0% 08/02/2010 Overview (12/26/2015): ICD-10 update of inactive term Type 2 diabetes mellitus wit h hemoglobin A1c goal of less than 7.0% 10/30/2011 Overview (12/26/2015): ICD-10 update of inactive term Hypersomnia with sleep apnea 02/11/2018 documented as of this encounter (statuses as of 09/24/2024) Immunizations Name Administration Dates Next Due COVID-19 mRNA, LNP-s, No Pre serve, 2-Dose Series ([employer]) 10/02/2021,09/01/2021,12/05/2020,11/14 Pneumococcal Conjugate Vacc, 13 Valent (Prevnar) [...] ages 0-17 years) Not on file 01/23/2024 Comments No Sex and Gender Information [...] Department Care Team (Latest Contact Info) Description 10/21/2024 1:00 PM EST Office Visit Cardiology [address] [place] [address] Ricky Hackett PA-C [address] [facility] [place] [address] 10/26/2024 9:00 AM EST Imaging Radiology [address] [place] [address] 11/01/2024 11:40 AM EST Office Visit Hepatology, [facility] [address] [place] [address] Rachelle Camargo DO [address] [facility] [place] [address] 11/19/2024 2:20 PM EDT Telemedicine Nephrology, [facility] [address] [place] [address] Dru Vicente MD [address] [place] [address] 11/22/2024 10:15 AM EDT Hospital Encounter ENDO OSS[facility], Endoscopy Room [facility] [address] [place] [phone] Lena Cota MD [address] [place] [address] 11/22/2024 10:15 AM EDT - 11/22/2024 10:45 AM EDT Surgery ENDO OSSC, Endoscopy Room OSS 132 [place] [phone] Lena Cota MD [address] [place] [address] COLONOSCOPY FLEXIBLE PROXIMAL DIAGNOSTIC 02/24/2025 4:30 PM EDT Telemedicine Sleep Disorders Ctr [facility] [address] [place] [phone] Glory Martinez CRNP 132 [place] [address] 03/21/2025 2:20 PM EDT Office Visit General Internal Medicine [facility] 200 [place] [address] Ryan Hadley MD 200 [place] [address] Pending Results Name Type Priority Associated Diagnoses Date /Time ANTINUCLEAR ANTIBODY (ROBERT) EIA SCREEN WITH REFLEX AB QUANT Lab Routine Dry mouth 09/24/2024 3:43 PM EST ANTINUCLEAR ANTIBODY (ROBERT) SCREEN, KEVIN Lab Routine Dry mouth 09/24/2024 3:43 PM EST Scheduled Procedures Name Priority Associated [...] Additional history exists CKD HGB USE SMARTSET 37853 06/14/202506/14, 06/14/2024, 01/22/2024, Additional history exists CKD PHOS USE SMARTSET 28574 06/14/202506/01, 04/02/2023, 03/21/2023, Additional history exists DTap/Tdap [...] as of this encounter Visit Diagnoses Diagnosis Dry mouth Disturbance of salivary secretion History of colon polyps Personal history of colonic polyps documented in this encounter Care Teams Anesthesiology Teacher Relationship Specialty Start Date End Date Ryan Hadley MD [address] [place] [address] PCP - General Internal Medicine 11/06/17 documented as of this encounter
--- OUTSIDE RECORDS SUMMARY | 2024-11-19 05:58 | External Medical Summary | Summary of Care ---
Author Name Unknown Organization [facility] Address [address] [facility] [address] Phone [phone] Care Team Providers Care Almond Blancher Operator Name Role Phone Ryan Hadley MD Primary Care Provider + Reason for Visit * Reason Onset Date Comments Appointment 10/26/2024 Encounter Details Date Type Department Care Team (Late st Contact Info) Description 10/26/2024 Telephone Hepatology, [facility] [address] [place] [address] Rachelle Camargo DO [address] [place] [address] Appointment Allergies Active Allergy Reactions Criticality Noted Date Comments Bactrim 01/20/2014 Cephalosporins 07/29/2003 Rash (Ceclor only) Metformin Other (Please comment),Renal complications 03/25/2023 documented as of this encounter (statuses as of 10/26/2024) Medications ZYRTEC 10 MG PO TABS 1 [...] 15 minutes 25 Tab 11 020 Active Additional Information Patient not taking.Reported on [...] Respimat 1.25 MCG/ACT Inhalation Aerosol Solution (Tiotropium [place] Monohydrate)Indications :Moderate persistent asthma without complication Inhale [...] as needed for Pain, Severe. 21 Tablet 06/05/2 024 Active Therapeutic Multivit/Mineral Oral Tablet Take [...] as of this encounter (statuses as of 10/26/2024) Active Problems Problem Noted Date Diagnosed Date [...] as of this encounter (statuses as of 10/26/2024) Resolved Problems Problem Noted Date Diagnosed Date [...] 09/24/2018 04/03/2020 Overview (12/18/2020): DO NOT DELETE [employer] DETECT Study: Project # [id number], Patient Portal Concierge: Naun Jones, PhD. SUMMARY: Goal: Establish test [...] contact study staff at ; after hours Patient Portal Concierge via the [facility] thiokol operator . Please contact study team before resolving/deleting from patients problem list. Study phone number: [phone]. Diagnosis changed due to Research Module. Go to Snapshot for study details. Encounter for examination fo r normal comparison and control in clinical research program 09/24/2018 05/02/2022 Overview (12/18/2020): DO NOT DELETE - [employer] DETECT Study: Project # [id number], Patient Portal Concierge: Ady Bruno, MS, MPH. SUMMARY: Goal: Establish [...] contact study staff at ; after hours Patient Portal Concierge via the [facility] hospital thiokol operator . - Please contact study team before resolving/deleting from patients problem list. Study phone number: [phone]. Diagnosis changed due to Research Module. Go [...] appointment. EXTRINSIC ASTHMA, UNSPEC 09/23/2003 LOC PRIM [id number] 07/29/200301/30 Type 2 diabetes mellitus wit h hemoglobin A1c goal of less than 7.0% 08/02/2010 Overview (12/26/2015): ICD-10 update of inactive term Type 2 diabetes mellitus wit h hemoglobin A1c goal of less than 7.0% 10/30/2011 Overview (12/26/2015): ICD-10 update of inactive term Hypersomnia with sleep apnea 02/11/2018 documented as of this encounter (statuses as of 10/26/2024) Immunizations Name Administration Dates Next Due COVID-19 mRNA, LNP-s, No Pre serve, 2-Dose Series ([employer]) 10/02/2021,09/01/2021,12/05/2020,11/14 Influenza, Whole Virus 07/16/2003 Pneumococcal Conjugate [...] encounter Miscellaneous Notes * Telephone Encounter - K[place]n [place] OSA [...] 11/01/2024 11:40 AM EST Office Visit Hepatology, [facility] [address] [place] [address] Rachelle Camargo DO [address] [place] [address] 11/19/2024 2:20 PM EDT Telemedicine Nephrology, [facility] [address] [place] [address] Dru Vicente MD [address] [place] [address] 11/22/2024 10:15 AM EDT Hospital Encounter ENDO OSSC, Endoscopy Room OSS 132 [facility] [place] [phone] Lena Cota MD [address] [place] [address] 11/22/2024 10:15 AM EDT - 11/22/2024 10:45 AM EDT Surgery ENDO [facility] [place] [phone] Lena Cota MD [address] [place] [phone] COLONOSCOPY FLEXIBLE PROXIMAL DIAGNOSTIC 02/24/2025 4:30 PM EDT Telemedicine Sleep Disorders Ctr [facility] [address] [place] [phone] Glory Martinez CRNP [address] [place] [address] 03/21/2025 2:20 PM EDT Office Visit General Internal Medicine [facility] [address] [place] [address] Ryan Hadley MD [address] [place] [address] 05/10/2025 1:30 PM EDT Office Visit Cardiology [address] [place] [address] Ricky Hackett PA-C [address] [place] [address] Scheduled Orders Name Type Priority Associated Diagnoses [...] Additional history exists CKD HGB USE SMARTSET 78925 06/14/202506/14, 06/14/2024, 01/22/2024, Additional history exists CKD PHOS USE SMARTSET 24533 06/14/202506/01, 04/02/2023, 03/21/2023, Additional history exists DTap/Tdap [...] polyps documented in this encounter Care Teams Almond Blancher Operator Relationship Specialty Start Date End Date Ryan Hadley MD [address] [place] [address] PCP - General Internal Medicine 11/06/17 documented as of this encounter
--- OUTSIDE RECORDS SUMMARY | 2024-11-19 05:58 | External Medical Summary ---
Author Name Unknown Address Unknown Organization K01:LABORATORY [address] [facility] [address] Laboratory Report Ordering Provider Test Date Status CHANTEL COHEN 09/24/2024 15:43:37 Final Observation Date Value Abnormality Reference (Units ) Status Nuclear IgG Ab [Ratio] in Serum by Immunoassay 09/24/2024 15:43:37 Negative Negative Final DNA double strand Ab [Presence] in Serum 09/24/2024 15:43:37 Negative Negative Final DOUBLE STRANDED DNA VALUE - [facility] 09/24/2024 15:43:37 2.2 <20 (IU/mL) Final Extractable nuclear Ab [Presence] in Serum 09/24/2024 15:43:37 Negative Negative Final Nuclear IgG Ab [Ratio] in Serum by Immunoassay 09/24/2024 15:43:37 0.3 <0.7 (Ratio) Final Screening is based on detect ion of the following antibodies: dsDNA, U1-FRUIT HARVESTER (RNP70, A, C), SS-A/Ro, SS-B / La, Gila-1, Scl-70, Centromere B proteins and Sm proteins. In conjunction with clinical findings, this can aid in the diagnosis of systemic lupus erythematosous (SLE), mixed connective tissue disease (MCTD), Sjogren's syndrome, scleroderma and polymyositis/dermatomyositis.
However, a negative result does not rule out systemic rheumatic or other autoimmune disease. If clinically suspected, further evaluation and testing may be necessary. Please consult with Rheumatology Department.
Methodology: Fluorescent Enzyme Immunoassay. Performing Location LABORATORY [address] [facility] [address]
--- OUTSIDE RECORDS SUMMARY | 2024-11-19 05:58 | External Medical Summary | Summary of Care ---
Author Name Unknown Organization [facility] Address [address] [facility] [place] [address] Phone [phone] Care Team Providers Care Sustainable Systems Analyst Name Role Phone Ryan Hadley MD Primary Care Provider + Reason for Visit * Reason Onset Date Comments Test Results 09/15/2024 Encounter Details Date Type Department Care Team (Late st Contact Info) Description 09/15/20[address]phone [address] Internal Medicine [facility] [address] [facility] [place] [address] Ryan Hadley MD [address] [place] [address] Test Results Allergies Active Allergy Reactions Criticality Noted Date Comments Bactrim 01/20/2014 Cephalosporins 07/29/2003 Rash (Ceclor only) Metformin Other (Please comment),Renal complications 03/25/2023 documented as of this encounter (statuses as of 09/27/2024) Medications ZYRTEC 10 MG PO TABS 1 [...] 15 minutes 25 Tab 11 2019 Active Albuterol Sulfate (2.5 MG/3ML) 0.083% Inhalation [...] Respimat 1.25 MCG/ACT Inhalation Aerosol Solution (Tiotropium Oneill Monohydrate)Indication s:Moderate persistent asthma without complication Inhale 2 Puffs by mouth in the morning. 12 g 3 2022 Active Jardiance 10 MG Oral Tablet (Empagliflozin)Indicat ions:Heart failure, diastolic (HCC) TAKE 1 TABLET BY MOUTH IN THE MORNING 90 Tablet 3 2022 Active Spironolactone 25 MG Oral Tablet (Aldactone)Indications :Acute diastolic heart failure (HCC),HTN, goal below 140/90,Generalized edema,Diastolic dysfunction Take 1 Tablet by mouth in the morning. 90 Tablet 3 2023 Active Metoprolol Succinate ER 25 MG Oral Tablet Extended Release 24 Hour (toPROL XL)Indications:HTN, goal below 140/90 Take 1 Tablet by mouth 2 times a day. 180 Tablet 3 2023 Active Apixaban 5 MG Oral Tablet (Eliquis)Indications:P [...] morning. Active Famotidine 20 MG Oral Tablet (Pepcid)Indications:Ga stroesophageal reflux disease without esophagitis TAKE 1 TABLET BY MOUTH DAILY 90 Tablet 1 2023 Active Fluticasone-Salmeterol 500-50 MCG/ACT Inhalation Aerosol Powder [...] MOUTH DAILY 90 Capsule 1 2024 Active Torsemide 20 MG Oral Tablet (Demadex)Indications:H TN, goal below 140/90,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 90 Tablet 3 09/23 Discontinued documented as of this encounter (statuses as of 09/27/2024) Active Problems Problem Noted Date Diagnosed Date [...] as of this encounter (statuses as of 09/27/2024) Resolved Problems Problem Noted Date Diagnosed Date [...] (12/18/2020): DO NOT DELETE [facility] DARIEN Study: Project # [id number], Digital Watch Assembler: Naun Jones, PhD. SUMMARY: Goal: Establish test [...] contact study staff at ; after hours Digital Watch Assembler via the [facility] [place] . Please contact study team before resolving/deleting from patients problem list. Study phone number: [phone]. Diagnosis changed due to Research Module. Go to Snapshot for study details. Encounter for examination fo r normal comparison and control in clinical research program 09/24/2018 05/02/2022 Overview (12/18/2020): DO NOT DELETE - [facility] DETECT Study: Project # [id number], Digital Watch Assembler: Ady Bruno, MS, MPH. SUMMARY: Goal: Establish [...] contact study staff at ; after hours Digital Watch Assembler via the [facility] [place] bottoming machine operator . - Please contact study team before resolving/deleting from patients problem list. Study phone number: [phone]. Diagnosis changed due to Research Module. Go [...] appointment. EXTRINSIC ASTHMA, UNSPEC 09/23/2003 LOC PRIM [id number] 07/29/200301/30 Type 2 diabetes mellitus wit h hemoglobin A1c goal of less than 7.0% 08/02/2010 Overview (12/26/2015): ICD-10 update of inactive term Type 2 diabetes mellitus wit h hemoglobin A1c goal of less than 7.0% 10/30/2011 Overview (12/26/2015): ICD-10 update of inactive term Hypersomnia with sleep apnea 02/11/2018 documented as of this encounter (statuses as of 09/27/2024) Immunizations Name Administration Dates Next Due COVID-19 [...] encounter Miscellaneous Notes * Telephone Encounter - Luisa Marroquin LPN - 09/23/2024 12:45 PM EST Patient informed. She has an appt. Tomorrow to have them done at the lab. * Telephone Encounter - Ryan Hadley MD - 09/23/2024 9:17 AM EST They are ordered * Telephone Encounter - Stephanie Ragsdale LPN - 09/16/2024 4:01 PM EST Patient aware and verbalized understanding Pt states that she is still having the dry mouth - would like the labs * Telephone Encounter - Ryan Hadley MD - 09/15/2024 10:23 AM EST Please call, sent myG 1 month ago, never read myG: Kelin Hi! I hope all is well and Mandaeism going ok. I got your thyroid ultrasound. The thyroid nodules are stable which is good news. They showed some changes in the glands where they thought possible Sjogren's - any dry mouth or dry eyes going on still? I can check some labs again to look into - let me know Leonel documented in this encounter Plan of Treatment Upcoming Encounters Date Type Department Care Team (Latest Contact Info) Description 10/21/2024 1:00 PM EST Office Visit Cardiology [address] [place] [address] Ricky Hackett PA-C [address] [place] [address] 10/26/2024 9:00 AM EST Imaging Radiology [address] [place] [address] 11/01/2024 11:40 AM EST Office Visit Hepatology, [facility] [place] [address] [place] [address] Rachelle Camargo DO [address] [place] [address] 11/19/2024 2:20 PM EDT Telemedicine Nephrology, [facility] [address] [facility] [place] [address] Dru Vicente MD [address] [place] [address] 11/22/2024 10:15 AM EDT Hospital Encounter ENDO [facility], Endoscopy Room [facility] [address] [place] [phone] Lena Cota MD [address] [place] [address] 11/22/2024 10:15 AM EDT - 11/22/2024 10:45 AM EDT Surgery ENDO [facility], Endoscopy Room [facility] [address] [place] [id number] Lena Cota MD [address] [place] [address] COLONOSCOPY FLEXIBLE PROXIMAL DIAGNOSTIC 02/24/2025 4:30 PM EDT Telemedicine Sleep Disorders [facility]tr [facility] [address] [place] [phone] Glory Martinez CRNP [address] [place] [address] 03/21/2025 2:20 PM EDT Office Visit General Internal Medicine [facility] [address] [facility] [place] [address] Ryan Hadley MD [address] [facility] [place] [address] Scheduled Procedures Name Priority Associated Diagnoses Date/Ti [...] Additional history exists CKD HGB USE SMARTSET 56604 06/14/202506/14, 06/14/2024, 01/22/2024, Additional history exists CKD PHOS USE SMARTSET 03297 06/14/202506/01, 04/02/2023, 03/21/2023, Additional history exists DTap/Tdap [...] of this encounter Visit Diagnoses Diagnosis Dry mouth- Primary Disturbance of salivary secretion History of colon polyps Personal history of colonic polyps documented in this encounter Care Teams Sustainable Systems Analyst Relationship Specialty Start Date End Date Ryan Hadley MD [address] [place] [address] PCP - General Internal Medicine 11/06/17 documented as of this encounter
--- OUTSIDE RECORDS SUMMARY | 2024-11-19 05:58 | External Medical Summary | Summary of Care ---
Author Name Unknown Organization [facility] Address [address] [facility] [place] [address] Phone [phone] Care Team Providers Care Internal Medicine Hospitalist Name Role Phone Ryan Hadley MD Primary Care Provider + Reason for Visit * Reason Comments Follow Up 6 month follow up. P alpitations on occasion but no more frequent then prior. Edema in LE ongoing and more noticeable currently. SOB ongoing but no worse then prior. Denies chest pain and dizziness. Encounter Details Date Type Department Care Team (Late st Contact Info) Description 10/21/2024 1:00 PM EST Office Visit Cardiology [address] [place] [address] Ricky Hackett PA-C [address] [place] [address] Acute on chronic diastolic heart failure (HCC)*; Benign hypertension with CKD (chronic kidney disease) stage III ([facility]); PAF (paroxysmal atrial fibrillation) ([facility]); Encounter for monitoring diuretic therapy Allergies Active Allergy Reactions Criticality Noted Date Comments Bactrim 01/20/2014 Cephalosporins 07/29/2003 Rash (Ceclor only) Metformin Other (Please comment),Renal complications 03/25/2023 documented as of this encounter (statuses as of 10/24/2024) Medications ZYRTEC 10 MG PO TABS 1 [...] Respimat 1.25 MCG/ACT Inhalation Aerosol Solution (Tiotropium Aleppo Monohydrate)Indications :Moderate persistent asthma without complication Inhale [...] as of this encounter (statuses as of 10/24/2024) Active Problems Problem Noted Date Diagnosed Date [...] as of this encounter (statuses as of 10/24/2024) Resolved Problems Problem Noted Date Diagnosed Date [...] 09/24/2018 04/03/2020 Overview (12/18/2020): DO NOT DELETE [employer] DETECT Study: Project # [id number], Panel Maker: Naun Jones, PhD. SUMMARY: Goal: Establish [...] contact study staff at ; after hours Panel Maker via the [facility] hospital hot mix operator . Please contact study team before resolving/deleting from patients problem list. Study phone number: [phone]. Diagnosis changed due to Research Module. Go to Snapshot for study details. Encounter for examination fo r normal comparison and control in clinical research program 09/24/2018 05/02/2022 Overview (12/18/2020): DO NOT DELETE - [employer] DETECT Study: Project # [id number], Panel Maker: Ady Bruno, MS, MPH. SUMMARY: Goal: [...] contact study staff at ; after hours Panel Maker via the [facility] hospital hot mix operator . - Please contact study team before resolving/deleting from patients problem list. Study phone number: [phone]. Diagnosis changed due to Research Module. Go [...] appointment. EXTRINSIC ASTHMA, UNSPEC 09/23/2003 LOC PRIM BECDHRAT-T-CGR 07/29/200301/30 Type 2 diabetes mellitus wit h hemoglobin A1c goal of less than 7.0% 08/02/2010 Overview (12/26/2015): ICD-10 update of inactive term Type 2 diabetes mellitus wit h hemoglobin A1c goal of less than 7.0% 10/30/2011 Overview (12/26/2015): ICD-10 update of inactive term Hypersomnia with sleep apnea 02/11/2018 documented as of this encounter (statuses as of 10/24/2024) Immunizations Name Administration Dates Next Due COVID-19 mRNA, LNP-s, No Pre serve, 2-Dose Series (ShareThe) 10/02/2021,09/01/2021,12/05/2020,11/14 Pneumococcal Conjugate Vacc, 13 Valent (Prevnar) [...] Sign Reading Time Taken Comments Blood Pressure 110/52 10/21/2024 12:48 PM EST Pulse 68 10/21/2024 12:48 PM EST Temperature - - Respiratory Rate 16 10/21/2024 12:4 8 PM EST Oxygen Saturation - - Inhaled Oxygen Concentration - - Weight 101.2 kg (223 lb 1.6 oz) 025 12:48 PM EST Height - - Body Mass Index 43.57 05/10/2024 1:33 PM EDT documented in this encounter Progress Notes * Ricky Hackett PA-C - 10/21/2024 12:58 PM EST History of Present Illness: 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 Patient notes recent issues with worsening abdominal bloating/distention, lower extremity peripheral edema, and weight gain. Shortnessof breath ongoing, no worse compared to prior. No chest pain. Palpitations occur in association with sensed ectopy. No overt recurrent atrial flutter/fibrillation. CPAP utilized at nighttime. No dizziness or syncope. No reported melena or hematochezia. Problem List: Hypertension hypertensive heart disease/diastolic dysfunction Morbid obesity Atypical atrial flutter, status post December 22, 2023 cardioversion. Patient admitted to [place], [place] December 17, 2023 to December 23, 2023, presenting with fatigue, palpitations, worsening shortness of breath -> new onset atypical atrial flutter with a rapid ventricular response. Laboratory work notable for mild hypokalemia and abnormal TFTs suggesting hyperthyroidism. Cardiology consultation obtained with patient evaluated by [facility], initially Dr. Del West then Dr. Radha Ocasio. Patient treated with IV diltiazem and digoxin along with resumption of prior to arrival metoprolol succinate 25 mg twice per day. Elevated troponin observed with pharmacological stress testing ordered by the primary service and transpiring on December 19, 2023, revealing normal perfusion with attenuation artifact. MADHURI on December 22, 2023 showed no contraindications to cardioversion, undergoing successful direct current cardioversion (200 joule biphasic synchronized electrical shock)to sinus rhythm. EKG post cardioversion revealed normal sinus rhythm at 69 bpm with a first-degree AV block and a possible old anterolateral infarct. QTc 407 ms. Apixaban (Eliquis) 5 mg twice per dayprescribed. Hyperglycemia/type 2 diabetes mellitus Obstructive sleep apnea on CPAP supplementation Chronic renal insufficiency, stage III Chronic thrombocytopenia Hyperlipidemia on therapy Acute COVID infection June 26, 2021 treated with monoclonal antibodies XAVIER cirrhosis Patient Active Problem List Diagnosis HTN, goal below 140/90 SHANA on CPAP Asthma, moderate persistent Metabolic syndrome Mixed hyperlipidemia Knee joint replacement status GERD (gastroesophageal reflux disease) Rhinitis, nonallergic Diastolic dysfunction Thrombocytopenia (HCC) Morbid obesity, unspecified obesity type (HCC) Benign hypertension with CKD (chronic kidney disease) stage III (HCC) Other cirrhosis of liver (HCC) Thyroid nodule Liver cirrhosis secondary to nonalcoholic steatohepatitis (XAIVER) (HCC) Diastolic heart failure (HCC) Caregiver burden PAF (paroxysmal atrial fibrillation) (HCC) Subclinical hyperthyroidism Atypical atrial flutter (HCC) Past Medical History: Diagnosis Date Asthma Asthma, [...] COLONOSCOPY, DIAGNOSTIC (RECTUM) 03/17/2018 normal, repeat 10 yrs/[facility] COLONOSCOPY, DIAGNOSTIC (RECTUM) 05/10/2024 biopises show tubulovillous adenoma, adenomatous polyps/recall 6 months-1 year/COLONOSCOPY FLEXIBLEPROXIMAL DIAGNOSTIC performed by Lena Cota MD at ENDOSCOPY [facility] EGD, FLEXIBLE, DIAGNOSTIC 11/02/2021 z-line 35cm from incisors, normal scope Hill 2 / bx normal / [facility] EGD, W/ENDOSCOPIC US N/A 03/28/2023 cystic lesion pancreatic body/portal hypertensive gastropathy/biopsies show mild gastritis of stomach/repeat EGD 2 years/EUS/EGD/[place] KNEE ARTHROSCOPY/SURGERY 2012 replaced, right LIGATE/CUT OVIDUCT(S) 1977 NEEDLE BIOPSY OF LIVER 1970 PARTIAL HYSTERECTOMY 1988 Still has ovaries REMOVE GALLBLADDER REMOVE TONSILS & ADENOIDS, UNDER 14 2 Tonsillectomy/Adenoids,<14 Y/O SHOULDER SURGERY PROCEDURE NEC Left [address] 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 Review of patient's allergies indicates: Allergen Reactions Bactrim Cephalosporins Rash (Ceclor only) Metformin Other (Please comment) and Renal complications Current Outpatient Medications Medication Sig Dispense Refill ZYRTEC 10 MG PO TABS 1 tab every day amoxicillin (AMOXIL) 500 MG Capsule TAKE 4 CAPSULES BY MOUTH ONE HOUR PRIOR TO APPOINTMENT 0 fluticasone (FLONASE) 50 MCG/ACT nasal spray USE 2 SPRAYS IN EACH NOSTRIL DAILY 48 g 4 CPAP every night at bedtime . Acetaminophen 500 MG Oral Tablet (Tylenol) Take 2 Tablets by mouth every 12 hours as needed for Pain, Severe. 100 Tablet 0 Spiriva Respimat 1.25 MCG/ACT Inhalation Aerosol Solution (Tiotropium Aleppo Monohydrate) Inhale 2Puffs by mouth in the morning. 12 g 3 Jardiance 10 MG Oral Tablet (Empagliflozin) TAKE 1 TABLET BY MOUTH IN THE MORNING 90 Tablet 3 Spironolactone 25 MG Oral Tablet (Aldactone) Take 1 Tablet by mouth in the morning. 90 Tablet 3 Metoprolol Succinate ER 25 MG Oral Tablet Extended Release 24 Hour (toPROL XL) Take 1 Tablet by mouth 2 times a day. 180 Tablet 3 Apixaban 5 MG Oral Tablet (Eliquis) Take 1 Tablet by mouth in the morning and 1 Tablet before bedtime. 180 Tablet 3 Therapeutic Multivit/Mineral Oral Tablet Take 1 Tablet by mouth in the morning. Famotidine 20 MG Oral Tablet (Pepcid) TAKE 1 TABLET BY MOUTH DAILY 90 Tablet 1 Fluticasone-Salmeterol 500-50 MCG/ACT Inhalation Aerosol Powder Breath Activated (Wixela Inhub) USE1 INHALATION BY MOUTH TWICE DAILY RINSE MOUTH AFTER USE 180 Each 3 Potassium Chloride ER 10 MEQ Oral Tablet Extended Release TAKE 1 TABLET BY MOUTH IN THE MORNING 90 Tablet 1 Lovastatin 40 MG Oral Tablet TAKE 1 TABLET BY MOUTH IN THE EVENING 90 Tablet 3 Omeprazole 20 MG Oral Capsule Delayed Release (PriLOSEC) TAKE 1 CAPSULE BY MOUTH DAILY 90 Capsule 1 Isosorbide Mononitrate ER 30 MG Oral Tablet Extended Release 24 Hour (Imdur) TAKE 1 TABLET BY MOUTHDAILY 90 Tablet 3 Torsemide 20 MG Oral Tablet (Demadex) TAKE 1 TABLET BY MOUTH IN THE MORNING 90 Tablet 3 Nitroglycerin 0.4 MG Sublingual Tablet Sublingual (NITROSTAT) [...] of breath). Dx J45.40 360 mL 11 oxyCODONE HCl 5 MG Oral Tablet (Oxy IR) Take 1 Tablet by mouth every 8 hours as needed for Pain, Severe. 21 Tablet 0 Benzonatate 100 MG Oral Capsule (Catalino Quiñones) Swallow 1 or 2 pills three times a day as needed for cough. Do not cut, crush, or chew. 50 Capsule 3 No current facility-administered medications for this visit. OBJECTIVE/PHYSICAL EXAMINATION: BP 110/52 | Pulse 68 | Resp 16 | Wt 101.2 kg (223 lb 1.6 oz) | BMI 43.57 kg/m | BSA 2.07 m Examined in a chair General: A&Ox3. NAD. Elevated BMI. HENT: Normocephalic. Atraumatic. Eyes: PER. Conjunctiva pink, sclera clear. Neck: No carotid bruits. No overt JVD. Heart: Regular, 60 bpm. Grade II/ systolic murmur. No diastolic murmur. Lungs: Diminished but clear to auscultation. Abdomen: +BS Extremities: 2+ edema bilaterally. No clubbing. No cyanosis. Limited neurological examination is without focal deficits. Data: June 19, 2020 DSE Interpretation Summary (as per Dr. Powers): The stress echo is negative for inducible ischemia. There is an adequate an appropriate heart rate and blood pressure response to dobutamine stress protocol Baseline EKG: Sinus rhythm with low-voltage QRS poor R-wave progression The stress EKG response showed no evidence of ischemia. The left ventricular wall motion is normal. The left ventricular wall motion with stress is normal. The left ventricular ejection fraction increases normally with stress. The left ventricular systolic function is normal. The qualitative LV ejection fraction is 55-59% (normal). The LV wall thickness is mildly increased (concentric). The left ventricular diastolic function is mildly abnormal (grade I). October 2023 Zio Monitor: Patient had a min HR of 51 bpm, max HR of 185 bpm, and avg HR of 75 bpm.Predominant underlying rhythm was Sinus Rhythm. 1 run of Ventricular Tachycardia occurred lasting 6beats with a max rate of 179 bpm (avg 162 bpm). 178 Supraventricular Tachycardia runs occurred, therun with the fastest interval lasting 15 beats with a max rate of 185 bpm, the longest lasting 45.3secs with an avg rate of 129 bpm. True duration of Supraventricular Tachycardia difficult to ascertain due to artifact. Isolated SVEs were occasional (2.7%, 73186), SVE Couplets were rare (<1.0%, 1380), and SVE Triplets were rare (<1.0%, 461). Isolated VEs were rare (<1.0%), VE Couplets were rare (<1.0%), and no VE Triplets were present. Difficulty discerning atrial activity making definitive diagnosis difficult to ascertain. Six patient triggered events and 7 diary events were submitted for interpretation. Interpretation of the events is technically limited due to the presence ofartifact. The events predominantly correlated with sinus rhythm with premature atrial contractions. November 24, 2023 TTE Interpretation Summary ([facility]): Normal size left ventricle. Mildly increased LV wall thickness. Normal LV systolic function. EF 50%. Normal wall motion. Normal RV size and function. RVSP 31 mmHg. Moderately calcified mitral valve, with mildly thickened leaflets. Aortic valve sclerosis without stenosis. Dilated IVC with blunted respirophasic diameter changes consistent with elevated central venous pressure CTA of the chest on December 18, 2023 was negative for an acute pulmonary artery embolism. There was anodular consolidation posterior basal segment of the right lower lobe, 2.2 cm December 19, 2023 Lexiscan summary: Stress Function: Normal left ventricle size. Left ventricular function is normal. Ejection fraction is 70%. Perfusion Comments: LV perfusion is normal with soft tissue attenuation (SRS 14, SSS 9). ECG: Resting ECG demonstrates atrial flutter. ECG: The ECG was negative for ischemia. Stress Combined Conclusion: Normal pharmacological myocardial perfusion study with attenuation artifact. December 22, 2023 MADHURI: Left Ventricle: Normal left ventricular systolic function with a visually estimated EF of 50 - 55%. Left ventricle size is normal. Normal wall thickness. Normal wall motion. RightVentricle: Normal systolic function. Left Atrium: Left atrium is mildly dilated. No left atrial appendage thrombus noted. Mitral Valve: Mild regurgitation. Pericardium: No pericardial effusion. Interatrial Septum: Agitated saline study was negative with and without provocation. January 22, 2024 EKG: Sinus bradycardia at 56 bpm with premature atrial contractions, low-voltage QRS. Can not rule out an old anterior infarct. QTc 380 ms. April 06, 2024 EKG: Sinus bradycardia at 59 bpm with marked sius arrhythmia, LAD, low voltage QRS, possible old anterolateral infarct. ASSESSMENT: Volume overload, multifactorial in etiology - right heart failure, diastolic dysfunction secondary to hypertensive heart disease, obesity, XAVIER cirrhosis, stage III CKD. Current volume status: Hypervolemic. Hospitalization in December 2023 with symptomatic atypical atrial flutter with a rapid ventricular response status post MADHURI guided cardioversion as detailed above. History of palpitations previously documented to occur in association with sinus rhythm and sensed atrial ectopy. Asymptomatic supraventricular tachycardia and one run of ventricular tachycardia via October 2023 Zio monitor Hypertension. Dyslipidemia, on therapy Obstructive sleep apnea, on CPAP supplementation Stage 3 chronic kidney disease RECOMMENDATIONS/PLAN: Options of management discussed. Increase torsemide from 20 mg/day to 20 mg one day alternating with 40 mg the next day Increase potassium chloride from 10 mEq/day to 10 mEq one day alternating with 20 mEq next day Continue spironolactone at 25 mg/day for now Check basic metabolic panel and a magnesium level in about 2 weeks. Reduced dietary sodium intake. Patient to write me via [employer] with an update in 2 weeks Routine Cardiology follow-up 4 to 6 months or as needed ER with emergencies Ricky Hackett PA-C Department of Cardiology This visit involved medical care services related to at least one serious condition or complex condition requiring ongoing care. This chart was completed in part utilizing [employer] Speech Voice Recognition Software. Grammatical errors, random word insertions, prounoun errors, and incomplete sentences are an occasional consequence of this system due to software limitations, ambient noise, and hardware issues. Any formal questions or concerns about the content, text, or information contained within the body of this dictation should be directly addressed to the provider for clarification. documented in this encounter Nursing Notes * Javi Jarrett LPN - 10/21/2024 12:47 PM EST Patient identified by full name and date of Chief Complaint Patient presents with Follow Up 6 month follow up. Palpitations on occasion but no more frequent then prior. Edema in LE ongoing and more noticeable currently. SOB ongoing but no worse then prior. Denies chest pain and dizziness. Examination Room: 3 Name: Kelin Houston Date of : (1945). Reason for Visit: Follow up Interim Hospitalization(s): Denies Problems/Concerns: See chief complaint Chest Pain/SOB: See chief complaint [facility] Discussed: Not applicable [facility] is a way you can talk to your provider online through e-mail. Would you like to sign up? I can activate it for you? ALREADY ACTIVE Patient was instructed to not get up on the exam table until directed and assisted by their provider; patient is to remain seated in the chair/ wheelchair/ exam table for fall prevention and safety reasons. Patient is aware to have assistance to step down off exam table with personnel. Patient voiced full comprehension of instructions. documented in this encounter Plan of Treatment Upcoming Encounters Date Type Department Care Team (Latest Contact Info) Description 10/26/2024 9:00 AM EST Imaging Radiology [address] [place] [address] 11/01/2024 11:40 AM EST Office Visit Hepatology, [facility] [address] [place] [address] Rachelle Camargo DO [address] [place] [address] 11/19/2024 2:20 PM EDT Telemedicine Nephrology, [facility] [address] [place] [address] Dru Vicente MD [address] [place] [address] 11/22/2024 10:15 AM EDT Hospital Encounter ENDO [facility], Endoscopy Room [facility] [address] [facility] [place] [phone] Lena Cota MD [address] [place] [id number] 11/22/2024 10:15 AM EDT - 11/22/2024 10:45 AM EDT Surgery ENDO [facility], Endoscopy Room [facility] [address] [facility] [place] [id number] Lena Cota MD [address] [place] [id number] COLONOSCOPY FLEXIBLE PROXIMAL DIAGNOSTIC 02/24/2025 4:30 PM EDT Telemedicine Sleep Disorders Ctr [facility] [address] [facility] [place] [phone] Glory Martinez CRNP [address] [place] [place] [address] 03/21/2025 2:20 PM EDT Office Visit General Internal Medicine [facility] [address] [facility] [place] [address] Ryan Hadley MD [address] [place] [address] 05/10/2025 1:30 PM EDT Office Visit Cardiology [address] [place] [address] Ricky Hackett PAPiloC [address] [place] [address] Scheduled Orders Name Type Priority Associated Diagnoses Orde r Schedule BASIC METABOLIC PANEL Lab Routine Encounter for monitoring diuretic therapy Expected: 10/28/2024, Expires: 10/21/2025 MAGNESIUM Lab Routine Encounter for monitoring diuretic therapy Expected: 10/28/2024, Expires: 10/21/2025 Scheduled Procedures Name Priority Associated Diagnoses Date/Ti [...] Additional history exists CKD HGB USE SMARTSET 21952 06/14/202506/14, 06/14/2024, 01/22/2024, Additional history exists CKD PHOS USE SMARTSET 56905 06/14/202506/01, 04/02/2023, 03/21/2023, Additional history exists DTap/Tdap [...] as of this encounter Visit Diagnoses Diagnosis Acute on chronic diastolic heart failure (HCC)- Primary Acute on chronic diastolic heart failure Benign hypertension with CKD (chronic kidney disease) stage III (HCC) Benign hypertensive kidney disease with chronic kidney disease stage I through stage IV, or unspecified PAF (paroxysmal atrial fibrillation) (HCC) Atrial fibrillation Encounter for monitoring diuretic therapy Encounter for therapeutic drug monitoring History of colon polyps Personal history of colonic polyps documented in this encounter Care Teams Internal Medicine Hospitalist Relationship Specialty Start Date End Date Ryan Hadley MD [address] [place] [address] PCP - General Internal Medicine 11/06/17 documented as of this encounter"
--- OUTSIDE RECORDS SUMMARY | 2024-11-19 05:58 | External Medical Summary | Summary of Care ---
Author Name Unknown Organization [facility] Address [address] [address] Phone [phone] Care Team Providers Care Grades 6 Through 8 Teacher Name Role Phone Ryan Hadley MD Primary Care Provider + Reason for Visit * Reason Onset Date Comments Appointment 10/26/2024 Encounter Details Date Type Department Care Team (Late st Contact Info) Description 10/26/2024 Telephone Hepatology, [facility] [address] [place] [address] Rachelle Camargo DO [address] [place] [address] Appointment Allergies Active Allergy Reactions Criticality Noted [...] Respimat 1.25 MCG/ACT Inhalation Aerosol Solution (Tiotropium West Monohydrate)Indications :Moderate persistent asthma without complication Inhale [...] 09/24/2018 04/03/2020 Overview (12/18/2020): DO NOT DELETE [employer] DETECT Study: Project # [id number], Teletypesetter: Naun Jones, PhD. SUMMARY: Goal: Establish test [...] contact study staff at ; after hours Teletypesetter via the [facility] wastewater treatment plant operator . Please contact study team before resolving/deleting from patients problem list. Study phone number: [phone]. Diagnosis changed due to Research Module. Go to Snapshot for study details. Encounter for examination fo r normal comparison and control in clinical research program 09/24/2018 05/02/2022 Overview (12/18/2020): DO NOT DELETE - [employer] DETECT Study: Project # [id number], Teletypesetter: Ady Bruno, MS, MPH. SUMMARY: Goal: Establish [...] contact study staff at ; after hours Teletypesetter via the [facility] hospital wastewater treatment plant operator . - Please contact study team before resolving/deleting from patients problem list. Study phone number: [phone]. Diagnosis changed due to Research Module. Go [...] appointment. EXTRINSIC ASTHMA, UNSPEC 09/23/2003 LOC PRIM [id number] 07/29/200301/30 Type 2 diabetes mellitus wit h [...] mRNA, LNP-s, No Pre serve, 2-Dose Series (Nanapi) 10/02/2021,09/01/2021,12/05/2020,11/14 Influenza, Whole Virus 07/16/2003 Pneumococcal Conjugate [...] 11/01/2024 11:40 AM EST Office Visit Hepatology, [facility] [address] [place] [address] Rachelle Camargo DO [address] [place] [address] 11/19/2024 2:20 PM EDT Telemedicine Nephrology, [facility] [address] [place] [address] Dru Vicente MD [address] [place] [address] 11/22/2024 10:15 AM EDT Hospital Encounter ENDO OSSC, Endoscopy Room OSS 132 [facility] [place] [phone] Lena Cota MD [address] [place] [address] 11/22/2024 10:15 AM EDT - 11/22/2024 10:45 AM EDT Surgery ENDO [facility] [place] [phone] Lena Cota MD [address] [place] [phone] COLONOSCOPY FLEXIBLE PROXIMAL DIAGNOSTIC 02/24/2025 4:30 PM EDT Telemedicine Sleep Disorders Ctr [facility] [address] [place] [phone] Glory Martinez CRNP [address] [place] [address] 03/21/2025 2:20 PM EDT Office Visit General Internal Medicine [facility] [address] [place] [address] Ryan Hadley MD [address] [place] [address] 05/10/2025 1:30 PM EDT Office Visit Cardiology [address] [place] [address] Ricky Hackett PA-C [address] [place] [address] Scheduled Orders Name Type Priority Associated Diagnoses [...] Additional history exists CKD HGB USE SMARTSET 94749 06/14/202506/14, 06/14/2024, 01/22/2024, Additional history exists CKD PHOS USE SMARTSET 25866 06/14/202506/01, 04/02/2023, 03/21/2023, Additional history exists DTap/Tdap [...] polyps documented in this encounter Care Teams Grades 6 Through 8 Teacher Relationship Specialty Start Date End Date Ryan Hadley MD [address] [place] [address] PCP - General Internal Medicine 11/06/17 documented as of this encounter
--- OUTSIDE RECORDS SUMMARY | 2024-11-19 05:59 | External Medical Summary | Summary of Care ---
Author Name Unknown Organization [facility] Address [address] [facility] [place] [address] Phone [phone] Care Team Providers Care Infrastructure Software Engineer Name Role Phone Ryan Hadley MD Primary Care Provider + Reason for Visit * Reason Comments eRx-Medication Refill Encounter Details Date Type Department Care Team (Late st Contact Info) Description 09/23/2024 Refill Cardiology [address] [place] [phone] Charlene Kennedy, PAPiloC [address] [place] [address] HTN, goal below 140/90; Benign hypertension with CKD (chronic kidney disease) stage III (HCC); Liver cirrhosis secondary to nonalcoholic steatohepatitis (XAVIER) (HCC); Chronic diastolic heart failure (HCC) Allergies Active Allergy Reactions Criticality Noted Date Comments Bactrim 01/20/2014 Cephalosporins 07/29/2003 Rash (Ceclor only) Metformin Other (Please comment),Renal complications 03/25/2023 documented as of this encounter (statuses as of 09/23/2024) Medications ZYRTEC 10 MG PO TABS 1 [...] Respimat 1.25 MCG/ACT Inhalation Aerosol Solution (Tiotropium [place] Monohydrate)Indication s:Moderate persistent asthma without complication Inhale [...] THE MORNING 90 Tablet 3 2024 Active Torsemide 20 MG Oral Tablet (Demadex)Indications:H TN, goal below 140/90,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 90 Tablet 3 09/23 Discontinued documented as of this encounter (statuses as of 09/23/2024) Active Problems Problem Noted Date Diagnosed Date [...] as of this encounter (statuses as of 09/23/2024) Resolved Problems Problem Noted Date Diagnosed Date [...] 09/24/2018 04/03/2020 Overview (12/18/2020): DO NOT DELETE [facility] DETECT Study: Project # [id number], Junior Sales Assistant: Naun Jones, PhD. SUMMARY: Goal: Establish test [...] contact study staff at ; after hours Junior Sales Assistant via the [facility] radio operator . Please contact study team before resolving/deleting from patients problem list. Study phone number: [phone]. Diagnosis changed due to Research Module. Go to Snapshot for study details. Encounter for examination fo r normal comparison and control in clinical research program 09/24/2018 05/02/2022 Overview (12/18/2020): DO NOT DELETE - [facility] DETECT Study: Project # [id number], Junior Sales Assistant: Ady Bruno, MS, MPH. SUMMARY: Goal: Establish [...] contact study staff at ; after hours Junior Sales Assistant via the [facility] hospital radio operator . - Please contact study team before resolving/deleting from patients problem list. Study phone number: [phone]. Diagnosis changed due to Research Module. Go [...] appointment. EXTRINSIC ASTHMA, UNSPEC 09/23/2003 LOC PRIM [id number] 07/29/200301/30 Type 2 diabetes mellitus wit h hemoglobin A1c goal of less than 7.0% 08/02/2010 Overview (12/26/2015): ICD-10 update of inactive term Type 2 diabetes mellitus wit h hemoglobin A1c goal of less than 7.0% 10/30/2011 Overview (12/26/2015): ICD-10 update of inactive term Hypersomnia with sleep apnea 02/11/2018 documented as of this encounter (statuses as of 09/23/2024) Immunizations Name Administration Dates Next Due COVID-19 [...] encounter Miscellaneous Notes * Telephone Encounter - Ricky Rhodes RPh - 09/23/2024 3:47 PM ESTSigned Prescriptions: Disp Refills Torsemide 20 MG Oral Tablet (Demadex) 90 Tab*3 Sig: TAKE 1 TABLET BY MOUTH IN THE MORNINGAuthorizing Provider: CHARLENE KENNEDY User: RICKY RHODES---- Electronically signed by Ricky Rhodes [facility], located within [facility] at 09/23/2024 3:47 PM EST documented in this encounter Plan of Treatment Upcoming Encounters Date Type Department Care Team (Latest Contact Info) Description 09/24/2024 3:50 PM EST Laboratory Laboratory [facility] [address] [place] [phone] Jade Bojorquez Scene [address] [facility] [place] [address] 10/21/2024 1:00 PM EST Office Visit Cardiology [address] [place] [address] Charlene Kennedy PA-C [address] [place] [address] 10/26/2024 9:00 AM EST Imaging Radiology [address] [place] [address] 11/01/2024 11:40 AM EST Office Visit Hepatology, [facility] [address] [place] [address] Rachelle Camargo DO [address] [place] [address] 11/19/2024 2:20 PM EDT Telemedicine Nephrology, [facility] [address] [place] [address] Dru Vicente MD [address] [place] [address] 11/22/2024 10:15 AM EDT Hospital Encounter ENDO OSSC, Endoscopy Room OSS [address] [place] [address] Lena Cota MD [address] [place] [phone] 11/22/2024 10:15 AM EDT - 11/22/2024 10:45 AM EDT Surgery ENDO O[facility], Endoscopy Room [facility] [address] [place] [address] Lena Cota MD [address] [place] [phone] COLONOSCOPY FLEXIBLE PROXIMAL DIAGNOSTIC 02/24/2025 4:30 PM EDT Telemedicine [facility] [place] [address] [place] [phone] Glory Martinez CRNP [address] [place] [address] 03/21/2025 2:20 PM EDT Office Visit General Internal Medicine [facility] [place] [address] [facility] [place] [address] Ryan Hadley MD 200 [facility] [place] [address] Scheduled Procedures Name Priority Associated Diagnoses Date/Ti [...] Additional history exists CKD HGB USE SMARTSET 83483 06/14/202506/14, 06/14/2024, 01/22/2024, Additional history exists CKD PHOS USE SMARTSET 53442 06/14/202506/01, 04/02/2023, 03/21/2023, Additional history exists DTap/Tdap [...] stage I through stage IV, or unspecified Liver cirrhosis secondary to nonalcoholic steatohepatitis (XAVIER) (HCC) Chronic diastolic heart failure (HCC) Chronic diastolic heart failure History of colon polyps Personal history of colonic polyps documented in this encounter Care Teams Infrastructure Software Engineer Relationship Specialty Start Date End Date Ryan Hadley MD 200 [place] [address] PCP - General Internal Medicine 11/06/17 documented as of this encounter
--- OUTSIDE RECORDS SUMMARY | 2024-11-19 05:59 | External Medical Summary ---
Author Name Unknown Address Unknown Organization K01:LABORATORY [facility] - 100 [facility] [place] [address] Laboratory Report Ordering Provider Test Date Status DO NOELGARDENIATEIN 06/14/2024 12:42:35 Final Observation Date Value Abnormality Reference (Units ) Status Triglyceride 06/14/2024 12:42:35 84 <=174 ( mg/dL) Final Triglyceride Reference Range s (mg/dL):
<150 Acceptable
150-174 Borderline high
175-499 High
>=500 Very high Cholesterol 06/14/2024 12:42:35 121 <200 (mg /dL) Final Total Cholesterol Reference Ranges (mg/dL):
<200 Desirable
200-239 Borderline high
>=240 High HDL 06/14/2024 12:42:35 38 Below low normal >49 (mg/dL) Final HDL Cholesterol Reference Ra nges (mg/dL):
>=60 High (Desirable)
<50 Low (Undesirable) For Females
<40 Low (Undesirable) For Males NON-HDL CHOLESTEROL 06/14/2024 12:42:35 83 <=159 (mg/dL) Final Non-HDL Cholesterol Referenc e Range (mg/dL):
<100 Target level for high risk ASCVD patient
<130 Optimal for general population
130-159 Near optimal for general population
160-189 Borderline High
190-219 High
>=220 Very High LDL, (calculated) 06/14/2024 12:42:35 66 <= 129 (mg/dL) Final LDL Cholesterol Reference Ra nges (mg/dL):
<70 Target level for high risk ASCVD patient
<100 Optimal for general population
100-129 Near optimal for general population
130-159 Borderline high
160-189 High
>=190 Very high Performing Location LABORATORY [facility] - [address] [facility] [address]
--- OUTSIDE RECORDS SUMMARY | 2024-11-19 05:59 | External Medical Summary | Summary of Care ---
Author Name Unknown Organization [facility] Address [address] [facility] [place] [address] Phone [phone] Care Team Providers Care Clinical Unit Educator Name Role Phone Ryan Hadley MD Primary Care Provider + Reason for Visit * Reason Comments Acute Encounter Details Date Type Department Care Team (Late st Contact Info) Description 07/15/2024 2:40 PM EST Office Visit Family Medicine [address] [phone] [address] [place] [phone] Viral URI with cough* Allergies Active Allergy Reactions Criticality Noted Date Comments Bactrim 01/20/2014 Cephalosporins 07/29/2003 Rash (Ceclor only) Metformin Other (Please comment),Renal complications 03/25/2023 documented as of this encounter (statuses as of 07/15/2024) Medications ZYRTEC 10 MG PO TABS 1 [...] Respimat 1.25 MCG/ACT Inhalation Aerosol Solution (Tiotropium [place] Monohydrate)Indications :Moderate persistent asthma without complication Inhale 2 Puffs by mouth in the morning. 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 90 Tablet 3 024 Active Spironolactone 25 MG Oral Tablet (Aldactone)Indications: [...] MOUTH DAILY 90 Tablet 1 024 Active Omeprazole 20 MG Oral Capsule Delayed Release (PriLOSEC) TAKE 1 CAPSULE BY MOUTH DAILY 90 Capsule 1 024 Active Fluticasone-Salmeterol 500-50 MCG/ACT Inhalation [...] or chew. 50 Capsule 3 024 Active benzonatate (TESSALON PERLES) 100 MG Capsule Swallow 1 or 2 pills three times a day as needed for cough. Do not cut, crush, or chew. 50 Cap 3 019 2023 Disconti nued(Ref ill) Clindamycin HCl 300 MG Oral CapsuleIndications:Sial adenitis,Acute maxillary sinusitis, recurrence not specified Take 1 Capsule by mouth in the morning and 1 Capsule at noon and 1 Capsule in the evening and 1 Capsule before bedtime. Do all this for 10 days. 40 Capsule 024 2023 Disconti nued(Med ication List Clean Up) documented as of this encounter (statuses as of 07/15/2024) Active Problems Problem Noted Date Diagnosed Date [...] as of this encounter (statuses as of 07/15/2024) Resolved Problems Problem Noted Date Diagnosed Date [...] 09/24/2018 04/03/2020 Overview (12/18/2020): DO [facility] DELETE [facility] Study: Project # [id number], Set Up And Charger: Naun Jones, PhD. SUMMARY: Goal: Establish test [...] contact study staff at ; after hours Set Up And Charger via the [facility] straw hat brim cutter operator . Please contact study team before resolving/deleting from patients problem list. Study phone number: [phone]. Diagnosis changed due to Research Module. Go to Snapshot for study details. Encounter for examination fo r normal comparison and control in clinical research program 09/24/2018 05/02/2022 Overview (12/18/2020): DO NOT DELETE - [facility] Study: Project # [id number], Set Up And Charger: Ady Bruno, MS, MPH. SUMMARY: Goal: Establish [...] contact study staff at ; after hours Set Up And Charger via the [facility] straw hat brim cutter operator . - Please contact study team before resolving/deleting from patients problem list. Study phone number: [phone]. Diagnosis changed due to Research Module. Go [...] appointment. EXTRINSIC ASTHMA, UNSPEC 09/23/2003 LOC PRIM [id number] 07/29/200301/30 Type 2 diabetes mellitus wit h hemoglobin A1c goal of less than 7.0% 08/02/2010 Overview (12/26/2015): ICD-10 update of inactive term Type 2 diabetes mellitus wit h hemoglobin A1c goal of less than 7.0% 10/30/2011 Overview (12/26/2015): ICD-10 update of inactive term Hypersomnia with sleep apnea 02/11/2018 documented as of this encounter (statuses as of 07/15/2024) Immunizations Name Administration Dates Next Due COVID-19 mRNA, LNP-s, No Pre serve, 2-Dose Series (Kimengi) 10/02/2021,09/01/2021,12/05/2020,11/14 Pneumococcal Conjugate Vacc, 13 Valent (Prevnar) [...] No 01/23/2024 Does the household have a [facility] source of income? (Household - for ages [...] Sign Reading Time Taken Comments Blood Pressure 116/56 07/15/2024 2:31 PM EST Pulse 68 07/15/2024 2:31 PM EST Temperature 36.2 C (97.1 F) 07/15/2024 2:31 PM ES T Respiratory Rate 16 07/15/2024 2:31 PM EST Oxygen Saturation 96% 07/15/2024 2:31 PM EST Inhaled Oxygen Concentration - - Weight 96.2 kg (212 lb) 07/15/2024 2:31 PM EST Height - - Body Mass Index 41.4 05/10/2024 1:33 PM EDT documented in this encounter Nursing Notes * Mary Alarcon LPN - 07/15/2024 2:30 PM EST Cough since Toby. Had st. Ears did hurt. documented in this encounter Plan of Treatment Upcoming Encounters Date Type Department Care Team (Latest Contact Info) Description 08/02/2024 10:30 AM EST Imaging Radiology [address] [place] [address] 08/02/2024 11:15 AM EST Imaging Radiology [address] [place] [address] 10/21/2024 1:00 PM EST Office Visit Cardiology [address] [place] [address] Ricky Hackett PA-C [address] [place] [address] 10/26/2024 9:00 AM EST Imaging Radiology [address] [place] [address] 11/01/2024 11:40 AM EST Office Visit Hepatology, [facility] [address] [place] [address] Rachelle Camargo DO [address] [place] [address] 11/19/2024 2:20 PM EDT Telemedicine Nephrology, [facility] [address] [place] [address] Dru Vicente MD [address] [place] [address] 11/22/2024 10:15 AM EDT Hospital Encounter ENDO OSS[facility], Endoscopy Room [facility] [address] [place] [phone] Lena Cota MD [address] [place] [address] 11/22/2024 10:15 AM EDT - 11/22/2024 10:45 AM EDT Surgery END[facility] [place] [address] Lena Cota MD [address] [place] [address] COLONOSCOPY FLEXIBLE PROXIMAL DIAGNOSTIC 02/24/2025 4:30 PM EDT Telemedicine Sleep Disorders Ctr [facility] [place] [phone] Glory Martinez CRNP [address] [place] [phone] 03/21/2025 2:20 PM EDT Office Visit General Internal Medicine [facility] 200 [facility] [place] [address] Ryan Hadley MD [address] [facility] [address] Scheduled Procedures Name Priority Associated Diagnoses Date/Ti me COLONOSCOPY FLEXIBLE PROXIMA L DIAGNOSTIC History of colon polyps 11/22/2024 10:15 AM EDT ESOPHAGOGASTRODUODENOSCOPY ( EGD), FLEXIBLE, TRANSORAL, DIAGNOSTIC Recall Portal hypertensive gastropathy (HCC) Health Maintenance Due Date Last Done Comments Adult Wellness Visit 2013 Depression Screening 04/09/2024 04/09/2023 COVID-19 Vaccine ( season) 2024 10/02/2021, 09/01/2021, 12/05/2020, Additional history exists DXA Scan 11/07/2024 11/08/2019, 03/0 05/2020, 11/25/2012, Additional history exists Albumin/Creatinine Ratio 11/18/2024 024, 11/04/2022, 03/07/2021, Additional history exists GFR 12/13/2024 06/14/2024, 08/09/2023, 03/12/2024, Additional history exists CKD HGB USE SMARTSET 19235 06/14/202506/14, 06/14/2024, 01/22/2024, Additional history exists CKD PHOS USE SMARTSET 39234 06/14/202506/01, 04/02/2023, 03/21/2023, Additional history exists DTap/Tdap Vaccines (3 - Td or Tdap) 01/21/2032 01/20/2022, 05/10/2010, 09/01/1999, Additional history exists Pneumococcal Vaccine: 65+ Years Completed 08/13/2017, 02/15/2016, 07/21/2009 Fecal Occult [...] as of this encounter Visit Diagnoses Diagnosis Viral URI with cough- Primary Acute upper respiratory infections of unspecified site History of colon polyps Personal history of colonic polyps documented in this encounter Care Teams Clinical Unit Educator Relationship Specialty Start Date End Date Ryan Hadley MD [address] [place] [address] PCP - General Internal Medicine 11/06/17 documented as of this encounter
--- OUTSIDE RECORDS SUMMARY | 2024-11-19 05:59 | External Medical Summary | Summary of Care ---
Author Name Unknown Organization [facility] Address [address] [place] [address] Phone [phone] Care Team Providers Care Cane Flume Watcher Name Role Phone Ryan Hadley MD Primary Care Provider + Reason for Visit * Reason Comments Outpatient Testing Encounter Details Date Type Department Care Team (Latest Contact Info) Description 06/14/2024 12:40 PM EDT Laboratory Laboratory [facility] [place] [address] [place] [phone] [facility] [address] [place] [address] Mixed hyperlipidemia; Elevated glucose; Liver cirrhosis secondary to nonalcoholic steatohepatitis (XAVIER) (HCC) Allergies Active Allergy Reactions Criticality Noted Date Comments Bactrim 01/20/2014 Cephalosporins 07/29/2003 Rash (Ceclor only) Metformin Other (Please comment),Renal complications 03/25/2023 documented as of this encounter (statuses as of 06/14/2024) Medications Medication Sig Dispensed Refills Start Date End Date Status ZYRTEC 10 MG PO TABS 1 tab every day Active amoxicillin (AMOXIL) 500 MG Capsule TAKE 4 CAPSULES BY MOUTH ONE HOUR PRIOR TO APPOINTMENT 0 8 Active benzonatate (TESSALON PERLES) 100 MG Capsule Swallow 1 or 2 pills three times a day as needed for cough. Do not cut, crush, or chew. 50 Cap 3 9 Active fluticasone (FLONASE) 50 MCG/ACT nasal sprayIndications:Rhinitis , nonallergic USE 2 SPRAYS IN EACH NOSTRIL DAILY 48 g 4 0 Active Nitroglycerin 0.4 MG Sublingual Tablet Sublingual (NITROSTAT) Place 1 Tab under the tongue every 5 minutes as needed for Pain, Chest. up to 3 doses in 15 minutes 25 Tab 11 0 Active Albuterol Sulfate (2.5 MG/3ML) 0.083% Inhalation Nebulization Solution (PROVENTIL) Inhale 1 Vial via nebulizer every 6 hours as needed for Other (Cough, wheezing, shortness of breath). Dx J45.40 360 mL 11 1 Active Additional Information Patient not taking.Reported on 05/05/2024 CPAP every night at bedtime . Active Acetaminophen 500 MG Oral Tablet (Tylenol)Indications:Sane Nurse chayito bilateral low back pain with right-sided sciatica Take 2 Tablets by mouth every 12 hours as needed for Pain, Severe. 100 Tablet 3 Active Spiriva Respimat 1.25 MCG/ACT Inhalation Aerosol Solution (Tiotropium Milfay Monohydrate)Indications:M oderate persistent asthma without complication Inhale 2 Puffs by mouth in the morning. 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 90 Tablet 3 4 Active Spironolactone 25 MG Oral Tablet (Aldactone)Indications:Ac juve diastolic heart failure (HCC),HTN, goal below 140/90,Generalized edema,Diastolic dysfunction Take 1 Tablet by mouth in the morning. 90 Tablet 3 4 Active Metoprolol Succinate ER 25 MG Oral Tablet Extended Release 24 Hour (toPROL XL)Indications:HTN, goal below 140/90 Take 1 Tablet by mouth 2 times a day. 180 Tablet 3 4 Active Apixaban 5 MG Oral Tablet (Eliquis)Indications:PAF (paroxysmal atrial fibrillation) (HCC) Take 1 Tablet by mouth in the morning and 1 Tablet before bedtime. 180 Tablet 3 4 Active oxyCODONE HCl 5 MG Oral Tablet (Oxy IR)Indications:Acute right-sided low back pain with right-sided sciatica Take 1 Tablet by mouth every 8 hours as needed for Pain, Severe. 21 Tablet 4 Active Therapeutic Multivit/Mineral Oral Tablet Take 1 Tablet by mouth in the morning. Active Famotidine 20 MG Oral Tablet (Pepcid)Indications:Gastr oesophageal reflux disease without esophagitis TAKE 1 TABLET BY MOUTH DAILY 90 Tablet 1 4 Active Omeprazole 20 MG Oral Capsule Delayed Release (PriLOSEC) TAKE 1 CAPSULE BY MOUTH DAILY 90 Capsule 1 4 Active Fluticasone-Salmeterol 500-50 MCG/ACT Inhalation Aerosol Powder Breath Activated (Wixela Inhub)Indications:Moderat e persistent asthma without complication USE 1 INHALATION BY MOUTH TWICE DAILY RINSE MOUTH AFTER USE 180 Each 3 4 Active Potassium Chloride ER 10 MEQ Oral Tablet Extended ReleaseIndications:Hypoka lemia TAKE 1 TABLET BY MOUTH IN THE MORNING 90 Tablet 1 4 Active Clindamycin HCl 300 MG Oral CapsuleIndications:Sialad enitis,Acute maxillary sinusitis, recurrence not specified Take 1 Capsule by mouth in the morning and 1 Capsule at noon and 1 Capsule in the evening and 1 Capsule before bedtime. Do all this for 10 days. 40 Capsule 4 06/24/20 24 Active documented as of this encounter (statuses as of 06/14/2024) Active Problems Problem Noted Date Diagnosed Date [...] nonallergic 12/02/2013 Knee joint replacement status 11/04/2012 Overview: Right 2013 Metabolic syndrome 10/30/2011 Mixed hyperlipidemia 10/30/2011 Overview: ICD-10 update of inactive term Asthma, moderate persistent 06/26/2011 Overview: Elevated eosinophil levels SHANA on CPAP 02/07/2009 Overview: AHP HTN, goal below 140/90 07/29/2003 documented as of this encounter (statuses as of 06/14/2024) Resolved Problems Problem Noted Date Diagnosed Date [...] control in clinical research program 09/24/2018 04/03/2020 Overview: DO NOT DELETE [facility] DETECT Study: Project # [id number], Dye Reel Operator: Naun Jones, PhD. SUMMARY: Goal: Establish test [...] contact study staff at ; after hours Dye Reel Operator via the [facility] hospital melter operator . Please contact study team before resolving/deleting from patients problem list. Study phone number: [phone]. Diagnosis changed due to Research Module. Go to Snapshot for study details. Encounter for examination fo r normal comparison and control in clinical research program 09/24/2018 05/02/2022 Overview: DO NOT DELETE [facility] DETECT Study: Project # [id number], Dye Reel Operator: Ady Bruno, MS, MPH. SUMMARY: Goal: Establish [...] contact study staff at ; after hours Dye Reel Operator via the [facility] hospital melter operator . - Please contact study team before resolving/deleting from patients problem list. Study phone number: [phone]. Diagnosis changed due to Research Module. Go to Snapshot for study details. Body mass index (BMI) of 50. 0 to 59.9 in adult 06/02/2017 01/13/2019 Overview: Per Obesity protocol #1 - Per Obesity Taxonomy ICD-10 update of inactive term Heart failure, diastolic, ch ronic, etiology unknown 09/20/2015 02/11/2018 Dyslipidemia, goal LDL below 100 06/26/2011 10/30/2011 Asthma with severity to be determined 02/22/2010 06/26/2011 Overview: Per Asthma Taxonomy ICD-10 update of inactive term Obesity, morbid (more than 1 00 lbs over ideal weight or BMI > 40) 11/28/2009 06/05/2017 Overview: Per Obesity Taxonomy ICD-10 update of inactive term Morbid obesity, BMI not known 06/13/2009 11/28/2009 Overview: Per Obesity Taxonomy Dyslipidemia, goal to be determined 02/07/2009 06/26/2011 Impaired fasting glucose 02/07/2009 ADVANCE DIRECTIVE INFORMATION 05/14/2005 02/11/2018 Overview: No, Advance Directive brochure given to patient at prior appointment. EXTRINSIC ASTHMA, UNSPEC 09/23/2003 LOC PRIM [id number] 07/29/200301/30 Type 2 diabetes mellitus wit h hemoglobin A1c goal of less than 7.0% 08/02/2010 Overview: ICD-10 update of inactive term Type 2 diabetes mellitus wit h hemoglobin A1c goal of less than 7.0% 10/30/2011 Overview: ICD-10 update of inactive term Hypersomnia with sleep apnea 02/11/2018 documented as of this encounter (statuses as of 06/14/2024) Immunizations Name Administration Dates Next Due COVID-19 [...] ages 0-17 years) Not on file 01/23/2024 Sex and Gender Information Value Date Recorded Sex Assigned at Female 01/06/2019 12:35 PM EDT Gender Identity Female 01/06/2019 12:35 PM EDT Sexual Orientation Straight 01/06/2019 12 :35 PM EDT Job Start Date Occupation Industry Not on file Not on file Not on file documented as of this encounter Plan of Treatment Upcoming Encounters Date Type Department Care Team (Latest Contact Info) Description 07/15/2024 2:00 PM EST Imaging Radiology [facility] [address] [place] [id number] 07/15/2024 2:45 PM EST Imaging Radiology [facility] [address] [place] [address] 07/15/2024 3:30 PM EST Imaging Radiology [facility] [address] [place] [address] 08/02/2024 11:15 AM EST Imaging Radiology [address] [place] [address] 10/21/2024 1:00 PM EST Office Visit Cardiology [address] [place] [address] Ricky Hackett PA-C [address] [place] [address] 10/26/2024 9:00 AM EST Imaging Radiology [address] [place] [address] 11/01/2024 11:40 AM EST Office Visit Hepatology, [facility] [address] [place] [phone] Rachelle Camargo DO [address] [place] [address] 11/19/2024 2:20 PM EDT Telemedicine Nephrology, [facility] [address] [facility] [place] [address] Dru Vicente MD [address] [facility] [place] [address] 11/22/2024 10:15 AM EDT Hospital En[facility] [phone] Lena Cota MD [address] [place], [place] [id number] 11/22/2024 10:15 AM EDT - 11/22/2024 10:45 AM EDT Surgery ENDO [facility], Endoscopy Room [facility] [address] [facility] [place] [phone] Lena Cota MD [address] [place], [place] [id number] COLONOSCOPY FLEXIBLE PROXIMAL DIAGNOSTIC 02/24/2025 4:30 PM EDT Telemedicine Sleep Disorders [facility] [place] [address] [facility] [place] [phone] Glory Martinez CRNP [address] [facility] [address] 03/21/2025 2:20 PM EDT Office Visit General Internal Medicine [facility] [place] [address] [facility] [address] [place], [place] [address] Ryan Hdaley MD [address] [facility] [place] [address] Pending Results Name Type Priority Associated Diagnoses Date /Time COMPREHENSIVE METABOLIC PANEL Lab Routine Mixed hyperlipidemia 06/14/2024 12:42 PM EDT LIPID PANEL WITH DIRECT LDL IF TG IS HIGH Lab Routine Mixed hyperlipidemia 06/14/2024 12:42 PM EDT HEMOGLOBIN A1C Lab Routine Elevated glucose 06/14/2024 12:42 PM EDT PHOSPHORUS Lab Routine Liver cirrhosis secondary to nonalcoholic steatohepatitis (XAVIER) (HCC) 06/14/2024 12:42 PM EDT Scheduled Procedures Name Priority Associated Diagnoses Date/Ti me COLONOSCOPY FLEXIBLE PROXIMA L DIAGNOSTIC History of colon polyps 11/22/2024 10:15 AM EDT ESOPHAGOGASTRODUODENOSCOPY ( EGD), FLEXIBLE, TRANSORAL, DIAGNOSTIC Recall Portal hypertensive gastropathy (HCC) Health Maintenance Due Date Last Done Comments Adult Wellness Visit 2013 CKD PHOS USE SMARTSET 92757 04/02/2024 08/0 10/2022, 03/21/2023, 08/05/2022, Additional history exists Depression Screening 04/09/2024 04/09/2023 COVID-19 Vaccine ( season) 2024 10/02/2021, 09/01/2021, 12/05/2020, Additional history exists GFR 10/22/2024 04/21/2024, 03/01, 01/22/2024, Additional history exists DXA Scan 11/07/2024 11/08/2019, 0305/2020, 11/25/2012, Additional history exists Albumin/Creatinine Ratio 11/18/2024 024, 11/04/2022, 03/07/2021, Additional history exists CKD HGB USE SMARTSET 39493 06/14/202506/14, 06/14/2024, 01/22/2024, Additional history exists DTap/Tdap Vaccines (3 - [...] Procedure Name Priority Date/Time Associated Diagnosis Comments DIFFERENTIAL, AUTOMATED Routine 06/14/2024 12:42 PM EDT Liver cirrhosis secondary to nonalcoholic steatohepatitis (XAVIER) (HCC) CBC Routine 06/14/2024 12:42 PM EDT Liver cirrhosis secondary to nonalcoholic steatohepatitis (XAVIER) (HCC) CBC Routine 06/14/2024 12:42 PM EDT Liver cirrhosis secondary to nonalcoholic steatohepatitis (XAVIER) (HCC) documented in this encounter Results * (ABNORMAL) DIFFERENTIAL, AUTOMATED (06/14/2024 12:42 PM EDT) WBC 8.10 4.00 - 10.80 K/uL 06/14/2024 12:52 PM EDT [facility]02 Neutrophils % 55.8 40.0 - 75.0 % 06/14/2024 12:52 PM EDT [facility]02 Lymphocytes % 27.3 18.0 - 42.0 % 06/14/2024 12:52 PM EDT [facility]-02 Monocytes % 13.7(H) 1.0 - 11.0 % 06/14/2024 12:52 PM EDT [facility] 56-02 Eosinophils % 3.0 0.0 - 6.0 % 06/14/2024 12:52 PM EDT [facility]-02 Basophils % 0.2 0.0 - 2.0 % 06/14/2024 12:52 PM EDT [facility]-02 Absolute Neutrophils 4.52 1.80 - 7.70 K/uL 06/14/2024 12:52 PM EDT [facility] 56-02 Absolute Lymphocytes 2.21 1.00 - 4.80 K/ul 06/14/2024 12:52 PM EDT [facility] 56 Absolute Monocytes 1.11(H) 0.00 - 1.10 K/uL 06/14/2024 12:52 PM EDT [facility] Absolute Eosinophils 0.24 0.00 - 0.70 K/uL 06/14/2024 12:52 PM EDT [facility] 56 Absolute Basophils 0.02 0.00 - 0.20 K/uL 06/14/2024 12:52 PM EDT [facility] 56 Blood Venous blood specimen / Unknown Venipuncture / Unknown 06/14/2024 12:42 PM EDT 06/14/2024 12:42 PM EDT Ryan Hadley MD LAB BLOOD ORDER[facility] [address] [place] [address] * (ABNORMAL) CBC (06/14/2024 12:42 PM EDT) WBC 8.10 4.00 - 10.80 K/uL 06/14/2024 12:52 PM EDT [facility] 56 RBC 3.77 3.85 - 5.15 M/uL 06/14/2024 12:52 PM EDT [facility] 56 HGB 11.5(L) 12.0 - 15.3 g/dL 06/14/2024 12:52 PM EDT [facility] 56- HCT 36.6 36.0 - 45.2 % 06/14/2024 12:52 PM EDT [facility] 56- MCV 97.1 81.5 - 97.5 fL 06/14/2024 12:52 PM EDT [facility] 56 MCH 30.5 27.0 - 34.0 pg 06/14/2024 12:52 PM EDT [facility] 56 MCHC 31.4 32.0 - 36.0 g/dL 06/14/2024 12:52 PM EDT [facility] 56 RDW 15.7 11.5 - 15.5 % 06/14/2024 12:52 PM EDT [facility] PLT 126(L) 140 - 400 K/uL 06/14/2024 12:52 PM EDT [facility] MPV 10.0 6.6 - 11.1 fL 06/14/2024 12:52 PM EDT [facility] Blood Venous blood specimen / Unknown Venipuncture / Unknown 06/14/2024 12:42 PM EDT 06/14/2024 12:42 PM EDT Ryan Hadley MD LAB BLOOD ORDERA BLES [facility] [address] [place] [address] documented in this encounter Visit Diagnoses Diagnosis Mixed hyperlipidemia Elevated glucose Other abnormal glucose Liver cirrhosis secondary to nonalcoholic steatohepatitis (XAVIER) (HCC) History of colon polyps Personal history of colonic polyps documented in this encounter Care Teams Cane Flume Watcher Relationship Specialty Start Date End Date [facility] Had[facility] [address] PCP - General Internal Medicine 11/06/17 documented as of this encounter
--- OUTSIDE RECORDS SUMMARY | 2024-11-19 05:59 | External Medical Summary | Summary of Care ---
Author Name Unknown Organization [facility] Address [address] [facility] [place] [address] Phone [phone] Care Team Providers Care Insurance Investigator Name Role Phone Ryan Hadley MD Primary Care Provider + Reason for Visit * Reason Comments eRx-Medication Refill Encounter Details Date Type Department Care Team (Late st Contact Info) Description 07/01/2024 Refill General Internal Medicine [facility] [address] [facility] [place] [address] Ryan Hadley MD [address] [place] [address] Pure hypercholesterolemia Allergies Active Allergy Reactions Criticality Noted Date Comments Bactrim 01/20/2014 Cephalosporins 07/29/2003 Rash (Ceclor only) Metformin Other (Please comment),Renal complications 03/25/2023 documented as of this encounter (statuses as of 07/02/2024) Medications Medication Sig Dispensed Refills Start Date End Date Status ZYRTEC 10 MG PO TABS 1 tab every day Active amoxicillin (AMOXIL) 500 MG Capsule TAKE 4 CAPSULES BY MOUTH ONE HOUR PRIOR TO APPOINTMENT 0 12/25/19 18 Active benzonatate (TESSALON PERLES) 100 MG Capsule Swallow 1 or 2 pills three times a day as needed for cough. Do not cut, crush, or chew. 50 Cap 3 09/02/19 19 Active fluticasone (FLONASE) 50 MCG/ACT nasal sprayIndications:Rhinit is, nonallergic USE 2 SPRAYS IN EACH NOSTRIL DAILY 48 g 4 03/30/20 20 Active Nitroglycerin 0.4 MG Sublingual Tablet Sublingual (NITROSTAT) Place 1 Tab under the tongue every 5 minutes as needed for Pain, Chest. up to 3 doses in 15 minutes 25 Tab 11 07/18/20 20 Active Albuterol Sulfate (2.5 MG/3ML) 0.083% Inhalation Nebulization Solution (PROVENTIL) Inhale 1 Vial via nebulizer every 6 hours as needed for Other (Cough, wheezing, shortness of breath). Dx J45.40 360 mL 11 09/06/19 21 Active Additional Information Patient not taking.Reported on 05/05/2024 CPAP every night at bedtime . Active Acetaminophen 500 MG Oral Tablet (Tylenol)Indications:Ch ronic bilateral low back pain with right-sided sciatica Take 2 Tablets by mouth every 12 hours as needed for Pain, Severe. 100 Tablet 04/09/20 23 Active Spiriva Respimat 1.25 MCG/ACT Inhalation Aerosol Solution (Tiotropium Rankin Monohydrate)Indications :Moderate persistent asthma without complication Inhale 2 Puffs by mouth in the morning. 12 g 3 06/05/20 23 Active Jardiance 10 MG Oral Tablet (Empagliflozin)Indicati ons:Heart failure, diastolic (HCC) TAKE 1 TABLET BY MOUTH IN THE MORNING 90 Tablet 3 07/31/20 23 Active Isosorbide Mononitrate ER 30 MG Oral Tablet Extended Release 24 Hour (Imdur)Indications:Escobar tolic dysfunction TAKE 1 TABLET BY MOUTH DAILY 90 Tablet 3 08/29/20 23 Active Torsemide 20 MG Oral Tablet (Demadex)Indications:HT N, goal below 140/90,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 90 Tablet 3 11/20/19 24 Active Spironolactone 25 MG Oral Tablet (Aldactone)Indications: Acute diastolic heart failure (HCC),HTN, goal below 140/90,Generalized edema,Diastolic dysfunction Take 1 Tablet by mouth in the morning. 90 Tablet 3 11/20/19 24 Active Metoprolol Succinate ER 25 MG Oral Tablet Extended Release 24 Hour (toPROL XL)Indications:HTN, goal below 140/90 Take 1 Tablet by mouth 2 times a day. 180 Tablet 3 11/20/19 24 Active Apixaban 5 MG Oral Tablet (Eliquis)Indications:PA F (paroxysmal atrial fibrillation) (HCC) Take 1 Tablet by mouth in the morning and 1 Tablet before bedtime. 180 Tablet 3 12/30/19 24 Active oxyCODONE HCl 5 MG Oral Tablet (Oxy IR)Indications:Acute right-sided low back pain with right-sided sciatica Take 1 Tablet by mouth every 8 hours as needed for Pain, Severe. 21 Tablet 02/04/20 24 Active Therapeutic Multivit/Mineral Oral Tablet Take 1 Tablet by mouth in the morning. Active Famotidine 20 MG Oral Tablet (Pepcid)Indications:Gas troesophageal reflux disease without esophagitis TAKE 1 TABLET BY MOUTH DAILY 90 Tablet 1 03/06/20 24 Active Omeprazole 20 MG Oral Capsule Delayed Release (PriLOSEC) TAKE 1 CAPSULE BY MOUTH DAILY 90 Capsule 1 03/06/20 24 Active Fluticasone-Salmeterol 500-50 MCG/ACT Inhalation Aerosol Powder Breath Activated (Wixela Inhub)Indications:Moder ate persistent asthma without complication USE 1 INHALATION BY MOUTH TWICE DAILY RINSE MOUTH AFTER USE 180 Each 3 03/08/20 24 Active Potassium Chloride ER 10 MEQ Oral Tablet Extended ReleaseIndications:Hypo kalemia TAKE 1 TABLET BY MOUTH IN THE MORNING 90 Tablet 1 05/26/20 24 Active Lovastatin 40 MG Oral TabletIndications:Pure hypercholesterolemia TAKE 1 TABLET BY MOUTH IN THE EVENING 90 Tablet 3 07/02/20 24 Active Lovastatin 40 MG Oral TabletIndications:Pure hypercholesterolemia TAKE 1 TABLET BY MOUTH IN THE EVENING 90 Tablet 3 06/27/20 23 024 Discontinued documented as of this encounter (statuses as of 07/02/2024) Active Problems Problem Noted Date Diagnosed Date [...] as of this encounter (statuses as of 07/02/2024) Resolved Problems Problem Noted Date Diagnosed Date [...] 09/24/2018 04/03/2020 Overview: DO NOT DELETE [facility] DETECT Study: Project # [id number], Health Support Specialist: Naun Jones, PhD. SUMMARY: Goal: Establish test [...] contact study staff at ; after hours Health Support Specialist via the [facility] coaster operator . Please contact study team before resolving/deleting from patients problem list. Study phone number: [phone]. Diagnosis changed due to Research Module. Go to Snapshot for study details. Encounter for examination fo r normal comparison and control in clinical research program 09/24/2018 05/02/2022 Overview: DO NOT DELETE [facility] DET[facility] Study: Project # [id number], Health Support Specialist: Ady Bruno, MS, MPH. SUMMARY: Goal: Establish [...] contact study staff at ; after hours Health Support Specialist via the [facility] roller coaster operator . - Please contact study team before resolving/deleting from patients problem list. Study phone number: [phone]. Diagnosis changed due to Research Module. Go [...] appointment. EXTRINSIC ASTHMA, UNSPEC 09/23/2003 LOC PRIM [id number] 07/29/200301/30 Type 2 diabetes mellitus wit h hemoglobin A1c goal of less than 7.0% 08/02/2010 Overview: ICD-10 update of inactive term Type 2 diabetes mellitus wit h hemoglobin A1c goal of less than 7.0% 10/30/2011 Overview: ICD-10 update of inactive term Hypersomnia with sleep apnea 02/11/2018 documented as of this encounter (statuses as of 07/02/2024) Immunizations Name Administration Dates Next Due COVID-19 [...] encounter Miscellaneous Notes * Telephone Encounter - Gabby Edwards [facility] - 07/02/2024 7:15 AM EDTSigned Prescriptions: Disp Refills Lovastatin 40 MG Oral Tablet 90 Tab*3 Sig: TAKE 1 TABLET BY MOUTH IN THE EVENINGAuthorizing Provider: RYAN HADLEY User: GABBY EDWARDS------ documented in this encounter Plan of Treatment Upcoming Encounters Date Type Department Care Team (Latest Contact Info) Description 07/15/2024 2:00 PM EST Imaging Radiology [facility] [address] [address] 07/15/2024 2:45 PM EST Imaging Radiology [facility] [address] [place] [address] 07/15/2024 3:30 PM EST Imaging Radiology [facility] [address] [place] [address] 08/02/2024 11:15 AM EST Imaging Radiology [address] [place] [address] 10/21/2024 1:00 PM EST Office Visit Cardiology [address] [place] [address] Ricky Hackett PA-C [address] [place] [address] 10/26/2024 9:00 AM EST Imaging Radiology [address] [place] [address] 11/01/2024 11:40 AM EST Office Visit Hepatology, [facility] [address] [place] [address] Rachelle Camargo DO [address] [place] [address] 11/19/2024 2:20 PM EDT Telemedicine Nephrology, [facility] [address] [place] [address] Dru Vicente MD [address] [place] [address] 11/22/2024 10:15 AM EDT Hospital Encounter [facility] [address] [facility] [place] [address] Lena Cota MD [address] [place] [address] 11/22/2024 10:15 AM EDT - 11/22/2024 10:45 AM EDT Surgery END[facility], [facility] [address] [facility] [place] [address] Lena Cota MD [address] [place] [address] COLONOSCOPY FLEXIBLE PROXIMAL DIAGNOSTIC 02/24/2025 4:30 PM EDT Telemedicine Sleep Disorders Ctr [facility] [address] [place] [address] Glory Martinez CRNP [address] [place] [address] 03/21/2025 2:20 PM EDT Office Visit General Internal Medicine [facility] [place] [address] [place], [place] [address] Ryan Hadley MD [address] [place] [address] Scheduled Procedures Name Priority Associated Diagnoses Date/Ti [...] Additional history exists CKD HGB USE SMARTSET 60288 06/14/202506/14, 06/14/2024, 01/22/2024, Additional history exists CKD PHOS USE SMARTSET 89427 06/14/202506/01, 04/02/2023, 03/21/2023, Additional history exists DTap/Tdap [...] as of this encounter Visit Diagnoses Diagnosis Pure hypercholesterolemia History of colon polyps Personal history of colonic polyps documented in this encounter Care Teams Insurance Investigator Relationship Specialty Start Date End Date Ryan Hadley MD [address] [facility] [place] [address] PCP - General Internal Medicine 11/06/17 documented as of this encounter
--- OUTSIDE RECORDS SUMMARY | 2024-11-19 05:59 | External Medical Summary | Summary of Care ---
Author Name Unknown Organization [facility] Address [address] [facility] [place] [address] Phone [phone] Care Team Providers Care Brine Tank Tender Name Role Phone Ryan Hadley MD Primary Care Provider + Reason for Referral * (Within 10 days (routine)) - Authorized Specialty Diagnoses / Procedures Referred By Contac t Referred To Contact Radiology Diagnoses Localized swelling, mass and lump, neck Procedures US HEAD AND NECK Ryan Hadley MD [address] [place] [address] Referral ID Status Reason Start Date Expiration Date V isits Requested Visits Authorized [id number] Authorized 06/14/2024 999 999 * (Within 10 days (routine)) - Authorized Specialty Diagnoses / Procedures Referred By Contac t Referred To Contact Radiology Diagnoses Adnexal cyst Procedures US PELVIS TRANS-VAGINAL NON-OB Ryan Hadley MD [address] [place] [address] Referral ID Status Reason Start Date Expiration Date V isits Requested Visits Authorized [id number] Authorized 07/15/2024 999 999 * (Within 10 days (routine)) - Authorized Specialty Diagnoses / Procedures Referred By Ricky charlton Referred To Contact Radiology Diagnoses Adnexal cyst Procedures US PELVIS TRANS-ABDOMINAL Ryan Hadley MD [address] [place] [id number] Referral ID Status Reason Start Date Expiration Date V isits Requested Visits Authorized [id number] Authorized 07/15/2024 999 999 Reason for Visit * Reason Onset Date Comments Re-Check Routine check up Other Stye to right ey e Ear Problem Feels like fluid in both ears Palpitations Two episodes - r esolved on its own - denies any chest pain or shortness of breath Medication Administration 06/14/2024 Flu an d/or Pneumo Inj Encounter Details Date Type Department Care Team (Latest Contact Info) Description 06/14/2024 12:00 PM EDT Office Visit General Internal Medicine [facility] [address] [place] [address] Ryan Hadley MD [address] [place] [address] HTN, goal below 140/90*; Liver cirrhosis secondary to nonalcoholic steatohepatitis (RUSHING) (HCC); Mixed hyperlipidemia; Morbid obesity, unspecified obesity type (HCC); SHANA on CPAP; PAF (paroxysmal atrial fibrillation) (HCC); Atypical atrial flutter (HCC); Need for prophylactic vaccination and inoculation against influenza; Adnexal cyst; Sialadenitis; Acute maxillary sinusitis, recurrence not specified; Elevated glucose; Hordeolum externum of right lower eyelid; Localized swelling, mass and lump, neck; Benign hypertension with CKD (chronic kidney disease) stage III (HCC); Moderate persistent asthma, unspecified whether complicated; Polyp of ascending colon, unspecified type Allergies Active Allergy Reactions Criticality Noted Date [...] 9 Active fluticasone (FLONASE) 50 MCG/ACT nasal sprayIndications:Rhiniti s, nonallergic USE 2 SPRAYS IN EACH NOSTRIL [...] . Active Acetaminophen 500 MG Oral Tablet (Tylenol)Indications:Chr onic bilateral low back pain with right-sided sciatica Take 2 Tablets by mouth every 12 hours as needed for Pain, Severe. 100 Tablet 3 Active Spiriva Respimat 1.25 MCG/ACT Inhalation Aerosol Solution (Tiotropium [place] Monohydrate)Indications: Moderate persistent asthma without complication Inhale 2 Puffs by mouth in the morning. 12 g 3 3 Active Lovastatin 40 MG Oral TabletIndications:Pure hypercholesterolemia TAKE 1 TABLET BY MOUTH IN THE EVENING 90 Tablet 3 3 Active Jardiance 10 MG Oral Tablet (Empagliflozin)Indicatio ns:Heart failure, diastolic (HCC) TAKE 1 TABLET BY MOUTH IN THE MORNING 90 Tablet 3 3 Active Isosorbide Mononitrate ER 30 MG Oral Tablet Extended Release 24 Hour (Imdur)Indications:Diast olic dysfunction TAKE 1 TABLET BY MOUTH DAILY 90 Tablet 3 3 Active Torsemide 20 MG Oral Tablet (Demadex)Indications:HTN , goal below 140/90,Benign hypertension with CKD (chronic kidney disease) stage III (HCC),Liver cirrhosis secondary to nonalcoholic steatohepatitis (RUSHING) (HCC),Chronic diastolic heart failure (HCC) Take 1 Tablet by mouth in the morning. 90 Tablet 3 4 Active Spironolactone 25 MG Oral Tablet (Aldactone)Indications:A cute diastolic heart failure (HCC),HTN, goal below 140/90,Generalized edema,Diastolic dysfunction Take 1 Tablet by mouth in the morning. 90 Tablet 3 4 Active Metoprolol Succinate ER 25 MG Oral Tablet Extended Release 24 Hour (toPROL XL)Indications:HTN, goal below 140/90 Take 1 Tablet by mouth 2 times a day. 180 Tablet 3 4 Active Apixaban 5 MG Oral Tablet (Eliquis)Indications:PAF (paroxysmal atrial fibrillation) ([facility]) Take 1 Tablet by mouth in [...] morning. Active Famotidine 20 MG Oral Tablet (Pepcid)Indications:Moshe roesophageal reflux disease without esophagitis TAKE 1 TABLET BY MOUTH DAILY 90 Tablet 1 4 Active Omeprazole 20 MG Oral Capsule Delayed Release (PriLOSEC) TAKE 1 CAPSULE BY MOUTH DAILY 90 Capsule 1 4 Active Fluticasone-Salmeterol 500-50 MCG/ACT Inhalation Aerosol Powder Breath Activated (Wixela Inhub)Indications:Modera te persistent asthma without complication USE 1 INHALATION BY MOUTH TWICE DAILY RINSE MOUTH AFTER USE 180 Each 3 4 Active Potassium Chloride ER 10 MEQ Oral Tablet Extended ReleaseIndications:Hypok alemia TAKE 1 TABLET BY MOUTH IN THE MORNING 90 Tablet 1 4 Active Clindamycin HCl 300 MG Oral CapsuleIndications:Siala denitis,Acute maxillary sinusitis, recurrence not specified Take 1 Capsule by mouth in the morning and 1 Capsule at noon and 1 Capsule in the evening and 1 Capsule before bedtime. Do all this for 10 days. 40 Capsule 4 Active Nystatin 784049 UNIT/ML Mouth/Throat Suspension Take 5 mL by mouth in the morning and 5 mL at noon and 5 mL in the evening and 5 mL before bedtime. 4 024 Discontin ued(Medic ation List Clean Up) Combivent Respimat 20-100 MCG/ACT Inhalation Aerosol Solution (Ipratropium-Albuterol) Inhale 1 Puff by mouth in the morning and 1 Puff at noon and 1 Puff in the evening and 1 Puff before bedtime. Discontin ued(Medic ation List Clean Up) documented as of this encounter (statuses as of 06/14/2024) Active Problems Problem Noted Date Diagnosed Date Atypical atrial flutter 06/14/2024 PAF (paroxysmal atrial fibrillation) 12/30/2023 Subclinical hyperthyroidism 12/30/2023 Caregiver burden 10/30/2023 Liver cirrhosis secondary to nonalcoholic steatohepatitis (RUSHING) 10/07/2022 Diastolic heart failure 10/07/2022 Thyroid nodule [...] program 09/24/2018 04/03/2020 Overview: DO NOT DELETE [facility] DETECT Study: Project # [id number], Cryogenics Engineer: Naun Jones, PhD. SUMMARY: Goal: Establish test [...] contact study staff at ; after hours Cryogenics Engineer via the [facility] button machine operator . Please contact study team before resolving/deleting from patients problem list. Study phone number: [phone]. Diagnosis changed due to Research Module. Go to [employer] for study details. Encounter for examination fo r normal comparison and control in clinical research program 09/24/2018 05/02/2022 Overview: DO NOT DELETE - [facility] Study: Project # [id number], Cryogenics Engineer: Ady Bruno, MS, MPH. SUMMARY: Goal: Establish [...] contact study staff at ; after hours Cryogenics Engineer via the [facility] hospital button machine operator . - Please contact study team before resolving/deleting from patients problem list. Study phone number: [phone]. Diagnosis changed due to Research Module. Go to [employer] for study details. Body mass index (BMI) [...] appointment. EXTRINSIC ASTHMA, UNSPEC 09/23/2003 LOC PRIM [id number] 07/29/200301/30 Type 2 diabetes mellitus wit h [...] mRNA, LNP-s, No Pre serve, 2-Dose Series ([place]) 10/02/2021,09/01/2021,12/05/2020,11/14 Pneumococcal Conjugate Vacc, 13 Valent (Prevnar) [...] No 01/23/2024 Does the household have a [facility]? (Household - for ages [...] Sign Reading Time Taken Comments Blood Pressure 116/50 06/14/2024 11:56 AM EDT Pulse 60 06/14/2024 11:56 AM EDT Temperature 36.6 C (97.9 F) 06/14/2024 11:56 AM E DT Respiratory Rate 16 06/14/2024 11:56 AM EDT Oxygen Saturation - - Inhaled Oxygen Concentration - - Weight 95.8 kg (211 lb 1.6 oz) 06/14/2024 11:56 AM EDT Height - - Body Mass Index 41.23 05/10/2024 1:33 PM EDT documented in this encounter Patient Instructions * Patient Instructions* Bo Hurtado RN - 06/14/2024 12:00 PM EDT ~~PATIENT INSTRUCTIONS FOR FLU SHOT~~ Possible side effects of influenza vaccine, (flu shot), are usually mild and include: 1. Soreness or redness at injection site 2. Low grade fever 3. Body aches You may use Tylenol/Acetaminophen as needed for these symptoms. LET YOUR DOCTOR KNOW IMMEDIATELY IF YOU HAVE DIFFICULTY BREATHING OR SWALLOWING, EXPERIENCE ITCHINGOF FEET OR HANDS, HAVE SWELLING OF EYES, FACE OR INSIDE OF NOSE. documented in this encounter Progress Notes * Ryan Hadley MD - 06/14/2024 12:32 PM EDT Chief Complaint Patient presents with Re-Check Routine check up Other Stye to right eye Ear Problem Feels like fluid in both ears Palpitations Two episodes - resolved on its own - denies any chest pain or shortness of breath Medication Administration Flu and/or Pneumo Inj SUBJECTIVE: Kelin Houston is a 78 year old female with PMH as below who presents for follow up htn, rushing, obesity, paf. No cp, pressure. Did have 2 runs palpitations weeks ago woke from sleep, last 30 min or so resolved on own, no cp, sob ,valente, palpitations, follows with cardiology, no syncope or falls. For past 2 weeks, ears full, sinus congestion 1 month, throat irritated. No fevers, chills, but thinks this is how started when septic with sialadenitis last spring and clindamycin worked after amox-clauvfailed. Persistent painless neck lump right upper jaw line. No ear discharge. Back pain better withpt, using walker and weight coming down +stye right lower lid 2 days, no discharge or vision loss Patient Active Problem List Diagnosis HTN, goal below 140/90 SHANA on CPAP Asthma, moderate persistent Metabolic syndrome Mixed hyperlipidemia Knee joint replacement status GERD (gastroesophageal reflux disease) Rhinitis, nonallergic Diastolic dysfunction Thrombocytopenia (HCC) Morbid obesity, unspecified obesity type (HCC) Benign hypertension with CKD (chronic kidney disease) stage III (HCC) Other cirrhosis of liver (HCC) Thyroid nodule Liver cirrhosis secondary to nonalcoholic steatohepatitis (RUSHING) (HCC) Diastolic heart failure (HCC) Caregiver burden PAF (paroxysmal atrial fibrillation) (HCC) Subclinical hyperthyroidism Current Outpatient Medications Medication Sig Dispense Refill ZYRTEC 10 MG PO TABS 1 tab every day benzonatate (TESSALON PERLES) 100 MG Capsule Swallow 1 or 2 pills three times a day as needed for cough. Do not cut, crush, or chew. 50 Cap 3 fluticasone (FLONASE) 50 MCG/ACT nasal spray USE 2 SPRAYS IN EACH NOSTRIL DAILY 48 g 4 Nitroglycerin 0.4 MG Sublingual Tablet Sublingual (NITROSTAT) Place 1 Tab under the tongue every 5 minutes as needed for Pain, Chest. up to 3 doses in 15 minutes 25 Tab 11 CPAP every night at bedtime . Acetaminophen 500 MG Oral Tablet (Tylenol) Take 2 Tablets by mouth every 12 hours as needed for Pain, Severe. 100 Tablet 0 Spiriva Respimat 1.25 MCG/ACT Inhalation Aerosol Solution (Tiotropium [place] Monohydrate) Inhale 2Puffs by mouth in the morning. 12 g 3 Lovastatin 40 MG Oral Tablet TAKE 1 TABLET BY MOUTH IN THE EVENING 90 Tablet 3 Jardiance 10 MG Oral Tablet (Empagliflozin) TAKE 1 TABLET BY MOUTH IN THE MORNING 90 Tablet 3 Isosorbide Mononitrate ER 30 MG Oral Tablet Extended Release 24 Hour (Imdur) TAKE 1 TABLET BY MOUTHDAILY 90 Tablet 3 Torsemide 20 MG Oral Tablet (Demadex) Take 1 Tablet by mouth in the morning. 90 Tablet 3 Spironolactone 25 MG Oral [...] TABLET BY MOUTH DAILY 90 Tablet 1 Omeprazole 20 MG Oral Capsule Delayed Release (PriLOSEC) TAKE 1 CAPSULE BY MOUTH DAILY 90 Capsule 1 Fluticasone-Salmeterol 500-50 MCG/ACT Inhalation Aerosol Powder Breath Activated (Wixela Inhub) USE1 INHALATION BY MOUTH TWICE DAILY RINSE MOUTH AFTER USE 180 Each 3 Potassium Chloride ER 10 MEQ Oral Tablet Extended Release TAKE 1 TABLET BY MOUTH IN THE MORNING 90 Tablet 1 Clindamycin HCl 300 MG Oral Capsule Take 1 Capsule by mouth in the morning and 1 Capsule at noon and 1 Capsule in the evening and 1 Capsule before bedtime. Do all this for 10 days. 40 Capsule 0 amoxicillin (AMOXIL) 500 MG Capsule TAKE 4 CAPSULES BY MOUTH ONE HOUR PRIOR TO APPOINTMENT (Patientnot taking: Reported on 05/05/2024) 0 Albuterol Sulfate (2.5 MG/3ML) 0.083% Inhalation Nebulization Solution (PROVENTIL) Inhale 1 Vial via nebulizer every 6 hours as needed for Other (Cough, wheezing, shortness of breath). Dx J45.40 (Patient not taking: Reported on 05/05/2024) 360 mL 11 oxyCODONE HCl 5 MG Oral Tablet (Oxy IR) Take 1 Tablet by mouth every 8 hours as needed for Pain, Severe. 21 Tablet 0 No current facility-administered medications for this visit. Review of patient's allergies indicates: Allergen Reactions Bactrim Cephalosporins Rash (Ceclor only) Metformin Other (Please comment) and Renal complications Health Maintenance Due Topic Date Due Adult Wellness Visit Never done CKD PHOS USE SMARTSET [id number] 04/02/2024 Depression Screening 04/09/2024 COVID-19 Vaccine ( season) 2024 ROS: CONSTITUTIONAL: No fevers, sweats, or chills PULMONARY: No recent change in breathing CARDIOVASCULAR: No chest pain, No shortness of breath, No dyspnea on exertion, No orthopnea, No paroxysmal nocturnal dyspnea, No edema, and No syncope GASTROINTESTINAL: No abdominal pain, No change in bowel habits, No significant heartburn, No significant change in appetite, No nausea, vomiting, diarrhea, or constipation, No hematemesis, No blood in stools or black tarry stools, No abdominal bloating or early satiety, and No dysphagia SLEEP: using pap nightlky ALL OTHER SYSTEMS NEGATIVE I reviewed social, PMH, PSH, and family history and updated where needed. 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 (Adult - for ages 18 years and over): No Does your family have trouble paying for medicine? (Household - for ages 0-17 years): Not on file Food Insecurity: No Food Insecurity (01/23/2024) Food Insecurity Do you need food for this week? (Adult - for ages 18 years and over): No Are you able to get enough food for your family? (Household - for ages 0-17 years): Not on file Does your family need food this week? (Household - for ages 0-17 years): Not on file Do you always have enough food for your family? (Household - for ages 0-17 years): Not on file Transportation Needs: No Transportation Needs (01/23/2024) Transportation [...] Stability Do you currently live in a custodial or have no steady place to sleep [...] COLONOSCOPY, DIAGNOSTIC (RECTUM) 03/17/2018 normal, repeat 10 yrs/[facility] COLONOSCOPY, DIAGNOSTIC (RECTUM) 05/10/2024 biopises show tubulovillous adenoma, adenomatous polyps/recall 6 months-1 year/COLONOSCOPY FLEXIBLEPROXIMAL DIAGNOSTIC performed by Lena Cota MD at ENDOSCOPY [facility] EGD, FLEXIBLE, DIAGNOSTIC 11/02/2021 z-line 35cm from incisors, normal scope Ken 2 / bx normal / [facility] EGD, W/ENDOSCOPIC US N/A 03/28/2023 cystic lesion pancreatic body/portal hypertensive gastropathy/biopsies show mild gastritis of stomach/repeat EGD 2 years/EUS/EGD/[facility]EE ARTHROSCOPY/SURGERY 2012 replaced, right LIGATE/CUT OVIDUCT(S) 1977 NEEDLE BIOPSY OF LIVER 1969 PARTIAL HYSTERECTOMY 1988 Still has ovaries REMOVE GALLBLADDER REMOVE TONSILS & ADENOIDS, UNDER 12 2 Tonsillectomy/Adenoids,<14 Y/O SHOULDER SURGERY PROCEDURE NEC Left [address] Chow UPPER GI ENDOSCOPY Family History Problem Relation Name Age of Onset No Past Hx Father at 97 Cancer Father Skin/Basal Cell Carcinoma Nose Diabetes Mother Hypertension Mother Stroke Mother No Past Hx Son Malick Houston No Past Hx Son Elliott Other (No siblings) Other Breast Cancer No significant family history OBJECTIVE: PHYSICAL EXAM: BP 116/50 (BP Site: Left Arm, BP Position: Sitting, BP Cuff Size: Large) | Pulse 60 | Temp 36.6 C(97.9 F) (Tympanic) | Resp 16 | Wt 95.8 kg (211 lb 1.6 oz) | BMI 41.23 kg/m | BSA 2.01 m General: alert, healthy, and no distress Head: Normocephalic Eye Exam: conjunctiva are pink and non-injected, sclera clear, small red stye right lid w/o discharge Ears: External ears normal, Canals clear, TM's Normal Oropharynx: no exudate, no erythema, lips, buccal mucosa, and tongue normal, and mucous membranes are moist Neck: supple, small lump right neck near upper jaw w/o pain, collection Nose: +erythema, edema Heart: regular rate & rhythm, no murmur, no gallops, PMI non-displaced, S-1 normal, and S-2 normal Lungs: normal respiratory rate and rhythm, lungs clear to auscultation Psych: normal affect, no flight of ideas or tangential thought, good eye contact, no pressured speech 02/23/24 rheum: 1. Serologic abnormality Positive ROBERT since 2009 of probable no significance at this time. She has dry mouth, but controlling with conservative measures. She can follow up as needed at this time. 02/23/24 GI: ASSESSMENT AND PLAN: Kelin Houston is a 78 year old female w incidental finding of nonspecific hypermetabolic uptake within the ascending colon without obvious associated mass on her recent PET scan the was used to monitor pulmonary nodules. She is without any concerning abdominal pain, nausea, vomiting, bowel habit changes, rectal bleeding or dark tarry stools. No family history of colorectal cancer. Her last colonoscopy was in 2018 with benign findings. Prior colonoscopy results were not available at time of visit. Patient does not want to have any repeat colonoscopy at this time. She is agreeable to repeat CT abdomen and pelvis for close surveillance. She already has a CT long scheduled at the end of April, we will add CT abdomen and pelvis to this study. 04/06/24 cardiology: ASSESSMENT: Hospitalization in December 2023 with symptomatic atypical atrial flutter with a rapid ventricular response status post MADHURI guided cardioversion as detailed above. History of palpitations previously documented to occur in association with sinus rhythm and sensed atrial ectopy. Asymptomatic supraventricular tachycardia and one run of ventricular tachycardia via October 2023 Zio monitor Volume overload, multifactorial in etiology - right heart failure, diastolic dysfunction secondary to hypertensive heart disease, obesity, RUSHING cirrhosis, stage III CKD. Current volume status: Minimal stable hypervolemia. Hypertension. Dyslipidemia, on therapy Obstructive sleep apnea, on CPAP supplementation Stage 3 chronic kidney disease RUSHING cirrhosis Right lower lobe pulmonary consolidation, abnormal PET CT; as per Pulmonary Medicine/PCP Dry mouth. Dry eyes also noted along with prior oral candidiasis, hospitalization in October 2023 with salivary gland issues, question Sjogren's disease. RECOMMENDATIONS/PLAN: Continue the current cardiac medication regimen as prescribed. Routine cardiology follow-up in 4-6 months or as needed. ER with emergencies. CC: Rheumatology, RE: #[phone] under assessment. 04/30/24 ct: 1. Focal area of uptake on PET corresponds to abnormal colonic wall thickening. Findings concerningfor early colonic adenocarcinoma although nonspecific. Further assessment with colonoscopy advised. 2. Right lower lobe pulmonary nodule is diminished from prior, likely reflecting resolving infection/inflammation. Attention on follow-up. 3. Nonspecific 3.5 centimeter right adnexal cyst. Pelvic ultrasound follow-up in 3 months recommended. 4. Additional findings as above. ASSESSMENT: (I10) HTN, goal below 140/90 (primary encounter diagnosis) (K75.81, K74.60) Liver cirrhosis secondary to nonalcoholic steatohepatitis (RUSHING) (HCC) (E78.2) Mixed hyperlipidemia (E66.01) Morbid obesity, unspecified obesity type (HCC) (G47.33) SHANA on CPAP (I48.0) PAF (paroxysmal atrial fibrillation) (HCC) (I48.4) Atypical atrial flutter (HCC) (Z23) Need for prophylactic vaccination and inoculation against influenza (N94.9) Adnexal cyst (K11.20) Sialadenitis (J01.00) Acute maxillary sinusitis, recurrence not specified (R73.09) Elevated glucose (H00.012) Hordeolum externum of right lower eyelid (R22.1) Localized swelling, mass and lump, neck (I12.9, N18.30) Benign hypertension with CKD (chronic kidney disease) stage III (HCC) (J45.40) Moderate persistent asthma, unspecified whether complicated (K63.5) Polyp of ascending colon, unspecified type PLAN: HTN, goal below 140/90 (Primary) Cont metoprolol, adlactone, torsemide, imdur Liver cirrhosis secondary to nonalcoholic steatohepatitis (RUSHIGN) (HCC) - CBC WITH WBC DIFFERENTIAL; Future; Expected date: 06/14/2024 - PHOSPHORUS; Future; Expected date: 06/14/2024 Appreciate hepatology aid Cont f/u gi Cont weight loss Cont aldactone, torsemide Mixed hyperlipidemia - COMPREHENSIVE METABOLIC PANEL; Future; Expected date: 06/14/2024 - LIPID PANEL WITH DIRECT LDL IF TG IS HIGH; Future; Expected date: 06/14/2024 Cont statin Morbid obesity, unspecified obesity type (HCC) Weight down 50 lbs past year Commended weight loss Follow SHANA on CPAP Cont pap PAF (paroxysmal atrial fibrillation) (HCC) Cont metoprolol Cont Apixaban Atypical atrial flutter (HCC) S/p cardioversion Will follow up with me/cardiology if palpitations return, but resolved weeks ago, on own Follow Need for prophylactic vaccination and inoculation against influenza - INFLUENZA VAC., TRIVALENT, HD, PF, 65 AND ABOVE, 0.5 ML IM (FLUZONE HD) Adnexal cyst - US PELVIS TRANS-ABDOMINAL; Future; Expected date: 07/15/2024 - US PELVIS TRANS-VAGINAL NON-OB; Future; Expected date: 07/15/2024 Discussed u/s, will do 1 month Sialadenitis - Clindamycin HCl 300 MG Oral Capsule; Take 1 Capsule by mouth in the morning and 1 Capsule at noonand 1 Capsule in the evening and 1 Capsule before bedtime. Do all this for 10 days. In past Acute maxillary sinusitis, recurrence not specified - Clindamycin HCl 300 MG Oral Capsule; Take 1 Capsule by mouth in the morning and 1 Capsule at noonand 1 Capsule in the evening and 1 Capsule before bedtime. Do all this for 10 days. Perhaps cause of sinus, ears, other symptoms, discussed amox-clauv, but didn't work last time, clindamycin helped and with persistent neck lump, will do med in case stone infection starting again, aware probiotic on med Elevated glucose - HEMOGLOBIN A1C; Future; Expected date: 06/14/2024 Hordeolum externum of right lower eyelid Warm soaks Localized swelling, mass and lump, neck - US HEAD AND NECK; Future; Expected date: 06/14/2024 Benign hypertension with CKD (chronic kidney disease) stage III (HCC) As above Moderate persistent asthma, unspecified whether complicated Cont advair, spiriva, albuterol I spent a total of 40-54 minutes (exact time 43 mins) on the date of service in preparation, delivery, and documentation of the care provided to Kelin Houston excluding any time spent in the performance of separately billed services or time spent by another provider/QHP. Follow Up: Return in about 6 months (around 12/13/2024), or if symptoms worsen or fail to improve, for Labs Today. | For: Labs Today Ryan Hadley MD * Bo Hurtado RN - 06/14/2024 11:59 AM EDT PRE - ADMINISTRATION DOCUMENTATION Are you experiencing any cold symptoms or fever? No Have you had Guillain-[place] Syndrome (an illness that causes paralysis) within the last 6 weeks? No Have you had the flu shot in the past? YES Have you ever had a reaction to the flu shot? No Bo Hurtado RN, 06/14/2024 11:59 AM Immunization Administration Documentation Time Out Procedure Performed: Yes Patient Identified (Ask Name/Date of ): Yes Does the patient have a fever greater than 101 degrees today? No Patient allergic to latex? No VFC Stock: No Immunization(s) verified: Yes, Immunization Name: Flu, VIS Sheet(s) given: Yes Verified Side and Site: Yes Verified Shot(s) with Parent(s)/Patient: Yes documented in this encounter Plan of Treatment Upcoming Encounters Date Type Department Care Team (Latest Contact Info) Description 07/15/2024 2:00 PM EST Imaging Radiology [facility] [place] [address] 07/15/2024 2:45 PM EST Imaging Radiology [facility] [place] [address] 07/15/2024 3:30 PM EST Imaging Radiology [facility] [address] [place] [address] 08/02/2024 11:15 AM EST Imaging Radiology [address] [place] [address] 10/21/2024 1:00 PM EST Office Visit Cardiology [address] [place] [address] Ricky Hackett PA-C [address] [place] [address] 10/26/2024 9:00 AM EST Imaging Radiology [address] [place] [address] 11/01/2024 11:40 AM EST Office Visit Hepatology, [facility] [place] [address] Rachelle Camargo DO [address] [place] [address] 11/19/2024 2:20 PM EDT Telemedicine Nephrology, [facility] 200 [facility] [place] [address] Dru Vicente MD 200 [facility] [place] [address] 11/22/2024 10:15 AM EDT Hospital Encounter ENDO [facility] [phone] Lena Cota MD [address] [place], [place] [id number] 11/22/2024 10:15 AM EDT - 11/22/2024 10:45 AM EDT Surgery ENDO O[facility], Endoscopy Room OSS 132 [facility] [place] [phone] Lena Coat MD [address] [place] [address] COLONOSCOPY FLEXIBLE PROXIMAL DIAGNOSTIC 02/24/2025 4:30 PM EDT Telemedicine [facility] Disorders [facility] [address] [facility] [phone] Glory Martinez CRNP 132 [place] [address] 03/21/2025 2:20 PM EDT Office Visit General Internal Medicine [facility] [place] [address] [facility] [address] [place], [place] [address] Ryan Hadley MD 200 [facility] [place] [address] Pending Results Name Type Priority Associated Diagnoses Date /Time COMPREHENSIVE METABOLIC PANEL Lab Routine Mixed hyperlipidemia 06/14/2024 12:42 PM EDT LIPID PANEL WITH DIRECT LDL IF TG IS HIGH Lab Routine Mixed hyperlipidemia 06/14/2024 12:42 PM EDT HEMOGLOBIN A1C Lab Routine Elevated glucose 06/14/2024 12:42 PM EDT PHOSPHORUS Lab Routine Liver cirrhosis secondary to nonalcoholic steatohepatitis (RUSHING) (HCC) 06/14/2024 12:42 PM EDT Scheduled Orders Name Type Priority Associated Diagnoses Orde r Schedule US PELVIS TRANS-ABDOMINAL Medical Imaging Routine Adnexal cyst Expected: 07/15/2024, Expires: 07/15/2025 US PELVIS TRANS-VAGINAL NON-OB Medical Imaging Routine Adnexal cyst Expected: 07/15/2024, Expires: 07/15/2025 COMPREHENSIVE METABOLIC PANEL Lab Routine Mixed hyperlipidemia Expected: 06/14/2024 (Approximate), Expires: 06/14/2025 LIPID PANEL WITH DIRECT LDL IF TG IS HIGH Lab Routine Mixed hyperlipidemia Expected: 06/14/2024, Expires: 06/14/2025 HEMOGLOBIN A1C Lab Routine Elevated glucose Expected: 06/14/2024 (Approximate), Expires: 06/14/2025 PHOSPHORUS Lab Routine Liver cirrhosis secondary to nonalcoholic steatohepatitis (RUSHING) (HCC) Expected: 06/14/2024 (Approximate), Expires: 06/14/2025 US HEAD AND NECK Medical Imaging Routine Localized swelling, mass and lump, neck Expected: 06/14/2024, Expires: 07/15/2025 Scheduled Procedures Name Priority Associated Diagnoses Date/Ti me COLONOSCOPY FLEXIBLE PROXIMA L DIAGNOSTIC History of colon polyps 11/22/2024 10:15 AM EDT ESOPHAGOGASTRODUODENOSCOPY ( EGD), FLEXIBLE, TRANSORAL, DIAGNOSTIC Recall Portal hypertensive gastropathy (HCC) Health Maintenance Due Date Last Done Comments Adult Wellness Visit 2013 CKD PHOS USE SMARTSET 12261 04/02/2024 08/0 10/2022, 03/21/2023, 08/05/2022, Additional history exists Depression Screening 04/09/2024 04/09/2023 COVID-19 Vaccine ( season) 2024 10/02/2021, 09/01/2021, 12/05/2020, Additional history exists GFR 10/22/2024 04/21/2024, 03/01, 01/22/2024, Additional history exists DXA Scan 11/07/2024 11/08/2019, 05/2020, 11/25/2012, Additional history exists Albumin/Creatinine Ratio 11/18/2024 024, 11/04/2022, 03/07/2021, Additional history exists CKD HGB USE SMARTSET 30834 06/14/202506/14, 06/14/2024, 01/22/2024, Additional history exists DTap/Tdap [...] encounter Visit Diagnoses Diagnosis HTN, goal below 140/90- Primary Unspecified essential hypertension Liver cirrhosis secondary to nonalcoholic steatohepatitis (RUSHING) (HCC) Mixed hyperlipidemia Morbid obesity, unspecified obesity type (HCC) SHANA on CPAP Obstructive sleep apnea (adult) (pediatric) PAF (paroxysmal atrial fibrillation) (HCC) Atrial fibrillation Atypical atrial flutter (HCC) Atrial flutter Need for prophylactic vaccination and inoculation against influenza Adnexal cyst Other specified symptom associated with female genital organs Sialadenitis Sialoadenitis Acute maxillary sinusitis, recurrence not specified Elevated glucose Other abnormal glucose Hordeolum externum of right lower eyelid Hordeolum externum Localized swelling, mass and lump, neck Swelling, mass, or lump in head and neck Benign hypertension with CKD (chronic kidney disease) stage III (HCC) Benign hypertensive kidney disease with chronic kidney disease stage I through stage IV, or unspecified Moderate persistent asthma, unspecified whether complicated Polyp of ascending colon, unspecified type History of colon polyps Personal history of colonic polyps documented in this encounter Care Teams Brine Tank Tender Relationship Specialty Start Date End Date Ryan Hadley MD 200 [place] [address] PCP - General Internal Medicine 11/06/17 documented as of this encounter"
--- OUTSIDE RECORDS SUMMARY | 2024-11-19 05:59 | External Medical Summary ---
Author Name Unknown Address Unknown Organization K09:[facility] [place] [address] Laboratory Report Ordering Provider Test Date Status CHANTEL COHEN 06/14/2024 12:42:35 Final Observation Date Value Abnormality Reference (Units ) Status BUN 06/14/2024 12:42:35 25 Above high normal 6-20 (mg/dL) Final Creatinine 06/14/2024 12:42:35 1.2 Above high normal 0.5-1.0 (mg/dL) Final Glomerular filtration rate/1.73 sq M.predicted [Volume Rate/Area] in Serum, Plasma or Blood by Creatinine-based formula (CKD-EPI) 06/14/2024 12:42:35 47 Below low normal >=60 (mL/min) Final eGFR is calculated based on the CKD-EPI 2020 equation. Sodium 06/14/2024 12:42:35 142 135-146 (m mol/L) Final Potassium 06/14/2024 12:42:35 3.8 3.5-5.1 (m mol/L) Final Cl 06/14/2024 12:42:35 106 98-107 (mm ol/L) Final CO2 06/14/2024 12:42:35 22 22-32 (mmo l/L) Final Anion gap 06/14/2024 12:42:35 14 7-15 (mmol /L) Final Glucose 06/14/2024 12:42:35 85 70-120 (mg /dL) Final Albumin 06/14/2024 12:42:35 3.5 Below low normal 3.8 -5.0 (g/dL) Final AST (Aspartate aminotransferase) 06/14/2024 12:42:35 28 10-35 (U/L) Fin al Alk Phos 06/14/2024 12:42:35 91 35-130 (U/ L) Final Bilirubin, Total 06/14/2024 12:42:35 0.9 <=1 .2 (mg/dL) Final Calcium 06/14/2024 12:42:35 9.8 8.4-10.2 ( mg/dL) Final Protein 06/14/2024 12:42:35 6.2 6.0-8.3 (g /dL) Final ALT (Alanine aminotransferase) 06/14/2024 12:42:35 15 10-35 (U/L) Mike dejesus Performing Location [facility] [place] [address]
--- OUTSIDE RECORDS SUMMARY | 2024-11-19 05:59 | External Medical Summary | Summary of Care ---
Author Name Unknown Organization [facility] Address [address] [facility] [place] [address] Phone [phone] Care Team Providers Care Lead Caregiver Name Role Phone Ryan Hadley MD Primary Care Provider + Reason for Visit * Reason Comments eRx-Medication Refill Encounter Details Date Type Department Care Team (Late st Contact Info) Description 09/15/2024 Refill General Internal Medicine [facility] 200 [facility] [place] [address] Ryan Hadley MD 200 [place] [address] Allergies Active Allergy Reactions Criticality Noted Date Comments Bactrim 01/20/2014 Cephalosporins 07/29/2003 Rash (Ceclor only) Metformin Other (Please comment),Renal complications 03/25/2023 documented as of this encounter (statuses as of 09/15/2024) Medications ZYRTEC 10 MG PO TABS 1 [...] Respimat 1.25 MCG/ACT Inhalation Aerosol Solution (Tiotropium [place] Monohydrate)Indication s:Moderate persistent asthma without complication Inhale 2 Puffs by mouth in the morning. 12 g 3 2022 Active Jardiance 10 MG Oral Tablet (Empagliflozin)Indicat ions:Heart failure, diastolic (HCC) TAKE 1 TABLET BY MOUTH IN THE MORNING 90 Tablet 3 2022 Active Isosorbide Mononitrate ER 30 MG Oral Tablet Extended Release 24 Hour (Imdur)Indications:Rose stolic dysfunction TAKE 1 TABLET BY MOUTH DAILY 90 Tablet 3 2022 Active Torsemide 20 MG Oral Tablet (Demadex)Indications:H TN, goal below 140/90,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 90 Tablet 3 2023 Active Spironolactone 25 MG Oral Tablet (Aldactone)Indications [...] MOUTH DAILY 90 Capsule 1 2024 Active Omeprazole 20 MG Oral Capsule Delayed Release (PriLOSEC) TAKE 1 CAPSULE BY MOUTH DAILY 90 Capsule 1 09/15 Discontinued documented as of this encounter (statuses as of 09/15/2024) Active Problems Problem Noted Date Diagnosed Date [...] as of this encounter (statuses as of 09/15/2024) Resolved Problems Problem Noted Date Diagnosed Date [...] 09/24/2018 04/03/2020 Overview (12/18/2020): DO NOT DELETE [employer] DETECT Study: Project # [id number], Wire Tinner: Naun Jones, PhD. SUMMARY: Goal: Establish test [...] contact study staff at ; after hours Wire Tinner via the [facility] cinder pit crane operator . Please contact study team before resolving/deleting from patients problem list. Study phone number: [phone]. Diagnosis changed due to Research Module. Go to Snapshot for study details. Encounter for examination fo r normal comparison and control in clinical research program 09/24/2018 05/02/2022 Overview (12/18/2020): DO NOT DELETE - [employer] DETECT Study: Project # [id number], Wire Tinner: Ady Bruno, MS, MPH. SUMMARY: Goal: Establish [...] contact study staff at ; after hours Wire Tinner via the [facility] cinder pit crane operator . - Please contact study team before resolving/deleting from patients problem list. Study phone number: [phone]. Diagnosis changed due to Research Module. Go [...] appointment. 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 documented as of this encounter (statuses as of 09/15/2024) Immunizations Name Administration Dates Next Due COVID-19 mRNA, LNP-s, No Pre serve, 2-Dose Series ([employer]) 10/02/2021,09/01/2021,12/05/2020,11/14 Pneumococcal Conjugate Vacc, 13 Valent (Prevnar) [...] encounter Miscellaneous Notes * Telephone Encounter - Mayo Martell [facility] - 09/15/2024 6:02 AM ESTSigned Prescriptions: Disp Refills Omeprazole 20 MG Oral Capsule Delayed Rele*90 Cap*1 Sig: TAKE 1 CAPSULE BY MOUTH DAILYAuthorizing Provider: RYAN HADLEY User: MAYO MARTELLTINE documented in this encounter Plan of Treatment Upcoming Encounters Date Type Department Care Team (Latest Contact Info) Description 10/21/2024 1:00 PM EST Office Visit Cardiology [address] [place] [address] Ricky Hackett PA-C [facility] [place] [address] 10/26/2024 9:00 AM EST Imaging Radiology [address] [place] [address] 11/01/2024 11:40 AM EST Office Visit Hepatology, Health system [address] [facility] [place] [address] Rachelle Camargo DO [address] [place] [address] 11/19/2024 2:20 PM EDT Telemedicine Nephrology, [facility] 200 [facility] [place] [address] Dru Vicente MD 200 [facility] [place] [address] 11/22/2024 10:15 AM EDT Hospital Encounter ENDO OSSC, Endoscopy Room OSS 132 [facility] [place] [phone] Lena Cota MD [address] [place] [address] 11/22/2024 10:15 AM EDT - 11/22/2024 10:45 AM EDT Surgery ENDO [facility], Endoscopy Room [facility] 132 [facility] [place] [phone] Lena Cota MD [address] [place] [address] COLONOSCOPY FLEXIBLE PROXIMAL DIAGNOSTIC 02/24/2025 4:30 PM EDT Telemedicine [facility] [place] [phone] Glory Martinez CRNP 132 [facility] [place] [address] 03/21/2025 2:20 PM EDT Office Visit General Internal Medicine [facility] [address] [place] [address] Ryan Hadley MD 200 [facility] [place] [address] Scheduled Procedures Name Priority Associated Diagnoses Date/Ti [...] Additional history exists CKD HGB USE SMARTSET 62349 06/14/202506/14, 06/14/2024, 01/22/2024, Additional history exists CKD PHOS USE SMARTSET 13059 06/14/202506/01, 04/02/2023, 03/21/2023, Additional history exists DTap/Tdap [...] filedocumented as of this encounter Care Teams Lead Caregiver Relationship Specialty Start Date End Date Ryan Hadley MD 200 [place] [address] PCP - General Internal Medicine 11/06/17 documented as of this encounter
--- OUTSIDE RECORDS SUMMARY | 2024-11-19 05:59 | External Medical Summary | Summary of Care ---
Author Name Unknown Organization [facility] Address [address] [facility] [place] [address] Phone [phone] Care Team Providers Care Watch Inspector Name Role Phone Ryan Hadley MD Primary Care Provider + Reason for Visit * Reason Comments eRx-Medication Refill Encounter Details Date Type Department Care Team (Late st Contact Info) Description 09/15/2024 Refill Cardiology [address] [place] [phone] Charlene Kennedy, PAPiloC [address] [place] [address] Diastolic dysfunction Allergies Active Allergy Reactions Criticality Noted Date Comments Bactrim 01/20/2014 Cephalosporins 07/29/2003 Rash (Ceclor only) Metformin Other (Please comment),Renal complications 03/25/2023 documented as of this encounter (statuses as of 09/16/2024) Medications ZYRTEC 10 MG PO TABS 1 [...] Respimat 1.25 MCG/ACT Inhalation Aerosol Solution (Tiotropium Ray Monohydrate)Indication s:Moderate persistent asthma without complication Inhale 2 Puffs by mouth in the morning. 12 g 3 2022 Active Jardiance 10 MG Oral Tablet (Empagliflozin)Indicat ions:Heart failure, diastolic (HCC) TAKE 1 TABLET BY MOUTH IN THE MORNING 90 Tablet 3 2022 Active Torsemide 20 [...] MOUTH DAILY 90 Tablet 3 2024 Active Isosorbide Mononitrate ER 30 MG Oral Tablet Extended Release 24 Hour (Imdur)Indications:Rose stolic dysfunction TAKE 1 TABLET BY MOUTH DAILY 90 Tablet 3 09/16 Discontinued documented as of this encounter (statuses as of 09/16/2024) Active Problems Problem Noted Date Diagnosed Date [...] as of this encounter (statuses as of 09/16/2024) Resolved Problems Problem Noted Date Diagnosed Date [...] 04/03/2020 Overview (12/18/2020): DO NOT DELETE [facility] DETECT Study: Project # [id number], Pathology Specialist: Naun Jones, PhD. SUMMARY: Goal: Establish [...] contact study staff at ; after hours Pathology Specialist via the [facility] ross furnace operator . Please contact study team before resolving/deleting from patients problem list. Study phone number: [phone]. Diagnosis changed due to Research Module. Go to Snapshot for study details. Encounter for examination fo r normal comparison and control in clinical research program 09/24/2018 05/02/2022 Overview (12/18/2020): DO NOT DELETE [employer] DETECT Study: Project # [id number], Pathology Specialist: Ady Bruno, MS, MPH. SUMMARY: Goal: [...] contact study staff at ; after hours Pathology Specialist via the [facility] hospital ross furnace operator . - Please contact study team before resolving/deleting from patients problem list. Study phone number: [phone]. Diagnosis changed due to Research Module. Go [...] appointment. EXTRINSIC ASTHMA, UNSPEC 09/23/2003 LOC PRIM [id number] 07/29/200301/30 Type 2 diabetes mellitus wit h hemoglobin A1c goal of less than 7.0% 08/02/2010 Overview (12/26/2015): ICD-10 update of inactive term Type 2 diabetes mellitus wit h hemoglobin A1c goal of less than 7.0% 10/30/2011 Overview (12/26/2015): ICD-10 update of inactive term Hypersomnia with sleep apnea 02/11/2018 documented as of this encounter (statuses as of 09/16/2024) Immunizations Name Administration Dates Next Due COVID-19 mRNA, LNP-s, No Pre serve, 2-Dose Series ([employer]) 10/02/2021,09/01/2021,12/05/2020,11/14 Pneumococcal Conjugate Vacc, 13 Valent (Prevnar) [...] Miscellaneous Notes * Telephone Encounter - Javi Garcia [facility] - 09/16/2024 9:18 AM EST Signed Prescriptions: Disp Refills Isosorbide Mononitrate ER 30 MG Oral Table*90 Tab*3 Sig: TAKE 1 TABLET BY MOUTH DAILYAuthorizing Provider: CHARLENE KENNEDY User: JAVI GARCIA--- * Telephone Encounter - Cathy Zayas - 09/15/2024 4:35 PM ESTPending Prescriptions: Disp Refills Isosorbide Mononitrate ER 30 MG Oral Table*90 Tab*3 Sig: TAKE 1 TABLET BY MOUTH DAILY * Telephone Encounter - Cathy Zayas - 09/15/2024 4:33 PM EST Did you pend patient's preferred pharmacy and medication before forwarding?yes Pharmacy: [facility] Pending Prescriptions: Disp Refills Isosorbide Mononitrate ER 30 MG Oral Tabl*90 Tab*3 Sig: TAKE 1 TABLET BY MOUTH DAILY Last Visit: 04/06/2024 (in office), 08/15/2020 (telemedicine) Next Visit: 10/21/2024 If no future appointments scheduled, and last appointment is greater than a year ago, please schedule patient for a follow-up appointment Last date the medication was ordered: 08/29/2023 Is this request for a controlled substance?No Urine Drug Screen:No results found. However, due to the size of the patient record, not all encounters were searched. Please check Results Review for a complete set of results. Patient Phone Numbers Labs: Lab Results Component Value Date/Time CREAT 1.2 (H) 06/14/2024 12:42 PM CREAT 1.1 (H) 12/23/2023 08:44 AM CREAT 1.4 (H) 09/04/2020 11:51 AM POTASSIUM 3.8 06/14/2024 12:42 PM POTASSIUM 3.4 (L) 12/23/2023 08:44 AM POTASSIUM 4.3 09/04/2020 11:51 AM TSH 0.57 06/02/2024 02:35 PM TSH 1.93 06/15/2020 12:26 PM LDL 66 06/14/2024 12:42 PM LDL 62 06/15/2020 12:26 PM LDL NOT APPLICABLE 06/15/2020 12:26 PM ALT 15 06/14/2024 12:42 PM ALT 21 06/15/2020 12:26 PM HGBA1C 5.0 06/14/2024 12:42 PM HGBA1C 5.2 03/31/2020 11:18 AM documented in this encounter Plan of Treatment Upcoming Encounters Date Type Department Care Team (Latest Contact Info) Description 10/21/2024 1:00 PM EST Office Visit Cardiology [address] [place] [address] Charlene Kennedy PA-C [address] [place] [address] 10/26/2024 9:00 AM EST Imaging Radiology [address] [place] [address] 11/01/2024 11:40 AM EST Office Visit Hepatology, [facility] [address] [place] [address] Rachelle Camargo DO [address] [place] [address] 11/19/2024 2:20 PM EDT Telemedicine Nephrology, [facility] [address] Dru Vicente MD [facility] [address] 11/22/2024 10:15 AM EDT Hospital Encounter ENDO OSSC, Endoscopy Room OSS [address] [place] [phone] Lena Cota MD [address] [place] [address] 11/22/2024 10:15 AM EDT - 11/22/2024 10:45 AM EDT Surgery ENDO OSSC, Endoscopy Room OSS [address] [place] [phone] Lena Cota MD [address] [place] [address] COLONOSCOPY FLEXIBLE PROXIMAL DIAGNOSTIC 02/24/2025 4:30 PM EDT [facility]icine [facility] [address] [place] [address] Glory Martinez CRNP [address] [place] [address] 03/21/2025 2:20 PM EDT Office Visit General Internal Medicine [facility] [address] Ryan Hadley MD [facility] [place] [address] Scheduled Procedures Name Priority Associated Diagnoses Date/Ti [...] Additional history exists CKD HGB USE SMARTSET 26660 06/14/202506/14, 06/14/2024, 01/22/2024, Additional history exists CKD PHOS USE SMARTSET 49187 06/14/202506/01, 04/02/2023, 03/21/2023, Additional history exists DTap/Tdap [...] as of this encounter Visit Diagnoses Diagnosis Diastolic dysfunction Heart disease, unspecified History of colon polyps Personal history of colonic polyps documented in this encounter Care Teams Watch Inspector Relationship Specialty Start Date End Date Ryan Hadley MD [address] [place] [address] PCP - General Internal Medicine 11/06/17 documented as of this encounter
--- OUTSIDE RECORDS SUMMARY | 2024-11-19 05:59 | External Medical Summary | Summary of Care ---
Author Name Unknown Organization [facility] Address [address] [address] Phone [phone] Care Team Providers Care Ticket Puller Name Role Phone Ryan Hadley MD Primary Care Provider + Encounter Details Date Type Department Care Team (Late st Contact Info) Description 09/23/2024 Population Health External Data Unspecified Department Allergies Active Allergy Reactions Criticality Noted Date [...] Respimat 1.25 MCG/ACT Inhalation Aerosol Solution (Tiotropium [place] Monohydrate)Indications :Moderate persistent asthma without complication Inhale 2 Puffs by mouth in the morning. 12 g 3 023 Active Jardiance 10 MG Oral Tablet (Empagliflozin)Indicati ons:Heart failure, diastolic (HCC) TAKE 1 TABLET BY MOUTH IN THE MORNING 90 Tablet 3 023 Active Torsemide 20 [...] MOUTH DAILY 90 Tablet 3 025 Active documented as [...] 04/03/2020 Overview (12/18/2020): DO NOT DELETE [facility] DETECT Study: Project # [id number], [employer]ry [employer]: Naun Jones, PhD. SUMMARY: Goal: Establish test [...] contact study staff at ; after hours [employer] via the [employer] hospital remote pilot operator . Please contact study team before resolving/deleting from patients problem list. Study phone number: [phone]. Diagnosis changed due to Research Module. Go to Snapshot for study details. Encounter for examination fo r normal comparison and control in clinical research program 09/24/2018 05/02/2022 Overview (12/18/2020): DO NOT DELETE - [facility] DETECT Study: Project # [id number], [employer]: Ady Bruno, MS, MPH. SUMMARY: Goal: Establish [...] contact study staff at ; after hours [employer] via the [employer] hospital remote pilot operator . - Please contact study team before resolving/deleting from patients problem list. Study phone number: [phone]. Diagnosis changed due to Research Module. Go [...] appointment. EXTRINSIC ASTHMA, UNSPEC 09/23/2003 LOC PRIM [id number] 07/29/200301/30 Type 2 diabetes mellitus wit h [...] Description 09/24/2024 3:50 PM EST Laboratory [facility] [place] Sloan [address] [place] [phone] [facility] [address] [place] [address] 10/21/2024 1:00 PM EST Office Visit Cardiology [address] [place] [address] Ricky Hackett PA-C [address] [place] [address] 10/26/2024 9:00 AM EST Imaging Radiology [address] [place] [address] 11/01/2024 11:40 AM EST Office Visit [facility], [facility] [address] [facility] [place] [address] Rachelle Camargo DO [address] [place] [address] 11/19/2024 2:20 PM EDT Telemedicine Nephrology, [facility] [address] [place] [address] Dru Vicente MD [address] [place] [address] 11/22/2024 10:15 AM EDT Hospital Encounter ENDO [facility], Endoscopy Room [facility] [address] [place] [phone] Lena Cota MD [address] [place] [address] 11/22/2024 10:15 AM EDT - 11/22/2024 10:45 AM EDT Surgery ENDO [facility], Endoscopy Room [facility] [address] [place] [phone] Lena Cota MD [address] [place] [address] COLONOSCOPY FLEXIBLE PROXIMAL DIAGNOSTIC 02/24/2025 4:30 PM EDT [facility]icine [facility] [address] [facility] [phone] Glory Martinez CRNP [address] [address] 03/21/2025 2:20 PM EDT Office Visit General Internal Medicine [facility] [address] [place] [address] Ryan Hadley MD [address] [facility] [address] Scheduled Procedures Name Priority Associated Diagnoses Date/Ti [...] Additional history exists CKD HGB USE SMARTSET 33463 06/14/202506/14, 06/14/2024, 01/22/2024, Additional history exists CKD PHOS USE SMARTSET 92971 06/14/202506/01, 04/02/2023, 03/21/2023, Additional history exists DTap/Tdap [...] filedocumented as of this encounter Care Teams Ticket Puller Relationship Specialty Start Date End Date Ryan Hadley MD [address] [place] [address] PCP - General Internal Medicine 11/06/17 documented as of this encounter
--- OUTSIDE RECORDS SUMMARY | 2024-11-19 06:00 | External Medical Summary ---
Author Name Unknown Address Unknown Organization [facility] [place] [address] Laboratory Report Ordering Provider Test Date Status DO NOELGARDENIABENOIT 06/14/2024 12:42:35 Final Observation Date Value Abnormality Reference (Units ) Status SYNC LEUKOCYTES IN BLOOD BY AUTOMATED COUNT 06/14/2024 12:42:35 8.10 4.00-10.80 (K/uL) Final Segs 06/14/2024 12:42:35 55.8 40.0-75.0 (%) Final Lymphs % 06/14/2024 12:42:35 27.3 18.0-42.0 (%) Final Monos 06/14/2024 12:42:35 13.7 Above high normal 1.0-11.0 (%) Final Eosinophils 06/14/2024 12:42:35 3.0 0.0-6.0 (%) Final Basos 06/14/2024 12:42:35 0.2 0.0-2.0 (%) Final Absolute Segs 06/14/2024 12:42:35 4.52 1.80-7.70 (K/uL) Final Lymphs, absolute 06/14/2024 12:42:35 2.21 1.00-4.80 (K/ul) Final Monos, Abs 06/14/2024 12:42:35 1.11 Above high normal 0.00-1.10 (K/uL) Final Eos, Abs 06/14/2024 12:42:35 0.24 0.00-0.70 (K/uL) Final Basos, Abs 06/14/2024 12:42:35 0.02 0.00-0.20 (K/uL) Final Performing Location [facility] [place] [address]
--- OUTSIDE RECORDS SUMMARY | 2024-11-19 06:00 | External Medical Summary | Summary of Care ---
Author Name Unknown Organization [facility] Address [address] [facility] [place] [address] Phone [phone] Care Team Providers Care Radio Reporter Name Role Phone Ryan Hadley MD Primary Care Provider + Reason for Visit * Reason Comments Chronic Kidney Disease (CKD) Encounter Details Date Type Department Care Team (Late st Contact Info) Description 05/28/2024 2:00 PM EDT Telemedicine Nephrology, Monty Bojorquez [address] [place] [address] Dru Vicente MD [address] [facility] [place] [address] Stage 3b chronic kidney disease (HCC)*; Other cirrhosis of liver (HCC) Allergies Active Allergy Reactions Criticality Noted Date Comments Bactrim 01/20/2014 Cephalosporins 07/29/2003 Rash (Ceclor only) Metformin Other (Please comment),Renal complications 03/25/2023 documented as of this encounter (statuses as of 05/28/2024) Medications Medication Sig Dispensed Refills Start Date [...] or chew. 50 Cap 3 9 Active Additional Information Patient not taking.Reported on 05/05/2024 fluticasone (FLONASE) 50 MCG/ACT nasal sprayIndications:Rhinitis , nonallergic USE 2 SPRAYS IN EACH NOSTRIL DAILY 48 g 4 0 Active Nitroglycerin 0.4 MG Sublingual Tablet Sublingual (NITROSTAT) Place 1 Tab under the tongue every 5 minutes as needed for Pain, Chest. up to 3 doses in 15 minutes 25 Tab 11 0 Active Additional Information Patient not taking.Reported on 05/05/2024 Albuterol Sulfate (2.5 MG/3ML) 0.083% Inhalation Nebulization Solution (PROVENTIL) Inhale 1 Vial via nebulizer every 6 hours as needed for Other (Cough, wheezing, shortness of breath). Dx J45.40 360 mL 11 1 Active Additional Information Patient not taking.Reported on 05/05/2024 CPAP every night at bedtime . Active Acetaminophen 500 MG Oral Tablet (Tylenol)Indications:Prevention Coordinator chayito bilateral low back pain with right-sided sciatica Take 2 Tablets by mouth every 12 hours as needed for Pain, Severe. 100 Tablet 3 Active Spiriva Respimat 1.25 MCG/ACT Inhalation Aerosol Solution (Tiotropium Marion Monohydrate)Indications:M oderate persistent asthma without complication Inhale [...] Active Spironolactone 25 MG Oral Tablet (Aldactone)Indications:[place] diastolic heart failure (HCC),HTN, goal below 140/90,Generalized edema,Diastolic dysfunction Take 1 Tablet by mouth in the morning. 90 Tablet 3 4 Active Metoprolol Succinate ER 25 MG Oral Tablet Extended Release 24 Hour (toPROL XL)Indications:HTN, goal below 140/90 Take 1 Tablet by mouth 2 times a day. 180 Tablet 3 4 Active Nystatin 841029 UNIT/ML Mouth/Throat Suspension Take 5 mL by mouth in the morning and 5 mL at noon and 5 mL in the evening and 5 mL before bedtime. 4 Active Apixaban 5 MG Oral Tablet (Eliquis)Indications:PAF (paroxysmal atrial fibrillation) ([facility]) Take 1 Tablet by mouth [...] AFTER USE 180 Each 3 4 Active Combivent Respimat 20-100 MCG/ACT Inhalation Aerosol Solution (Ipratropium-Albuterol) Inhale 1 Puff by mouth in the morning and 1 Puff at noon and 1 Puff in the evening and 1 Puff before bedtime. Active Potassium Chloride ER 10 MEQ Oral Tablet Extended ReleaseIndications:[place] lemia TAKE 1 TABLET BY MOUTH IN THE MORNING 90 Tablet 1 4 Active documented as of this encounter (statuses as of 05/28/2024) Active Problems Problem Noted Date Diagnosed Date PAF (paroxysmal atrial fibrillation) 12/30/2023 Subclinical hyperthyroidism 12/30/2023 Caregiver burden 10/30/2023 Liver cirrhosis secondary to nonalcoholic steatohepatitis (XVAIER) 10/07/2022 Diastolic heart failure 10/07/2022 History of 2019 novel coronavirus disease (COVID -19) 03/22/2022 Thyroid nodule 03/22/2022 Other cirrhosis of liver [...] as of this encounter (statuses as of 05/28/2024) Resolved Problems Problem Noted Date Diagnosed Date Resolved Date Body mass index (BMI) of 45. 0 to 49.9 in adult 10/07/2022 04/09/2023 Stage 3b chronic kidney disease 10/07/2022 04/09/2023 Body mass index (BMI) of 45. [...] [facility] DETECT Study: Project # [id number], Correctional Supervisor Lieutenant: Naun Jones, PhD. SUMMARY: Goal: Establish test [...] contact study staff at ; after hours Correctional Supervisor Lieutenant via the [facility] hospital agricultural plow operator . Please contact study team before resolving/deleting from patients problem list. Study phone number: [phone]. Diagnosis changed due to Research Module. Go to Snapshot for study details. Encounter for examination fo r normal comparison and control in clinical research program 09/24/2018 05/02/2022 Overview: DO NOT DELETE - [employer] DETECT Study: Project # [id number], Correctional Supervisor Lieutenant: dAy Bruno, MS, MPH. SUMMARY: Goal: Establish test [...] contact study staff at ; after hours Correctional Supervisor Lieutenant via the [facility] hospital agricultural plow operator . - Please contact study team before resolving/deleting from patients problem list. Study phone number: [phone]. Diagnosis changed due to Research Module. Go [...] appointment. EXTRINSIC ASTHMA, UNSPEC 09/23/2003 LOC PRIM [id number]-O-IZZ 07/29/200301/30 Type 2 diabetes mellitus wit h hemoglobin A1c goal of less than 7.0% 08/02/2010 Overview: ICD-10 update of inactive term Type 2 diabetes mellitus wit h hemoglobin A1c goal of less than 7.0% 10/30/2011 Overview: ICD-10 update of inactive term Hypersomnia with sleep apnea 02/11/2018 documented as of this encounter (statuses as of 05/28/2024) Immunizations Name Administration Dates Next Due COVID-19 mRNA, LNP-s, No Pre serve, 2-Dose Series (Pfizer) 10/02/2021,09/01/2021,12/05/2020,11/14 Pneumococcal Conjugate Vacc, 13 Valent (Prevnar) 02/15/2016 Pneumococcal Polysaccharide PPV23 (Pneumovax) 08/13/2017,07/21/2009 Season Influenza, Quad, PF, Adjuvanted, 65+ Yrs, IM (FLUAD) 06/14/2020 Seasonal Influenza Virus Vac cine, Unspecified Formulation 06/22/2021,06/14/2020,06/29/2019,08/13,06/05/2010,06/16/2009,06/15/2009 ,07/11/2008,07/16/2003 Seasonal Influenza, PF, 6 M & above, IM , (FluLaval or Fluzone) 06/29/2019,08/13/2018 Seasonal Influenza, Quadriva lent Hd (Fluzone Hd) 06/21/2023,07/06/2022,06/22/2021 Seasonal Influenza, Quadriva lent, No Preserve, IM 07/15/2017 Seasonal Influenza, Trivalen t, (IIV3), PF, (Fluzone) 06/15/2009 Seasonal Influenza, Trivalen t, (IIV3), with Preserv, (Fluzone) 07/10/2016,07/04/2015,07/11/2008 TD - Tetanus/Diptheria (ADULT) 09/01/1999 TD, Preservative [...] as of this encounter Progress Notes * Dru Vicente MD - 05/28/2024 2:10 PM EDT Patient location: HOME. I was in a hospital or clinic location. After connecting through televideo,patient was verified with two unique identifiers. Patient (or authorized legal retail wireless sales representative) was then informed that this was a Telemedicine visit and being conducted confidentially over secure lines. Methods to assure confidentiality were taken. Patient acknowledged consent and understanding of pr ivacy and security of the Telemedicine visit. The patient agreed to participate. Background: 78/F presents for follow-up of CKD 3 from chronic NSAIDs, hypertension. New diagnosis with cirrhosis of unclear cause but likely XAVIER Also has asthma /COPD, SHANA on cpap, OA, metabolic syndrome on metformin since 2008, Chronic ITP, obesity, chronic LBP; GERD. now diagnosis of cirrhosis of unclear etiology but likely XAVIER. 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 FH CKD/ESRD: none NSAIDS: yes; daily celebrex since 2004 > stopped about late 2018 then again early 2020 stone hx: no Since --- neck Infection --ABx only no surgery. Had Afibb with RVR in December 2023. And needed cardioversion. Now on eliquis and BB raised. She is on low dose torsemide and spironolactone--she feels edema is lot less. She is having some back pain/ambulatory issues and is undergoing physical therapy. Past Medical History: Diagnosis Date Asthma Asthma, [...] UNSPECIFIED: AHI 22.9 02/07/2009 Thyroid nodule 03/22/2022 Patient Active Problem List Diagnosis HTN, goal below 140/90 SHANA on CPAP Asthma, moderate persistent Metabolic syndrome Mixed hyperlipidemia Knee joint replacement status GERD (gastroesophageal reflux disease) Rhinitis, nonallergic Diastolic dysfunction Thrombocytopenia (HCC) Morbid obesity, unspecified obesity type (HCC) Benign hypertension with CKD (chronic kidney disease) stage III (HCC) Other cirrhosis of liver (HCC) History of 2019 novel coronavirus disease (COVID-19) Thyroid nodule Liver cirrhosis secondary to nonalcoholic steatohepatitis (XAVIER) (HCC) Diastolic heart failure (HCC) Caregiver burden PAF (paroxysmal atrial fibrillation) (HCC) Subclinical hyperthyroidism REVIEW OF SYSTEMS: Other than chronic back pain otherwise denies any acute complaints. Has recovered from COVID infection full Current Outpatient Medications Medication Sig Dispense Refill ZYRTEC 10 MG PO TABS 1 tab every day fluticasone (FLONASE) 50 MCG/ACT nasal spray USE 2 SPRAYS IN EACH NOSTRIL DAILY 48 g 4 CPAP every night at bedtime . Spiriva Respimat 1.25 MCG/ACT Inhalation Aerosol Solution (Tiotropium Marion Monohydrate) Inhale 2Puffs by mouth in the [...] MOUTH IN THE MORNING 90 Tablet 1 amoxicillin (AMOXIL) 500 MG Capsule TAKE 4 CAPSULES BY MOUTH ONE HOUR PRIOR TO APPOINTMENT (Patientnot taking: Reported on 05/05/2024) 0 benzonatate (TESSALON PERLES) 100 MG Capsule Swallow 1 or 2 pills three times a day as needed for cough. Do not cut, crush, or chew. (Patient not taking: Reported on 05/05/2024) 50 Cap 3 Nitroglycerin 0.4 MG Sublingual Tablet Sublingual (NITROSTAT) Place 1 Tab under the tongue every 5 minutes as needed for Pain, Chest. up to 3 doses in 15 minutes (Patient not taking: Reported on 05/05/2024) 25 Tab 11 Albuterol Sulfate (2.5 MG/3ML) 0.083% Inhalation Nebulization Solution (PROVENTIL) Inhale 1 Vial via nebulizer every 6 hours as needed for Other (Cough, wheezing, shortness of breath). Dx J45.40 (Patient not taking: Reported on 05/05/2024) 360 mL 11 Acetaminophen 500 MG Oral Tablet (Tylenol) Take 2 Tablets by mouth every 12 hours as needed for Pain, Severe. 100 Tablet 0 Nystatin 060898 UNIT/ML Mouth/Throat Suspension Take 5 mL by mouth in the morning and 5 mL at noon and 5 mL in the evening and 5 mL before bedtime. (Patient not taking: Reported on 05/05/2024) Combivent Respimat 20-100 MCG/ACT Inhalation Aerosol Solution (Ipratropium- Albuterol) Inhale 1 Puffby mouth in the morning and 1 Puff at noon and 1 Puff in the evening and 1 Puff before bedtime. No current facility-administered medications for this visit. 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 Social Needs Financial resource strain: Not on file Food insecurity Worry: Never true Inability: Never true Transportation needs Medical: Not on file Non-medical: Not on file Tobacco Use Smoking status: Former Smoker Packs/day: 0.50 Years: 15.00 Pack years: 7.50 Types: Cigarettes Quit date: 09/01/1980 Years since quittin.5 Smokeless tobacco: Never Used Tobacco comment: no passive smoke Substance and Sexual Activity Alcohol use: Yes Comment: rare - 2 wine coolers a year Drug use: No Sexual activity: Yes Partners: Male control/protection: Surgical Comment: , two children Lifestyle Physical activity Days per week: Not on file Minutes per session: Not on file Stress: Not on file Relationships Social connections Talks on phone: Not on file Gets together: Not on file Attends mormonism service: Not on file Active member of club or organization: Not on file Attends meetings of clubs or organizations: Not on file Relationship status: Not on file Intimate partner violence Fear of current or ex partner: Not on file Emotionally abused: Not on file Physically abused: Not on file Forced sexual activity: Not on file Other Topics Concern Service Not Asked Blood Transfusions No Caffeine Concern Not Asked Occupational Exposure Not Asked Hobby Hazards Not Asked Sleep Concern Not Asked Stress Concern Not Asked Weight Concern Not Asked Special Diet No Back Care Not Asked Exercise Not Asked Bike Helmet Not Asked Seat Belt Yes Self-Exams Not Asked Social History Narrative Not on file Vaping/E-Cigarette Use Vaping/E-Cigarette Use Never User Vaping/E-Cigarette Substances Vaping/E-Cigarette Devices Family History Problem Relation Name Age of Onset No Past Hx Father at 97 Cancer Father Skin/Basal Cell Carcinoma Nose Diabetes Mother Hypertension Mother Stroke Mother No Past Hx Son Malick [place] No Past Hx Son Elliott Other (No siblings) Other Breast Cancer No significant family history Family Status Relation Status Fa (Not Specified) Mo (Not Specified) Son (Not Specified) Son (Not Specified) PHYSICAL EXAMINATION: BP Readings from Last 6 Encounters: 05/10/24 118/56 04/30/24 118/60 04/06/24 108/56 02/23/24 122/57 02/04/24 110/74 01/28/24 103/64 Wt Readings from Last 6 Encounters: 05/10/24 98.4 kg (217 lb) 04/30/24 98.5 kg (217 lb 1.6 oz) 04/06/24 98.4 kg (217 lb) 02/23/24 103.9 kg (229 lb) 02/23/24 103.7 kg (228 lb 11.2 oz) 02/04/24 101.6 kg (224 lb) Pulse Readings from Last 6 Encounters: 05/10/24 72 04/30/24 54 04/06/24 60 02/23/24 77 02/04/24 84 01/28/24 68 No distress. Normal speech and demeanor LABS: NEPH-FLOW Latest Ref Rng & Units 12/14/2020 03/07/2021 06/12/2021 Bun 6 - 20 mg/dL 28 (H) 20 10 Cr 0.5 - 1.0 mg/dL 1.4 (H) 1.1 (H) 1.1 (H) eGFR >=60 mL/min 38.3 (L) 51.6 (L) 52.8 (L) eGFR >60 K 3.5 - 5.1 mmol/L 4.1 4.4 3.5 Hb 12.0 - 15.3 g/dL 11.8 (L) 11.7 (L) Microalb/cr ratio <30 mg/g creat NEPH-FLOW Latest Ref Rng & Units 07/09/2021 08/07/2021 08/14/2021 Bun 6 - 20 mg/dL 14 23 (H) Cr 0.5 - 1.0 mg/dL 1.0 1.1 (H) eGFR >=60 mL/min 55 (L) 49 (L) eGFR >60 K 3.5 - 5.1 mmol/L 3.5 4.4 Hb 12.0 - 15.3 g/dL 12.8 Microalb/cr ratio <30 mg/g creat NEPH-FLOW Latest Ref Rng & Units 03/18/2022 03/22/2022 05/01/2022 Bun 6 - 20 mg/dL 26 (H) 28 (H) 38 (H) Cr 0.5 - 1.0 mg/dL 1.2 (H) 1.3 (H) 1.4 (H) eGFR >=60 mL/min 49 (L) 42 (L) 39 (L) eGFR >60 K 3.5 - 5.1 mmol/L 4.6 4.5 4.8 Hb 12.0 - 15.3 g/dL 11.7 (L) 11.9 (L) Pro/Cr ratio <150 mg/g Microalb/cr ratio <30 mg/g creat ASSESSMENT AND PLAN: Stage 3b chronic kidney disease (HCC) (Primary) CKD stage IIIA to 3B likely secondary to hypertension with fluctuating creatinine GFR based on hydration status ( she is on Lasix and Aldactone through cardiology) . Appears quite stable at this point. Risk of ESRD is actually low given lack of diabetes. However now with the new diagnosis of liver cirrhosis it is hard to predict. If she gets into decompensated liver cirrhosis she will have problem with the kidneys but for now looks quite compensated. Continue current medications including torsemide and lisinopril She had labs done which showed stable but somewhat abnormal labs which were within her baseline range. Reviewed the current dose of torsemide and spironolactone--no significant edema reported and renal labs stable so continue same. Other cirrhosis of liver (HCC) Well compensated. No history of alcohol abuse. Etiology most likely XAVIER Follow Up: Return in about 6 months (around 11/25/2024) for Clinic Visit. | For: Clinic Visit Dru Vicente MD * Sarah Bee RN - 05/28/2024 2:00 PM EDT Video visit started with pt ulcien proper ID with name and date of . documented in this encounter Plan of Treatment Upcoming Encounters Date Type Department Care Team (Latest Contact Info) Description 06/14/2024 12:00 PM EDT Office Visit General Internal Medicine [facility] [address] [facility] [place] [address] Ryan Hadley MD [address] [facility] [place] [address] 08/02/2024 11:15 AM EST Imaging Radiology [address] [place] [address] 10/21/2024 1:00 PM EST Office Visit Cardiology [address] [place] [address] Ricky Hackett PA-C [address] [place] [address] 10/26/2024 9:00 AM EST Imaging Radiology [address] [place] [address] 11/01/2024 11:40 AM EST Office Visit Hepatology, [facility] [address] [place] [address] Rachelle Camargo DO [address] [place] [address] 11/22/2024 10:15 AM EDT Hospital Encounter ENDO [facility], Endoscopy Room [facility] [address] [place] [phone] Lena Cota MD [facility] [address] [place] [address] 11/22/2024 10:15 AM EDT - 11/22/2024 10:45 AM EDT Surgery ENDO [facility], Endoscopy Room [facility] [address] [place] [phone] Lena Cota MD [address] [place] [address] COLONOSCOPY FLEXIBLE PROXIMAL DIAGNOSTIC 02/24/2025 4:30 PM EDT Telemedicine Sleep Disorders Ctr [facility] [address] [place] [phone] Glory Martinez CRNP [address] [place] [address] Scheduled Procedures Name Priority Associated Diagnoses Date/Ti me COLONOSCOPY FLEXIBLE PROXIMA L DIAGNOSTIC History of colon polyps 11/22/2024 10:15 AM EDT ESOPHAGOGASTRODUODENOSCOPY ( EGD), FLEXIBLE, TRANSORAL, DIAGNOSTIC Recall Portal hypertensive gastropathy (HCC) Health Maintenance Due Date Last Done Comments Adult Wellness Visit 2013 B-12 03/21/2024 03/21/2023, 09/2021, 12/04/2020, Additional history exists CKD PHOS USE SMARTSET 25581 04/02/202410/2022, 03/21/2023, 08/05/2022, Additional history exists Depression Screening 04/09/2024 04/09/2023 COVID-19 Vaccine ( season) 2024 10/02/2021, 09/01/2021, 12/05/2020, Additional history exists Influenza Vaccine (FLU shot) (#1) 2024 06/21/2023, 07/06/2022, 06/22/2021, Additional history exists GFR 10/22/2024 04/21/2024, 03/01, 01/22/2024, Additional history exists DXA Scan 11/07/2024 11/08/2019, 0 05/2020, 11/25/2012, Additional history exists Albumin/Creatinine Ratio 11/18/2024 024, 11/04/2022, 03/07/2021, Additional history exists CKD HGB USE SMARTSET 47585 01/21/202501/21, 12/11/2023, 12/11/2023, Additional history exists DTap/Tdap Vaccines (3 - Td or Tdap) 01/21/2032 01/20/2022, 05/10/2010, 09/01/1999, Additional history exists Pneumococcal Vaccine: 65+ Years Completed 08/13/2017, 02/15/2016, 07/21/2009 Fecal Occult Blood Test Discontinued 10/26/2019 Zoster Vaccines Completed 01/09/2021, 10/02, 11/24/2013 Colonoscopy Discontinued 05/10/2024, 05/2024, 03/17/2018 Colorectal Cancer Screening Discontinued Cologuard Discontinued HPV (Gardasil) Vaccine Aged Out No lo nger eligible based on patient's age to complete this topic MENINGOCOCCAL (MENACTRA/MENVEO) Aged Out No longer eligible based on patient's age to complete this topic Sigmoidoscopy Discontinued documented as of this encounter Medical Devices Not on filedocumented as of this encounter Visit Diagnoses Diagnosis Stage 3b chronic kidney disease (HCC)- Primary Other cirrhosis of liver (HCC) History of colon polyps Personal history of colonic polyps documented in this encounter Care Teams Radio Reporter Relationship Specialty Start Date End Date Ryan Hadley MD [address] [facility] [place] [address] PCP - General Internal Medicine 11/06/17 documented as of this encounter"
--- OUTSIDE RECORDS SUMMARY | 2024-11-19 06:00 | External Medical Summary | Summary of Care ---
Author Name Unknown Organization [facility] Address [address] [facility] [place] [address] Phone [phone] Care Team Providers Care Jewelry Cutter Name Role Phone Ryan Hadley MD Primary Care Provider + Reason for Visit * Reason Comments Outpatient Testing Encounter Details Date Type Department Care Team (Late st Contact Info) Description 06/02/2024 2:10 PM EDT Laboratory Laboratory [address] [place] [phone] [place] [address] Thyroid function study abnormality Allergies Active Allergy Reactions Criticality Noted Date Comments Bactrim 01/20/2014 Cephalosporins 07/29/2003 Rash (Ceclor only) Metformin Other (Please comment),Renal complications 03/25/2023 documented as of this encounter (statuses as of 06/02/2024) Medications Medication Sig Dispensed Refills Start Date [...] . 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 100 Tablet 3 Active Spiriva Respimat 1.25 MCG/ACT Inhalation Aerosol Solution (Tiotropium [place] Monohydrate)Indications:M oderate persistent asthma without complication Inhale [...] Active Spironolactone 25 MG Oral Tablet (Aldactone)Indications:Ac [place] diastolic heart failure (HCC),HTN, goal below 140/90,Generalized edema,Diastolic dysfunction Take 1 Tablet by mouth in the morning. 90 Tablet 3 4 Active Metoprolol Succinate ER 25 MG Oral Tablet Extended Release 24 Hour (toPROL XL)Indications:HTN, goal below 140/90 Take 1 Tablet by mouth 2 times a day. 180 Tablet 3 4 Active Nystatin 233448 UNIT/ML Mouth/Throat Suspension Take 5 mL by mouth in the morning and 5 mL at noon and 5 mL in the evening and 5 mL before bedtime. 4 Active Apixaban 5 MG Oral Tablet (Eliquis)Indications:PAF (paroxysmal atrial fibrillation) ([facility]) Take 1 Tablet by [...] as of this encounter (statuses as of 06/02/2024) Active Problems Problem Noted Date Diagnosed Date PAF (paroxysmal atrial fibrillation) 12/30/2023 Subclinical hyperthyroidism 12/30/2023 Caregiver burden 10/30/2023 Liver cirrhosis secondary to nonalcoholic steatohepatitis ([facility]) 10/07/2022 Diastolic heart failure 10/07/2022 History of [...] as of this encounter (statuses as of 06/02/2024) Resolved Problems Problem Noted Date Diagnosed Date [...] research program 09/24/2018 04/03/2020 Overview: [facility] DETECT Study: Project # [id number], Biometrics Instructor: Naun Jones, PhD. SUMMARY: Goal: Establish test [...] contact study staff at ; after hours Biometrics Instructor via the [facility] winch truck operator . Please contact study team before resolving/deleting from patients problem list. Study phone number: [phone]. Diagnosis changed due to Research Module. Go to Snapshot for study details. Encounter for examination fo r normal comparison and control in clinical research program 09/24/2018 05/02/2022 Overview: [facility] DETECT Study: Project # [id number], Biometrics Instructor: Ady Bruno, MS, MPH. SUMMARY: Goal: Establish [...] contact study staff at ; after hours Biometrics Instructor via the [facility] hospital winch truck operator . - Please contact study team before resolving/deleting from patients problem list. Study phone number: [phone]. Diagnosis changed due to Research Module. Go [...] appointment. EXTRINSIC ASTHMA, UNSPEC 09/23/2003 LOC PRIM [id number] 07/29/200301/30 Type 2 diabetes mellitus wit h hemoglobin A1c goal of less than 7.0% 08/02/2010 Overview: ICD-10 update of inactive term Type 2 diabetes mellitus wit h hemoglobin A1c goal of less than 7.0% 10/30/2011 Overview: ICD-10 update of inactive term Hypersomnia with sleep apnea 02/11/2018 documented as of this encounter (statuses as of 06/02/2024) Immunizations Name Administration Dates Next Due COVID-19 mRNA, LNP-s, No Pre serve, 2-Dose Series ([place]isher) 10/02/2021,09/01/2021,12/05/2020,11/14 Pneumococcal Conjugate Vacc, 13 Valent (Prevnar) [...] PM EDT Office Visit General Internal Medicine [facility] [place] [address] [facility] [place] [address] Ryan Hadley MD [address] [facility] [place] [address] 08/02/2024 11:15 AM EST Imaging Radiology [address] [place] [address] 10/21/2024 1:00 PM EST Office Visit Cardiology [address] [place] [address] Ricky Hackett PA-C [address] [place] [address] 10/26/2024 9:00 AM EST Imaging Radiology [address] [place] [address] 11/01/2024 11:40 AM EST Office Visit Hepatology, [facility] [address] [place] [address] Rachelle Camargo DO [address] [place] [address] 11/19/2024 2:20 PM EDT Telemedicine Nephrology, [facility] [address] [facility] [place] [address] Dru Vicente MD [address] [place] [address] 11/22/2024 10:15 AM EDT Hospital Encounter ENDO [facility], Endoscopy Room [facility] [address] [facility], [place] [phone] Lena Cota MD [address] [place] [address] 11/22/2024 10:15 AM EDT - 11/22/2024 10:45 AM EDT Surgery ENDO [facility], Endoscopy Room [facility] [address] [facility] [phone] Lena Ctoa MD [address] [place] [address] COLONOSCOPY FLEXIBLE PROXIMAL DIAGNOSTIC 02/24/2025 4:30 PM EDT Telemedicine [facility] [place], [place] [facility] [phone] Glory Martinez CRNP [address] [place] [address] Pending Results Name Type Priority Associated Diagnoses Date /Time TSH WITH FREE T4 IF INDICATED Lab Routine Thyroid function study abnormality 06/02/2024 2:35 PM EDT Scheduled Procedures Name Priority Associated Diagnoses Date/Ti me COLONOSCOPY FLEXIBLE PROXIMA L DIAGNOSTIC History of colon polyps 11/22/2024 10:15 AM EDT ESOPHAGOGASTRODUODENOSCOPY ( EGD), FLEXIBLE, TRANSORAL, DIAGNOSTIC Recall Portal hypertensive gastropathy (HCC) Health Maintenance Due Date Last Done Comments Adult Wellness Visit 2013 B-12 03/21/2024 03/21/2023, 09/2021, 12/04/2020, Additional history exists CKD PHOS USE SMARTSET 29908 04/02/202410/2022, 03/21/2023, 08/05/2022, Additional history exists Depression Screening 04/09/2024 04/09/2023 COVID-19 Vaccine ( season) 2024 10/02/2021, 09/01/2021, 12/05/2020, Additional history exists Influenza Vaccine (FLU shot) (#1) 2024 06/21/2023, 07/06/2022, 06/22/2021, Additional history exists GFR 10/22/2024 04/21/2024, 03/01, 01/22/2024, Additional history exists DXA Scan 11/07/2024 11/08/2019, 05/2020, 11/25/2012, Additional history exists Albumin/Creatinine Ratio 11/18/2024 024, 11/04/2022, 03/07/2021, Additional history exists CKD HGB USE SMARTSET 09753 01/21/202501/21, 12/11/2023, 12/11/2023, Additional history exists DTap/Tdap [...] as of this encounter Visit Diagnoses Diagnosis Thyroid function study abnormality Nonspecific abnormal results of thyroid function study History of colon polyps Personal history of colonic polyps documented in this encounter Care Teams Jewelry Cutter Relationship Specialty Start Date End Date Ryan Hadley MD [address] [place] [address] PCP - General Internal Medicine 11/06/17 documented as of this encounter
--- OUTSIDE RECORDS SUMMARY | 2024-11-19 06:00 | External Medical Summary ---
Author Name Unknown Address Unknown Organization K01:[facility]ATORY [facility] [place] [address] [place] [place] [address] Laboratory Report Ordering Provider Test Date Status LAURA LANDIS 06/02/2024 14:35:35 Final Observation Date Value Abnormality Reference (Units ) Status TSH 06/02/2024 14:35:35 0.57 0.27-4.20 (uIU/mL) Final Performing Location LAB[facility]ATORY [facility] - [address] [facility] [address]
--- OUTSIDE RECORDS SUMMARY | 2024-11-19 06:00 | External Medical Summary ---
Author Name Unknown Address Unknown Organization K01:LABORATORY [facility] [place] - [address] [place] [address] Laboratory Report Ordering Provider Test Date Status CHANTEL COHEN 06/14/2024 12:42:35 Final Observation Date Value Abnormality Reference (Units ) Status HbA1C 06/14/2024 12:42:35 5.0 4.0-5.6 (% ) Final The use of HbA1c to monitor glycemic status is based on normal hemoglobin and HbA composition. This test should not be used in patients with abnormal hemoglobin that affects the half life of the red blood cell or the in vivo glycation rates. Glucose, estimated average 06/14/2024 12:42:35 97 <126 (mg/dL) Final Performing Location LABORATORY [facility] [place] - [address] [place] [address]
--- OUTSIDE RECORDS SUMMARY | 2024-11-19 06:00 | External Medical Summary ---
Author Name Unknown Address Unknown Organization K09:LABORATORY [place] [address] Laboratory Report Ordering Provider Test Date Status CHANTEL COHEN 06/14/2024 12:42:35 Final Observation Date Value Abnormality Reference (Units ) Status Phosphate 06/14/2024 12:42:35 3.3 2.5-4.8 (m g/dL) Final Performing Location [facility] [place] [address]
--- OUTSIDE RECORDS SUMMARY | 2024-11-19 06:00 | External Medical Summary ---
Author Name Unknown Address Unknown Organization K09:LABORATORY [place] [address] Laboratory Report Ordering Provider Test Date Status DO NOELGARDENIABENOIT 06/14/2024 12:42:35 Final Observation Date Value Abnormality Reference (Units ) Status WBC, Total 06/14/2024 12:42:35 8.10 4.00-10.8 0 (K/uL) Final RBC 06/14/2024 12:42:35 3.77 3.85-5.15 (M/uL) Final Hemoglobin 06/14/2024 12:42:35 11.5 Below low normal 12 .0-15.3 (g/dL) Final HCT 06/14/2024 12:42:35 36.6 36.0-45.2 (%) Final MCV 06/14/2024 12:42:35 97.1 81.5-97.5 (fL) Final MCH 06/14/2024 12:42:35 30.5 27.0-34.0 (pg) Final MCHC 06/14/2024 12:42:35 31.4 32.0-36.0 (g/dL) Final RDW 06/14/2024 12:42:35 15.7 11.5-15.5 (%) Final Platelets 06/14/2024 12:42:35 126 Below low normal 140 -400 (K/uL) Final MPV 06/14/2024 12:42:35 10.0 6.6-11.1 ( fL) Final Performing Location LABORATORY [place] [address]
--- OUTSIDE RECORDS SUMMARY | 2024-11-19 06:01 | External Medical Summary | Summary of Care ---
Author Name Unknown Organization [facility] Address [address] [facility] [place] [address] Phone [phone] Care Team Providers Care Toll Lineman Name Role Phone Ryan Hadley MD Primary Care Provider + Reason for Visit * Reason Comments eRx-Medication Refill Encounter Details Date Type Department Care Team (Late st Contact Info) Description 05/25/2024 Refill General Internal Medicine [facility] [address] [facility] [place] [address] Dima Rondon, DO [address] [place] [address] Hypokalemia Allergies Active Allergy Reactions Criticality Noted Date Comments Bactrim 01/20/2014 Cephalosporins 07/29/2003 Rash (Ceclor only) Metformin Other (Please comment),Renal complications 03/25/2023 documented as of this encounter (statuses as of 05/26/2024) Medications Medication Sig Dispensed Refills Start Date [...] chew. 50 Cap 3 09/02/19 19 Active Additional Information Patient not taking.Reported on 05/05/2024 fluticasone (FLONASE) 50 MCG/ACT nasal sprayIndications:Rhinit is, nonallergic USE 2 SPRAYS IN EACH NOSTRIL DAILY 48 g 4 03/30/20 20 Active Nitroglycerin 0.4 MG Sublingual Tablet Sublingual (NITROSTAT) Place 1 Tab under the tongue every 5 minutes as needed for Pain, Chest. up to 3 doses in 15 minutes 25 Tab 11 07/18/20 20 Active Additional Information Patient not taking.Reported on [...] Respimat 1.25 MCG/ACT Inhalation Aerosol Solution (Tiotropium [place] Monohydrate)Indications :Moderate persistent asthma without complication Inhale 2 Puffs by mouth in the morning. 12 g 3 06/05/20 23 Active Lovastatin 40 MG Oral TabletIndications:Pure hypercholesterolemia TAKE 1 TABLET BY MOUTH IN THE EVENING 90 Tablet 3 06/27/20 23 Active Jardiance 10 MG Oral Tablet [...] day. 180 Tablet 3 11/20/19 24 Active Nystatin 357951 UNIT/ML Mouth/Throat Suspension Take 5 mL by mouth in the morning and 5 mL at noon and 5 mL in the evening and 5 mL before bedtime. 12/03/19 24 Active Apixaban 5 MG Oral Tablet (Eliquis)Indications:PA F (paroxysmal atrial fibrillation) ([facility]) Take 1 Tablet by mouth [...] USE 180 Each 3 03/08/20 24 Active Combivent Respimat 20-100 MCG/ACT Inhalation Aerosol Solution (Ipratropium-Albuterol) Inhale 1 Puff by mouth in the morning and 1 Puff at noon and 1 Puff in the evening and 1 Puff before bedtime. Active Potassium Chloride ER 10 MEQ Oral Tablet Extended ReleaseIndications:Hypo kalemia TAKE 1 TABLET BY MOUTH IN THE MORNING 90 Tablet 1 05/26/20 24 Active Potassium Chloride ER 10 MEQ Oral Tablet Extended ReleaseIndications:Hypo kalemia Take 1 Tablet by mouth in the morning. 90 Tablet 1 12/30/19 24 024 Discontinued documented as of this encounter (statuses as of 05/26/2024) Active Problems Problem Noted Date Diagnosed Date [...] as of this encounter (statuses as of 05/26/2024) Resolved Problems Problem Noted Date Diagnosed Date [...] program 09/24/2018 04/03/2020 Overview: DO NOT DELETE [facility] DETECT Study: Project # [id number], Tree Girdler: Naun Jones, PhD. SUMMARY: Goal: Establish test [...] contact study staff at ; after hours Tree Girdler via the [facility] sticker operator . Please contact study team before resolving/deleting from patients problem list. Study phone number: [phone]. Diagnosis changed due to Research Module. Go to Snapshot for study details. Encounter for examination fo r normal comparison and control in clinical research program 09/24/2018 05/02/2022 Overview: DO NOT DELETE - [facility] DETECT Study: Project # [id number], Tree Girdler: dAy Bruno, MS, MPH. SUMMARY: Goal: Establish [...] contact study staff at ; after hours Tree Girdler via the [facility] hospital sticker operator . - Please contact study team before resolving/deleting from patients problem list. Study phone number: [phone]. Diagnosis changed due to Research Module. Go [...] appointment. EXTRINSIC ASTHMA, UNSPEC 09/23/2003 LOC PRIM [id number] 07/29/200301/30 Type 2 diabetes mellitus wit h hemoglobin A1c goal of less than 7.0% 08/02/2010 Overview: ICD-10 update of inactive term Type 2 diabetes mellitus wit h hemoglobin A1c goal of less than 7.0% 10/30/2011 Overview: ICD-10 update of inactive term Hypersomnia with sleep apnea 02/11/2018 documented as of this encounter (statuses as of 05/26/2024) Immunizations Name Administration Dates Next Due COVID-19 mRNA, LNP-s, No Pre serve, 2-Dose Series (Exara) 10/02/2021,09/01/2021,12/05/2020,11/14 Pneumococcal Conjugate Vacc, 13 Valent (Prevnar) [...] encounter Miscellaneous Notes * Telephone Encounter - Alexandrea Matt jeff - 05/26/2024 11:14 AM EDTSigned Prescriptions: Disp Refills Potassium Chloride ER 10 MEQ Oral Tablet E*90 Tab*1 Sig: TAKE 1TABLET BY MOUTH IN THE MORNINGAuthorizing Provider: DIMA RONDON User: ALEXANDREA MATT documented in this encounter Plan of Treatment Upcoming Encounters Date Type Department Care Team (Latest Contact Info) Description 05/28/2024 1:40 PM EDT Telemedicine Nephrology, [facility] [address] [place], [place] [address] Dru Vicente MD [address] [place] [address] 06/14/2024 12:00 PM EDT Office Visit General Internal Medicine [facility] [place] [address] [place] [address] [address] Ryan Hadley MD [address] [place] [place] [address] 08/02/2024 11:15 AM EST Imaging Radiology [address] [place] [address] 10/21/2024 1:00 PM EST Office Visit Cardiology [address] [place] [address] Ricky Hackett PA-C [address] [place] [address] 10/26/2024 9:00 AM EST Imaging Radiology [address] [place] [address] 11/01/2024 11:40 AM EST Office Visit Hepatology, [facility] [address] [place] [address] Rachelle Camargo DO [address] [place] [address] 11/22/2024 10:15 AM EDT Hospital Encounter ENDO [facility], Endoscopy Room OSS [address] [place] [phone] Lena Cota MD [address] [place] [address] 11/22/2024 10:15 AM EDT - 11/22/2024 10:45 AM EDT Surgery ENDO [facility], Endoscopy Room OSS [address] [place] [phone] Lena Cota MD [address] [place] [address] COLONOSCOPY FLEXIBLE PROXIMAL DIAGNOSTIC 02/24/2025 4:30 PM EDT Telemedicine Sleep Disorders Ctr [facility] [address] [place] [phone] Glory Martinez CRNP [address] [place] [address] Scheduled Procedures Name Priority Associated Diagnoses Date/Ti me COLONOSCOPY FLEXIBLE PROXIMA L DIAGNOSTIC History of colon polyps 11/22/2024 10:15 AM EDT ESOPHAGOGASTRODUODENOSCOPY ( EGD), FLEXIBLE, TRANSORAL, DIAGNOSTIC Recall Portal hypertensive gastropathy (HCC) Health Maintenance Due Date Last Done Comments Adult Wellness Visit 2013 B-12 03/21/2024 03/21/2023, 09/2021, 12/04/2020, Additional history exists CKD PHOS USE SMARTSET 34088 04/02/202410/2022, 03/21/2023, 08/05/2022, Additional history exists Depression Screening 04/09/2024 04/09/2023 COVID-19 Vaccine ( season) 2024 10/02/2021, 09/01/2021, 12/05/2020, Additional history exists Influenza Vaccine (FLU shot) (#1) 2024 06/21/2023, 07/06/2022, 06/22/2021, Additional history exists GFR 10/22/2024 04/21/2024, 03/01, 01/22/2024, Additional history exists DXA Scan 11/07/2024 11/08/2019, 05/2020, 11/25/2012, Additional history exists Albumin/Creatinine Ratio 11/18/2024 024, 11/04/2022, 03/07/2021, Additional history exists CKD HGB USE SMARTSET 99028 01/21/202501/21, 12/11/2023, 12/11/2023, Additional history exists DTap/Tdap [...] as of this encounter Visit Diagnoses Diagnosis Hypokalemia Hypopotassemia History of colon polyps Personal history of colonic polyps documented in this encounter Care Teams Toll Lineman Relationship Specialty Start Date End Date Ryan Hadley MD [address] [place] [address] PCP - General Internal Medicine 11/06/17 documented as of this encounter
--- OUTSIDE RECORDS SUMMARY | 2024-11-19 07:12 | External Medical Summary | Summary of Care ---
Author Name Unknown Organization [facility] Address [address] [facility] [place] [address] Phone [phone] Care Team Providers Care Registered Nurse Cardiac Telemetry Name Role Phone Ryan Hadley MD Primary Care Provider + Reason for Visit * Reason Onset Date Comments Test Results Lab 11/18/2024 Encounter Details Date Type Department Care Team (Late st Contact Info) Description 11/18/2024 Telephone General Internal Medicine [facility] 200 [place] [address] Ryan Hadley MD 200 [facility] [place] [address] Test Results Lab Allergies Active Allergy Reactions [...] Respimat 1.25 MCG/ACT Inhalation Aerosol Solution (Tiotropium [place] Monohydrate)Indications :Moderate persistent asthma without complication Inhale [...] III 08/09/2019 Morbid obesity, unspecified obesity type 02/14/2 019 Thrombocytopenia 08/13/2018 Diastolic dysfunction 02/11/2018 GERD [...] 09/24/2018 04/03/2020 Overview (12/18/2020): DO NOT DELETE [employer] DETECT Study: Project # [id number], Recreation Worker: Naun Jones, PhD. SUMMARY: Goal: Establish test [...] contact study staff at ; after hours Recreation Worker via the [facility] hat blocking machine operator . Please contact study team before resolving/deleting from patients problem list. Study phone number: [phone]. Diagnosis changed due to Research Module. Go to Snapshot for study details. Encounter for examination fo r normal comparison and control in clinical research program 09/24/2018 05/02/2022 Overview (12/18/2020): DO NOT DELETE - [facility] DETECT Study: Project # [id number], Recreation Worker: Ady Bruno, MS, MPH. SUMMARY: Goal: Establish [...] contact study staff at ; after hours Recreation Worker via the [facility] hospital hat blocking machine operator . - Please contact study team before resolving/deleting from patients problem list. Study phone number: [phone]. Diagnosis changed due to Research Module. Go [...] appointment. EXTRINSIC ASTHMA, UNSPEC 09/23/2003 LOC PRIM [id number] 07/29/200301/30 Type 2 diabetes mellitus wit h [...] mRNA, LNP-s, No Pre serve, 2-Dose Series ([employer]) 10/02/2021,09/01/2021,12/05/2020,11/14 Influenza, Whole Virus 07/16/2003 Pneumococcal Conjugate [...] encounter Miscellaneous Notes * Telephone Encounter - Elis Lemons CMA - 11/18/2024 4:59 PM EDT Labs and OV notes faxed to [facility] successfully. Elis Lemons CMA * Telephone Encounter - Ryan Hadley MD - 11/18/2024 3:18 PM EDT I called [facility] ER to expect patient Please fax 11/17/24 labs and my last ov note. * Telephone Encounter - Rikki Hodges CMA - 11/18/2024 3:02 PM EDT Spoke with pt, advised of Dr. Hadley's message, pt stated she will go to the hospital today, she is currently at an appt with her . * Telephone Encounter - Rikki Hodges CMA - 11/18/2024 2:59 PM EDT ----- Message from Ryan Hadley MD sent at 11/18/2024 2:58 PM EDT ----- Pls call. Her anemia is worse. Her iron is low. I am concerned she is bleeding and I feel needs to go to ER now. Please see if she will go. I worry if anemia gets worse, will cause cardiac or other issues. documented in this encounter Plan of Treatment Upcoming Encounters Date Type Department Care Team (Late st Contact Info) Description 11/19/2024 2:20 PM EDT Telemedicine Nephrology, [facility] 200 [facility] [place] [address] Dru Vicente MD 200 [facility] [place] [address] 02/24/2025 4:30 PM EDT [facility] [place] [address] [place] [phone] Glory Martinez CRNP [address] [place] [address] 04/18/2025 11:15 AM EDT Imaging Radiology [address] [place] [address] 05/10/2025 1:30 PM EDT Office Visit Cardiology [address] [place] [address] Ricky Hackett PA-C [address] [place] [address] 05/16/2025 11:00 AM EDT Office Visit Hepatology, [facility] [address] [place] [phone] Rachelle Camargo DO [address] [place] [address] 06/06/2025 12:30 PM EDT Imaging Radiology [facility] [address] [place] [phone] 09/19/2025 12:30 PM EST Imaging Radiology [address] [place] [address] Scheduled Procedures Name Priority Associated Diagnoses Date/Ti me ESOPHAGOGASTRODUODENOSCOPY ( EGD), FLEXIBLE, TRANSORAL, DIAGNOSTIC Recall [...] Additional history exists CKD PHOS USE SMARTSET 68540 06/14/202506/01, 04/02/2023, 03/21/2023, Additional history exists CKD HGB USE SMARTSET 35201 11/17/202511/17, 11/17/2024, 11/03/2024, Additional history exists DTap/Tdap [...] filedocumented as of this encounter Care Teams Registered Nurse Cardiac Telemetry Relationship Specialty Start Date End Date Ryan Hadley MD [address] [place] [address] PCP - General Internal Medicine 11/06/17 documented as of this encounter
--- OUTSIDE RECORDS SUMMARY | 2024-11-19 07:12 | External Medical Summary | Summary of Care ---
Author Name Unknown Organization [facility] Address [address] [facility] [place] [address] Phone [phone] Care Team Providers Care Roll Icer Machine Name Role Phone Ryan Hadley MD Primary Care Provider + Reason for Visit * Reason Onset Date Comments Test Results Lab 11/18/2024 Encounter Details Date Type Department Care Team (Late st Contact Info) Description 11/18/2024 Telephone General Internal Medicine [facility] [address] [facility] [place] [address] Ryan Hadley MD 200 [facility] [place] [address] Test Results Lab Allergies Active Allergy Reactions [...] Respimat 1.25 MCG/ACT Inhalation Aerosol Solution (Tiotropium [place] Monohydrate)Indications :Moderate persistent asthma without complication Inhale [...] 09/24/2018 04/03/2020 Overview (12/18/2020): DO NOT DELETE [employer] DETECT Study: Project # [id number], Director Counseling Bureau: Naun Jones, PhD. SUMMARY: Goal: Establish test [...] contact study staff at ; after hours Director Counseling Bureau via the [facility] regrinder operator . Please contact study team before resolving/deleting from patients problem list. Study phone number: [phone]. Diagnosis changed due to Research Module. Go to Snapshot for study details. Encounter for examination fo r normal comparison and control in clinical research program 09/24/2018 05/02/2022 Overview (12/18/2020): DO NOT DELETE - [employer] DETECT Study: Project # [id number], Director Counseling Bureau: Ady Bruno, MS, MPH. SUMMARY: Goal: Establish [...] contact study staff at ; after hours Director Counseling Bureau via the [facility] regrinder operator . - Please contact study team before resolving/deleting from patients problem list. Study phone number: [phone]. Diagnosis changed due to Research Module. Go [...] appointment. EXTRINSIC ASTHMA, UNSPEC 09/23/2003 LOC PRIM [id number] 07/29/200301/30 Type 2 diabetes mellitus wit h [...] mRNA, LNP-s, No Pre serve, 2-Dose Series (Rapportive) 10/02/2021,09/01/2021,12/05/2020,11/14 Influenza, Whole Virus 07/16/2003 Pneumococcal Conjugate [...] EDT Labs and OV notes faxed to [facility] successfully. Elis Lemons CMA * Telephone Encounter - Ryan Hadley MD - 11/18/2024 3:18 PM EDT I called [facility] to expect patient Please fax 11/17/24 [...] Description 11/19/2024 2:20 PM EDT Telemedicine Nephrology, [facility] [address] [facility] [place] [address] Dru Vicente MD 200 [facility] [place] [address] 02/24/2025 4:30 PM EDT [facility] [address] [place] [phone] Glory Martinez CRNP [address] [place] [address] 04/18/2025 11:15 AM EDT Imaging Radiology [address] [place] [address] 05/10/2025 1:30 PM EDT Office Visit Cardiology [address] [place] [address] Ricky Hackett PA-C [address] [place] [address] 05/16/2025 11:00 AM EDT Office Visit Hepatology, [facility] [address] [place] [phone] Rachelle Camargo DO [address] [place] [address] 06/06/2025 12:30 PM EDT Imaging Radiology [facility] [address] [place] [phone] 09/19/2025 12:30 PM EST Imaging Radiology [address] [place] [address] Scheduled Procedures Name Priority Associated Diagnoses Date/Ti [...] Additional history exists CKD PHOS USE SMARTSET 72110 06/14/202506/01, 04/02/2023, 03/21/2023, Additional history exists CKD HGB USE SMARTSET 45377 11/17/202511/17, 11/17/2024, 11/03/2024, Additional history exists DTap/Tdap [...] filedocumented as of this encounter Care Teams Roll Icer Machine Relationship Specialty Start Date End Date Ryan Hadley MD [address] [place] [address] PCP - General Internal Medicine 11/06/17 documented as of this encounter
--- OUTSIDE RECORDS SUMMARY | 2024-11-19 07:12 | External Medical Summary | Summary of Care ---
Author Name Unknown Organization [facility] Address [address] [facility] [place] [address] Phone [phone] Care Team Providers Care Social Services Director Name Role Phone Ryan Hadley MD Primary Care Provider + Reason for Visit * Reason Onset Date Comments Appointment 11/17/2024 Encounter Details Date Type Department Care Team (Late st Contact Info) Description 11/17/2024 Telephone General Internal Medicine [facility] [address] [place] [address] Ryan Hadley MD 200 [facility] [place] [address] Appointment Allergies Active Allergy Reactions Criticality Noted [...] Respimat 1.25 MCG/ACT Inhalation Aerosol Solution (Tiotropium [place] Monohydrate)Indications :Moderate persistent asthma without complication Inhale [...] 04/03/2020 Overview (12/18/2020): DO NOT DELETE [facility] DETECT Study: Project # [id number], Director Of Strategic Sales: Naun Jones, PhD. SUMMARY: Goal: Establish [...] study staff at ; after hours Director Of Strategic Sales via the [facility] hospital cloth dye range operator . Please contact study team before resolving/deleting from patients problem list. Study phone number: [phone]. Diagnosis changed due to Research Module. Go to Snapshot for study details. Encounter for examination fo r normal comparison and control in clinical research program 09/24/2018 05/02/2022 Overview (12/18/2020): DO NOT DELETE - [employer] DETECT Study: Project # [id number], Director Of Strategic Sales: Ady Bruno, MS, MPH. SUMMARY: Goal: [...] study staff at ; after hours Director Of Strategic Sales via the [facility] hospital cloth dye range operator . - Please contact study team before resolving/deleting from patients problem list. Study phone number: [phone]. Diagnosis changed due to Research Module. Go [...] appointment. EXTRINSIC ASTHMA, UNSPEC 09/23/2003 LOC PRIM [id number] 07/29/200301/30 Type 2 diabetes mellitus wit h [...] mRNA, LNP-s, No Pre serve, 2-Dose Series ([employer]) 10/02/2021,09/01/2021,12/05/2020,11/14 Influenza, Whole Virus 07/16/2003 Pneumococcal Conjugate [...] Miscellaneous Notes * Telephone Encounter - Rachelle Epstein OSA - 11/18/2024 2:13 PM EDT LMOM for pt to return call and schedule * Telephone Encounter - Ryan Hadley MD [...] Description 11/19/2024 2:20 PM EDT Telemedicine Nephrology, [facility] [address] [place] [address] Dru Vicente MD [address] [place] [address] 02/24/2025 4:30 PM EDT Telemedicine Sleep Disorders Ctr [facility] [address] [place] [phone] Glory Martinez CRNP [address] [place] [address] 04/18/2025 11:15 AM EDT Imaging Radiology [address] [place] [address] 05/10/2025 1:30 PM EDT Office Visit Cardiology [address] [place] [address] Ricky Hackett, PAYelitza [address] [place] [address] 05/16/2025 11:00 AM EDT Office Visit Hepatology, [facility] [address] [place] [phone] Rachelle Camargo DO [address] [place] [address] 06/06/2025 12:30 PM EDT Imaging Radiology [facility] [address] [place] [address] 09/19/2025 12:30 PM EST Imaging Radiology [address] [place] [address] Scheduled Procedures Name Priority Associated Diagnoses Date/Ti [...] Additional history exists CKD PHOS USE SMARTSET 85244 06/14/202506/01, 04/02/2023, 03/21/2023, Additional history exists CKD HGB USE SMARTSET 78739 11/17/202511/17, 11/17/2024, 11/03/2024, Additional history exists DTap/Tdap [...] filedocumented as of this encounter Care Teams Social Services Director Relationship Specialty Start Date End Date Ryan Hadley MD [address] [facility] [place] [address] PCP - General Internal Medicine 11/06/17 documented as of this encounter
[2024-11-19 07:15] LABS: Basophils # (auto) 0.02 K/uL (0.00-0.20); Basophils % (auto) 0.3 %; Eosinophils % (auto) 4.3 %; Hemoglobin 7.9 g/dl (12.0-16.0); Immature Granulocytes # (auto) 0.02 K/uL (0.01-0.20); Immature Granulocytes % (auto) 0.3 %; Lymphocytes # (auto) 2.39 K/uL (1.20-3.40); Lymphocytes % (auto) 34.4 %; Mean Corpuscular Hgb Conc 30.4 g/dL (32.0-36.0); Mean Corpuscular Volume 82.3 fL (80.0-100.0); Mean Platelet Volume 11.4 fL (9.4-12.4); Monocytes % (auto) 14.4 %; Neutrophils # (auto) 3.22 K/uL (1.40-6.50); Neutrophils % (auto) 46.3 %; Platelet Count 101 K/uL (130-400); RDW Coefficient of Variation 15.9 % (11.5-14.5); RDW Standard Deviation 47.8 fL (36.4-46.3); Red Blood Count 3.16 M/uL (4.20-5.40); White Blood Count 6.95 K/ul (4.8-10.8)
[2024-11-19] MEDS ORDERED: SODIUM CHLORIDE 0.9% 100 ML IV PRN (07:16)
[2024-11-19 07:28] LABS: BUN Creatinine Ratio 22.3 (10-20); Calcium 9.1 mg/dl (8.6-10.3); Creatinine Clr Calc Pharmacy 35.2 ml/min; Potassium 4.1 mmol/L (3.5-5.1)
[2024-11-19 07:44] LABS: Hypochromasia Present; Polychromasia 1+
[2024-11-19 07:45] LABS: Hypersegmented Neutrophils 1+
[2024-11-19] MEDS: FLUTICASONE/VILANTEROL 200/25MCG 14 PUFFS/INHALER INH SCH (08:58)
[2024-11-19] MEDS: UMECLIDINIUM BROMIDE 62.5MCG/BLISTER 7 PUFFS/INHALER INH SCH (08:58)
[2024-11-19] MEDS: PANTOprazole 40 MG TAB PO SCH (08:58)
[2024-11-19] MEDS: MULTIVITAMIN TAB PO SCH (08:58)
[2024-11-19] MEDS: CETIRIZINE HCL 10 MG TABLET PO SCH (08:58)
[2024-11-19] MEDS: TORSEMIDE 20 MG TAB PO SCH (08:58)
[2024-11-19] MEDS: ISOSORBIDE MONO EXTENDED REL 30 MG TABCR PO SCH (08:58)
[2024-11-19 09:42] LABS: Ferritin 7.8 ng/ml (8-388)
[2024-11-19] MEDS: PSYLLIUM or GUAR GUM FIBER 4GM PACKET PO SCH (09:42)
[2024-11-19 11:35] LABS: Folate (Folic Acid),Ser orPlas 11.04 ng/ml (>5.38)
[2024-11-19 13:08] LABS: Hemoglobin 8.7 g/dl (12.0-16.0)
--- NOTE | 2024-11-19 13:50 | Hospitalist Progress Note ---
Date of Service November 19, 2024 Assessment & Plan (1) Symptomatic anemia: Plan: 79-year-old female with PMH of chronic diastolic heart failure [EF 50 to 55%, TTE 2023], A-fib/atrial flutter status post cardioversion on Eliquis, HTN, HLD, SHANA on CPAP, bronchial asthma, NAFLD cirrhosis, GERD, portal gastropathy, colonic polyps, T2DM diet-controlled, subclinical hyperthyroidism, CKD [baseline creatinine of 1.4], chronic anemia [baseline hemoglobin of 11], chronic thrombocytopenia, past tobacco abuse was directed to the ED for evaluation due to outpatient hemoglobin of 6.8 two days ago QUITLINE COUNSELOR. Per patient, she was having worsening shortness of breath on exertion/fatigue symptoms for last 3 weeks QUITLINE COUNSELOR, denied chest pain or cough symptoms. Patient reported her fluid retention was actually getting better after adjustment of diuretics by cardiology provider in the recent weeks prior to arrival. Patient denied abdominal pain, black/bloody stool, hematuria symptoms. Patient reported transient epistaxis over the last few weeks QUITLINE COUNSELOR and transient bleeding post dental procedure last week QUITLINE COUNSELOR. She is being managed for the following: Symptomatic anemia Likely iron deficiency anemia HO GERD, portal gastropathy, colonic polyps Patient was evaluated for progressive shortness of breath with exertion and fatigue symptoms, outpatient hemoglobin noted to be 6.8. Admitting hemoglobin of 7.2, FOBT in the ED was negative. Vitamin B12 468, folic acid level 11.04, LDH and T. bili WNL. MCV low normal, Iron profile: Low normal iron level with low transferrin saturation and low ferritin level. Likely secondary to iron deficiency in the setting of transient epistaxis and dental bleeding [see above] in the recent past few weeks QUITLINE COUNSELOR. Pt stated she was continuing her Eliquis during those weeks. Patient received 2 unit PRBC 11/19 Current hemoglobin 8.7 Await repeat FOBT, Eliquis on hold until then. Will start vitamin B12 and folic acid supplement, plan to start her on iron supplement in the next few days after she moves bowel. Pt states her colonoscopy is due 11/22 which she plans to reschedule at the moment. Chronic HF w/ preserved ejection fraction: appears mildly vol overloaded on exam, patient reported her fluid retention was actually getting better after adjustment of diuretics by cardiology provider in the recent weeks prior to arrival. c/w home diuretic regimen as BP supports, will plan FR 1800 mL. Other chronic medical conditions: Continue with/resume home meds as and when able. 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 SCDs while Eliquis on hold given concern for GI bleed Full code Text document was generated using [employer] voice recognition software. It may contain grammatical or spelling errors. Kindly contact undersigned for clarification of any documentation item in question. Admission and Anticipated Discharge Date Admission Date: November 18, 2024 Subjective Patient was seen and examined at bedside. Patient was lying in bed, on room air, NAD, resting comfortably. Patient denies any black stool or blood in stool. Patient denies any abdominal pain. Patient denies any flulike illness or sore throat or cough or chest pain. Patient reported progressive weakness and shortness of breath with activity for last several weeks prior to arrival. Physical Exam Physical Exam: GENERAL: Comfortable, morbidly obese, pleasant, no respiratory distress SKIN: No pallor, warm HEENT: Pale palpebral conjunctivae, no ptosis, moist buccal mucosa NECK : Supple, short neck, no tenderness CHEST : Decreased breath sounds, no tenderness HEART : RRR, systolic murmur ABDOMEN: No distention, nontender EXTREMITIES : Minimal LE swelling without tenderness, palpable pulses, no other conspicuous deformities noted NEUROLOGIC : Coherent, no facial asymmetry, no other gross focality Results & Data Results & Data Vital Signs (Past 12 Hours) Vital Signs Temp Pulse Pulse Pulse Resp BP BP 11/19/24 10:55 36.6 C 49 L 16 93/56 L 11/19/24 10:10 36.5 C 55 L 17 103/63 11/19/24 09:10 36.8 C 60 18 96/56 L 11/19/24 08:40 36.8 C 75 18 115/68 11/19/24 08:25 36.9 C 69 17 113/70 11/19/24 08:05 37.0 C 73 18 117/69 11/19/24 07:46 36.9 C 70 16 110/60 11/19/24 06:45 54 L 11/19/24 03:02 36.8 C 52 L 16 105/63 11/19/24 02:45 36.7 C 53 L 18 112/73 11/19/24 02:25 36.5 C 54 L 18 113/72 11/19/24 02:16 74 Pulse Ox O2 Del Method O2 Flow Rate 11/19/24 10:55 97 0 11/19/24 10:10 98 0 11/19/24 09:10 98 0 11/19/24 08:40 98 11/19/24 08:25 97 0 11/19/24 08:05 98 0 11/19/24 07:46 97 Room Air 11/19/24 06:45 11/19/24 03:02 97 CPAP 11/19/24 02:45 11/19/24 02:25 94 11/19/24 02:16
[2024-11-19] MEDS: FOLIC ACID 1 MG TAB PO SCH (14:10)
[2024-11-19] MEDS: CYANOCOBALAMIN (B-12) 100 MCG TABLET PO SCH (14:10)
[2024-11-19] MEDS: FAMOTIDINE 20 MG TAB PO SCH (20:04)
[2024-11-19] MEDS: LOVASTATIN 20 MG TAB PO SCH (20:06)
[2024-11-20 09:04] LABS: Hematocrit (blood only) 29.5 % (37.0-47.0); Hemoglobin 9.1 g/dl (12.0-16.0); Mean Corpuscular Hemoglobin 25.2 pg (25.0-34.0); Mean Corpuscular Hgb Conc 30.8 g/dL (32.0-36.0); Mean Corpuscular Volume 81.7 fL (80.0-100.0); Mean Platelet Volume 11.1 fL (9.4-12.4); Platelet Count 98 K/uL (130-400); RDW Coefficient of Variation 15.9 % (11.5-14.5); RDW Standard Deviation 47.7 fL (36.4-46.3); Red Blood Count 3.61 M/uL (4.20-5.40); White Blood Count 7.87 K/ul (4.8-10.8)
[2024-11-20 09:16] LABS: BUN Creatinine Ratio 22.1 (10-20); Calcium 9.3 mg/dl (8.6-10.3); Magnesium 2.2 mg/dl (1.7-2.4); Phosphorus 3.5 mg/dl (2.5-4.9); Potassium 3.9 mmol/L (3.5-5.1)
[2024-11-20] MEDS: DOCUSATE SODIUM 100 MG CAP PO SCH (09:50)
[2024-11-20] MEDS: SPIRONOLACTONE 25 MG TAB PO SCH (11:13)
[2024-11-20] MEDS: POTASSIUM CHLORIDE 10 MEQ TABCR PO SCH (11:13)
[2024-11-20] MEDS: EMPAGLIFLOZIN 10 MG TAB PO SCH (11:13)
[2024-11-20] MEDS: APIXABAN 5 MG TABLET PO SCH (11:13)
--- NOTE | 2024-11-20 13:49 | Electrocardiogram Report ---
Test Reason : Blood Pressure : */* mmHG Vent. Rate : 74 BPM Atrial Rate : 74 BPM P-R Int : 180 ms QRS Dur : 88 ms QT Int : 374 ms P-R-T Axes : 57 -25 46 degrees QTcB Int : 415 ms Normal sinus rhythm Low voltage QRS Possible Old Anterolateral infarct (cited on or before 28-Jun-2021) Abnormal ECG When compared with ECG of 28-Jun-2021 15:03, QRS axis Shifted left Confirmed by Schuyler Stevenson ([id number]) on 11/20/2024 1:49:27 PM Referred By: Ryan Hadley Confirmed By: Schuyler Stevenson
--- NOTE | 2024-11-20 15:31 | Hospitalist Progress Note ---
Date of Service November 20, 2024 Assessment & Plan (1) Symptomatic anemia: Plan: 79-year-old female with PMH of chronic diastolic heart failure [EF 50 to 55%, TTE 2023], A-fib/atrial flutter status post cardioversion on Eliquis, HTN, HLD, SHANA on CPAP, bronchial asthma, NAFLD cirrhosis, GERD, portal gastropathy, colonic polyps, T2DM diet-controlled, subclinical hyperthyroidism, CKD [baseline creatinine of 1.4], chronic anemia [baseline hemoglobin of 11], chronic thrombocytopenia, past tobacco abuse was directed to the ED for evaluation due to outpatient hemoglobin of 6.8 two days ago HOOKER LASTER. Per patient, she was having worsening shortness of breath on exertion/fatigue symptoms for last 3 weeks HOOKER LASTER, denied chest pain or cough symptoms. Patient reported her fluid retention was actually getting better after adjustment of diuretics by cardiology provider in the recent weeks prior to arrival. Patient denied abdominal pain, black/bloody stool, hematuria symptoms. Patient reported transient epistaxis over the last few weeks HOOKER LASTER and transient bleeding post dental procedure last week HOOKER LASTER. She is being managed for the following: Symptomatic anemia Likely iron deficiency anemia HO GERD, portal gastropathy, colonic polyps Patient was evaluated for progressive shortness of breath with exertion and fatigue symptoms, outpatient hemoglobin noted to be 6.8. Admitting hemoglobin of 7.2, FOBT in the ED was negative. Vitamin B12 468, folic acid level 11.04, LDH and T. bili WNL. MCV low normal, Iron profile: Low normal iron level with low transferrin saturation and low ferritin level. Likely secondary to iron deficiency in the setting of transient epistaxis and dental bleeding [see above] in the recent past few weeks HOOKER LASTER. Pt stated she was continuing her Eliquis during those weeks. Patient received 2 unit PRBC 11/19 Current hemoglobin 9.1 Await repeat FOBT Pt worried about eliquis hold, resume eliquis, f/u HnH 8 pm and in am, await fobt. c/w vitamin B12 and folic acid supplement, plan to start her on iron supplement in the next few days after she moves bowel. Pt states her colonoscopy is due 11/22 which she plans to reschedule at the moment. Chronic HF w/ preserved ejection fraction: appears mildly vol overloaded on exam, patient reported her fluid retention was actually getting better after adjustment of diuretics by cardiology provider in the recent weeks prior to arrival. c/w home diuretic regimen as BP supports, pt doesn't want FR, will lift FR and continue to monitor. Other chronic medical conditions: Continue with/resume home meds as and when able. 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 SCDs while Eliquis on hold given concern for GI bleed Full code Text document was generated using [employer] voice recognition software. It may contain grammatical or spelling errors. Kindly contact undersigned for clarification of any documentation item in question. Admission and Anticipated Discharge Date Admission Date: November 18, 2024 Subjective Patient was seen and examined at bedside. Patient was sitting up in bed, on room air, NAD, resting comfortably. Patient denies any black stool or blood in stool. Patient denies any abdominal pain. Pt has not moved bowel, reports improvement in her easy fatigability and MORRIS. Physical Exam Physical Exam: GENERAL: Comfortable, morbidly obese, pleasant, no respiratory distress SKIN: No pallor, warm HEENT: Pale palpebral conjunctivae, no ptosis, moist buccal mucosa NECK : Supple, short neck, no tenderness CHEST : Decreased breath sounds, no tenderness HEART : RRR, systolic murmur ABDOMEN: No distention, nontender EXTREMITIES : Minimal LE swelling without tenderness, palpable pulses, no other conspicuous deformities noted NEUROLOGIC : Coherent, no facial asymmetry, no other gross focality Results & Data Results & Data Vital Signs (Past 12 Hours) Vital Signs Temp Pulse Pulse Resp BP Pulse Ox O2 Del Method 11/20/24 15:28 72 11/20/24 11:36 36.8 C 53 L 16 92/54 L 96 Room Air 11/20/24 08:30 66 11/20/24 08:12 36.9 C 62 16 109/63 96 Room Air
[2024-11-20 20:18] LABS: Hematocrit (blood only) 28.8 % (37.0-47.0); Hemoglobin 8.9 g/dl (12.0-16.0)
[2024-11-21 07:34] LABS: Hematocrit (blood only) 27.2 % (37.0-47.0); Hemoglobin 8.5 g/dl (12.0-16.0); Mean Corpuscular Hemoglobin 25.6 pg (25.0-34.0); Mean Corpuscular Hgb Conc 31.3 g/dL (32.0-36.0); Mean Corpuscular Volume 81.9 fL (80.0-100.0); Mean Platelet Volume 11.6 fL (9.4-12.4); Platelet Count 97 K/uL (130-400); RDW Coefficient of Variation 16.3 % (11.5-14.5); RDW Standard Deviation 48.4 fL (36.4-46.3); Red Blood Count 3.32 M/uL (4.20-5.40); White Blood Count 7.75 K/ul (4.8-10.8)
[2024-11-21 07:45] LABS: BUN Creatinine Ratio 27.7 (10-20); Calcium 9.1 mg/dl (8.6-10.3); Creatinine Clr Calc Pharmacy 31.4 ml/min; Potassium 4.1 mmol/L (3.5-5.1)
[2024-11-21] MEDS: POLYETHYLENE (MIRALAX) 17 GM PACK PO SCH (09:02)
--- NOTE | 2024-11-21 16:35 | Hospitalist Progress Note ---
Date of Service November 21, 2024 Assessment & Plan (1) Symptomatic anemia: Plan: 79-year-old female with PMH of chronic diastolic heart failure [EF 50 to 55%, TTE 2023], A-fib/atrial flutter status post cardioversion on Eliquis, HTN, HLD, SHANA on CPAP, bronchial asthma, NAFLD cirrhosis, GERD, portal gastropathy, colonic polyps, T2DM diet-controlled, subclinical hyperthyroidism, CKD [baseline creatinine of 1.4], chronic anemia [baseline hemoglobin of 11], chronic thrombocytopenia, past tobacco abuse was directed to the ED for evaluation due to outpatient hemoglobin of 6.8 two days ago SCOW HAND. Per patient, she was having worsening shortness of breath on exertion/fatigue symptoms for last 3 weeks SCOW HAND, denied chest pain or cough symptoms. Patient reported her fluid retention was actually getting better after adjustment of diuretics by cardiology provider in the recent weeks prior to arrival. Patient denied abdominal pain, black/bloody stool, hematuria symptoms. Patient reported transient epistaxis over the last few weeks SCOW HAND and transient bleeding post dental procedure last week SCOW HAND. She is being managed for the following: Symptomatic anemia Likely iron deficiency anemia Likely UGI bleed HO GERD, portal gastropathy, colonic polyps Patient was evaluated for progressive shortness of breath with exertion and fatigue symptoms, outpatient hemoglobin noted to be 6.8. Admitting hemoglobin of 7.2, FOBT in the ED was negative. Vitamin B12 468, folic acid level 11.04, LDH and T. bili WNL. MCV low normal, Iron profile: Low normal iron level with low transferrin saturation and low ferritin level. Likely secondary to iron deficiency in the setting of transient epistaxis and dental bleeding [see above] in the recent past few weeks SCOW HAND vs GI bleed. Pt stated she was continuing her Eliquis during those weeks. 11/21 FOBT +ve. Patient received 2 unit PRBC 11/19 Current hemoglobin 9.0 FOBT +ve, GI consult, NPO, Panto iv bid. Hold eliquis until GI eval/clearance. c/w vitamin B12 and folic acid supplement, start her on iron supplement Pt states her colonoscopy is due 11/22 which has been cancelled per pt d/t her being in hospital. Chronic HF w/ preserved ejection fraction: appears mildly vol overloaded on exam, patient reported her fluid retention was actually getting better after adjustment of diuretics by cardiology provider in the recent weeks prior to arrival. c/w home diuretic regimen as BP supports, pt doesn't want FR, will lift FR and continue to monitor. Other chronic medical conditions: Continue with/resume home meds as and when able. 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 SCDs while Eliquis on hold given concern for GI bleed Full code Text document was generated using [employer] voice recognition software. It may contain grammatical or spelling errors. Kindly contact undersigned for clarification of any documentation item in question. Admission and Anticipated Discharge Date Admission Date: November 18, 2024 Subjective Patient was seen and examined at bedside. Patient was sitting up in bed, on room air, NAD, resting comfortably. Patient denies any black stool or blood in stool, had last BM today AM, FOBT came back positive. Patient denies any abdominal pain. GI consulted, NPO midnight, eliquis held. Reports improvement in her easy fatigability and MORRIS. Physical Exam Physical Exam: GENERAL: Comfortable, morbidly obese, pleasant, no respiratory distress SKIN: No pallor, warm HEENT: Pale palpebral conjunctivae, no ptosis, moist buccal mucosa NECK : Supple, short neck, no tenderness CHEST : Decreased breath sounds, no tenderness HEART : RRR, systolic murmur ABDOMEN: No distention, nontender EXTREMITIES : Minimal LE swelling without tenderness, palpable pulses, no other conspicuous deformities noted NEUROLOGIC : Coherent, no facial asymmetry, no other gross focality Results & Data Results & Data Vital Signs (Past 12 Hours) Vital Signs Temp Pulse Pulse Resp BP BP Pulse Ox 11/21/24 15:07 36.5 C 69 18 95/56 L 99 11/21/24 12:16 36.6 C 74 18 113/66 97 11/21/24 09:18 52 L 11/21/24 08:07 36.7 C 57 L 18 96/60 L 96 11/21/24 07:25 O2 Del Method 11/21/24 15:07 Room Air 11/21/24 12:16 Room Air 11/21/24 09:18 11/21/24 08:07 BiPAP 11/21/24 07:25 BiPAP
[2024-11-21] MEDS: PANTOprazole 40 MG/10 ML SYR IV SCH (21:06)
[2024-11-22 06:53] LABS: Hematocrit (blood only) 30.6 % (37.0-47.0); Hemoglobin 9.3 g/dl (12.0-16.0); Mean Corpuscular Hemoglobin 24.9 pg (25.0-34.0); Mean Corpuscular Hgb Conc 30.4 g/dL (32.0-36.0); Mean Platelet Volume 11.3 fL (9.4-12.4); Platelet Count 112 K/uL (130-400); RDW Coefficient of Variation 16.3 % (11.5-14.5); RDW Standard Deviation 48.3 fL (36.4-46.3); Red Blood Count 3.73 M/uL (4.20-5.40); White Blood Count 7.52 K/ul (4.8-10.8)
[2024-11-22 07:12] LABS: Calcium 9.6 mg/dl (8.6-10.3); Creatinine Clr Calc Pharmacy 37.1 ml/min; Magnesium 2.2 mg/dl (1.7-2.4); Phosphorus 3.5 mg/dl (2.5-4.9); Potassium 4.2 mmol/L (3.5-5.1)
[2024-11-22] MEDS: FERROUS SULFATE 325 MG TAB PO SCH (08:25)
--- NOTE | 2024-11-22 10:34 | Gastrointestinal Consultation ---
Date of Consultation November 22, 2024 Assessment & Plan (1) Symptomatic anemia: Patient has been off her Eliquis since 11/18/24. -Clear liquid diet today -Bowel preparation ordered -Keep NPO after midnight for EGD & colonoscopy on 11/23/24 -Continue to monitor H/H Supervising Physician Co-Signing Physician Notes Patient with volume overload. Also significantly anemia. Iron stores consistent with iron deficiency anemia. She is heme positive. Will for outpatient investigation. Has difficult tolerating MiraLAX preparations though did do okay with GoLytely in the past. She is scheduled for both her upper and lower endoscopy tomorrow. Her Eliquis is on hold. History of Present Illness Reason for Consultation: Anemia, heme positive stools Attending Physician: Jan Irwin MD History of Present Illness Patient is a 79 yo female with PMH of chronic diastolic heart failure, A fib/fluter s/p cardioversion who is now on Eliquis, DM2 HTN, HLD, SHANA on CPAP, chronic anemia, MAFLD cirrhosis, GERD, & portal gastropathy. Patient presented to the hospital after experiencing shortness of breath with exertion for 3 weeks. She recently had diuretic adjustments by cardiology and had been feeling better prior to this. She had recent outpatient labs that indicated a hemoglobin of 7.3 (down from 11). She notes she did have episodes of epistaxis recently and bleeding after a dental procedure. Her hgb was checked as an outpatient was noted to be 6.8 two days prior to her admission and she was directed to the ED. She initially had heme negative stools, but FOBTs for some reason were repeated and eventually one was positive. She had a colonoscopy in Fall [address] Cota of [facility] and was scheduled for a repeat today as an outpatient prior to her confinement. She notes that in the fall she was noted to have a TVA that was removed, but she notes she had a poor prep and they had requested a repeat in 6 months. She denies abdominal pain, diarrhea, constipation, overt GI bleeding. No history of PUD. Allergies Allergy/AdvReac Type Severity Reaction Status Date / Time cefaclor Allergy Intermediate HIVES-RASH Verified 11/18/24 22:14 sulfamethoxazole [Bactrim] Allergy Intermediate HIVES Verified 11/18/24 22:14 trimethoprim [Bactrim] Allergy Intermediate HIVES Verified 11/18/24 22:14 vanilla extract flavor Allergy Intermediate THROAT Verified 11/18/24 22:50 GETS TIGHT,COUGH *scent only* metformin AdvReac Unknown Unverified 11/18/24 22:14 Home Medications Medication Instructions Recorded Confirmed Type albuterol sulfate 2.5 mg/3 mL 2.5 mg inhalation Q6H PRN 06/28/21 11/18/24 History (0.083 %) solution for nebulization COUGH/WHEEZE/SHORT OF BREATH benzonatate 100 mg capsule 100 - 200 mg PO TID PRN Cough 06/28/21 11/18/24 History (Catalino Quiñones) cetirizine 10 mg tablet (Zyrtec) 10 mg PO QAM 06/28/21 11/18/24 History famotidine 20 mg tablet 20 mg PO HS 06/28/21 11/18/24 History fluticasone 500 mcg-salmeterol 50 1 inh inhalation BID 06/28/21 11/18/24 History mcg/dose blistr powdr for inhalation (Wixela Inhub) fluticasone propionate 50 1 spray intranasal BID 06/28/21 11/18/24 History mcg/actuation nasal spray,suspension isosorbide mononitrate 30 mg 30 mg PO QAM 06/28/21 11/18/24 History tablet,extended release 24 hr lovastatin 40 mg tablet 40 mg PO HS 06/28/21 11/18/24 History metoprolol succinate 25 mg 25 mg PO BID 06/28/21 11/18/24 History tablet,extended release 24 hr multivitamin 1 tab PO QAM 06/28/21 11/18/24 History nitroglycerin 0.4 mg sublingual 0.4 mg sublingual DIRECTED PRN 06/28/21 11/18/24 History tablet (Nitrostat) Chest Pain omeprazole 20 mg capsule,delayed 20 mg PO QAM 06/28/21 11/18/24 History release tiotropium bromide 1.25 2 puff inhalation QAM 06/28/21 11/18/24 History mcg/actuation mist for inhalation (Spiriva Respimat) empagliflozin 10 mg tablet 10 mg PO QAM diasytolic dysfunction 03/20/23 11/18/24 History (Jardiance) acetaminophen 1,000 mg PO BID 11/18/24 11/18/24 History apixaban 5 mg tablet (Eliquis) 5 mg PO BID 11/18/24 11/18/24 History potassium chloride 10 mEq 10 meq PO QAM 11/18/24 11/18/24 History tablet,extended release spironolactone 25 mg tablet 25 mg PO QAM 11/18/24 11/18/24 History torsemide 20 mg tablet 20 mg PO QAM 11/18/24 11/18/24 History torsemide 20 mg tablet 20 mg PO QAM 11/18/24 11/18/24 History Patient History Medical History Diabetes Thrombocytopenia Post-COVID chronic cough Morbid obesity with BMI of 45.0-49.9, adult Chronic kidney disease Positive ROBERT (antinuclear antibody) Persistent shortness of breath after COVID-19 Cirrhosis of liver History of COVID-19 diagnosed 06/2021--fatigue, fever, shortness of breath/cough--still experiencing sob/cough. Surgical History History of gynecologic surgery x3 D&E History of bilateral carpal tunnel release History of left shoulder replacement History of total right knee replacement (TKR) History of total left knee replacement (TKR) History of colonoscopy History of esophagogastroduodenoscopy (EGD) History of bilateral tubal ligation History of partial hysterectomy History of tooth extraction upper partial S/P thyroid biopsy benign Family History Other No family history of adverse response to anesthesia Social History Smoking Status: Never smoker Second Hand Exposure: No; Do You Dip or Chew Tobacco: No; Hx Alcohol Use: No Hx Substance Use: No Preferred Language: Latvian Communication Ability: Effective 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 Beliefs That Will Affect Care: None Current Living Situation: Spouse and Family Current Living Situation Comment: Lives with and son Other Information That Helps Us Care for You: No Feels Safe at Home: Yes Assistive Devices: CPAP and Glasses Review of Systems Constitutional: + fatigue; no fever and no chills Respiratory: + dyspnea on exertion Gastrointestinal: no abdominal pain, no diarrhea/loose stools, no blood in stools and no melena Physical Exam Constitutional: well developed Respiratory: normal respiratory effort Gastrointestinal (Abdomen): normal bowel sounds, soft, nontender, no hepatos plenomegaly Psychiatric: Orientation: alert and oriented x 3 Results & Data Vital Signs (Past 12 Hours) Vital Signs Temp Pulse Pulse Resp BP BP Pulse Ox 11/22/24 07:36 11/22/24 07:25 36.4 C L 62 18 111/72 99 11/22/24 05:28 56 L 11/22/24 04:07 36.7 C 56 L 18 101/64 96 11/21/24 22:49 36.5 C 62 16 110/69 99 O2 Del Method 11/22/24 07:36 BiPAP 11/22/24 07:25 CPAP 11/22/24 05:28 11/22/24 04:07 Room Air 11/21/24 22:49 PG Care Time/CCT Total # of Minutes Spent Total Time Spent with Patient: Total time spent is greater than 50% in coordination of care (as documented) at patient's floor/unit and/or counseling patient: Coding Level of Care Code 38435 INT INP/OBS CARE 2/55MIN Diagnoses Symptomatic anemia D64.9
--- NOTE | 2024-11-22 11:23 | Electrocardiogram Report ---
Test Reason : Blood Pressure : */* mmHG Vent. Rate : 74 BPM Atrial Rate : 74 BPM P-R Int : 180 ms QRS Dur : 88 ms QT Int : 374 ms P-R-T Axes : 57 -25 46 degrees QTcB Int : 415 ms Normal sinus rhythm Low voltage QRS Possible Old Anterolateral infarct (cited on or before 28-Jun-2021) Abnormal ECG When compared with ECG of 28-Jun-2021 15:03, QRS axis Shifted left Confirmed by Schuyler Stevenson ([id number]) on 11/20/2024 1:49:27 PM Also confirmed by Schuyler Stevenson ([id number]), field map editor Ahmet Naqvi ([id number]) on 11/22/2024 11:22:27 AM Referred By: Ryan Hadley Confirmed By: Schuyler Stevenson
--- NOTE | 2024-11-22 13:58 | Electrocardiogram Report ---
Test Reason : Blood Pressure : */* mmHG Vent. Rate : 57 BPM Atrial Rate : 57 BPM P-R Int : 194 ms QRS Dur : 96 ms QT Int : 458 ms P-R-T Axes : 33 8 51 degrees QTcB Int : 445 ms Sinus bradycardia Low voltage QRS Possible Anterolateral infarct (cited on or before 28-Jun-2021) Abnormal ECG When compared with ECG of 18-Nov-2024 19:21, QRS axis Shifted right Confirmed by Pedrito Lawton ([id number]) on 11/22/2024 1:58:00 PM Referred By: Ryan Hadley Confirmed By: Pedrito Lawton
--- NOTE | 2024-11-22 14:22 | Hospitalist Progress Note ---
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 Patient reported her fluid retention was actually getting better after adjustment of diuretics by cardiology provider in the recent weeks prior to arrival. Patient denied abdominal pain, black/bloody stool, hematuria symptoms. 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 She is being managed for the following: Symptomatic anemia Likely iron deficiency anemia Likely UGI bleed HO GERD, portal gastropathy, colonic polyps Patient was evaluated for progressive shortness of breath with exertion and fatigue symptoms, outpatient hemoglobin noted to be 6.8. Admitting hemoglobin of 7.2, FOBT in the ED was negative. Vitamin B12 468, folic acid level 11.04, LDH and T. bili WNL. MCV low normal, Iron profile: Low normal iron level with low transferrin saturation and low ferritin level. 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 Pt stated she was continuing her Eliquis during those weeks. 11/21 FOBT +ve. Patient received 2 unit PRBC 11/19 Current hemoglobin 9.3 FOBT +ve, GI consult, clears diet, Panto iv bid. Hold eliquis until GI clearance. c/w vitamin B12 and folic acid supplement,iron supplement Plan for scope in AM per GI. Chronic HF w/ preserved ejection fraction: appears mildly vol overloaded on exam, patient reported her fluid retention was actually getting better after adjustment of diuretics by cardiology provider in the recent weeks prior to arrival. c/w home diuretic regimen as BP supports, pt doesn't want FR, aldactone on hold due to soft bp. Other chronic medical conditions: Continue with/resume home meds as and when able. 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 SCDs while Eliquis on hold given concern for GI bleed Full code Text document was generated using [employer] voice recognition software. It may contain grammatical or spelling errors. Kindly contact undersigned for clarification of any documentation item in question. Admission and Anticipated Discharge Date Admission Date: November 18, 2024 Subjective Patient was seen and examined at bedside. Patient was sitting up in bed, on room air, NAD, resting comfortably. Patient denies any black stool or blood in stool, had last BM 11/21 AM, FOBT came back positive. Patient denies any abdominal pain. Reports improvement in her easy fatigability and MORRIS. Physical Exam Physical Exam: GENERAL: Comfortable, morbidly obese, pleasant, no respiratory distress SKIN: No pallor, warm HEENT: Pale palpebral conjunctivae, no ptosis, moist buccal mucosa NECK : Supple, short neck, no tenderness CHEST : Decreased breath sounds, no tenderness HEART : RRR, systolic murmur ABDOMEN: No distention, nontender EXTREMITIES : Minimal LE swelling without tenderness, palpable pulses, no other conspicuous deformities noted NEUROLOGIC : Coherent, no facial asymmetry, no other gross focality Results & Data Results & Data Vital Signs (Past 12 Hours) Vital Signs Temp Pulse Pulse Resp BP BP Pulse Ox 11/22/24 13:25 55 L 11/22/24 10:53 36.5 C 72 16 92/60 L 99 11/22/24 07:36 11/22/24 07:25 36.4 C L 62 18 111/72 99 11/22/24 05:28 56 L 11/22/24 04:07 36.7 C 56 L 18 101/64 96 O2 Del Method 11/22/24 13:25 11/22/24 10:53 BiPAP 11/22/24 07:36 BiPAP 11/22/24 07:25 CPAP 11/22/24 05:28 11/22/24 04:07 Room Air
[2024-11-22] MEDS: LAVAGE SOLUTION 4000ML PO SCH (18:12)
[2024-11-22 20:03] LABS: Hematocrit (blood only) 29.5 % (37.0-47.0)
[2024-11-23 08:21] LABS: Hematocrit (blood only) 28.6 % (37.0-47.0); Hemoglobin 8.7 g/dl (12.0-16.0); Mean Corpuscular Hemoglobin 25.2 pg (25.0-34.0); Mean Corpuscular Hgb Conc 30.4 g/dL (32.0-36.0); Mean Corpuscular Volume 82.9 fL (80.0-100.0); Mean Platelet Volume 11.5 fL (9.4-12.4); Platelet Count 98 K/uL (130-400); RDW Coefficient of Variation 16.6 % (11.5-14.5); RDW Standard Deviation 49.1 fL (36.4-46.3); Red Blood Count 3.45 M/uL (4.20-5.40); White Blood Count 6.18 K/ul (4.8-10.8)
[2024-11-23 09:17] LABS: BUN Creatinine Ratio 26.4 (10-20); Calcium 8.9 mg/dl (8.6-10.3); Creatinine Clr Calc Pharmacy 39.3 ml/min; Potassium 3.2 mmol/L (3.5-5.1)
--- NOTE | 2024-11-23 09:24 | Anesthesiology Consultation ---
Date of Service November 23, 2024 Assessment & Plan (1) Encounter for pre-operative examination: Chart Review Chart Review: Acceptable Risk for Surgery and Patient NOT seen in Pre Admission Testing Consults Requested none History Surgery Operation Date: 11/23/24 16:30 Proposed Procedures p Colonoscopy EGD Dr. Scott Chavez MD Height/Weight Height: 5 ft Weight: 96.8 kg Allergies Allergy/AdvReac Type Severity Reaction Status Date / Time cefaclor Allergy Intermediate HIVES-RASH Verified 11/18/24 22:14 sulfamethoxazole [Bactrim] Allergy Intermediate HIVES Verified 11/18/24 22:14 trimethoprim [Bactrim] Allergy Intermediate HIVES Verified 11/18/24 22:14 vanilla extract flavor Allergy Intermediate THROAT Verified 11/18/24 22:50 GETS TIGHT,COUGH *scent only* metformin AdvReac Unknown Unverified 11/18/24 22:14 Medications Home Medications Medication Instructions Recorded Confirmed Last Taken albuterol sulfate 2.5 mg/3 mL 2.5 mg inhalation Q6H PRN 06/28/21 11/18/24 10/21/24 08:00 (0.083 %) solution for nebulization COUGH/WHEEZE/SHORT OF BREATH benzonatate 100 mg capsule 100 - 200 mg PO TID PRN Cough 06/28/21 11/18/24 10/30/21 (Catalino Quiñones) cetirizine 10 mg tablet (Zyrtec) 10 mg PO QAM 06/28/21 11/18/24 11/18/24 08:00 famotidine 20 mg tablet 20 mg PO HS 06/28/21 11/18/24 11/17/24 22:00 fluticasone 500 mcg-salmeterol 50 1 inh inhalation BID 06/28/21 11/18/24 11/18/24 08:00 mcg/dose blistr powdr for inhalation (Donaldoxcarole Inhub) fluticasone propionate 50 1 spray intranasal BID 06/28/21 11/18/24 11/02/21 05:00 mcg/actuation nasal spray,suspension isosorbide mononitrate 30 mg 30 mg PO QAM 06/28/21 11/18/24 11/18/24 08:00 tablet,extended release 24 hr lovastatin 40 mg tablet 40 mg PO HS 06/28/21 11/18/24 11/17/24 22:00 metoprolol succinate 25 mg 25 mg PO BID 06/28/21 11/18/24 11/18/24 08:00 tablet,extended release 24 hr multivitamin 1 tab PO QAM 06/28/21 11/18/24 11/18/24 08:00 nitroglycerin 0.4 mg sublingual 0.4 mg sublingual DIRECTED PRN 06/28/21 11/18/24 Unknown tablet (Nitrostat) Chest Pain omeprazole 20 mg capsule,delayed 20 mg PO QAM 06/28/21 11/18/24 11/18/24 08:00 release tiotropium bromide 1.25 2 puff inhalation QAM 06/28/21 11/18/24 11/18/24 08:00 mcg/actuation mist for inhalation (Spiriva Respimat) empagliflozin 10 mg tablet 10 mg PO QA diasytolic dysfunction 03/20/23 11/18/24 11/18/24 08:00 (Jardiance) acetaminophen 1,000 mg PO BID 11/18/24 11/18/24 11/18/24 08:00 apixaban 5 mg tablet (Eliquis) 5 mg PO BID 11/18/24 11/18/24 11/18/24 08:00 potassium chloride 10 mEq 10 meq PO QAM 11/18/24 11/18/24 11/18/24 08:00 tablet,extended release spironolactone 25 mg tablet 25 mg PO QAM 11/18/24 11/18/24 11/18/24 08:00 torsemide 20 mg tablet 20 mg PO QAM 11/18/24 11/18/24 11/18/24 torsemide 20 mg tablet 20 mg PO QAM 11/18/24 11/18/24 11/18/24 08:00 Active Medications Generic Name Dose Route Start Last Admin Trade Name Freq PRN Reason Stop Dose Admin Acetaminophen 1,000 mg 11/18/24 23:45 11/23/24 08:14 Acetaminophen 500 Mg Tab PO 12/18/24 23:44 1,000 mg BID NAVDEEP Administration Apixaban 5 mg 11/20/24 11:00 11/21/24 07:49 Apixaban 5 Mg Tablet PO 12/20/24 10:59 5 mg BID NAVDEEP Administration Cetirizine HCl 10 mg 11/19/24 09:00 11/23/24 08:16 Cetirizine Hcl 10 Mg Tablet PO 12/19/24 08:59 10 mg QAM NAVDEEP Administration Cyanocobalamin 100 mcg 11/19/24 13:45 11/23/24 08:15 Cyanocobalamin (B-12) 100 Mcg Tablet PO 12/19/24 13:44 100 mcg QAM NAVDEEP Administration Docusate Sodium 100 mg 11/20/24 09:00 11/23/24 08:09 Docusate Sodium 100 Mg Cap PO 12/20/24 08:59 Not Given BID NAVDEEP Empagliflozin 10 mg 11/20/24 10:00 11/23/24 08:15 Empagliflozin 10 Mg Tab PO 12/20/24 09:59 10 mg QAM NAVDEEP Administration Famotidine 20 mg 11/19/24 21:00 11/22/24 20:52 Famotidine 20 Mg Tab PO 12/19/24 20:59 20 mg HS NAVDEEP Administration Ferrous Sulfate 325 mg 11/22/24 09:00 11/23/24 08:15 Ferrous Sulfate 325 Mg Tab PO 12/22/24 08:59 325 mg QAM NAVDEEP Administration Fluticasone/Vilanterol 1 puffs 11/19/24 09:00 11/23/24 08:13 Fluticasone/Vilanterol 200/25mcg 14 Puffs/Inhaler INH 12/19/24 08:59 1 puffs DAILY NAVDEEP Administration Folic Acid 1 mg 11/19/24 13:45 11/23/24 08:16 Folic Acid 1 Mg Tab PO 12/19/24 13:44 1 mg QAM NAVDEEP Administration Pantoprazole Sodium 40 mg in 10 mls @ 5 mls/min 11/21/24 21:00 11/23/24 08:13 Protonix IV 12/21/24 20:59 5 mls/min BID NAVDEEP Administration Insulin Aspart 0 units 11/18/24 23:56 11/23/24 08:09 Insulin Aspart Per Unit Charge SC 12/18/24 23:55 Not Given ACHS NAVDEEP Isosorbide Mononitrate 30 mg 11/19/24 09:00 11/23/24 08:15 Isosorbide [place] Extended Rel 30 Mg Tabcr PO 12/19/24 08:59 30 mg QAM NAVDEEP Administration Lovastatin 40 mg 11/19/24 21:00 11/22/24 20:52 Lovastatin 20 Mg Tab PO 12/19/24 20:59 40 mg HS NAVDEEP Administration Metoprolol Succinate 25 mg 11/18/24 23:45 11/23/24 08:15 Metoprolol Succ 25mg Ext Rel Tab PO 12/18/24 23:44 25 mg BID NAVDEEP Administration Multivitamins 1 tab 11/19/24 09:00 11/23/24 08:15 Multivitamin Tab PO 12/19/24 08:59 1 tab QAM NAVDEEP Administration Polyethylene Glycol 17 gm 11/21/24 09:00 11/23/24 08:10 Polyethylene (Miralax) 17 Gm Pack PO 12/21/24 08:59 Not Given DAILY NAVDEEP Potassium Chloride 10 meq 11/20/24 11:00 11/23/24 08:14 Potassium Chloride 10 Meq Tabcr PO 12/20/24 10:59 10 meq QAM NAVDEEP Administration Psyllium Hydrophilic Mucilloid 4 gm 11/19/24 09:00 11/23/24 08:10 Psyllium Or Guar Gum Fiber 4gm Packet PO 12/19/24 08:59 Not Given QAM NAVDEEP Spironolactone 25 mg 11/20/24 11:00 11/21/24 07:49 Spironolactone 25 Mg Tab PO 12/20/24 10:59 25 mg QAM NAVDEEP Administration Torsemide 20 mg 11/19/24 09:00 11/23/24 08:14 Torsemide 20 Mg Tab PO 12/19/24 08:59 20 mg QAM NAVDEEP Administration Umeclidinium Epps 1 puffs 11/19/24 09:00 11/23/24 08:13 Umeclidinium Epps 62.5mcg/Blister 7 Puffs/Inhaler INH 12/19/24 08:59 1 puffs QAM NAVDEEP Administration Past Medical History Medical History (Updated 11/23/24 @ 09:25 by Addison Ayala MD) Symptomatic anemia Diastolic CHF "echo 09/2015 - EF 62%, grade I diastolic dysfunction" Asthma, moderate persistent inhalers daily/prn SHANA (obstructive sleep apnea) cpap HTN (hypertension) Diabetes Thrombocytopenia Post-COVID chronic cough Morbid obesity with BMI of 45.0-49.9, adult Chronic kidney disease Positive ROBERT (antinuclear antibody) Persistent shortness of breath after COVID-19 Cirrhosis of liver History of COVID-19 diagnosed 06/2021--fatigue, fever, shortness of breath/cough--still experiencing sob/cough. 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 Past Family History Family History (Reviewed 11/23/24 @ 09: by Addison Ayala MD) Other No family history of adverse response to anesthesia Past Surgical History Surgical History (Updated 11/23/24 @ 09:25 by Addison Ayala MD) Hx of cholecystectomy History of gynecologic surgery x3 D&E History of bilateral carpal tunnel release History of left shoulder replacement History of total right knee replacement (TKR) History of total left knee replacement (TKR) History of colonoscopy History of esophagogastroduodenoscopy (EGD) History of bilateral tubal ligation History of partial hysterectomy History of tooth extraction upper partial S/P thyroid biopsy benign Social History Smoking Status: Never smoker tobacco type: cigarettes Do You Dip or Chew Tobacco: No Hx Alcohol Use: No Hx Substance Use: No substance use type: does not use Physical Exam Vital Signs Last Vital Signs Temp 36.4 C L 11/23/24 07:07 Pulse 70 11/23/24 08:14 Resp 18 11/23/24 07:07 BP 123/59 L 11/23/24 07:07 Pulse Ox 92 11/23/24 07:07 O2 Del Method Room Air 11/23/24 07:16 O2 Flow Rate 0 11/19/24 10:55 Testing Laboratory Results 11/23/24 07:33 11/23/24 07:33 PT 11.6 Seconds (9.0-12.0) 11/18/24 19:24 INR 1.1 (0.9-1.1) 11/18/24 19:24 APTT 27 Seconds (21-31) 11/18/24 19:24 Blood Type A Positive 11/18/24 19:24 Blood Type Cancelled 11/18/24 19:24 Antibody Screen Cancelled 11/18/24 19:24 Antibody Screen NEGATIVE 11/18/24 19:24 11/23/24 11/23/24 07:52 03:02 POC Glucose 80 87 Electrocardiogram Date: 11/18/24 DICTATED BY: Schuyler Stevenson MD Test Reason : Blood Pressure : */* mmHG Vent. Rate : 74 BPM Atrial Rate : 74 BPM P-R Int : 180 ms QRS Dur : 88 ms QT Int : 374 ms P-R-T Axes : 57 -25 46 degrees QTcB Int : 415 ms Normal sinus rhythm Low voltage QRS Possible Old Anterolateral infarct (cited on or before 28-Jun-2021) Abnormal ECG When compared with ECG of 28-Jun-2021 15:03, QRS axis Shifted left Confirmed by Schuyler Stevenson ([id number]) on 11/20/2024 1:49:27 PM Chest X-Ray Date: 11/18/24 Exam(s): XR CXR 1 VIEW EXAM: XR Chest, 1 View CLINICAL HISTORY: Reason for exam: renal failure. TECHNIQUE: Frontal view of the chest. COMPARISON: 06/28/21 FINDINGS: Lungs: No consolidation. Pleural space: No pleural effusion or pneumothorax. Heart: Cardiomegaly and vascular congestion. Bones/joints: Partially imaged left shoulder arthroplasty. No acute osseous findings. IMPRESSION: Cardiomegaly and vascular congestion.
[2024-11-23] MEDS: POTASSIUM CHLORIDE CRTAB 20 MEQ TABCR PO STA (09:44)
[2024-11-23] MEDS: POTASSIUM CHLORIDE / WTR 10 MEQ/100 ML PLCT IV ONE (09:45)
--- NOTE | 2024-11-23 11:46 | History & Physical Bridge Note ---
Date of Service November 23, 2024 History & Physical Bridge Note I have examined the patient, reviewed the History & Physical and in the interval since the performance of the History & Physical I have noted the following changes of clinical significance: no changes noted Patient notes she is passing clear liquid stools at this point. She denies abdominal pain or bleeding with her prep. She offers no new complaints at present. Keep NPO and proceed with colonoscopy today.
--- NOTE | 2024-11-23 14:51 | Communication Note ---
Date of Service: November 23, 2024 Patient seen in preop holding. Tolerated prep well No chest pain shortness of breath or abdominal pain. Proceed with EGD colonoscopy.
--- NOTE | 2024-11-23 15:39 | Communication Note ---
Date of Service: November 23, 2024 EGD No esophageal varices. No significant portal gastropathy. 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 These were not bleeding and did not bleed on contact so not coagulated. Her colon prep was poor a single polyp was identified in the ascending colon. Did not identify AVMs of the colon though prep not ideal. Small AVMs may be overlooked. However there was no fresh blood in the colon. At this point I think this patient will require periodic iron transfusions oral iron to keep up to her iron deficiency I suspect her hemoglobin will be fine as long as her iron is repleted. Patient can resume her Eliquis tomorrow. Can resume a usual diet today
--- NOTE | 2024-11-23 15:42 | GI REPORT ---
[facility] Patient: MARÍA ELENA POWERS : 1945 Sex at : Female Age: 79 Years Procedure: Upper GI endoscopy Date: 11/23/2024 Attending Physician: Sudhakar Chavez MD Referring MD: Ryan Hadley; Jan Irwin Md Indications: - Suspected upper gastrointestinal bleeding - Iron deficiency anemia - Cirrhosis Medications: - Monitored Anesthesia Care Complications: - No immediate complications. Estimated Blood Loss: - Estimated blood loss: None. Procedure: - The egd scope was introduced through the mouth and advanced to the second part of the duodenum. - The upper GI endoscopy was accomplished without difficulty. - The patient tolerated the procedure well. Findings: - The examined esophagus was normal. 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 - The examined duodenum was normal. Impression: - Normal esophagus. - Gastric antral vascular ectasia without bleeding. - Normal examined duodenum. - No specimens collected. Recommendation: - Oral iron. Periodic iron transfusions. Would not treat GAVE with APC or thermal therapy unless iron deficiency persist despite supplementation Procedure Code(s): - 47556, Esophagogastroduodenoscopy, flexible, transoral; diagnostic, including collection of specimen(s) by brushing or washing, when performed (separate procedure) Diagnosis Code(s): - K31.819, Angiodysplasia of stomach and duodenum without bleeding CPT(R) - 2023 copyright [employer]. All Rights Reserved. The CPT codes, CCI edits and ICD codes generated are intended as suggestions and were generated based on input data. These codes are preliminary and upon orthopedic coder review may be revised to meet current compliance and payer requirements. The provider is responsible for the final determination of appropriate codes, and modifiers. Sudhakar Chavez MD This document has been electronically signed. Note Initiated:11/23/2024 Note Completed:11/23/2024 3:42 PM [email or web address]\Provation\Results\LIVE\[id number]
--- NOTE | 2024-11-23 15:46 | GI REPORT ---
[facility] Patient: MARÍA ELENA POWERS : 1945 Sex at : Female Age: 79 Years Procedure: Colonoscopy Date: 11/23/2024 Attending Physician: Sudhakar Chavez MD Referring MD: Ryan Hadley; Jan Irwin Md Indications: - Occult gastrointestinal bleeding Medications: - Monitored Anesthesia Care - Monitored Anesthesia Care Complications: - No immediate complications. Estimated Blood Loss: - Estimated blood loss was minimal. Procedure: - The adult colonoscope was introduced through the anus and advanced to the cecum, identified by appendiceal orifice and ileocecal valve. - The colonoscopy was performed without difficulty. - The quality of the bowel preparation was poor. - The patient tolerated the procedure well. Findings: - The perianal examination was normal. - A small (4-6 mm) polyp was found in the ascending colon. The polyp was sessile. The polyp was removed with a cold snare. Resection and retrieval were complete. - Extensive iron staining and debris throughout the colon interfering with visualization extensive lavage with fair visualization Impression: - Preparation of the colon was poor. - Extensive iron staining and debris throughout the colon interfering with visualization extensive lavage with fair visualization - One small (4-6 mm) polyp in the ascending colon, removed with a cold snare. Resected and retrieved. Recommendation: - Await pathology results. - Repeat colonoscopy. - Oral iron and periodic iron transfusions to maintain iron repletion. I believe her anemia will be resolved with adequate iron stores Procedure Code(s): - 62738, Colonoscopy, flexible; with removal of tumor(s), polyp(s), or other lesion(s) by snare technique Diagnosis Code(s): - D12.2, Benign neoplasm of ascending colon CPT(R) - 2022 copyright [employer]. All Rights Reserved. The CPT codes, CCI edits and ICD codes generated are intended as suggestions and were generated based on input data. These codes are preliminary and upon hydrotherapist review may be revised to meet current compliance and payer requirements. The provider is responsible for the final determination of appropriate codes, and modifiers. Sudhakar Chavez MD This document has been electronically signed. Note Initiated:11/23/2024 Note Completed:11/23/2024 3:45 PM [email or web address]\Data\Provation\Results\LIVE\[id number].pdf
--- NOTE | 2024-11-23 16:16 | Anesthesiology Progress Note ---
Date of Service November 23, 2024 Anesthesia Post Procedure Vital Signs Vital Signs: Temp Pulse Pulse Resp BP BP Pulse Ox 11/23/24 16:02 66 16 95/44 L 97 11/23/24 15:47 69 16 112/58 L 96 11/23/24 14:27 36.6 C 63 16 122/69 98 11/23/24 13:33 55 L 11/23/24 10:56 36.5 C 53 L 16 103/61 99 11/23/24 08:14 70 11/23/24 07:16 11/23/24 07:07 36.4 C L 58 L 18 123/59 L 92 11/23/24 05:13 53 L 11/23/24 03:39 36.3 C L 57 L 18 129/72 100 11/23/24 00:16 36.2 C L 54 L 18 116/62 96 11/22/24 22:25 46 L 11/22/24 20:47 54 L 11/22/24 19:49 36.3 C L 54 L 18 113/71 97 11/22/24 19:08 O2 Del Method 11/23/24 16:02 Room Air 11/23/24 15:47 Room Air 11/23/24 14:27 Room Air 11/23/24 13:33 11/23/24 10:56 CPAP 11/23/24 08:14 11/23/24 07:16 Room Air 11/23/24 07:07 CPAP 11/23/24 05:13 11/23/24 03:39 Room Air 11/23/24 00:16 Room Air, CPAP 11/22/24 22:25 11/22/24 20:47 11/22/24 19:49 Room Air 11/22/24 19:08 Room Air Pain Intensity Back: Pain Intensity: 5 Transfer of Care Handoff Completed per policy Notes Mental Status: alert / awake / arousable Patient Amnestic to Procedure: Yes Nausea / Vomiting: adequately controlled Pain: adequately controlled Airway Patency, RR, SpO2: stable & adequate BP & HR: stable & adequate Hydration State: stable & adequate Anesthetic Complications: no major complications apparent
--- NOTE | 2024-11-23 16:16 | Hospitalist Progress Note ---
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 Patient reported her fluid retention was actually getting better after adjustment of diuretics by cardiology provider in the recent weeks prior to arrival. Patient denied abdominal pain, black/bloody stool, hematuria symptoms. 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 She is being managed for the following: Symptomatic anemia Likely iron deficiency anemia Likely UGI bleed, possible acute blood loss anemia HO GERD, portal gastropathy, colonic polyps Patient was evaluated for progressive shortness of breath with exertion and fatigue symptoms, outpatient hemoglobin noted to be 6.8. Admitting hemoglobin of 7.2, FOBT in the ED was negative. Vitamin B12 468, folic acid level 11.04, LDH and T. bili WNL. MCV low normal, Iron profile: Low normal iron level with low transferrin saturation and low ferritin level. 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 Pt stated she was continuing her Eliquis during those weeks. 11/21 FOBT +ve. Patient received 2 unit PRBC 11/19 Current hemoglobin 8.7 FOBT +ve, Panto iv bid. Hold eliquis until GI clearance. 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 11/23 Colonoscopy: poor preparation. small polyp in ascending colon, removed. f/u on biopsy result. GI recommends iron supplementation, and periodic transfusion to maintain iron repletion. c/w vitamin B12 and folic acid supplement,iron supplement. Chronic HF w/ preserved ejection fraction: appears mildly vol overloaded on exam, patient reported her fluid retention was actually getting better after adjustment of diuretics by cardiology provider in the recent weeks prior to arrival. c/w home diuretic regimen as BP supports, pt doesn't want FR, aldactone on hold due to soft bp. Other chronic medical conditions: Continue with/resume home meds as and when able. 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 SCDs while Eliquis on hold given concern for GI bleed, resume once HnH stable and w/ GI clearance. Full code Text document was generated using [employer] voice recognition software. It may contain grammatical or spelling errors. Kindly contact undersigned for clarification of any documentation item in ques tion. Admission and Anticipated Discharge Date Admission Date: November 18, 2024 Subjective Patient was seen and examined at bedside. Patient was sitting up in bed, on room air, NAD, resting comfortably. Patient denies any black stool or blood in stool. Patient denies any abdominal pain. Reports improvement in her easy fatigability and MORRIS. Physical Exam Physical Exam: GENERAL: Comfortable, morbidly obese, pleasant, no respiratory distress SKIN: No pallor, warm HEENT: Pale palpebral conjunctivae, no ptosis, moist buccal mucosa NECK : Supple, short neck, no tenderness CHEST : Decreased breath sounds, no tenderness HEART : RRR, systolic murmur ABDOMEN: No distention, nontender EXTREMITIES : Minimal LE swelling without tenderness, palpable pulses, no other conspicuous deformities noted NEUROLOGIC : Coherent, no facial asymmetry, no other gross focality Results & Data Results & Data Vital Signs (Past 12 Hours) Vital Signs Temp Pulse Pulse Resp BP Pulse Ox O2 Del Method 11/23/24 16:02 66 16 95/44 L 97 Room Air 11/23/24 15:47 69 16 112/58 L 96 Room Air 11/23/24 14:27 36.6 C 63 16 122/69 98 Room Air 11/23/24 13:33 55 L 11/23/24 10:56 36.5 C 53 L 16 103/61 99 CPAP 11/23/24 08:14 70 11/23/24 07:16 Room Air 11/23/24 07:07 36.4 C L 58 L 18 123/59 L 92 CPAP 11/23/24 05:13 53 L
[2024-11-23] MEDS: LIDOCAINE 2% 2 ML VIAL/AMP(20MG/ML) INFIL ONE (16:40)
[2024-11-23] MEDS: PROPOFOL IV EMULSION 10 MG/ML 20 ML VIAL IV ONE ×3 (16:40)
[2024-11-23] MEDS: IRON SUCROSE 200 MG in SODIUM CHLORIDE 0.9% 100 ML IV ONE (16:58)
[2024-11-23 21:03] LABS: Hematocrit (blood only) 28.7 % (37.0-47.0); Hemoglobin 8.7 g/dl (12.0-16.0)
[2024-11-24 07:27] LABS: Hematocrit (blood only) 28.8 % (37.0-47.0); Hemoglobin 8.8 g/dl (12.0-16.0); Mean Corpuscular Hemoglobin 25.3 pg (25.0-34.0); Mean Corpuscular Hgb Conc 30.6 g/dL (32.0-36.0); Mean Corpuscular Volume 82.8 fL (80.0-100.0); Mean Platelet Volume 11.6 fL (9.4-12.4); Platelet Count 99 K/uL (130-400); RDW Coefficient of Variation 17.1 % (11.5-14.5); RDW Standard Deviation 49.8 fL (36.4-46.3); Red Blood Count 3.48 M/uL (4.20-5.40); White Blood Count 5.76 K/ul (4.8-10.8)
[2024-11-24 07:31] LABS: BUN Creatinine Ratio 23.8 (10-20); Calcium 9.1 mg/dl (8.6-10.3); Phosphorus 3.5 mg/dl (2.5-4.9); Potassium 3.7 mmol/L (3.5-5.1)
--- NOTE | 2024-11-24 12:11 | Hospitalist Progress Note ---
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 Patient reported her fluid retention was actually getting better after adjustment of diuretics by cardiology provider in the recent weeks prior to arrival. Patient denied abdominal pain, black/bloody stool, hematuria symptoms. 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 She is being managed for the following: Symptomatic anemia Likely iron deficiency anemia Likely UGI bleed, possible acute blood loss anemia HO GERD, portal gastropathy, colonic polyps Patient was evaluated for progressive shortness of breath with exertion and fatigue symptoms, outpatient hemoglobin noted to be 6.8. Admitting hemoglobin of 7.2, FOBT in the ED was negative. Vitamin B12 468, folic acid level 11.04, LDH and T. bili WNL. MCV low normal, Iron profile: Low normal iron level with low transferrin saturation and low ferritin level. 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 Pt stated she was continuing her Eliquis during those weeks. 11/21 FOBT +ve. Patient received 2 unit PRBC 11/19 Current hemoglobin 8.7 FOBT +ve, Panto iv bid. Hold eliquis until GI clearance. 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 11/23 Colonoscopy: poor preparation. small polyp in ascending colon, removed. f/u on biopsy result. GI recommends iron supplementation, and periodic transfusion to maintain iron repletion. c/w vitamin B12 and folic acid supplement,iron supplement. Clinically much better today and remains stable with a stable hemoglobin She was advised to have iron supplement twice a day and have regular follow-up appointments with the PCP to check hemoglobin Reviewed gastroenterology note and she may need periodic iron transfusion to maintain hemoglobin His Eliquis will be restarted from this afternoon Chronic HF w/ preserved ejection fraction: Appears mildly vol overloaded on exam, patient reported her fluid retention was actually getting better after adjustment of diuretics by cardiology provider in the recent weeks prior to arrival. c/w home diuretic regimen as BP supports, pt doesn't want FR, aldactone on hold due to soft bp. Will resume her medications as before Other chronic medical conditions: Continue with/resume home meds as and when able. 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 SCDs while Eliquis on hold given concern for GI bleed, resume once HnH stable and w/ GI clearance. Eliquis will be restarted from this afternoon on discharge Full code Text document was generated using [employer] voice recognition software. It may contain grammatical or spelling errors. Kindly contact undersigned for clarification of any documentation item in question. Admission and Anticipated Discharge Date Admission Date: November 18, 2024 Subjective 11/24/2024 The patient was seen and examined in medical floor She has been feeling much better and denies any significant symptoms She has been ambulating in the hallway and refused to have PT evaluation She wants to be discharged today Review of Systems Review of Systems: All systems reviewed and are unremarkable except as noted below Physical Exam Physical Exam: Lying in bed without any acute distress Constitutional: well developed, well nourished and + morbidly obese Eyes: PERRL, conjunctivae normal, anicteric sclerae ENMT: external ear and nose normal, oropharynx normal Neck: trachea midline, no thyromegaly Respiratory: normal respiratory effort; no respiratory distress Auscultation: lungs clear to auscultation bilaterally and + diminished lung sounds ( at the bases); no crackles Cardiovascular: Rate/Rhythm: regular rate and regular rhythm; not tachycardic Heart Sounds: normal S1 and normal S2; no murmur Extremities: no edema Gastrointestinal (Abdomen): Inspection/Auscultation: normal bowel sounds; abdomen not distended Percussion/Palpation: abdomen soft; abdomen nontender Musculoskeletal: no acute arthritis involving any of the joint Neurologic: normal touch/pain/proprioception and moves all extremities; no focal motor deficits Lymphatic: no cervical or axillary lymphadenopathy Results & Data Results & Data Vital Signs (Past 12 Hours) Vital Signs Temp Pulse Pulse Resp BP BP Pulse Ox 11/24/24 11:46 36.6 C 79 20 102/51 L 96 11/24/24 11:36 11/24/24 08:46 64 11/24/24 08:05 37.0 C 54 L 16 105/55 L 97 11/24/24 07:30 60 11/24/24 04:07 36.6 C 57 L 20 118/82 98 O2 Del Method 11/24/24 11:46 Room Air 11/24/24 11:36 Room Air 11/24/24 08:46 11/24/24 08:05 Room Air 11/24/24 07:30 11/24/24 04:07 Room Air Laboratory Results Short CBC 11/23/24 11/24/24 Range/Units 20:05 06:56 WBC 5.76 (4.8-10.8) K/ul Hgb 8.7 L 8.8 L (12.0-16.0) g/dl Hct 28.7 L 28.8 L (37.0-47.0) % Plt Count 99 L (130-400) K/uL BMP 11/24/24 06:56 Sodium 140 Potassium 3.7 Chloride 107 Carbon Dioxide 26 BUN 31 H Creatinine 1.30 H Glucose 86 Calcium 9.1 Medications Administered Current Inpatient Medications Acetaminophen (Acetaminophen 500 Mg Tab) 1,000 mg PO BID [facility] Stop: 12/18/24 23:44 Last Admin: 11/24/24 08:44 Dose: 1,000 mg Apixaban (Apixaban 5 Mg Tablet) 5 mg PO BID [facility] Stop: 12/20/24 10:59 Last Admin: 11/21/24 07:49 Dose: 5 mg Cetirizine HCl (Cetirizine Hcl 10 Mg Tablet) 10 mg PO QAM [facility] Stop: 12/19/24 08:59 Last Admin: 11/24/24 08:41 Dose: 10 mg Cyanocobalamin (Cyanocobalamin (B-12) 100 Mcg Tablet) 100 mcg PO QAM [facility] Stop: 12/19/24 13:44 Last Admin: 11/24/24 08:40 Dose: 100 mcg Dextrose (Dextrose 50% 50 Ml Syringe) 25 - 50 ml IV UD PRN; Protocol PRN Reason: Hypoglycemia Protocol Stop: 12/18/24 23:55 Docusate Sodium (Docusate Sodium 100 Mg Cap) 100 mg PO BID [facility] Stop: 12/20/24 08:59 Last Admin: 11/24/24 08:38 Dose: Not Given Empagliflozin (Empagliflozin 10 Mg Tab) 10 mg PO QAM [facility] Stop: 12/20/24 09:59 Last Admin: 11/24/24 08:40 Dose: 10 mg Famotidine (Famotidine 20 Mg Tab) 20 mg PO HS [facility] Stop: 12/19/24 20:59 Last Admin: 11/23/24 20:20 Dose: 20 mg Ferrous Sulfate (Ferrous Sulfate 325 Mg Tab) [facility]: 12/22/24 08:59 Last Admin: 11/24/24 08:40 Dose: 325 mg Fluticasone/Vilanterol (Fluticasone/Vilanterol 200/25mcg 14 Puffs/Inhaler) 1 puffs INH DAILY [facility] Stop: 12/19/24 08:59 Last Admin: 11/24/24 08:41 Dose: 1 puffs Folic Acid (Folic Acid 1 Mg Tab) 1 mg PO QAM [facility] Stop: 12/19/24 13:44 Last Admin: 11/24/24 08:40 Dose: 1 mg Glucagon (Glucagon For Inj 1 Mg Vial) 1 mg SQ UD PRN; Protocol PRN Reason: Hypoglycemia Protocol Stop: 12/18/24 23:55 Glucose (Glucose 40% Gel 15 Gm Tube) 15 - 30 gm PO UD PRN; Protocol PRN Reason: Hypoglycemia Protocol Stop: 12/18/24 23:55 Glucose (Glucose 10 Tab/Tube) 4 - 8 tab PO UD PRN; Protocol PRN Reason: Hypoglycemia Protocol Stop: 12/18/24 23:55 Promethazine HCl (Phenergan) 6.25 mg in 50.25 mls @ 201 mls/hr IV Q6H PRN PRN Reason: Nausea And Vomiting Stop: 12/18/24 23:39 Pantoprazole Sodium (Protonix) 40 mg in 10 mls @ 5 mls/min IV BID [facility] Stop: 12/21/24 20:59 Last Admin: 11/24/24 08:40 Dose: 5 mls/min Insulin Aspart (Insulin Aspart Per Unit Charge) 0 units SC ACHS [facility] Stop: 12/18/24 23:55 Last Admin: 11/24/24 08:37 Dose: Not Given Isosorbide Mononitrate (Isosorbide Edgar Extended Rel 30 Mg Tabcr) 30 mg PO QAM [facility] Stop: 12/19/24 08:59 Last Admin: 11/24/24 08:40 Dose: 30 mg Lovastatin (Lovastatin 20 Mg Tab) 40 mg PO HS [facility] Stop: 12/19/24 20:59 Last Admin: 11/23/24 20:18 Dose: 40 mg Metoprolol Succinate (Metoprolol Succ 25mg Ext Rel Tab) 25 mg PO BID [facility] Stop: 12/18/24 23:44 Last Admin: 11/24/24 08:40 Dose: 25 mg Miscellaneous (Carbohydrates For Hypoglycemia ) 15 - 30 gm PO UD PRN PRN Reason: Hypoglycemia Protocol Stop: 12/18/24 23:55 Multivitamins (Multivitamin Tab) 1 tab PO QAM [facility] Stop: 12/19/24 08:59 Last Admin: 11/24/24 08:45 Dose: 1 tab Oxycodone HCl (Oxycodone Hcl Ir 5 Mg Tab (Immediate Release)) 5 mg PO Q4H PRN PRN Reason: Pain Stop: 12/02/24 23:39 Polyethylene Glycol (Polyethylene (Miralax) 17 Gm Pack) 17 gm PO DAILY [facility] Stop: 12/21/24 08:59 Last Admin: 11/24/24 08:45 Dose: 17 gm Potassium Chloride (Potassium Chloride 10 Meq Tabcr) 10 meq PO QAM [facility] Stop: 12/20/24 10:59 Last Admin: 11/24/24 08:45 Dose: 10 meq Psyllium Hydrophilic Mucilloid (Psyllium Or Guar Gum Fiber 4gm Packet) 4 gm PO QAM [facility] Stop: 12/19/24 08:59 Last Admin: 11/24/24 08:39 Dose: Not Given Spironolactone (Spironolactone 25 Mg Tab) 25 mg PO QAM [facility] Stop: 12/20/24 10:59 Last Admin: 11/21/24 07:49 Dose: 25 mg Torsemide (Torsemide 20 Mg Tab) 20 mg PO QAM [facility] Stop: 12/19/24 08:59 Last Admin: 11/24/24 08:40 Dose: 20 mg Umeclidinium Novice (Umeclidinium Novice 62.5mcg/Blister 7 Puffs/Inhaler) 1 puffs INH QAM [facility] Stop: 12/19/24 08:59 Last Admin: 11/24/24 08:41 Dose: 1 puffs
[2024-11-24] MEDS: PANTOprazole 40 MG TAB PO SCH (13:21)
--- NOTE | 2024-11-24 17:29 | Discharge Summary ---
Date of Service November 24, 2024 Admission HPI Per Admitting Provider History obtained from patient and records. Medical history significant for chronic diastolic heart failure (EF 50 to 55%, TTE 2023), A-fib/atrial flutter status post cardioversion on Eliquis, mild MR, hypertension, hyperlipidemia, SHANA on CPAP, bronchial asthma, , NAFLD cirrhosis, GERD, portal gastropathy as per records, colonic polyps, DM2 diet-controlled subclinical hyperthyroidism as per records, CRI (baseline creatinine 1.4), chronic anemia (baseline hemoglobin of 11 from June 2024), chronic thrombocytopenia, past tobacco abuse Last 2017 under Orthopedics service for elective left total knee surgery. Unremarkable postop course. Patient noted worsening SOB on exertion/fatigue symptoms the last 3 weeks. Denies chest pain or cough symptoms. Fluid retention actually getting better after adjustment of diuretic meds by cardiology provider last month. Outpatient hemoglobin 3 weeks ago noted to be down to 7.3 from baseline of 11 from last year. Patient denies abdominal pain, black/bloody stools, hematuria symptoms. Transient epistaxis over the last few weeks without headache symptoms. Transient bleeding post dental procedure last week. Outpatient hemoglobin drawn 2 days ago noted to be 6.8. Patient directed to ER for evaluation. FOBT done at the ER was negative. 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 Principal Diagnosis Symptomatic anemia, iron deficiency, chronic heart failure with preserved EF, type 2 diabetes, SHANA on CPAP Discharge Exam Lying in bed without any acute distress Constitutional well developed, well nourished and + morbidly obese Eyes PERRL, conjunctivae normal, anicteric sclerae ENMT external ear and nose normal, oropharynx normal Neck trachea midline, no thyromegaly Respiratory normal respiratory effort; no respiratory distress Auscultation: lungs clear to auscultation bilaterally and + diminished lung sounds ( at the bases); no crackles Cardiovascular Rate/Rhythm: regular rate and regular rhythm; not tachycardic Heart Sounds: normal S1 and normal S2; no murmur Extremities: no edema Gastrointestinal (Abdomen) Inspection/Auscultation: normal bowel sounds; abdomen not distended Percussion/Palpation: abdomen soft; abdomen nontender Neurologic normal touch/pain/proprioception and moves all extremities; no focal motor deficits Lymphatic no cervical or axillary lymphadenopathy Discharge Data Allergies Allergy/AdvReac Type Severity Reaction Status Date / Time cefaclor Allergy Intermediate HIVES-RASH Verified 11/18/24 22:14 sulfamethoxazole [Bactrim] Allergy Intermediate HIVES Verified 11/18/24 22:14 trimethoprim [Bactrim] Allergy Intermediate HIVES Verified 11/18/24 22:14 vanilla extract flavor Allergy Intermediate THROAT Verified 11/18/24 22:50 GETS TIGHT,COUGH *scent only* metformin AdvReac Unknown Unverified 11/18/24 22:14 Consultations 11/18/24 21:25 ED Decision to Admit Stat 11/21/24 10:59 Consult Gastroenterology Routine Procedures Performed Operation Date: 11/23/24 16:30 Actual Procedures p Esophagogastroduodenoscopy - Sudhakar Chavez MD s Colonoscopy Polypectomy - Sudhakar Chavez MD Hospital Course (1) Symptomatic anemia: 79-year-old female with PMH of chronic diastolic heart failure [EF 50 to 55%, TTE 2023], A-fib/atrial flutter status post cardioversion on Eliquis, HTN, HLD, SHANA on CPAP, bronchial asthma, NAFLD cirrhosis, GERD, portal gastropathy, colonic polyps, T2DM diet-controlled, subclinical hyperthyroidism, CKD [baseline creatinine of 1.4], chronic anemia [baseline hemoglobin of 11], chronic thrombocytopenia, past tobacco abuse was directed to the ED for evaluation due to outpatient hemoglobin of 6.8 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 Patient reported her fluid retention was actually getting better after adjustment of diuretics by cardiology provider in the recent weeks prior to arrival. Patient denied abdominal pain, black/bloody stool, hematuria symptoms. 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 She is being managed for the following: Symptomatic anemia Likely iron deficiency anemia Likely UGI bleed, possible acute blood loss anemia HO GERD, portal gastropathy, colonic polyps Patient was evaluated for progressive shortness of breath with exertion and fatigue symptoms, outpatient hemoglobin noted to be 6.8. Admitting hemoglobin of 7.2, FOBT in the ED was negative. Vitamin B12 468, folic acid level 11.04, LDH and T. bili WNL. MCV low normal, Iron profile: Low normal iron level with low transferrin saturation and low ferritin level. 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 Pt stated she was continuing her Eliquis during those weeks. 11/21 FOBT +ve. Patient received 2 unit PRBC 11/19 Current hemoglobin 8.7 FOBT +ve, P[place] iv bid. Hold eliquis until GI clearance. 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 11/23 Colonoscopy: poor preparation. small polyp in ascending colon, removed. f/u on biopsy result. GI recommends iron supplementation, and periodic transfusion to maintain iron repletion. c/w vitamin B12 and folic acid supplement,iron supplement. Clinically much better today and remains stable with a stable hemoglobin She was advised to have iron supplement twice a day and have regular follow-up appointments with the PCP to check hemoglobin Reviewed gastroenterology note and she may need periodic iron transfusion to maintain hemoglobin His Eliquis will be restarted from this afternoon Chronic HF w/ preserved ejection fraction: Appears mildly vol overloaded on exam, patient reported her fluid retention was actually getting better after adjustment of diuretics by cardiology provider in the recent weeks prior to arrival. c/w home diuretic regimen as BP supports, pt doesn't want FR, aldactone on hold due to soft bp. Will resume her medications as before Other chronic medical conditions: Continue with/resume home meds as and when able. 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 SCDs while Eliquis on hold given concern for GI bleed, resume once HnH stable and w/ GI clearance. Eliquis will be restarted from this afternoon on discharge Full code Text document was generated using [employer] voice recognition software. It may contain grammatical or spelling errors. Kindly contact undersigned for clarification of any documentation item in question. Total Time Total Time Spent Total Time Spent (In Minutes): 45 minutes Discharge Plan Discharge Items Patient Disposition: Home - Self-Care Reason For Visit: SYMPTOMATIC ANEMIA Discharge Diagnosis: Symptomatic anemia, iron deficiency, chronic heart failure with preserved EF, type 2 diabetes, SHANA on CPAP Condition on Discharge: Fair Activity: Resume your previous activity Non-emergency contact: Primary Care Provider Call non-emergency contact if: you have any medication questions and your symptoms worsen Follow-up/Referrals: Ryan Hadley MD [Primary Care Provider] - 12/02/24 11:20 am Diet: Carb Consistent or DM2 Addtl Attending Provider Instructions: Please take precautions to avoid falls You can restart your Eliquis from this afternoon Your iron tablet has been increased to 1 tablet twice a day You may need periodic iron infusion as an outpatient through your PCP Please keep appointments with your healthcare providers Pending Studies at Discharge: No Stand-Alone Forms: My [employer], Smoking Cessation Medications and DC Order Prescriptions: New cyanocobalamin (vitamin B-12) [Vitamin B-12] 100 mcg Tablet 100 mcg PO QAM Qty: 30 0RF folic acid 1 mg Tablet 1 mg PO QAM Qty: 30 0RF ferrous sulfate 325 mg (65 mg iron) Tablet,Delayed Release (Dr/Ec) 325 mg PO QAM Qty: 30 0RF Continued multivitamin Tablet 1 tab PO QAM albuterol sulfate 2.5 mg /3 mL (0.083 %) Solution For Nebulization 2.5 mg INHALATION Q6H PRN (Reason: COUGH/WHEEZE/SHORT OF BREATH) cetirizine [Zyrtec] 10 mg Tablet 10 mg PO QAM isosorbide mononitrate 30 mg Tablet Extended Release 24 Hr 30 mg PO QAM lovastatin 40 mg tablet 40 mg PO HS famotidine 20 mg Tablet 20 mg PO HS benzonatate [Tessalon Perles] 100 mg Capsule 100 - 200 mg PO TID PRN (Reason: Cough) Rx Instructions: DO NOT CRUSH, CHEW OR CUT. fluticasone propion-salmeterol [Wixela Inhub] 500-50 mcg/dose blister with device 1 inh INHALATION BID nitroglycerin [Nitrostat] 0.4 mg Tablet, Sublingual 0.4 mg sublingual DIRECTED PRN (Reason: Chest Pain) Rx Instructions: PLACE UNDER TONGUE EVERY 5 MINUTES FOR CHEST PAIN, UP TO 3 DOSES IN 15 MINUTE S. omeprazole 20 mg Capsule,Delayed Release(Dr/Ec) 20 mg PO QAM metoprolol succinate 25 mg Tablet Extended Release 24 Hr 25 mg PO BID fluticasone propionate 50 mcg/actuation [place],Suspension 1 spray INTRANASAL BID Spiriva Respimat 1.25 mcg/actuation Mist 2 puff INHALATION QAM Jardiance 10 mg Tablet 10 mg PO QAM torsemide 20 mg tablet 20 mg PO QAM potassium chloride 10 mEq tablet extended release 10 meq PO QAM spironolactone 25 mg tablet 25 mg PO QAM Eliquis 5 mg tablet 5 mg PO BID acetaminophen 1,000 mg PO BID Discontinued torsemide 20 mg tablet 20 mg PO QAM Discharge Orders: Discharge Order (Routine); Ordered 11/24/24 Ordered By: Lizeth Carrera Admission Data Admit Date/Time: 11/18/24 23:06 Attending Provider: Lizeth Carrera Admit Provider: Dima Jarrell Primary Care Provider: Ryan Hadley Other Providers: Dima Jarrell; Imani Canales Jr; Jan Irwin Other Interventions: Discharge Summary Assessment (RN) Last Done: 11/23/24 16:15
== END 2024-11-24 17:59 | disposition home or self-care (01) | DRG 378 ==
LOC: ED 19:09 → 2N 23:06 → SUATTDRO 23:06 → 2N 23:45
DX: K92.2 Gastrointestinal hemorrhage, unspecified; I48.92 Unspecified atrial flutter; I48.91 Unspecified atrial fibrillation; R19.5 Other fecal abnormalities; I13.0 Hypertensive heart and chronic kidney disease with heart failure and stage 1 through stage 4 chronic kidney disease, or unspecified chronic kidney disease; K74.60 Unspecified cirrhosis of liver; Z87.19 Personal history of other diseases of the digestive system; K31.89 Other diseases of stomach and duodenum; Z88.2 Allergy status to sulfonamides; E11.22 Type 2 diabetes mellitus with diabetic chronic kidney disease; D62 Acute posthemorrhagic anemia; Z79.01 Long term (current) use of anticoagulants; E05.80 Other thyrotoxicosis without thyrotoxic crisis or storm; G47.33 Obstructive sleep apnea (adult) (pediatric); I50.32 Chronic diastolic (congestive) heart failure; K76.0 Fatty (change of) liver, not elsewhere classified; K31.819 Angiodysplasia of stomach and duodenum without bleeding; N18.30 Chronic kidney disease, stage 3 unspecified